=== PATIENT | male | born 1950 | race Caucasian/White ===

== ENCOUNTER 2020-09-03 09:39 | Outpatient (REF) | payer MEDICARE, SELFPAY ==
[2020-09-03 11:23] LABS: Hematocrit 44.6 % (42-52); Mean Corpuscular HGB Conc 33.6 g/dl (31.0-36.0); Mean Corpuscular Hemoglobin 30.7 pg (27.0-33.0); Mean Corpuscular Volume 91.2 fL (80-98); Mean Platelet Volume 10.9 fL (9.4-12.4); Platelet Count 304 X10*3/uL (160-400); Red Blood Count 4.89 X10*6/uL (4.60-5.80); White Blood Count 7.4 X10*3/uL (4.8-10.8)
[2020-09-03 11:41] LABS: Alanine Aminotransferase 32 U/L (0-40); Albumin Level 4.6 g/dL (3.5-5.0); Alkaline Phosphatase 80 U/L (39-117); Anion Gap 14 (12-20); Aspartate Amino Transferase 22 U/L (5-37); Bilirubin Total 0.6 mg/dL (0.0-1.0); Blood Urea Nitrogen 19 mg/dL (9-16); Calcium 9.3 mg/dL (8.4-10.2); Carbon Dioxide 26 mmol/L (22-29); Chloride 104 mmol/L (96-108); Cholesterol 179 mg/dL; Estimated Glomerular Filt Rate 56; Glucose Fasting 111 mg/dL (60-99); HDL Cholesterol 65 mg/dL; LDL Cholesterol Calculated 91 mg/dl; Potassium 4.3 mmol/L (3.3-5.1); Sodium 140 mmol/L (135-145); Total Protein 7.3 g/dL (6.5-8.0); Triglycerides 116 mg/dL
== END 2020-09-03 09:40 | disposition home or self-care (01) ==
LOC: HO.HMGCLDS 09:39
PROVIDERS: PCP Internal Medicine; Visit Provider Internal Medicine
DX: I10 Essential (primary) hypertension (principal); E78.2 Mixed hyperlipidemia; J42 Unspecified chronic bronchitis
CPT/HCPCS: 36415; 80053; 80061; 85027

== ENCOUNTER 2021-02-12 08:37 | Outpatient (REF) | payer MEDICARE, SELFPAY ==
[2021-02-12 11:25] LABS: Hematocrit 46.4 % (42-52); Hemoglobin 15.3 g/dl (14.0-18.0); Mean Platelet Volume 11.2 fL (9.4-12.4); Platelet Count 298 X10*3/uL (160-400); Red Cell Distribution Width 12.7 % (11.0-16.0)
[2021-02-12 12:14] LABS: Alanine Aminotransferase 32 U/L (0-40); Albumin Level 4.5 g/dL (3.5-5.0); Alkaline Phosphatase 77 U/L (39-117); Anion Gap 16 (12-20); Aspartate Amino Transferase 22 U/L (5-37); Bilirubin Total 0.7 mg/dL (0.0-1.0); Blood Urea Nitrogen 21 mg/dL (9-16); Calcium 9.6 mg/dL (8.4-10.2); Carbon Dioxide 22 mmol/L (22-29); Chloride 105 mmol/L (96-108); Cholesterol 179 mg/dL; Estimated Glomerular Filt Rate > 60; Glucose Fasting 105 mg/dL (60-99); HDL Cholesterol 58 mg/dL; LDL Cholesterol Calculated 102 mg/dl; Potassium 4.2 mmol/L (3.3-5.1); Sodium 139 mmol/L (135-145); Total Protein 7.2 g/dL (6.5-8.0); Triglycerides 99 mg/dL
[2021-02-12 12:22] LABS: Prostate Specific Antigen Scr 3.31 ng/mL (<0.05-4.0)
== END 2021-02-12 08:38 | disposition home or self-care (01) ==
LOC: HO.HMGCLDS 08:37
PROVIDERS: PCP Internal Medicine; Visit Provider Internal Medicine
DX: Z12.5 Encounter for screening for malignant neoplasm of prostate (principal); E78.5 Hyperlipidemia, unspecified; I10 Essential (primary) hypertension; J44.9 Chronic obstructive pulmonary disease, unspecified
CPT/HCPCS: 36415; 80053; 80061; 84153; 85027

== ENCOUNTER 2021-09-26 11:12 | Outpatient (REF) | payer MEDICARE, SELFPAY ==
[2021-09-26 13:51] LABS: Hematocrit 44.9 % (42.0-52.0); Hemoglobin 15.3 g/dl (14.0-18.0); Mean Corpuscular HGB Conc 34.1 g/dl (31.0-36.0); Mean Corpuscular Volume 90.9 fL (80.0-98.0); Platelet Count 270 X10*3/uL (160-400); Red Blood Count 4.94 X10*6/uL (4.60-5.80); Red Cell Distribution Width 13.2 % (11.0-16.0); White Blood Count 6.8 X10*3/uL (4.8-10.8)
[2021-09-26 14:00] LABS: Estimated Average Glucose 111 mg/dL; Hemoglobin A1c % 5.5 %
[2021-09-26 14:02] LABS: Alanine Aminotransferase 38 U/L (0-40); Albumin Level 4.5 g/dL (3.5-5.0); Alkaline Phosphatase 76 U/L (39-117); Anion Gap 12 (12-20); Aspartate Amino Transferase 25 U/L (5-37); Bilirubin Total 0.7 mg/dL (0.0-1.0); Blood Urea Nitrogen 22 mg/dL (9-16); Calcium 9.7 mg/dL (8.4-10.2); Carbon Dioxide 24 mmol/L (22-29); Chloride 103 mmol/L (96-108); Cholesterol 202 mg/dL; Estimated Glomerular Filt Rate 45; Glucose Fasting 120 mg/dL (60-99); HDL Cholesterol 58 mg/dL; LDL Cholesterol Calculated 107 mg/dl; Sodium 135 mmol/L (135-145); Total Protein 7.2 g/dL (6.5-8.0); Triglycerides 186 mg/dL
[2021-09-26 14:08] LABS: Creatinine Urine 153.09 mg/dL; Microalbum/Creatinine Ratio Ur 7.8 ug/mg cr
== END 2021-09-26 11:13 | disposition home or self-care (01) ==
LOC: HO.HMGCLDS 11:12
PROVIDERS: PCP Internal Medicine; Visit Provider Internal Medicine
DX: E78.5 Hyperlipidemia, unspecified (principal); I10 Essential (primary) hypertension
CPT/HCPCS: 36415; 80053; 80061; 82043; 83036; 85027

== ENCOUNTER 2021-10-09 07:54 | Outpatient (REF) | payer MEDICARE, SELFPAY ==
[2021-10-09 11:45] LABS: Anion Gap 15 (12-20); Blood Urea Nitrogen 20 mg/dL (9-16); Calcium 10.2 mg/dL (8.4-10.2); Carbon Dioxide 22 mmol/L (22-29); Chloride 104 mmol/L (96-108); Estimated Glomerular Filt Rate 50; Glucose Random 123 mg/dL (60-115); Sodium 137 mmol/L (135-145)
== END 2021-10-09 07:55 | disposition home or self-care (01) ==
LOC: HO.HMGCLDS 07:54
PROVIDERS: Visit Provider Internal Medicine
DX: I10 Essential (primary) hypertension (principal)
CPT/HCPCS: 36415; 80048

== ENCOUNTER 2022-09-07 08:30 | Outpatient (REF) | payer MEDICARE, SELFPAY ==
[2022-09-07 11:34] LABS: MANUAL DIFF FLAG NO
[2022-09-07 11:44] LABS: Basophils Percent Auto 0.4 % (0-2); Eosinophils Absolute Auto 0.2 X10*3/uL (0.0-0.4); Eosinophils Percent Auto 2.1 % (0-4); Hematocrit 46.7 % (42.0-52.0); Hemoglobin 15.1 g/dl (14.0-18.0); Imm Gran Abs Auto 0.02 X10*3/uL (0.00-0.03); Imm Gran Pct Auto 0.2 % (0.0-0.4); Lymphocytes Percent Auto 25.4 % (20-40); Mean Corpuscular HGB Conc 32.3 g/dl (31.0-36.0); Mean Corpuscular Hemoglobin 30.8 pg (27.0-33.0); Mean Corpuscular Volume 95.3 fL (80.0-98.0); Mean Platelet Volume 10.4 fL (9.4-12.4); Monocytes Absolute Auto 0.7 X10*3/uL (0.1-1.2); Monocytes Percent Auto 9.1 % (2-11); Neutrophils Percent Auto 62.8 % (45-73); Platelet Count 260 X10*3/uL (160-400); Red Cell Distribution Width 13.6 % (11.0-16.0)
[2022-09-07 12:03] LABS: Estimated Average Glucose 111 mg/dL; Hemoglobin A1c % 5.5 %
[2022-09-07 12:29] LABS: Alanine Aminotransferase 33 U/L (0-40); Alkaline Phosphatase 77 U/L (39-117); Anion Gap 14 (12-20); Aspartate Amino Transferase 25 U/L (5-37); Bilirubin Total 0.9 mg/dL (0.0-1.0); Blood Urea Nitrogen 12 mg/dL (9-16); Calcium 9.1 mg/dL (8.4-10.2); Carbon Dioxide 24 mmol/L (22-29); Chloride 105 mmol/L (96-108); Cholesterol 194 mg/dL; Estimated Glomerular Filt Rate > 60; Glucose Fasting 104 mg/dL (60-99); HDL Cholesterol 81 mg/dL; LDL Cholesterol Calculated 94 mg/dl; Potassium 3.6 mmol/L (3.3-5.1); Sodium 139 mmol/L (135-145); Total Protein 6.3 g/dL (6.5-8.0); Triglycerides 98 mg/dL
[2022-09-07 13:03] LABS: PSA,Total (Free>4and<10) 10.25 ng/mL (0.00-4.00)
== END 2022-09-07 08:31 | disposition home or self-care (01) ==
LOC: HO.HMGCLDS 08:30
PROVIDERS: PCP Internal Medicine; Visit Provider Internal Medicine
DX: Z12.5 Encounter for screening for malignant neoplasm of prostate (principal); E78.5 Hyperlipidemia, unspecified; R73.9 Hyperglycemia, unspecified; I10 Essential (primary) hypertension
CPT/HCPCS: 36415; 80053; 80061; 83036; 84153; 85025

== ENCOUNTER 2022-11-01 11:54 | Inpatient (IN) | payer MEDICARE, OTHER, SELFPAY ==
[2022-11-01] VITALS (7 sets, daily range): BP systolic 112–148; BP diastolic 70–82; PULSE 75–112; RESP 16–20; TEMP 36.4–36.7; O2SAT 96–98; BMI 26.1
--- NOTE | ~2022-11-01 | XR_ITS ---
EXAMINATION: XR CHEST CLINICAL INFORMATION: Post thoracentesis COMPARISON: Previous chest x-ray 11/01/2022 TECHNIQUE: 2 views of the chest were obtained. FINDINGS: The cardiac and mediastinal contours are stable. There is interval decrease in the left pleural effusion post thoracentesis. There is a small remaining left pleural effusion. There is no pneumothorax. There is are increased markings in the right upper lobe similar to previous exams. The right lung is otherwise clear. No right pleural effusion. XR/XR chest 2V IMPRESSION: No pneumothorax post left thoracentesis.
--- NOTE | ~2022-11-01 | US_ITS ---
EXAMINATION: Ultrasound-guided left thoracentesis. Clinical indications: Large left pleural effusion clinical indications: Large left pleural effusion. COMPARISON: CT chest 11/02/2022. TECHNIQUE: Following explaining ultrasound-guided left thoracentesis procedure, benefits and risk, a written consent was obtained. Patient was placed sitting upright with preliminary ultrasound imaging obtained through the posterior chest. An optimal site was selected along the left infrascapular line and marked. The marked site was cleaned and draped in usual sterile manner. 1% lidocaine was injected at puncture site. Through a small skin incision a 5 5 [employer] catheter was advanced into the pleural space. After observing fluid return, stylet was withdrawn and catheter connected to vacuum bottle via connecting cannula. After obtaining all fluid and observing normal fluid return, catheter was removed making sure no air leaked in. Sterile dressing applied postprocedure. Chest x-ray was obtained in expiration and expiration after procedure. Patient was monitored by IR nursing. FINDINGS: There is a large left pleural effusion on preliminary ultrasound imaging. Approximately 1.8 L of clear yellowish fluid was drained from the left pleural space. Part of this fluid was sent to lab as per referring physician's orders. US/US thoracentesis IMPRESSION: Successful ultrasound-guided therapeutic and diagnostic left thoracentesis.
--- NOTE | ~2022-11-01 | CT_ITS ---
EXAMINATION: CT CHEST WITHOUT CONTRAST CLINICAL INFORMATION: Reason for Exam quantify left pleural effusion. COMPARISON: No pertinent prior studies are available for comparison. TECHNIQUE: Multidetector volumetric imaging was performed from the thoracic inlet through the lung bases without contrast. Sagittal and coronal reformatted images were obtained on the technologist workstation. Soft tissue and lung algorithms evaluated. Thick slab MIP images were performed to increase nodule conspicuity. This CT examination was performed using dose optimization techniques as appropriate, variously including the following: *Automated exposure control *Adjustment of mA and/or kV according to patient size (this includes techniques or standardized protocols for targeted exams where dose is matched to indication/reason for exam; i.e. extremities or head) *Use of iterative reconstruction technique DLP: 299 mGy-cm. FINDINGS: LUNG: Mild dependent atelectatic change at the left base associated large left pleural effusion. There is patchy tree-in-bud opacification in the dependent aspect of the left upper lobe and lateral aspect of the aerated left lower lobe. Linear regions of scarring or atelectasis in both lung apices MEDIASTINUM: Vascular calcification in aorta. No bulky adenopathy. Small hiatal hernia suspected. CORONARY ARTERY CALCIFICATION: Absent PERICARDIUM/PLEURA: Large layering left-sided pleural effusion, extending into the left-sided fissure. No significant pericardial effusion THYROID/VISUALIZED LOWER NECK: Unremarkable. CHEST WALL/AXILLA: Unremarkable. VISUALIZED UPPER ABDOMEN: Endo Clip in the region of the pylorus BONES: Mild degenerative changes in the spine CT/CT chest wo IV con IMPRESSION: Large layering left-sided pleural effusion. There is patchy tree-in-bud opacification in the dependent aspect of the left upper lobe and lateral aspect of the aerated left lower lobe. Infectious or inflammatory causes would be favored. Linear atelectatic changes or scarring bilaterally as well.
--- NOTE | ~2022-11-01 | XR_ITS ---
EXAMINATION: XR CHEST CLINICAL INFORMATION: Shortness of breath, chest pain COMPARISON: Chest x-ray on 10/06/2018 TECHNIQUE: Frontal view of the chest was obtained. FINDINGS: Cardiomediastinal silhouette is normal. There is a small left-sided pleural effusion with adjacent atelectasis. No additional areas of consolidation. XR/XR chest 1V IMPRESSION: Small left pleural effusion with adjacent atelectasis.
--- NOTE | 2022-11-01 12:01 | ED_ITS ---
HPI - General Adult General Chief complaint: Abdominal Pain <DOLORES Chicas - Last Filed: 11/01/22 12:10> Stated complaint: dizziness/blood in stool/weakness <DOLORES Chicas - Last Filed: 11/01/22 12:10> Time Seen by Provider: 11/01/22 12:16 <DOLORES Chicas - Last Filed: 11/01/22 12:10> Source: patient, family (sister) and 911 emergency dispatcher <Samantha Thapa NP - Last Filed: 11/01/22 14:42> Mode of arrival: ambulatory <Samantha Thapa NP - Last Filed: 11/01/22 14:42> Limitations: language barrier <Samantha Thapa NP - Last Filed: 11/01/22 14:42> History of Present Illness HPI narrative: Patient is a 72-year-old male with history of PUD, H. pylori, HTN, COPD, HLD presenting to ED with several weeks of feeling weak and lightheaded, generalized abdominal and epigastric pain and dark, tarry stool since last night, had one episode this morning as well. He endorses nausea but denies any vomiting. He denies any fevers, chills, sweats. He reports an episode of near- syncope yesterday. His sister reports history of previous GI bleed requiring b lood transfusion years ago. Sister reports that the patient recently saw his PCP who notified patient that his PSA was elevated. He also reports an episode of left flank pain two days ago. <Samantha Thapa NP - Last Filed: 11/01/22 14:42> Related Data Home medications: Previous Rx's Medication Instructions Recorded pravastatin 80 mg tablet 80 mg PO DAILY #90 tabs 10/02/21 triamterene 37.5 1 tab PO DAILY #90 tabs 10/02/21 mg-hydrochlorothiazide 25 mg tablet triamcinolone acetonide 0.025 % 1 appl topical DAILY #60 mL 09/14/22 lotion olmesartan 40 mg tablet 40 mg PO DAILY #90 tabs 10/27/22 <DOLORES Chicas - Last Filed: 11/01/22 12:10> Allergies/adverse reactions: Allergies Allergy/AdvReac Type Severity Reaction Status Date / Time No Known Allergies Allergy Verified 11/01/22 12:01 <DOLORES Chicas - Last Filed: 11/01/22 12:10> Review of Systems Review of Systems: As per HPI <Samantha Thapa NP - Last Filed: 11/01/22 14:42> Yes all other systems are reviewed and are negative <Samantha Thapa NP - Last Filed: 11/01/22 14:42> [facility] Past Medical History Medical History: Medical History (Updated 11/01/22 @ 14:05 by Samantha Thapa NP) Cataract COPD (chronic obstructive pulmonary disease) H. pylori infection HTN (hypertension) Hyperlipemia Nephrolithiasis PUD (peptic ulcer disease) <DOLORES Chicas - Last Filed: 11/01/22 12:10> Surgical History: Surgical History (Updated 09/14/22 @ 10:35 by Haydee Gandhi MD) H/O colonoscopy History of esophagogastroduodenoscopy (EGD) <DOLORES Chicas - Last Filed: 11/01/22 12:10> Family History Family History: Family History Father No problems noted. Mother No problems noted. <DOLORES Chicas - Last Filed: 11/01/22 12:10> Social History Social History: Social History Housing: House Alcohol intake: current Alcohol intake frequency: a few times a week Patient Tobacco Use Status: Former Tobacco user Quit Date: over 10 years ago e-Cigarette/Vaping Use: Never Used Advance Directives: No Advance Directives Information Provided: Yes Current occupational status: employed and retired Cognitive needs: No Hearing needs: No Vision needs: No <DOLORES Chicas - Last Filed: 11/01/22 12:10> Physical Exam ED Vital Signs: Vital Signs - 24 hr 11/01/22 12:02 11/01/22 13:52 11/01/22 13:56 Temperature 98.1 F Pulse Rate 112 H 77 75 Respiratory Rate 16 16 Blood Pressure 112/75 120/79 125/75 Pulse Oximetry 98 96 Oxygen Delivery Method Room Air Room Air 11/01/22 13:53 11/01/22 13:54 Temperature Pulse Rate 92 98 Respiratory Rate Blood Pressure 116/70 125/75 Pulse Oximetry Oxygen Delivery Method BMI result Body Mass Index 26.1 <DOLORES Chicas - Last Filed: 11/01/22 12:10> Vital Signs - 24 hr 11/01/22 12:02 11/01/22 13:52 11/01/22 13:56 Temperature 98.1 F Pulse Rate 112 H 77 75 Respiratory Rate 16 16 Blood Pressure 112/75 120/79 125/75 Pulse Oximetry 98 96 Oxygen Delivery Method Room Air Room Air 11/01/22 13:53 11/01/22 13:54 Temperature Pulse Rate 92 98 Respiratory Rate Blood Pressure 116/70 125/75 Pulse Oximetry Oxygen Delivery Method BMI result Body Mass Index 26.1 Vital signs have been reviewed and appear to be correct. Blood pressure normal. Heart rate tachycardic. Respiratory rate normal. Temperature normal. Oxygen saturation normal. <Samantha Thapa NP - Last Filed: 11/01/22 14:42> Const General: cooperative, no acute distress, alert and awake <Samantha Thapa NP - Last Filed: 11/01/22 14:42> Orientation/consciousness: patient oriented x3 <Samantha Thapa NP - Last Filed: 11/01/22 14:42> HENGA Head: Yes normocephalic and Yes atraumatic <Samantha Thapa NP - Last Filed: 11/01/22 14:42> Ears: external ears normal and TM's normal bilaterally <Samantha Thapa NP - Last Filed: 11/01/22 14:42> General nose exam: Normal external nose present <Samantha Thapa NP - Last Filed: 11/01/22 14:42> Mouth: Normal oral and palatal mucosa present and moist mucous membranes <Samantha Thapa NP - Last Filed: 11/01/22 14:42> Throat: Yes uvula midline <Samantha Thapa NP - Last Filed: 11/01/22 14:42> Eyes Conjunctivae: conjunctival abnormal bilateral pallor <Samantha Thapa NP - Last Filed: 11/01/22 14:42> Sclerae: sclerae normal <Samantha Thapa NP - Last Filed: 11/01/22 14:42> Pupils: Equal, round and reactive pupils present <Samantha Thapa NP - Last Filed: 11/01/22 14:42> EOM: EOMs intact bilaterally <Samantha Thapa NP - Last Filed: 11/01/22 14:42> Neck Neck: Yes normal visual inspection, Yes full ROM, Yes no lymphadenopathy and Yes supple <Samantha Thapa NP - Last Filed: 11/01/22 14:42> Chest Chest palpation & inspection: normal inspection of the chest and normal palpation of entire chest wall <Samantha Thapa NP - Last Filed: 11/01/22 14:42> Resp Effort & Inspection: normal respiratory effort <Samantha Thapa NP - Last Filed: 11/01/22 14:42> Auscultation: clear to auscultation bilaterally <Samantha Thapa NP - Last Filed: 11/01/22 14:42> Cardio Rate: regular rate <Samantha Thapa NP - Last Filed: 11/01/22 14:42> Rhythm: regular rhythm <Samantha Thapa NP - Last Filed: 11/01/22 14:42> Heart sounds: S1 normal heart sound present and S2 normal heart sound present <Samantha rodriguez NP - Last Filed: 11/01/22 14:42> Peripheral pulses: Peripheral pulses 2+ throughout <Samantha Thapa NP - Last Filed: 0 11/01/22 14:42> GI Other: Chaperoned by OSCAR Suarez. <Samantha Thapa NP - Last Filed: 11/01/22 14:42> Inspection: Yes normal to inspection, No abdominal wall ecchymosis, No distended, No visible herniation and No visible pulsation <Samantha Thapa NP - Last Filed: 11/01/22 14:42> Palpation (GI): Soft to palpation, Tenderness to palpation present (GI) in the epigastrum; with no rebound tenderness, no hernias, no masses, no pulsatile masses and No Rebound tenderness present <ALEJANDRO Harden Last Filed: 11/01/22 14:42> Auscultation: normoactive bowel sounds <aSmantha Thapa NP - Last Filed: 11/01/22 14:42> Rectal Exam - Male: Yes visual inspection normal, Yes heme positive stool, No External hemorrhoid(s) present, No Rectal prolapse, No mass and No tenderness <Samantha Thapa NP - Last Filed: 11/01/22 14:42> General: Yes CVA tenderness on the left <Samantha Thapa NP - Last Filed: 14:42> Back/Spine/Pelvis Back: CVA tenderness <Samantha Thapa NP - Last Filed: 11/01/22 14:42> Skin General skin exam: elasticity normal, turgor normal and pallor <Samantha Thapa NP - Last Filed: 11/01/22 14:42> Neuro General: patient oriented x3, tone normal, moves all extremities, Normal light touch and pain sensation and CN's II-XI intact bilaterally <Samantha Thapa NP - Last Filed: 11/01/22 14:42> Cranial nerves: Yes Equal, round and reactive pupils present <Samantha Thapa NP - Last Filed: 11/01/22 14:42> Gait exam (Neuro): Normal gait present <Samantha Thapa NP - Last Filed: 11/01/22 14:42> Psych Appearance: well kempt <Samantha Thapa NP - Last Filed: 11/01/22 14:42> Affect: normal affect <Samantha Thapa NP - Last Filed: 11/01/22 14:42> Attitude: cooperative <Samantha Thapa NP - Last Filed: 11/01/22 14:42> Thought process: Normal thought process present <Samantha Thapa NP - Last Filed: 11/01/22 14:42> Insight: Good insight present (Psych) <Samantha Thapa NP - Last Filed: 11/01/22 14:42> Judgement: Good judgement present (Psych) <Samantha Thapa NP - Last Filed: 11/01/22 14:42> Course Course Course Narrative: RME: 72yo M w/PMHx HLD, PUD/bleeding ulcer requiring transfusion, COPD, HTN, HLD, complaining of epigastric abdominal pain, generalized fatigue/weakness , lightheadedness/dizziness, and black stool x 3 weeks. Denies taking anticoagulation. Also reports nausea, vomiting, and diarrhea Patient tachycardic to 112, abdomen soft with epigastric tenderness, no rebound or guarding. EKG, labs, UA, CXR, occult stool, type and screen, IVF ordered Full HPI, ROS and PE to be performed by primary ED provider. <DOLORES Chicas - Last Filed: 11/01/22 12:10> RME: 72yo M w/PMHx HLD, PUD/bleeding ulcer requiring transfusion, COPD, HTN, HLD, complaining of epigastric abdominal pain, generalized fatigue/weakness, lightheadedness/dizziness, and black stool x 3 weeks. Denies taking anticoagulation. Also reports nausea, vomiting, and diarrhea Patient tachycardic to 112, abdomen soft with epigastric tenderness, no rebound or guarding. EKG, labs, UA, CXR, occult stool, type and screen, IVF ordered Full HPI, ROS and PE to be performed by primary ED provider. 13:07 Significant drop in H&H from 3, ordered PPI. No indication for octreotide or abx given low likelihood of variceal bleeding from portal HTN or cirrhosis. Notified Dr. Rangel about patient via [place] text 13:[address] Nava via [place] text regarding admission who accepted 13:42 FINDINGS: Cardiomediastinal silhouette is normal. There is a small left-sided pleural effusion with adjacent atelectasis. No additional areas of consolidation. XR/XR chest 1V IMPRESSION: Small left pleural effusion with adjacent atelectasis. <Samantha Thapa NP - Last Filed: 11/01/22 14:42> Medications Administered Discontinued Medications Generic Name Dose Route Start Last Admin Trade Name Freq PRN Reason Stop Dose Admin Sodium Chloride 1,000 mls @ 999 mls/hr 11/01/22 12:15 11/01/22 13:00 Ns IV 11/01/22 13:15 999 mls/hr .Q1H1M TE[place]O Administration Pantoprazole Sodium 80 mg 11/01/22 12:57 11/01/22 13:15 Pantoprazole Sodium 40 Mg/10 Ml Vial IVPUSH 11/01/22 12:58 80 mg ONCE ONE Administration <DOLORES Chicas - Last Filed: 11/01/22 12:10> Medications Administered Discontinued Medications Generic Name Dose Route Start Last Admin Trade Name Frevane PRN Reason Stop Dose Admin Sodium Chloride 1,000 mls @ 999 mls/hr 11/01/22 12:15 11/01/22 13:00 Ns IV 11/01/22 13:15 999 mls/hr .Q1H1M [place]O Administration Pantoprazole Sodium 80 mg 11/01/22 12:57 11/01/22 13:15 Pantoprazole Sodium 40 Mg/10 Ml Vial IVPUSH 11/01/22 12:58 80 mg ONCE ONE Administration <Samantha Thapa NP - Last Filed: 11/01/22 14:42> Medical Decision Making Medical Decision Making MDM Narrative: Patient is a 72-year-old male with history of PUD, H. pylori, HTN, COPD, HLD presenting to ED with several weeks of feeling weak and lightheaded, generalized abdominal and epigastric pain and dark, tarry stool since last night, had one episode this morning as well. On exam patient is awake, alert, oriented x 3, ambulating with steady gait, pale with pale conjunctiva, mildly tachycardic at 112, BP WNL at 112/75. He is afebrile. Abdomen is soft, mildly TTP epigastric, no guarding or rebound tenderness, no distention, guaic positive at bedside. Mild L CVA tenderness. Concern for GI bleed/PUD/gastritis/[place]- [place] tear/AVM given reported history and physical exam findings. Lower concern for ACS/VT, AAA rupture, aortic dissection, PE, pneumonia, mesenteric ischemia, cholecystitis. Doubt sepsis, tachycardia likely related to blood loss, however patient does have leukocytosis at 14.6, will order blood cultures and lactic acid, do not feel abx are indicated at this time. Plan: labs, including T&S, EKG, CXR, urinalysis, monitoring Please see course for remaining clinical decision making. <Samantha Thapa NP - Last Filed: 11/01/22 14:42> Differential Diagnosis Differential Diagnoses: The differential diagnosis associated with the presentation includes <Samantha Thapa NP - Last Filed: 11/01/22 14:42> As above. <Samantha Thapa NP - Last Filed: 11/01/22 14:42> Admission/Observation Consideration of admission/observation: Escalation of care including admission/observation considered <Samantha Thapa NP - Last Filed: 11/01/22 14:42> Consult Healthcare Provider Management of the patient was discussed with: Hospitalist (Dr. Nava) and Alignment Mechanic (Dr. Rangel) <Samantha Thapa NP - Last Filed: 11/01/22 14:42> Lab Data MDM Lab Attestation statement: I reviewed the patient's lab results. <Samantha Thapa NP - Last Filed: 11/01/22 14:42> Result Diagrams: 11/01/22 12:21 11/01/22 12:21 <DOLORES Chicas - Last Filed: 11/01/22 12:10> Labs: Lab Results 11/01/22 11/01/22 11/01/22 Range/Units 12:21 12:21 12:21 WBC 14.6 H (4.8-10.8) X10*3/uL RBC 3.91 L D (4.60-5.80) X10*6/uL Hgb 12.3 L (14.0-18.0) g/dl Hct 36.5 L D (42.0-52.0) % MCV 93.4 (80.0-98.0) fL MCH 31.5 (27.0-33.0) pg MCHC 33.7 (31.0-36.0) g/dl RDW 13.3 (11.0-16.0) % Plt Count 428 H D (160-400) X10*3/uL MPV 10.1 (9.4-12.4) fL Immature Gran % (Auto) 0.4 (0.0-0.4) % Neut % (Auto) 83.8 H (45-73) % Lymph % (Auto) 9.4 L (20-40) % [place] % (Auto) 5.9 (2-11) % Eos % (Auto) 0.2 (0-4) % Baso % (Auto) 0.3 (0-2) % Lymph # (Auto) 1.4 (1.2-4.9) X10*3/uL [place] # (Auto) 0.9 (0.1-1.2) X10*3/uL Eos # (Auto) 0.0 (0.0-0.4) X10*3/uL Baso # (Auto) 0.0 (0.0-0.2) X10*3/uL Abs Immat Gran (auto) 0.06 H (0.00-0.03) X10*3/uL Absolute Neuts (auto) 12.2 H (2.0-8.3) x10*3/uL Absolute Nucleated RBC 0.000 (0.0-0.012) X10*3/uL Nucleated RBC % (auto) 0.0 (0.0-0.2) /100WBC PT 13.6 H (10.0-13.1) SEC INR 1.2 H (0.9-1.1) Sodium 139 (135-145) mmol/L Potassium 4.1 (3.3-5.1) mmol/L Chloride 109 H (96-108) mmol/L Carbon Dioxide 18 L (22-29) mmol/L Anion Gap 16 (12-20) BUN 38 H (9-16) mg/dL Creatinine 1.24 (0.5-1.4) mg/dL Estim Creat Clear Calc 50.3 Estimated GFR 57 Random Glucose 186 H (60-115) mg/dL Calcium 9.2 (8.4-10.2) mg/dL Magnesium 2.1 (1.6-2.6) mg/dL Total Bilirubin 0.5 (0.0-1.0) mg/dL Direct Bilirubin 0.2 (0.0-0.5) mg/dL AST 17 (5-37) U/L ALT 18 (0-40) U/L Alkaline Phosphatase 85 (39-117) U/L Troponin I High Sens (<3.5-35.0) ng/L B-Natriuretic Peptide (<100) pg/mL Total Protein 6.1 L (6.5-8.0) g/dL Albumin 3.6 (3.5-5.0) g/dL Lipase 17 (8-78) U/L Stool Occult Blood (NEGATIVE) Blood Type Antibody Screen 11/01/22 11/01/22 11/01/22 Range/Units 12:21 12:21 12:55 WBC (4.8-10.8) X10*3/uL RBC (4.60-5.80) X10*6/uL Hgb (14.0-18.0) g/dl Hct (42.0-52.0) % MCV (80.0-98.0) fL MCH (27.0-33.0) pg MCHC (31.0-36.0) g/dl RDW (11.0-16.0) % Plt Count (160-400) X10*3/uL MPV (9.4-12.4) fL Immature Gran % (Auto) (0.0-0.4) % Neut % (Auto) (45-73) % Lymph % (Auto) (20-40) % [place] % (Auto) (2-11) % Eos % (Auto) (0-4) % Baso % (Auto) (0-2) % Lymph # (Auto) (1.2-4.9) X10*3/uL [place] # (Auto) (0.1-1.2) X10*3/uL Eos # (Auto) (0.0-0.4) X10*3/uL Baso # (Auto) (0.0-0.2) X10*3/uL Abs Immat Gran (auto) (0.00-0.03) X10*3/uL Absolute Neuts (auto) (2.0-8.3) x10*3/uL Absolute Nucleated RBC (0.0-0.012) X10*3/uL Nucleated RBC % (auto) (0.0-0.2) /100WBC PT (10.0-13.1) SEC INR (0.9-1.1) Sodium (135-145) mmol/L Potassium (3.3-5.1) mmol/L Chloride (96-108) mmol/L Carbon Dioxide (22-29) mmol/L Anion Gap (12-20) BUN (9-16) mg/dL Creatinine (0.5-1.4) mg/dL Estim Creat Clear Calc Estimated GFR Random Glucose (60-115) mg/dL Calcium (8.4-10.2) mg/dL Magnesium (1.6-2.6) mg/dL Total Bilirubin (0.0-1.0) mg/dL Direct Bilirubin (0.0-0.5) mg/dL AST (5-37) U/L ALT (0-40) U/L Alkaline Phosphatase (39-117) U/L Troponin I High Sens 8.1 (<3.5-35.0) ng/L B-Natriuretic Peptide 443 H (<100) pg/mL Total Protein (6.5-8.0) g/dL Albumin (3.5-5.0) g/dL Lipase (8-78) U/L Stool Occult Blood POSITIVE (NEGATIVE) Blood Type Antibody Screen 11/01/22 Range/Units 12:55 WBC (4.8-10.8) X10*3/uL RBC (4.60-5.80) X10*6/uL Hgb (14.0-18.0) g/dl Hct (42.0-52.0) % MCV (80.0-98.0) fL MCH (27.0-33.0) pg MCHC (31.0-36.0) g/dl RDW (11.0-16.0) % Plt Count (160-400) X10*3/uL MPV (9.4-12.4) fL Immature Gran % (Auto) (0.0-0.4) % Neut % (Auto) (45-73) % Lymph % (Auto) (20-40) % [place] % (Auto) (2-11) % Eos % (Auto) (0-4) % Baso % (Auto) (0-2) % Lymph # (Auto) (1.2-4.9) X10*3/uL [place] # (Auto) (0.1-1.2) X10*3/uL Eos # (Auto) (0.0-0.4) X10*3/uL Baso # (Auto) (0.0-0.2) X10*3/uL Abs Immat Gran (auto) (0.00-0.03) X10*3/uL Absolute Neuts (auto) (2.0-8.3) x10*3/uL Absolute Nucleated RBC (0.0-0.012) X10*3/uL Nucleated RBC % (auto) (0.0-0.2) /100WBC PT (10.0-13.1) SEC INR (0.9-1.1) Sodium (135-145) mmol/L Potassium (3.3-5.1) mmol/L Chloride (96-108) mmol/L Carbon Dioxide (22-29) mmol/L Anion Gap (12-20) BUN (9-16) mg/dL Creatinine (0.5-1.4) mg/dL Estim Creat Clear Calc Estimated GFR Random Glucose (60-115) mg/dL Calcium (8.4-10.2) mg/dL Magnesium (1.6-2.6) mg/dL Total Bilirubin (0.0-1.0) mg/dL Direct Bilirubin (0.0-0.5) mg/dL AST (5-37) U/L ALT (0-40) U/L Alkaline Phosphatase (39-117) U/L Troponin I High Sens (<3.5-35.0) ng/L B-Natriuretic Peptide (<100) pg/mL Total Protein (6.5-8.0) g/dL Albumin (3.5-5.0) g/dL Lipase (8-78) U/L Stool Occult Blood (NEGATIVE) Blood Type O Positive Antibody Screen NEGATIVE <DOLORES Chicas - Last Filed: 11/01/22 12:10> Lab Results 11/01/22 11/01/22 11/01/22 Range/Units 12:21 12:21 12:21 WBC 14.6 H (4.8-10.8) X10*3/uL RBC 3.91 L D (4.60-5.80) X10*6/uL Hgb 12.3 L (14.0-18.0) g/dl Hct 36.5 L D (42.0-52.0) % MCV 93.4 (80.0-98.0) fL MCH 31.5 (27.0-33.0) pg MCHC 33.7 (31.0-36.0) g/dl RDW 13.3 (11.0-16.0) % Plt Count 428 H D (160-400) X10*3/uL MPV 10.1 (9.4-12.4) fL Immature Gran % (Auto) 0.4 (0.0-0.4) % Neut % (Auto) 83.8 H (45-73) % Lymph % (Auto) 9.4 L (20-40) % [place] % (Auto) 5.9 (2-11) % Eos % (Auto) 0.2 (0-4) % Baso % (Auto) 0.3 (0-2) % Lymph # (Auto) 1.4 (1.2-4.9) X10*3/uL [place] # (Auto) 0.9 (0.1-1.2) X10*3/uL Eos # (Auto) 0.0 (0.0-0.4) X10*3/uL Baso # (Auto) 0.0 (0.0-0.2) X10*3/uL Abs Immat Gran (auto) 0.06 H (0.00-0.03) X10*3/uL Absolute Neuts (auto) 12.2 H (2.0-8.3) x10*3/uL Absolute Nucleated RBC 0.000 (0.0-0.012) X10*3/uL Nucleated RBC % (auto) 0.0 (0.0-0.2) /100WBC PT 13.6 H (10.0-13.1) SEC INR 1.2 H (0.9-1.1) Sodium 139 (135-145) mmol/L Potassium 4.1 (3.3-5.1) mmol/L Chloride 109 H (96-108) mmol/L Carbon Dioxide 18 L (22-29) mmol/L Anion Gap 16 (12-20) BUN 38 H (9-16) mg/dL Creatinine 1.24 (0.5-1.4) mg/dL Estim Creat Clear Calc 50.3 Estimated GFR 57 Random Glucose 186 H (60-115) mg/dL Calcium 9.2 (8.4-10.2) mg/dL Magnesium 2.1 (1.6-2.6) mg/dL Total Bilirubin 0.5 (0.0-1.0) mg/dL Direct Bilirubin 0.2 (0.0-0.5) mg/dL AST 17 (5-37) U/L ALT 18 (0-40) U/L Alkaline Phosphatase 85 (39-117) U/L Troponin I High Sens (<3.5-35.0) ng/L B-Natriuretic Peptide (<100) pg/mL Total Protein 6.1 L (6.5-8.0) g/dL Albumin 3.6 (3.5-5.0) g/dL Lipase 17 (8-78) U/L Stool Occult Blood (NEGATIVE) Blood Type Antibody Screen 11/01/22 11/01/22 11/01/22 Range/Units 12:21 12:21 12:55 WBC (4.8-10.8) X10*3/uL RBC (4.60-5.80) X10*6/uL Hgb (14.0-18.0) g/dl Hct (42.0-52.0) % MCV (80.0-98.0) fL MCH (27.0-33.0) pg MCHC (31.0-36.0) g/dl RDW (11.0-16.0) % Plt Count (160-400) X10*3/uL MPV (9.4-12.4) fL Immature Gran % (Auto) (0.0-0.4) % Neut % (Auto) (45-73) % Lymph % (Auto) (20-40) % [place] % (Auto) (2-11) % Eos % (Auto) (0-4) % Baso % (Auto) (0-2) % Lymph # (Auto) (1.2-4.9) X10*3/uL [place] # (Auto) (0.1-1.2) X10*3/uL Eos # (Auto) (0.0-0.4) X10*3/uL Baso # (Auto) (0.0-0.2) X10*3/uL Abs Immat Gran (auto) (0.00-0.03) X10*3/uL Absolute Neuts (auto) (2.0-8.3) x10*3/uL Absolute Nucleated RBC (0.0-0.012) X10*3/uL Nucleated RBC % (auto) (0.0-0.2) /100WBC PT (10.0-13.1) SEC INR (0.9-1.1) Sodium (135-145) mmol/L Potassium (3.3-5.1) mmol/L Chloride (96-108) mmol/L Carbon Dioxide (22-29) mmol/L Anion Gap (12-20) BUN (9-16) mg/dL Creatinine (0.5-1.4) mg/dL Estim Creat Clear Calc Estimated GFR Random Glucose (60-115) mg/dL Calcium (8.4-10.2) mg/dL Magnesium (1.6-2.6) mg/dL Total Bilirubin (0.0-1.0) mg/dL Direct Bilirubin (0.0-0.5) mg/dL AST (5-37) U/L ALT (0-40) U/L Alkaline Phosphatase (39-117) U/L Troponin I High Sens 8.1 (<3.5-35.0) ng/L B-Natriuretic Peptide 443 H (<100) pg/mL Total Protein (6.5-8.0) g/dL Albumin (3.5-5.0) g/dL Lipase (8-78) U/L Stool Occult Blood POSITIVE (NEGATIVE) Blood Type Antibody Screen 11/01/22 Range/Units 12:55 WBC (4.8-10.8) X10*3/uL RBC (4.60-5.80) X10*6/uL Hgb (14.0-18.0) g/dl Hct (42.0-52.0) % MCV (80.0-98.0) fL MCH (27.0-33.0) pg MCHC (31.0-36.0) g/dl RDW (11.0-16.0) % Plt Count (160-400) X10*3/uL MPV (9.4-12.4) fL Immature Gran % (Auto) (0.0-0.4) % Neut % (Auto) (45-73) % Lymph % (Auto) (20-40) % [place] % (Auto) (2-11) % Eos % (Auto) (0-4) % Baso % (Auto) (0-2) % Lymph # (Auto) (1.2-4.9) X10*3/uL [place] # (Auto) (0.1-1.2) X10*3/uL Eos # (Auto) (0.0-0.4) X10*3/uL Baso # (Auto) (0.0-0.2) X10*3/uL Abs Immat Gran (auto) (0.00-0.03) X10*3/uL Absolute Neuts (auto) (2.0-8.3) x10*3/uL Absolute Nucleated RBC (0.0-0.012) X10*3/uL Nucleated RBC % (auto) (0.0-0.2) /100WBC PT (10.0-13.1) SEC INR (0.9-1.1) Sodium (135-145) mmol/L Potassium (3.3-5.1) mmol/L Chloride (96-108) mmol/L Carbon Dioxide (22-29) mmol/L Anion Gap (12-20) BUN (9-16) mg/dL Creatinine (0.5-1.4) mg/dL Estim Creat Clear Calc Estimated GFR Random Glucose (60-115) mg/dL Calcium (8.4-10.2) mg/dL Magnesium (1.6-2.6) mg/dL Total Bilirubin (0.0-1.0) mg/dL Direct Bilirubin (0.0-0.5) mg/dL AST (5-37) U/L ALT (0-40) U/L Alkaline Phosphatase (39-117) U/L Troponin I High Sens (<3.5-35.0) ng/L B-Natriuretic Peptide (<100) pg/mL Total Protein (6.5-8.0) g/dL Albumin (3.5-5.0) g/dL Lipase (8-78) U/L Stool Occult Blood (NEGATIVE) Blood Type O Positive Antibody Screen NEGATIVE <Samantha Thapa NP - Last Filed: 11/01/22 14:42> Independent Interpretation I performed an independent interpretation of an: EKG and Plain X-Ray <Samantha Thapa NP - Last Filed: 11/01/22 14:42> Interpretation: I independently reviewed the x-ray and agree with the radiologist's interpretation. EKG: sinus tachycardia with PVCs, rate 105 bpm, normal [place] inter tammie <Samantha Thapa NP - Last Filed: 11/01/22 14:42> Radiology Impression Discussion of test interpretation with radiology: I have reviewed the radiologist's reading. <Samantha Thapa NP - Last Filed: 11/01/22 14:42> Independent Historian Clinical information obtained from an independent historian. History obtained from or confirmed by: Other (sister) <ALEJANDRO Harden Last Filed: 11/01/22 14:42> External Record Review External record reviewed: Inpatient record, Office record and Outpatient record <ALEJANDRO Harden Last Filed: 11/01/22 14:42> Chronic Conditions Patient?s care impacted by: Hypertension and Other (PUD, H. pylori) <ALEJANDRO Harden Last Filed: 11/01/22 14:42> Critical Care Time Critical Care Time Critical Care Time: Yes <ALEJANDRO Harden Last Filed: 11/01/22 14:42> Total Critical Care Time: 30 <Samantha Thapa NP - Last Filed: 11/01/22 14:42> Attestation: I have personally provided critical care time exclusive of time spent on separately billable procedures. Time includes review of lab data, radiology results, discussion with consultants, and monitoring for potential decompensation. Intervention performed as documented. <Samantha Thapa NP - Last Filed: 11/01/22 14:42> Discharge Plan Discharge Clinical Impression: ABLA (acute blood loss anemia), Pleural effusion <DOLORES Chicas - Last Filed: 11/01/22 12:10> Patient Disposition: Admitted As Inpatient <DOLORES Chicas - Last Filed: 11/01/22 12:10>
--- NOTE | 2022-11-01 12:05 | ECG_ITS ---
Test Reason : dizzy Blood Pressure : / mmHG Vent. Rate : 105 BPM Atrial Rate : 105 BPM P-R Int : 124 ms QRS Dur : 082 ms QT Int : 344 ms P-R-T Axes : 057 021 077 degrees QTc Int : 454 ms Sinus tachycardia with Premature supraventricular complexes Nonspecific ST and T wave abnormality Abnormal ECG When compared with ECG of 24-JUN-2004 06:59, Premature supraventricular complexes are now Present Criteria for Septal infarct are no longer Present ST now depressed in Anterior leads Referred By: Yanique Salazar Electronically Signed By:JARRETT SHAFFER
[2022-11-01 12:26] LABS: MANUAL DIFF FLAG NO
[2022-11-01 12:27] LABS: Basophils Percent Auto 0.3 % (0-2); Eosinophils Percent Auto 0.2 % (0-4); Hematocrit 36.5 % (42.0-52.0); Hemoglobin 12.3 g/dl (14.0-18.0); Imm Gran Abs Auto 0.06 X10*3/uL (0.00-0.03); Imm Gran Pct Auto 0.4 % (0.0-0.4); Lymphocytes Absolute Auto 1.4 X10*3/uL (1.2-4.9); Lymphocytes Percent Auto 9.4 % (20-40); Mean Corpuscular HGB Conc 33.7 g/dl (31.0-36.0); Mean Corpuscular Hemoglobin 31.5 pg (27.0-33.0); Mean Corpuscular Volume 93.4 fL (80.0-98.0); Mean Platelet Volume 10.1 fL (9.4-12.4); Monocytes Absolute Auto 0.9 X10*3/uL (0.1-1.2); Monocytes Percent Auto 5.9 % (2-11); Neutrophils Absolute Auto 12.2 x10*3/uL (2.0-8.3); Neutrophils Percent Auto 83.8 % (45-73); Platelet Count 428 X10*3/uL (160-400); Red Blood Count 3.91 X10*6/uL (4.60-5.80); Red Cell Distribution Width 13.3 % (11.0-16.0); White Blood Count 14.6 X10*3/uL (4.8-10.8)
[2022-11-01 12:33] LABS: INTERNATIONAL NORM RATIO 1.2 (0.9-1.1); Prothrombin Time 13.6 SEC (10.0-13.1)
[2022-11-01 12:57] LABS: Alanine Aminotransferase 18 U/L (0-40); Albumin Level 3.6 g/dL (3.5-5.0); Alkaline Phosphatase 85 U/L (39-117); Anion Gap 16 (12-20); Aspartate Amino Transferase 17 U/L (5-37); Bilirubin Direct 0.2 mg/dL (0.0-0.5); Bilirubin Total 0.5 mg/dL (0.0-1.0); Blood Urea Nitrogen 38 mg/dL (9-16); Calcium 9.2 mg/dL (8.4-10.2); Carbon Dioxide 18 mmol/L (22-29); Chloride 109 mmol/L (96-108); Creatinine Clr Calc Pharmacy 50.3; Estimated Glomerular Filt Rate 57; Glucose Random 186 mg/dL (60-115); Lipase 17 U/L (8-78); Magnesium 2.1 mg/dL (1.6-2.6); Potassium 4.1 mmol/L (3.3-5.1); Sodium 139 mmol/L (135-145); Total Protein 6.1 g/dL (6.5-8.0)
[2022-11-01] MEDS: 0.9 % Sodium Chloride 1,000 ML 999 ML IV (13:00)
[2022-11-01 13:02] LABS: Troponin-I High Sensitivity 8.1 ng/L (<3.5-35.0)
[2022-11-01 13:04] LABS: OBS Int Ctl Valid YES; OBS1 POSITIVE (NEGATIVE)
[2022-11-01] MEDS: Pantoprazole Sodium 40 MG/10 ML VIAL 80 MG IVPUSH (13:15)
[2022-11-01 14:22] LABS: B Type Natriuretic Peptide 443 pg/mL (<100)
--- NOTE | 2022-11-01 14:35 | PHA.MEDREC ---
Pharmacy Consult ? Medication Reconciliation Pharmacy has completed the medication reconciliation. Spoke to patient to confirm meds. Reviewed office visit from 09/14/[address] Gandhi record as well to confirm meds.
--- NOTE | 2022-11-01 14:36 | P.HPHOSP_ITS ---
History of Present Illness Date of Service: 11/01/22 Attending physician on admission: Nate Nava Chief Complaint: melena 72-year-old male with history of hypertension, hyperlipidemia, COPD, elevated PSA, history of PUD with H pylori presents to the ED with his sister Danita who assists with [place] interpretation (Juan interpretation offered and declined) for evaluation of diffuse abd pain, nausea, and melena ongoing since last night. No associated vomiting, diarrhea, constipation, or hematochezia. Reports has had similar symptoms several times in the past, most recently was 5-6 years ago and underwent EGD required blood transfusions. He is also reporting dyspnea on exertion and intermittent episodes of chest pain that is nonradiating. Unable to describe the pain but states is not currently present. He also endorses bilateral lower extremity edema that is intermittent. There is also left sided rib pain. Denies any orthopnea or PND. He is a former smoker who quit 13 years ago. Denies any illicit drug use. Reports drinking 1-2 beers on a near daily basis. On arrival, patient initially tachycardic to 112 which resolved with IVF. Vitals otherwise normal. Leukocytosis of 14.5. H/H 12.3/36.5% (09/07: H/H 15.1/46.7%). Pt/INR 13.6/1.2. Creatinine baseline at 1.24, BUN 38. Sodium 139, potassium 4.1, chloride 109, CO2 18. Troponin 8.1. BNP 443. Procalcitonin 0.28. Stool occult positive. CXR showing small left-sided pleural effusion with adjacent atelectasis. EKG showing sibus tachycardia with premature supraventricular complexes with nonspecific ST/T-wave abnormality. In the ED, received, 1 L bolus IV NS. Review of Systems Review of Systems: General: No fevers, malaise, unintentional weight loss HEENT: No blurred vision, diplopia. No sore throat, nasal congestion, rhinorrhea, sinus pain, ear pain Cardiovascular: +chest pain, +BLE. No palpitations. Respiratory: +parry. No orthopnea, pnd, wheezing, cough GI: +diffuse abd pain, +nausea, melena. No vomiting, diarrhea, constipation, hematochezia : No dysuria, hematuria, increased urinary frequency, decreased urinary output MSK: No myalgia, back pain Neuro: No headaches, weakness, paresthesias Skin: No rashes or lesions [facility] Medical History Cataract COPD (chronic obstructive pulmonary disease) H. pylori infection HTN (hypertension) Hyperlipemia Nephrolithiasis PUD (peptic ulcer disease) Family History Father No problems noted. Mother No problems noted. Surgical History H/O colonoscopy History of esophagogastroduodenoscopy (EGD) Social History Housing: House Alcohol intake: current Alcohol intake frequency: a few times a week Patient Tobacco Use Status: Former Tobacco user Quit Date: over 10 years ago e-Cigarette/Vaping Use: Never Used Advance Directives: No Advance Directives Information Provided: Yes Current occupational status: employed and retired Cognitive needs: No Hearing needs: No Vision needs: No Meds Allergies Allergy/AdvReac Type Severity Reaction Status Date / Time No Known Allergies Allergy Verified 11/01/22 12:01 Active Medications: Current Medications Acetaminophen (Acetaminophen 325 Mg Tablet) 650 mg PO Q6H PRN PRN Reason: Pain, Mild (Pain Scale 1-3) Docusate Sodium (Docusate Sodium 100 Mg Capsule) 100 mg PO DAILY PRN PRN Reason: Constipation Furosemide (Furosemide 40 Mg/4 Ml Vial) 40 mg IVPUSH DAILY [facility]; Protocol Ondansetron HCl (Ondansetron Hcl 4 Mg/2 Ml Vial) 4 mg IVPUSH Q8H PRN PRN Reason: Nausea and Vomiting Pantoprazole Sodium (Pantoprazole Sodium 40 Mg/10 Ml Vial) 40 mg IVPUSH BID@0630,1630 [facility] Pharmacy Consult (Consult Rx Perform Med Rec) 1 each MISCELLANE ONCE PRN PRN Reason: Consult order Sodium Chloride (0.9 % Sodium Chloride Flush 3 Ml Syringe) 3 ml IVFLUSH QSHIFT [facility] Sucralfate (Sucralfate 1 Gm Tablet) 1 gm PO QIDACHS [facility] Physical Exam Vital Signs and Narrative: Vital Signs: Last Vital Signs Temp 98.1 F 11/01/22 12:02 Pulse 75 11/01/22 13:56 Resp 16 11/01/22 13:56 BP 125/75 11/01/22 13:56 Pulse Ox 96 11/01/22 13:56 O2 Del Method Room Air 11/01/22 13:56 BMI result Body Mass Index 26.1 Constitutional - Awake and Alert, No apparent distress Eyes - PERRLA, EOMI Cardiovascular - S1S2, RRR, No edema Respiratory - Normal lung expansion, Normal respiratory effort, No respiratory distress, CTA except diminished LLL Gastrointestinal - NT / ND; +BS; No rebound or guarding Extremities - no calf tenderness bilaterally, no swelling Skin - Warm/Dry Neurological - Alert & oriented x3 Psychological - Appropriate affect Results Labs 11/01/22 12:21 11/01/22 12:21 Labs: Laboratory Results - last 24 hr 11/01/22 11/01/22 11/01/22 12:21 12:21 12:21 MCV 93.4 MCH 31.5 MCHC 33.7 RDW 13.3 Plt Count 428 H D MPV 10.1 Immature Gran % (Auto) 0.4 Neut % (Auto) 83.8 H Lymph % (Auto) 9.4 L [place] % (Auto) 5.9 Eos % (Auto) 0.2 Baso % (Auto) 0.3 Lymph # (Auto) 1.4 [place] # (Auto) 0.9 Eos # (Auto) 0.0 Baso # (Auto) 0.0 Abs Immat Gran (auto) 0.06 H Absolute Neuts (auto) 12.2 H Absolute Nucleated RBC 0.000 Nucleated RBC % (auto) 0.0 PT 13.6 H INR 1.2 H Anion Gap 16 Estim Creat Clear Calc 50.3 Estimated GFR 57 Random Glucose 186 H Calcium 9.2 Magnesium 2.1 Total Bilirubin 0.5 Direct Bilirubin 0.2 AST 17 ALT 18 Alkaline Phosphatase 85 Troponin I High Sens B-Natriuretic Peptide Total Protein 6.1 L Albumin 3.6 Lipase 17 Stool Occult Blood Blood Type Antibody Screen 11/01/22 11/01/22 11/01/22 12:21 12:21 12:55 MCV MCH MCHC RDW Plt Count MPV Immature Gran % (Auto) Neut % (Auto) Lymph % (Auto) [place] % (Auto) Eos % (Auto) Baso % (Auto) Lymph # (Auto) [place] # (Auto) Eos # (Auto) Baso # (Auto) Abs Immat Gran (auto) Absolute Neuts (auto) Absolute Nucleated RBC Nucleated RBC % (auto) PT INR Anion Gap Estim Creat Clear Calc Estimated GFR Random Glucose Calcium Magnesium Total Bilirubin Direct Bilirubin AST ALT Alkaline Phosphatase Troponin I High Sens 8.1 B-Natriuretic Peptide 443 H Total Protein Albumin Lipase Stool Occult Blood POSITIVE Blood Type Antibody Screen 11/01/22 12:55 MCV MCH MCHC RDW Plt Count MPV Immature Gran % (Auto) Neut % (Auto) Lymph % (Auto) [place] % (Auto) Eos % (Auto) Baso % (Auto) Lymph # (Auto) [place] # (Auto) Eos # (Auto) Baso # (Auto) Abs Immat Gran (auto) Absolute Neuts (auto) Absolute Nucleated RBC Nucleated RBC % (auto) PT INR Anion Gap Estim Creat Clear Calc Estimated GFR Random Glucose Calcium Magnesium Total Bilirubin Direct Bilirubin AST ALT Alkaline Phosphatase Troponin I High Sens B-Natriuretic Peptide Total Protein Albumin Lipase Stool Occult Blood Blood Type O Positive Antibody Screen NEGATIVE Imaging Radiologist's Impressions: Impressions Chest X-Ray 11/01/22 13:18 IMPRESSION: Small left pleural effusion with adjacent atelectasis. Assessment and Plan (1) New onset of congestive heart failure: Status: Acute (2) ABLA (acute blood loss anemia): Status: Acute (3) Upper GI bleed: Status: Acute Plan 72-year-old male with history of hypertension, hyperlipidemia, COPD, elevated PSA, history of PUD with H pylori admitted for UGIB, new onset CHF. #Acute blood loss anemia- 2/2 upper GI bleed -H/H 12.3/36.5%? (09/07: H/H 15.1/46.7%) -Above transfusion threshold -stool occult positive with melena -40 mg IV pantoprazole b.i.d. -Carafate q.i.d. -clear liquid diet, NPO after midnight for possible EGD tomorrow per GI -appreciate GI input -follow CBC -monitor on telemetry # new onset congestive heart failure, unspecified ejection fraction -CXR with left-sided pleural effusion -BNP 443 -40 mg IV Lasix daily -strict I and O -daily weights -advance to cardiac diet -echocardiogram ordered -appreciate cardiology input #Acute leukocytosis -likely reactive in the setting of above -Follow CBC # COPD-no acute exacerbation -former smoker, albuterol p.r.n. # hypertension-reasonably controlled -hold antihypertensive agents in the setting of acute GI bleed # HLD -continue statin DVT prophylaxis- SCPs Full code Patient requires inpatient stay of at least 2 midnights for management of acute blood loss anemia secondary to upper GI bleed requiring expert consultation and close monitoring as well as new onset congestive heart failure requiring IV diuresis and expert consultation Time Spent With Patient Time: Total time managing care of this patient today ____ minutes. Quality Stroke Does the patient have a stroke diagnosis?: No VTE Prior VTE?: No VTE Risk Level:: Medical - moderate - high VTE Device Contraindication: N/A - Device Ordered VTE Drug Contraindication: Treatment Not Indicated
[2022-11-01 14:38] LABS: Procalcitonin 0.28 ng/mL
[2022-11-01] MEDS: Furosemide 40 MG/4 ML VIAL IVPUSH (14:44)
[2022-11-01 15:23] LABS: Appearance Urine Clear; Color Urine Yellow; Glucose Urine UA Negative (Negative); Leukocyte Esterase Urine Negative (Negative); Nitrite Urine Negative (Negative); PH 5.5 (5.0-9.0); Urine Blood Negative (Negative); Urine Ketones Negative (Negative); Urine Protein Negative (Neg-Trace)
[2022-11-01] MEDS: Sucralfate 1 GM TABLET PO ×2 (16:52→20:43)
[2022-11-01] MEDS: 0.9 % Sodium Chloride Flush 3 ML SYRINGE IVFLUSH ×2 (16:52→20:44)
--- NOTE | 2022-11-01 19:06 | PC.NURSE ---
Pt high fall risk per fall risk assessment. Pt refusing safety and fall precautions at this time; pt refusing bed alarm and camera. Pt feels steady on feet; red socks on feet. Call jordan within reach. Additional safety checks in place.
[2022-11-02] VITALS (10 sets, daily range): BP systolic 115–160; BP diastolic 72–93; PULSE 75–98; RESP 16–20; TEMP 36.3–37.2; O2SAT 97–100
[2022-11-02] MEDS: Pantoprazole Sodium 40 MG/10 ML VIAL IVPUSH ×2 (05:03→16:06)
[2022-11-02 05:59] LABS: MANUAL DIFF FLAG NO
[2022-11-02 06:20] LABS: Basophils Percent Auto 0.4 % (0-2); Eosinophils Absolute Auto 0.2 X10*3/uL (0.0-0.4); Eosinophils Percent Auto 2.1 % (0-4); Hematocrit 32.9 % (42.0-52.0); Hemoglobin 10.8 g/dl (14.0-18.0); Imm Gran Abs Auto 0.04 X10*3/uL (0.00-0.03); Imm Gran Pct Auto 0.4 % (0.0-0.4); Lymphocytes Absolute Auto 1.8 X10*3/uL (1.2-4.9); Mean Corpuscular HGB Conc 32.8 g/dl (31.0-36.0); Mean Corpuscular Hemoglobin 31.1 pg (27.0-33.0); Mean Corpuscular Volume 94.8 fL (80.0-98.0); Mean Platelet Volume 10.2 fL (9.4-12.4); Monocytes Absolute Auto 1.1 X10*3/uL (0.1-1.2); Monocytes Percent Auto 11.8 % (2-11); Neutrophils Absolute Auto 6.1 x10*3/uL (2.0-8.3); Neutrophils Percent Auto 66.3 % (45-73); Platelet Count 342 X10*3/uL (160-400); Red Blood Count 3.47 X10*6/uL (4.60-5.80); Red Cell Distribution Width 13.2 % (11.0-16.0); White Blood Count 9.2 X10*3/uL (4.8-10.8)
--- NOTE | 2022-11-02 06:23 | PM.GICN ---
History of Present Illness Data of Consult Service Date: 11/02/22 Requesting physician: Mckenna Treadwell Primary Care Provider: Haydee Gandhi MD HPI Reason for consult: melena 72-year-old male with history of hypertension, hyperlipidemia, COPD, elevated PSA, history of PUD with H pylori who I am seeing for asessment for melena he has 1-2d of black stools with nausea, and moderate epigastric abdominal pain, and dyspnea. He said he has been having this abdominal pain for months but got worse in the last 1 month. It can be worse with food. He denies weight loss, appetite is good. He denies taking nsaids, not on any anti coagulants. Reports drinking 1-2 beers on a near daily basis. NOt on PPI, unsure if had h pylori in past or not labs were checked and anemia noted 12.3 to 10 g/dl today with raised BUN , Pt/INR 13.6/1.2.? Creatinine baseline at 1.24, BUN 38.? Sodium 139, potassium 4.1, chloride 109, CO2 18.? Troponin 8.1.? BNP 443.? Procalcitonin 0.28 EGD on file from 2003 by Jhonatan with large gastric ulcer, needed treatment Review of Systems Review of Systems: Constitutional : No Weight loss, No Fever, No Chills ENT/Mouth : No sore throat, No Rhinorrhea Eyes: No Swelling, No Redness Cardiovascular : No Chest Pain, + SOB--resolved now, No Edema Respiratory : No Cough, No Sputum, No Wheezing Gastrointestinal : see HPI Genitourinary : NO Dysuria, No Urinary Frequency, No Hematuria, No Urgency Musculoskeletal : No joint pain, No Myalgias, No Joint Swelling Skin : No Skin Lesions, No rash Neuro : No Weakness, No Numbness, No Dizziness, No Headache Psych : No Anxiety/Panic, No Depression Heme/Lymph: No Bruising, No Lymphadenopathy Endocrine : No Polyuria, No Polydipsia All other systems reviewed and are negative. [facility] Past Medical History Medical History Cataract COPD (chronic obstructive pulmonary disease) H. pylori infection HTN (hypertension) Hyperlipemia Nephrolithiasis PUD (peptic ulcer disease) Family History Family History Father No problems noted. Mother No problems noted. Surgical History Surgical History H/O colonoscopy History of esophagogastroduodenoscopy (EGD) Social History Social History Housing: Assisted Living Facility Do you presently have visiting nurse or other home services: No Alcohol intake: current Alcohol intake frequency: a few times a week Patient Tobacco Use Status: Former Tobacco user Quit Date: over 10 years ago Tobacco use type: Cigarette Smoked in Last 30 Days: No e-Cigarette/Vaping Use: Former Use Patient Interested in Nicotine Replacement: No Patient Given Instructions on How to Stop Smoking: No Second Hand Smoke Exposure: No Use of substances other than those prescribed or required for medical reasons: No Currently Displaying Signs/Symptoms of Drug Intoxication Withdrawal: No Any prior treatment program specific to substance use: No Have you been hit, kicked, punched, or otherwise hurt by someone within the past year? If so, by whom?: No Do you feel safe in your current relationship?: No Current Relationship Is there a partner from a previous relationship who is making you feel unsafe now?: No Are you made to feel afraid or neglected: No Advance Directives: No Advance Directives Information Provided: Yes Do you have thoughts of harming others: None Do you have a plan to hurt others: No Plan Recently lost weight without trying: Yes How much weight loss: Unsure Eating poorly because of decreased appetite: No Nutrition screen score: 4 Nutrition Risks: No Nutritional Risk Poor oral hygiene: No service: No Current occupational status: employed and retired Cognitive needs: No Hearing needs: No Vision needs: No Meds Allergies Allergy/AdvReac Type Severity Reaction Status Date / Time No Known Allergies Allergy Verified 11/01/22 12:01 Active Medications: Current Medications Acetaminophen (Acetaminophen 325 Mg Tablet) 650 mg PO Q6H PRN PRN Reason: Pain, Mild (Pain Scale 1-3) Docusate Sodium (Docusate Sodium 100 Mg Capsule) 100 mg PO DAILY PRN PRN Reason: Constipation Furosemide (Furosemide 40 Mg/4 Ml Vial) 40 mg IVPUSH DAILY [facility]; Protocol Last Admin: 11/01/22 14:44 Dose: 40 mg Non-Formulary Medication (Triamcinolone Acetonide) 1 appl TOPICAL DAILY [facility] Ondansetron HCl (Ondansetron Hcl 4 Mg/2 Ml Vial) 4 mg IVPUSH Q8H PRN PRN Reason: Nausea and Vomiting Pantoprazole Sodium (Pantoprazole Sodium 40 Mg/10 Ml Vial) 40 mg IVPUSH BID@0630,1630 [facility] Last Admin: 11/02/22 05:03 Dose: 40 mg Pharmacy Consult (Consult Rx Perform Med Rec) 1 each MISCELLANE ONCE PRN PRN Reason: Consult order Pravastatin Sodium (Pravastatin Sodium 80 Mg Tablet) 80 mg PO DAILY [facility] Sodium Chloride (0.9 % Sodium Chloride Flush 3 Ml Syringe) 3 ml IVFLUSH QSHIFT [facility] Last Admin: 11/01/22 20:44 Dose: 3 ml Sucralfate (Sucralfate 1 Gm Tablet) 1 gm PO QIDACHS [facility] Last Admin: 11/01/22 20:43 Dose: 1 gm Physical Exam Vital Signs: Vital Signs: Last Vital Signs Temp 98.9 F 11/02/22 04:00 Pulse 76 11/02/22 04:00 Resp 18 11/02/22 04:00 BP 142/79 H 11/02/22 04:00 Pulse Ox 97 11/02/22 04:00 O2 Del Method Room Air 11/02/22 04:00 BMI result Body Mass Index 26.1 EXAM: GENERAL: The patient is well developed and nontoxic. VITAL SIGNS:see workflow HEENT: Nonicteric sclerae, PERRLA, EOMI. Oropharynx clear. Moist mucous membranes. Conjunctivae appear well perfused. No thyroid mass. CHEST: Chest wall is nontender. HEART: Regular rate and rhythm without murmurs. LUNGS: Clear to auscultation bilaterally. ABDOMEN: Soft, positive bowel sounds, +tender epigastrium, no organomegaly.no flank tenderness SKIN: No rash, no excessive bruising, petechiae, or purpura. NEUROLOGIC: Cranial nerves II-XII intact without motor/sensory deficit. Extrem: General: Yes normal to inspection Psych: Appearance: grossly normal Results Labs 11/02/22 05:52 11/01/22 12:21 Labs: Short CBC 11/01/22 11/02/22 Range/Units 12:21 05:52 WBC 14.6 H 9.2 (4.8-10.8) X10*3/uL Hgb 12.3 L 10.8 L (14.0-18.0) g/dl Hct 36.5 L D 32.9 L (42.0-52.0) % Plt Count 428 H D 342 (160-400) X10*3/uL BMP 11/01/22 12:21 Sodium 139 Potassium 4.1 Chloride 109 H Carbon Dioxide 18 L BUN 38 H Creatinine 1.24 Calcium 9.2 Liver Function 11/01/22 Range/Units 12:21 Total Bilirubin 0.5 (0.0-1.0) mg/dL Direct Bilirubin 0.2 (0.0-0.5) mg/dL AST 17 (5-37) U/L ALT 18 (0-40) U/L Alkaline Phosphatase 85 (39-117) U/L Albumin 3.6 (3.5-5.0) g/dL Urine 11/01/22 Range/Units 15:13 Urine Color Yellow Urine Appearance Clear Urine pH 5.5 (5.0-9.0) Ur Specific Mcguffey 1.020 (1.005-1.025) Urine Protein Negative (Neg-Trace) mg/dL Urine Glucose (UA) Negative (Negative) mg/dL ECG Attestation: I personally reviewed and interpreted this ECG as follows: (SR, mild St seg depression) Imaging Chest x-ray: My impression: small left sided pl effusion Assessment and Plan (1) Upper GI bleed: Status: Acute (2) ABLA (acute blood loss anemia): Status: Acute Plan 1/ Acute blood loss anemia, possible recurrece of PUD, had hx of gastric ulcer in past, maybe worsened due to alcohol use PLAN: 1/ PPI as doing 2/ EGD today for further assessment Time Spent With Patient Time: Total time managing care of this patient today ____ minutes. Procedures Date of Service Date of Service: 11/02/22
[2022-11-02 06:24] LABS: Anion Gap 12 (12-20); Blood Urea Nitrogen 24 mg/dL (9-16); Calcium 8.7 mg/dL (8.4-10.2); Carbon Dioxide 24 mmol/L (22-29); Chloride 109 mmol/L (96-108); Creatinine Clr Calc Pharmacy 61.2; Estimated Glomerular Filt Rate > 60; Glucose Random 120 mg/dL (60-115); Potassium 3.7 mmol/L (3.3-5.1); Sodium 141 mmol/L (135-145)
--- NOTE | 2022-11-02 07:00 | CA_ITS ---
Transthoracic Echocardiogram Patient (Last, First, Middle): Moe Sunshine, Gender: Male Date of : 1950 Age: 72 Procedure Date: 11/02/2022 Procedure Type: Transthoracic Echocardiogram [place] [facility] [place]: 170.18 cm Weight: 75.3 kg BSA: 1.87 m2 Heart Rate: 90 bpm BP: 142 / 79 mmHg Attendance Secretary: GLORIA Referring MD: Mckenna BERNAL Symptoms: chf Study Quality: Technically Difficult ECG Rhythm: Sinus Conclusions: - The visually estimated ejection fraction is between 60-65%. - No obvious valvular pathology seen on this study. - There is mild dilatation of the ascending aorta measuring 4.00 cm. - There is a large left sided pleural effusion. Findings Procedure Information Contrast agent, definity, is being given per protocol without apparent complications. The quality of the study was despite the use of contrast and endocardial definition remains poor. Left Ventricle Normal left ventricular cavity size. The visually estimated ejection fraction is between 60-65%. Diastolic function is indeterminate on the basis of available data. There is mild septal asymmetric hypertrophy. Wall motion assessment suboptimal in spite of contrast, but no overt findings. Right Ventricle Normal right ventricular cavity size and systolic function. Atria Both atria are normal in size. Aortic Valve The aortic valve was not well visualized. There is no aortic valve stenosis. There is no aortic valve regurgitation. Mitral Valve The mitral valve was not well visualized. There is no mitral valve regurgitation. There is no mitral valve stenosis. Pulmonic Valve The pulmonic valve is likely normal. Tricuspid Valve There is trace tricuspid valve regurgitation. There is no evidence of pulmonary hypertension. Great Vessels There is mild dilatation of the ascending aorta measuring 4.00 cm. Venous The inferior vena cava is normal in size and collapses greater than 50% with inspiration. Pericardium/Pleural Prominent epicardial adipose tissue noted. There is a large left sided pleural effusion. Cannot exclude a small pericardial effusion. Prior Study Comparison No prior study available for comparison. Recommendations, Care & Conclusions No obvious valvular pathology seen on this study. Measurements 2D Linear Measurements IVSd: 1.22 0.6-0.9/0.6-1.0 cm LVIDd: 4.43 3.9-5.3/4.2-5.9 cm LVIDd Index: 2.37 2.4-3.2/2.2-3.1 cm/m2 LVIDs: 3.25 2.0-3.6 cm LVPWd: 0.82 0.7-1.1 cm LA Diam: 2.90 2.7-3.8/3.0-4.0 cm LAIDs Index: 1.55 1.5-2.3 cm/m2 LV Mass: 190.61 67-162/88-224 g LV Mass Index: 101.93 43-95/49-115 g/m2 LVOT Diam: 2.10 3.0+(-)1.3 cm 2D Systolic Function EF 4C: 71.00 >55% EF 2C: 71.20 >55% Mitral Valve MV Pk E: 0.51 MV PK A: 0.75 MV Decel Time: 189.00 E/A: 0.70 E'Lateral: 6.53 E'Medial: 6.53 E/E' Med: 7.70 E/E' Lat: 7.70 PHT: 55.00 MVA PHT: 4.00 Decel [place]: 2.67 Aortic Valve AoV Pk [place]: 1.01 AoV Pk Grad: 4.00 EDNA: 2.32 LVOT LVOT Pk [place]: 0.68 LVOT Mn [place]: 0.50 LVOT VTI: 0.13 LVOT Pk Grad: 2.00 LVOT Mn Grad: 1.00 LVOT Diam: 2.10 LVOT Area: 3.46 Diastolic Function MV Pk E: 0.51 MV Pk A: 0.75 E/A: 0.70 E'Medial: 6.53 E/E' Med: 7.70 E' Laterial: 6.53 E/E' Lat: 7.70 Right Ventricle TAPSE (mm): 17.50 Tricuspid Valve TR Pk Rome: 1.76 TR Pk Grad: 12.00 RA Press: 3.00 RVSP: 15.00 Great Vessels Aorta Sinus of Valsalva: 3.90 2.0-3.5 cm Ao Asc: 4.00 2.1-3.4 cm Pulmonary Valve PV Pk Rome: 1.17 Peak PV Grad: 5.00 Updated in Other Vendor System with Status of Final Damon Farr MD electronically signed on 11/02/2022 12:02:04 PM with status of Final
[2022-11-02] MEDS: Furosemide 40 MG/4 ML VIAL IVPUSH (07:59)
[2022-11-02] MEDS: 0.9 % Sodium Chloride Flush 3 ML SYRINGE IVFLUSH ×2 (07:59→16:06)
--- NOTE | 2022-11-02 08:58 | MHC.CM.PN ---
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 LIVES ALONE IN AN APT. 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 COVID VAX X2 PCPDR. CICHON AT [facility] [place]. WILLING TO DO A HCP WHILE HERE. DP: HOME, NO SERVICES ANTICIPATED. SISTER [employer]ON[employer] WILL TRANSPORT. CM WILL CONTINUE TO FOLLOW FOR DC NEEDS.
--- NOTE | 2022-11-02 10:20 | PM.CNCAR ---
History of Present Illness History of Present Illness Date of Service: 11/02/22 Chief complaint: UGIB Narrative: This is a cardiology consultation regarding question of shortness of breath. Patient is Tongan speaking only. 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 Patient denies any history of cardiac issues the past. No known coronary disease myocardial infarction or cardiomyopathy or in fact anything cardiac related. It seems the current issues mainly abdominal pain nausea and melena. That was reason for hospitalization. However, there is also concern for possible shortness of breath and chest pain and hence we have been consulted. Discussed with patient numerous times about this and answers are very variable. In the H and P, it seems that there is a mention of reporting dyspnea on exertion and intermittent chest pains. When I questioned him however, he seems to rather down play it. He does not feel like his shortness of breath is too bothersome. Chest pains are also very random and sharp type sensations and he states sometimes he feels them when he gets up in the morning but not otherwise. Review of Systems Review of Systems: Yes all other systems are reviewed and are negative Constitutional: Constitutional: Reports as per HPI and Reports no additional constitutional complaints Eyes: Eyes: Reports as per HPI and Denies no additional eye complaints ENT: Denies system reviewed and no additional complaints, except as documented and Reports as per HPI Cardiovascular: Cardiovascular: Reports as per HPI, Reports no additional cardiovascular complaints, Denies acrocyanosis, Denies cool extremities, Reports chest pain, Denies leg edema, Denies lightheadedness, Denies palpitations and Reports dyspnea Respiratory: Respiratory: Reports as per HPI, Denies no additional respiratory complaints and Reports dyspnea Gastrointestinal: Gastrointestinal: Reports as per HPI, Denies no additional gastrointestinal complaints and Reports abdominal pain Genitourinary: Genitourinary: Reports no additional male genitourinary complaints and Reports as per HPI Musculoskeletal: Musculoskeletal: Reports no additional musculoskeletal complaints and Reports as per HPI Integumentary/Breasts: Skin/Breast: Reports system reviewed and no additional complaints, except as docu Neurologic: Reports system reviewed and no additional complaints, except as documented and Reports as per HPI Psychiatric: Psychiatric: Reports no additional psychiatric complaints and Reports as per HPI Endocrine: Endocrine: Reports no additional endocrine complaints, Reports as per HPI and Denies palpitations Hematologic/Lymphatic: Hematologic/Lymphatic: Reports no additional hematologic/lymphatic complaints and Reports as per HPI Allergic/Immunologic: Allergic/Immunologic: Reports no additional allergic/immunologic complaints and Reports as per HPI [facility] Past Medical History Medical History Cataract COPD (chronic obstructive pulmonary disease) H. pylori infection HTN (hypertension) Hyperlipemia Nephrolithiasis PUD (peptic ulcer disease) Family History Family History Father No problems noted. Mother No problems noted. Surgical History Surgical History H/O colonoscopy History of esophagogastroduodenoscopy (EGD) Social History Social History Housing: Assisted Living Facility Do you presently have visiting nurse or other home services: No Alcohol intake: current Alcohol intake frequency: a few times a week Patient Tobacco Use Status: Former Tobacco user Quit Date: over 10 years ago Tobacco use type: Cigarette Smoked in Last 30 Days: No e-Cigarette/Vaping Use: Former Use Patient Interested in Nicotine Replacement: No Patient Given Instructions on How to Stop Smoking: No Second Hand Smoke Exposure: No Use of substances other than those prescribed or required for medical reasons: No Currently Displaying Signs/Symptoms of Drug Intoxication Withdrawal: No Any prior treatment program specific to substance use: No Have you been hit, kicked, punched, or otherwise hurt by someone within the past year? If so, by whom?: No Do you feel safe in your current relationship?: No Current Relationship Is there a partner from a previous relationship who is making you feel unsafe now?: No Are you made to feel afraid or neglected: No Advance Directives: No Advance Directives Information Provided: Yes Do you have thoughts of harming others: None Do you have a plan to hurt others: No Plan Recently lost weight without trying: Yes How much weight loss: Unsure Eating poorly because of decreased appetite: No Nutrition screen score: 4 Nutrition Risks: No Nutritional Risk Poor oral hygiene: No service: No Current occupational status: employed and retired Cognitive needs: No Hearing needs: No Vision needs: No Meds Allergies Allergy/AdvReac Type Severity Reaction Status Date / Time No Known Allergies Allergy Verified 11/01/22 12:01 Active Medications: Current Medications Acetaminophen (Acetaminophen 325 Mg Tablet) 650 mg PO Q6H PRN PRN Reason: Pain, Mild (Pain Scale 1-3) Docusate Sodium (Docusate Sodium 100 Mg Capsule) 100 mg PO DAILY PRN PRN Reason: Constipation Furosemide (Furosemide 40 Mg/4 Ml Vial) 40 mg IVPUSH DAILY [facility]; Protocol Last Admin: 11/02/22 07:59 Dose: 40 mg Non-Formulary Medication (Triamcinolone Acetonide) 1 appl TOPICAL DAILY [facility] Ondansetron HCl (Ondansetron Hcl 4 Mg/2 Ml Vial) 4 mg IVPUSH Q8H PRN PRN Reason: Nausea and Vomiting Pantoprazole Sodium (Pantoprazole Sodium 40 Mg/10 Ml Vial) 40 mg IVPUSH BID@0630,1630 [facility] Last Admin: 11/02/22 05:03 Dose: 40 mg Pharmacy Consult (Consult Rx Perform Med Rec) 1 each MISCELLANE ONCE PRN PRN Reason: Consult order Pravastatin Sodium (Pravastatin Sodium 80 Mg Tablet) 80 mg PO DAILY [facility] Last Admin: 11/02/22 08:03 Dose: Not Given Sodium Chloride (0.9 % Sodium Chloride Flush 3 Ml Syringe) 3 ml IVFLUSH QSHIFT [facility] Last Admin: 11/02/22 07:59 Dose: 3 ml Sucralfate (Sucralfate 1 Gm Tablet) 1 gm PO QIDACHS [facility] Last Admin: 11/02/22 08:03 Dose: Not Given Physical Exam Vital Signs: Vital Signs: Last Vital Signs Temp 97.9 F 11/02/22 07:42 Pulse 76 11/02/22 07:42 Resp 20 11/02/22 07:42 BP 150/77 H 11/02/22 07:42 Pulse Ox 97 11/02/22 07:42 O2 Del Method Room Air 11/02/22 07:42 BMI result Body Mass Index 26.1 Const: General: comfortable and no acute distress Orientation/consciousness: patient oriented x3 HEENT: Other: Unremarkable Head: Yes normal to inspection Neck: Neck: Yes normal visual inspection Chest: Chest palpation & inspection: normal inspection of the chest Resp: Auscultation: clear to auscultation bilaterally Cardio: Palpation: normal PMI Heart sounds: S1 normal heart sound present, S2 normal heart sound present, no gallops, no murmurs and no rubs GI: Palpation (GI): Soft to palpation Back/Spine/Pelvis: Other: unremarkable Skin: General skin exam: no rashes or lesions noted Neuro: General: patient oriented x3 Extrem: General: Yes normal to inspection Psych: Mental Status: mental status grossly normal Objective Labs and Meds 11/02/22 05:52 11/02/22 05:52 Lab results: Laboratory Results - last 24 hr 11/01/22 11/01/22 11/01/22 12:21 12:21 12:21 WBC 14.6 H RBC 3.91 L D Hgb 12.3 L Hct 36.5 L D MCV 93.4 MCH 31.5 MCHC 33.7 RDW 13.3 Plt Count 428 H D MPV 10.1 Immature Gran % (Auto) 0.4 Neut % (Auto) 83.8 H Lymph % (Auto) 9.4 L Sharp % (Auto) 5.9 Eos % (Auto) 0.2 Baso % (Auto) 0.3 Lymph # (Auto) 1.4 Sharp # (Auto) 0.9 Eos # (Auto) 0.0 Baso # (Auto) 0.0 Abs Immat Gran (auto) 0.06 H Absolute Neuts (auto) 12.2 H Absolute Nucleated RBC 0.000 Nucleated RBC % (auto) 0.0 PT 13.6 H INR 1.2 H Sodium 139 Potassium 4.1 Chloride 109 H Carbon Dioxide 18 L Anion Gap 16 BUN 38 H Creatinine 1.24 Estim Creat Clear Calc 50.3 Estimated GFR 57 Random Glucose 186 H Lactic Acid Calcium 9.2 Magnesium 2.1 Total Bilirubin 0.5 Direct Bilirubin 0.2 AST 17 ALT 18 Alkaline Phosphatase 85 Troponin I High Sens B-Natriuretic Peptide Total Protein 6.1 L Albumin 3.6 Lipase 17 Procalcitonin 0.28 Urine Color Urine Appearance Urine pH Ur Specific Cecil Urine Protein Urine Glucose (UA) Urine Ketones Urine Blood Urine Nitrite Ur Leukocyte Esterase Stool Occult Blood Blood Type Antibody Screen 11/01/22 11/01/22 11/01/22 12:21 12:21 12:55 WBC RBC Hgb Hct MCV MCH MCHC RDW Plt Count MPV Immature Gran % (Auto) Neut % (Auto) Lymph % (Auto) Sharp % (Auto) Eos % (Auto) Baso % (Auto) Lymph # (Auto) Sharp # (Auto) Eos # (Auto) Baso # (Auto) Abs Immat Gran (auto) Absolute Neuts (auto) Absolute Nucleated RBC Nucleated RBC % (auto) PT INR Sodium Potassium Chloride Carbon Dioxide Anion Gap BUN Creatinine Estim Creat Clear Calc Estimated GFR Random Glucose Lactic Acid Calcium Magnesium Total Bilirubin Direct Bilirubin AST ALT Alkaline Phosphatase Troponin I High Sens 8.1 B-Natriuretic Peptide 443 H Total Protein Albumin Lipase Procalcitonin Urine Color Urine Appearance Urine pH Ur Specific Cecil Urine Protein Urine Glucose (UA) Urine Ketones Urine Blood Urine Nitrite Ur Leukocyte Esterase Stool Occult Blood POSITIVE Blood Type Antibody Screen 11/01/22 11/01/22 11/01/22 12:55 15:13 15:22 WBC RBC Hgb Hct MCV MCH MCHC RDW Plt Count MPV Immature Gran % (Auto) Neut % (Auto) Lymph % (Auto) Sharp % (Auto) Eos % (Auto) Baso % (Auto) Lymph # (Auto) Sharp # (Auto) Eos # (Auto) Baso # (Auto) Abs Immat Gran (auto) Absolute Neuts (auto) Absolute Nucleated RBC Nucleated RBC % (auto) PT INR Sodium Potassium Chloride Carbon Dioxide Anion Gap BUN Creatinine Estim Creat Clear Calc Estimated GFR Random Glucose Lactic Acid 1.0 Calcium Magnesium Total Bilirubin Direct Bilirubin AST ALT Alkaline Phosphatase Troponin I High Sens B-Natriuretic Peptide Total Protein Albumin Lipase Procalcitonin Urine Color Yellow Urine Appearance Clear Urine pH 5.5 Ur Specific Cecil 1.020 Urine Protein Negative Urine Glucose (UA) Negative Urine Ketones Negative Urine Blood Negative Urine Nitrite Negative Ur Leukocyte Esterase Negative Stool Occult Blood Blood Type O Positive Antibody Screen NEGATIVE 11/02/22 11/02/22 05:52 05:52 WBC 9.2 RBC 3.47 L Hgb 10.8 L Hct 32.9 L MCV 94.8 MCH 31.1 MCHC 32.8 RDW 13.2 Plt Count 342 MPV 10.2 Immature Gran % (Auto) 0.4 Neut % (Auto) 66.3 Lymph % (Auto) 19.0 L Sharp % (Auto) 11.8 H Eos % (Auto) 2.1 Baso % (Auto) 0.4 Lymph # (Auto) 1.8 Sharp # (Auto) 1.1 Eos # (Auto) 0.2 Baso # (Auto) 0.0 Abs Immat Gran (auto) 0.04 H Absolute Neuts (auto) 6.1 Absolute Nucleated RBC 0.000 Nucleated RBC % (auto) 0.0 PT INR Sodium 141 Potassium 3.7 Chloride 109 H Carbon Dioxide 24 Anion Gap 12 BUN 24 H Creatinine 1.02 Estim Creat Clear Calc 61.2 Estimated GFR > 60 Random Glucose 120 H Lactic Acid Calcium 8.7 Magnesium Total Bilirubin Direct Bilirubin AST ALT Alkaline Phosphatase Troponin I High Sens B-Natriuretic Peptide Total Protein Albumin Lipase Procalcitonin Urine Color Urine Appearance Urine pH Ur Specific Cecil Urine Protein Urine Glucose (UA) Urine Ketones Urine Blood Urine Nitrite Ur Leukocyte Esterase Stool Occult Blood Blood Type Antibody Screen ECG Interpretation: EKG with sinus tachycardia at 01:05/Min; nonspecific ST-T changes; normal IN and corrected QT. PACs Imaging Radiologist's impression: Impressions Chest X-Ray 11/01/22 13:18 IMPRESSION: Small left pleural effusion with adjacent atelectasis. Assessment and Plan (1) Upper GI bleed: Status: Acute (2) Pleural effusion: Status: Acute (3) SOB (shortness of breath): Status: Acute Plan Difficult to clarify information accurately in spite of baggagemaster. Overall, suspected upper GI bleed; possible shortness of breath/nonexertional chest pains; nonspecific EKG changes; unremarkable high sensitivity troponin and elevated cardiac BNP of 443. No evidence of acute coronary syndrome at this time. Will need an echocardiogram for evaluation of the question of shortness of breath as well as elevated cardiac BNP. Will follow up with you. Time Spent With Patient Time: Total time managing care of this patient today 75 minutes. This includes time spent in review of chart, laboratory data, imaging studies, review of telemetry, counseling patient, discussion with hospitalist, gastro-enterology, documentation, coordination of care. Procedures Date of Service Date of Service: 11/02/22
--- NOTE | 2022-11-02 12:35 | MHC.SHP ---
Pre-Procedural Eval Section A Date of Service: 11/02/22 The patient is an INPATIENT: Yes The History & Physical has been completed within 30 days and I have reviewed it.: Yes Section B Chief Complaint: UGIB Allergies: Allergies Allergy/AdvReac Type Severity Reaction Status Date / Time No Known Allergies Allergy Verified 11/01/22 12:01 Plan Diagnosis/Plan: Unchanged I have reviewed the history and physical and performed a pertinent physical examination on my patient. No changes have occurred unless specified. EGD Time Spent With Patient Time: Total time managing care of this patient today ____ minutes.
--- NOTE | 2022-11-02 12:35 | W.PM.OPN ---
Operative Note Operative Note Date of Service: 11/02/22 Narrative: Procedure Description: EGD Indication: anemia Anesthesia: MAC FLEXIBLE TRANSORAL UPPER GASTROINTESTINAL ENDOSCOPY UPPER ENDOSCOPY Consent: Indications for the procedure and potential complications of bleeding, perforation, reaction to medications and missed diagnosis were discussed with the patient and informed consent was obtained. Instrument: Olympus GIF H 190 J mid size upper endoscope Monitoring: Vital signs and clinical assessment, continuous EKG monitoring, Pulse oximetry, Carbon Dioxide monitoring and blood pressure monitoring were done throughout the procedure. Procedure: The patient was placed in the left lateral decubitis position and pre-procedure medications were administered and a bite block was placed. The endoscope was inserted into the mouth and advanced under direct vision to the third part of duodenum. A careful inspection was made as the upper endoscope was withdrawn including a retroflexed examination of the proximal stomach; Findings and interventions are described below. Findings: Larynx:normal Esophagus: GE junction at 38 cm, diaphragm hiatus at 42 cm, consistent with 4 cm sliding hiatal hernia, erythema and congestion noted at GEJ Stomach: Patchy gastric erythema. Biopsies were obtained. Grade 2 flap valve on retroflexed examination of the cardia. At antrum there was a 7-8 mm oozing ulcer with surrounding erythema and edema - 2 clips applied for hemostasis. small erosion also noted Duodenum: Normal bulb and descending duodenum, Intervention: Biopsies as noted above, clips applied to ulcer Impression/Findings: gastritis esophagitis hiatal hernia gastric ulcer PLAN: can advance diet PPI daily e.g pantoprazole 40 mg H pylori rx if pos GERD precautions
--- NOTE | 2022-11-02 12:47 | HO.ANESPROP2 ---
HPI - Anesthesia Eval Consult details Narrative: Upper GI Bleed PMFSH Active Problems Active Problems: All Active Problems (Updated 11/02/22 @ 10:27 by Damon Farr MD) SOB (shortness of breath) (Acute) Upper GI bleed (Acute) New onset of congestive heart failure (Acute) ABLA (acute blood loss anemia) (Acute) Pleural effusion (Acute) Elevated PSA (Acute) Hyperglycemia (Acute) Colonoscopy refused (Acute) PUD (peptic ulcer disease) (Acute) Cataract (Acute) COPD (chronic obstructive pulmonary disease) (Acute) Hyperlipemia (Acute) HTN (hypertension) (Acute) Past Medical History Medical History Cataract COPD (chronic obstructive pulmonary disease) H. pylori infection HTN (hypertension) Hyperlipemia Nephrolithiasis PUD (peptic ulcer disease) Family History Family History Father No problems noted. Mother No problems noted. Family history of problems with anesthesia: No Surgical History Surgical History H/O colonoscopy History of esophagogastroduodenoscopy (EGD) History of Problems with Anesthesia: No Social History Social History Housing: Assisted Living Facility Do you presently have visiting nurse or other home services: No Alcohol intake: current Alcohol intake frequency: does not drink Patient Tobacco Use Status: Former Tobacco user Quit Date: over 10 years ago Tobacco use type: Cigarette Smoked in Last 30 Days: No e-Cigarette/Vaping Use: Former Use Patient Interested in Nicotine Replacement: No Patient Given Instructions on How to Stop Smoking: No Second Hand Smoke Exposure: No Use of substances other than those prescribed or required for medical reasons: No Currently Displaying Signs/Symptoms of Drug Intoxication Withdrawal: No Any prior treatment program specific to substance use: No Have you been hit, kicked, punched, or otherwise hurt by someone within the past year? If so, by whom?: No Do you feel safe in your current relationship?: No Current Relationship Is there a partner from a previous relationship who is making you feel unsafe now?: No Are you made to feel afraid or neglected: No Are you DNR?: No Advance Directives: No Advance Directives Information Provided: Yes Advance Directives on File: No Do you have thoughts of harming others: None Do you have a plan to hurt others: No Plan Recently lost weight without trying: Yes How much weight loss: Unsure Eating poorly because of decreased appetite: No Nutrition screen score: 4 Nutrition Risks: No Nutritional Risk Poor oral hygiene: No service: No Current occupational status: employed and retired Cognitive needs: No Hearing needs: No Vision needs: No Meds Allergies Allergy/AdvReac Type Severity Reaction Status Date / Time No Known Allergies Allergy Verified 11/01/22 12:01 Active Medications: Current Medications Acetaminophen (Acetaminophen 325 Mg Tablet) 650 mg PO Q6H PRN PRN Reason: Pain, Mild (Pain Scale 1-3) Docusate Sodium (Docusate Sodium 100 Mg Capsule) 100 mg PO DAILY PRN PRN Reason: Constipation Furosemide (Furosemide 40 Mg/4 Ml Vial) 40 mg IVPUSH DAILY [facility]; Protocol Last Admin: 11/02/22 07:59 Dose: 40 mg Non-Formulary Medication (Triamcinolone Acetonide) 1 appl TOPICAL DAILY [facility] Ondansetron HCl (Ondansetron Hcl 4 Mg/2 Ml Vial) 4 mg IVPUSH Q8H PRN PRN Reason: Nausea and Vomiting Pantoprazole Sodium (Pantoprazole Sodium 40 Mg/10 Ml Vial) 40 mg IVPUSH BID@0630,1630 [facility] Last Admin: 11/02/22 05:03 Dose: 40 mg Pharmacy Consult (Consult Rx Perform Med Rec) 1 each MISCELLANE ONCE PRN PRN Reason: Consult order Pravastatin Sodium (Pravastatin Sodium 80 Mg Tablet) 80 mg PO DAILY [facility] Last Admin: 11/02/22 08:03 Dose: Not Given Sodium Chloride (0.9 % Sodium Chloride Flush 3 Ml Syringe) 3 ml IVFLUSH QSHIFT [facility] Last Admin: 11/02/22 07:59 Dose: 3 ml Sucralfate (Sucralfate 1 Gm Tablet) 1 gm PO QIDACHS [facility] Last Admin: 11/02/22 12:12 Dose: Not Given Exam Exam Date and Time: November 02, 2022 1247 Height,Weight and Vital Signs: Height 5 ft 7 in Weight 75.5 kg Last Vital Signs Temp 98.0 F 11/02/22 12:18 Pulse 86 11/02/22 12:18 Resp 16 11/02/22 12:18 BP 160/93 H 11/02/22 12:18 Pulse Ox 99 11/02/22 12:18 O2 Del Method Room Air 11/02/22 12:18 Pertinent Lab Results Pertinent Lab Results: Laboratory Tests 11/01/22 11/01/22 11/01/22 12:21 12:21 12:21 WBC 14.6 H RBC 3.91 L D Hgb 12.3 L Hct 36.5 L D MCV 93.4 MCH 31.5 MCHC 33.7 RDW 13.3 Plt Count 428 H D MPV 10.1 Immature Gran % (Auto) 0.4 Neut % (Auto) 83.8 H Lymph % (Auto) 9.4 L [place] % (Auto) 5.9 Eos % (Auto) 0.2 Baso % (Auto) 0.3 Lymph # (Auto) 1.4 [place] # (Auto) 0.9 Eos # (Auto) 0.0 Baso # (Auto) 0.0 Abs Immat Gran (auto) 0.06 H Absolute Neuts (auto) 12.2 H Absolute Nucleated RBC 0.000 Nucleated RBC % (auto) 0.0 PT 13.6 H INR 1.2 H Sodium 139 Potassium 4.1 Chloride 109 H Carbon Dioxide 18 L Anion Gap 16 BUN 38 H Creatinine 1.24 Estim Creat Clear Calc 50.3 Estimated GFR 57 Random Glucose 186 H Lactic Acid Calcium 9.2 Magnesium 2.1 Total Bilirubin 0.5 Direct Bilirubin 0.2 AST 17 ALT 18 Alkaline Phosphatase 85 Troponin I High Sens B-Natriuretic Peptide Total Protein 6.1 L Albumin 3.6 Lipase 17 Procalcitonin 0.28 Urine Color Urine Appearance Urine pH Ur Specific [place] Urine Protein Urine Glucose (UA) Urine Ketones Urine Blood Urine Nitrite Ur Leukocyte Esterase Stool Occult Blood Blood Type Antibody Screen 11/01/22 11/01/22 11/01/22 12:21 12:21 12:55 WBC RBC Hgb Hct MCV MCH MCHC RDW Plt Count MPV Immature Gran % (Auto) Neut % (Auto) Lymph % (Auto) [place] % (Auto) Eos % (Auto) Baso % (Auto) Lymph # (Auto) [place] # (Auto) Eos # (Auto) Baso # (Auto) Abs Immat Gran (auto) Absolute Neuts (auto) Absolute Nucleated RBC Nucleated RBC % (auto) PT INR Sodium Potassium Chloride Carbon Dioxide Anion Gap BUN Creatinine Estim Creat Clear Calc Estimated GFR Random Glucose Lactic Acid Calcium Magnesium Total Bilirubin Direct Bilirubin AST ALT Alkaline Phosphatase Troponin I High Sens 8.1 B-Natriuretic Peptide 443 H Total Protein Albumin Lipase Procalcitonin Urine Color Urine Appearance Urine pH Ur Specific [place] Urine Protein Urine Glucose (UA) Urine Ketones Urine Blood Urine Nitrite Ur Leukocyte Esterase Stool Occult Blood POSITIVE Blood Type Antibody Screen 11/01/22 11/01/22 11/01/22 12:55 15:13 15:22 WBC RBC Hgb Hct MCV MCH MCHC RDW Plt Count MPV Immature Gran % (Auto) Neut % (Auto) Lymph % (Auto) [place] % (Auto) Eos % (Auto) Baso % (Auto) Lymph # (Auto) [place] # (Auto) Eos # (Auto) Baso # (Auto) Abs Immat Gran (auto) Absolute Neuts (auto) Absolute Nucleated RBC Nucleated RBC % (auto) PT INR Sodium Potassium Chloride Carbon Dioxide Anion Gap BUN Creatinine Estim Creat Clear Calc Estimated GFR Random Glucose Lactic Acid 1.0 Calcium Magnesium Total Bilirubin Direct Bilirubin AST ALT Alkaline Phosphatase Troponin I High Sens B-Natriuretic Peptide Total Protein Albumin Lipase Procalcitonin Urine Color Yellow Urine Appearance Clear Urine pH 5.5 Ur Specific [place] 1.020 Urine Protein Negative Urine Glucose (UA) Negative Urine Ketones Negative Urine Blood Negative Urine Nitrite Negative Ur Leukocyte Esterase Negative Stool Occult Blood Blood Type O Positive Antibody Screen NEGATIVE 11/02/22 11/02/22 05:52 05:52 WBC 9.2 RBC 3.47 L Hgb 10.8 L Hct 32.9 L MCV 94.8 MCH 31.1 MCHC 32.8 RDW 13.2 Plt Count 342 MPV 10.2 Immature Gran % (Auto) 0.4 Neut % (Auto) 66.3 Lymph % (Auto) 19.0 L [place] % (Auto) 11.8 H Eos % (Auto) 2.1 Baso % (Auto) 0.4 Lymph # (Auto) 1.8 [place] # (Auto) 1.1 Eos # (Auto) 0.2 Baso # (Auto) 0.0 Abs Immat Gran (auto) 0.04 H Absolute Neuts (auto) 6.1 Absolute Nucleated RBC 0.000 Nucleated RBC % (auto) 0.0 PT INR Sodium 141 Potassium 3.7 Chloride 109 H Carbon Dioxide 24 Anion Gap 12 BUN 24 H Creatinine 1.02 Estim Creat Clear Calc 61.2 Estimated GFR > 60 Random Glucose 120 H Lactic Acid Calcium 8.7 Magnesium Total Bilirubin Direct Bilirubin AST ALT Alkaline Phosphatase Troponin I High Sens B-Natriuretic Peptide Total Protein Albumin Lipase Procalcitonin Urine Color Urine Appearance Urine pH Ur Specific [place] Urine Protein Urine Glucose (UA) Urine Ketones Urine Blood Urine Nitrite Ur Leukocyte Esterase Stool Occult Blood Blood Type Antibody Screen Airway Mallampati Class: II TM Dist: >3cm Neck ROM: Full Denture: Upper and Lower Loose/Missing/Broken Teeth: Yes Heart: [id number] Lungs: cta b/l Assessment and Plan Assessment Anesthesia Assessment: Anesthesia Plan Discussed and Chart Reviewed Final Anesthetic Review Family History of Problems with Anesthesia: No History of Problems with Anesthesia: No NPO: Yes ASA Class: III and Emergency Final Preanesthetic Review: No Changes in Pt Med Stat, Meds/Allgs Chart Reviewed, Consent Obtained/Reviewed and Anes Risks/Benef Reviewed Patient Risk: Intermediate Procedure Risk: Intermediate Assessment/Block/Sedation in SS: Assess/Block/Sedation-SS Anesthetic Plan Anesthetic Plan: MAC: and Agree w/ Assess. and Plan Disposition: Standard PACU
--- NOTE | 2022-11-02 14:45 | P.PNIM_ITS ---
Subjective Subjective Date of Service: 11/02/22 Interval History: No active bleeding overnight. Completed EGD today with results noted Review of Systems (Family interpreting) Denies chest pain Denies shortness of breath Denies nausea vomiting diarrhea Denies fever chills Physical Exam Vital Signs: Vital Signs: Last Vital Signs Temp 97.9 F 11/02/22 13:48 Pulse 75 11/02/22 13:48 Resp 20 11/02/22 13:48 BP 143/74 H 11/02/22 13:48 Pulse Ox 98 11/02/22 13:48 O2 Del Method Room Air 11/02/22 13:48 BMI result Body Mass Index 26.1 Const: Other: No acute distress Resp: Other: Clear to auscultation bilaterally no rales rhonchi or wheezes Cardio: Other: No S4; positive S1-S2; no S3 murmurs rubs or gallops GI: Other: Soft nontender nondistended normoactive bowel sounds Neuro: Other: Cranial nerves 2-12 grossly intact as tested; sensation is intact. Motor is 5/5 all extremities. Gait stable cognition appropriate Extrem: Other: No edema bilaterally Objective Data Active Medications Acetaminophen (Acetaminophen 325 Mg Tablet) 650 mg PO Q6H PRN PRN Reason: Pain, Mild (Pain Scale 1-3) Acetaminophen (Acetaminophen 325 Mg Tablet) 650 mg PO ONCE PRN PRN Reason: Pain, Mild (Pain Scale 1-3) Docusate Sodium (Docusate Sodium 100 Mg Capsule) 100 mg PO DAILY PRN PRN Reason: Constipation Furosemide (Furosemide 40 Mg/4 Ml Vial) 40 mg IVPUSH DAILY [facility]; Protocol Last Admin: 11/02/22 07:59 Dose: 40 mg Documented By: BERNA Non-Formulary Medication (Triamcinolone Acetonide) 1 appl TOPICAL DAILY [facility] Ondansetron HCl (Ondansetron Hcl 4 Mg/2 Ml Vial) 4 mg IVPUSH Q8H PRN PRN Reason: Nausea and Vomiting Pantoprazole Sodium (Pantoprazole Sodium 40 Mg/10 Ml Vial) 40 mg IVPUSH BID@0630,1630 [facility] Last Admin: 11/02/22 05:03 Dose: 40 mg Documented By: MARY Pharmacy Consult (Consult Rx Perform Med Rec) 1 each MISCELLANE ONCE PRN PRN Reason: Consult order Pravastatin Sodium (Pravastatin Sodium 80 Mg Tablet) 80 mg PO DAILY [facility] Last Admin: 11/02/22 08:03 Dose: Not Given Documented By: BERNA Non-Admin Reason: NPO Sodium Chloride (0.9 % Sodium Chloride Flush 3 Ml Syringe) 3 ml IVFLUSH QSHIFT [facility] Last Admin: 11/02/22 07:59 Dose: 3 ml Documented By: BERNA Sucralfate (Sucralfate 1 Gm Tablet) 1 gm PO QIDACHS [facility] Last Admin: 11/02/22 12:12 Dose: Not Given Documented By: BERNA Non-Admin Reason: NPO Labs 11/02/22 05:52 11/02/22 05:52 Labs: Laboratory Results - last 24 hr 11/01/22 11/01/22 11/02/22 15:13 15:22 05:52 MCV 94.8 MCH 31.1 MCHC 32.8 RDW 13.2 Plt Count 342 MPV 10.2 Immature Gran % (Auto) 0.4 Neut % (Auto) 66.3 Lymph % (Auto) 19.0 L [place] % (Auto) 11.8 H Eos % (Auto) 2.1 Baso % (Auto) 0.4 Lymph # (Auto) 1.8 [place] # (Auto) 1.1 Eos # (Auto) 0.2 Baso # (Auto) 0.0 Abs Immat Gran (auto) 0.04 H Absolute Neuts (auto) 6.1 Absolute Nucleated RBC 0.000 Nucleated RBC % (auto) 0.0 Anion Gap Estim Creat Clear Calc Estimated GFR Random Glucose Lactic Acid 1.0 Calcium Urine Color Yellow Urine Appearance Clear Urine pH 5.5 Ur Specific [place] 1.020 Urine Protein Negative Urine Glucose (UA) Negative Urine Ketones Negative Urine Blood Negative Urine Nitrite Negative Ur Leukocyte Esterase Negative 11/02/22 05:52 MCV MCH MCHC RDW Plt Count MPV Immature Gran % (Auto) Neut % (Auto) Lymph % (Auto) [place] % (Auto) Eos % (Auto) Baso % (Auto) Lymph # (Auto) [place] # (Auto) Eos # (Auto) Baso # (Auto) Abs Immat Gran (auto) Absolute Neuts (auto) Absolute Nucleated RBC Nucleated RBC % (auto) Anion Gap 12 Estim Creat Clear Calc 61.2 Estimated GFR > 60 Random Glucose 120 H Lactic Acid Calcium 8.7 Urine Color Urine Appearance Urine pH Ur Specific [place] Urine Protein Urine Glucose (UA) Urine Ketones Urine Blood Urine Nitrite Ur Leukocyte Esterase Assessment and Plan (1) Upper GI bleed: Status: Acute (2) Pleural effusion: Status: Acute (3) HTN (hypertension): Status: Acute Plan 72-year-old male with history of hypertension, hyperlipidemia, COPD, elevated PSA, history of PUD with H pylori admitted for UGIB, new onset CHF. 1.Acute blood loss anemia/UGI bleed -results of EGD noted. Gastric ulcer clipped -40 mg IV pantoprazole b.i.d. -Carafate q.i.d. -diet advance by GI 2. Elevated BNP -2D echo with normal LVEF -seen by Cardiology... Unclear reason for elevated BNP 3. Left pleural effusion -chest CT to better assess pleural effusion -history of tobacco abuse. . . Question thoracentesis if appropriate 4.COPD -well controlled -p.r.n. albuterol 4.Hypertension -acceptable control off therapies -restart when clinically indicated Full code Pneumatic boots Patient requires ongoing hospitalization for IV PPI and light of gastric ulcer all along with documentation of stabilized hemoglobin Time Spent With Patient Time: Total time managing care of this patient today ____ minutes. Quality Stroke Does the patient have a stroke diagnosis?: No VTE Prior VTE?: No VTE Risk Level:: Medical - moderate - high VTE Device Contraindication: N/A - Device Ordered VTE Drug Contraindication: Treatment Not Indicated
[2022-11-02] MEDS: Sucralfate 1 GM TABLET PO ×2 (16:06→21:32)
[2022-11-02 18:48] LABS: B Type Natriuretic Peptide 55 pg/mL (<100)
[2022-11-02] MEDS: Acetaminophen 325 MG TABLET 650 MG PO (21:32)
[2022-11-03] VITALS (7 sets, daily range): BP systolic 110–170; BP diastolic 60–80; PULSE 66–82; RESP 18–20; TEMP 36.2–37.7; O2SAT 95–99
[2022-11-03] MEDS: 0.9 % Sodium Chloride Flush 3 ML SYRINGE IVFLUSH ×4 (00:04→20:05)
[2022-11-03 05:04] LABS: Hematocrit 30.5 % (42.0-52.0); Hemoglobin 10.2 g/dl (14.0-18.0); Mean Corpuscular HGB Conc 33.4 g/dl (31.0-36.0); Mean Corpuscular Hemoglobin 31.4 pg (27.0-33.0); Mean Corpuscular Volume 93.8 fL (80.0-98.0); Platelet Count 284 X10*3/uL (160-400); Red Blood Count 3.25 X10*6/uL (4.60-5.80); Red Cell Distribution Width 12.9 % (11.0-16.0); White Blood Count 8.4 X10*3/uL (4.8-10.8)
[2022-11-03 05:27] LABS: Alanine Aminotransferase 14 U/L (0-40); Albumin Level 3.2 g/dL (3.5-5.0); Alkaline Phosphatase 72 U/L (39-117); Anion Gap 10 (12-20); Aspartate Amino Transferase 13 U/L (5-37); Bilirubin Total 0.6 mg/dL (0.0-1.0); Blood Urea Nitrogen 19 mg/dL (9-16); Calcium 8.5 mg/dL (8.4-10.2); Carbon Dioxide 27 mmol/L (22-29); Chloride 106 mmol/L (96-108); Creatinine Clr Calc Pharmacy 65.7; Estimated Glomerular Filt Rate > 60; Glucose Fasting 114 mg/dL (60-99); Potassium 3.5 mmol/L (3.3-5.1); Sodium 139 mmol/L (135-145); Total Protein 5.2 g/dL (6.5-8.0)
[2022-11-03] MEDS: Pantoprazole Sodium 40 MG/10 ML VIAL IVPUSH ×2 (06:18→15:59)
[2022-11-03] MEDS: Sucralfate 1 GM TABLET PO ×4 (08:25→20:05)
[2022-11-03] MEDS: Furosemide 40 MG/4 ML VIAL IVPUSH (08:25)
[2022-11-03] MEDS: Docusate Sodium 100 MG CAPSULE PO (08:25)
[2022-11-03] MEDS: Acetaminophen 325 MG TABLET 650 MG PO ×2 (08:25→15:58)
[2022-11-03] MEDS: Pravastatin Sodium 80 MG TABLET PO (08:25)
--- NOTE | 2022-11-03 10:14 | P.PNCA_ITS ---
Subjective Subjective Date of Service: 11/03/22 Interval history: He states that he feels okay. No specific complaints. Review of Systems Review of Systems Yes all other systems are reviewed and are negative Constitutional: Reports as per HPI and Reports no additional constitutional complaints Eyes: Reports as per HPI and Denies no additional eye complaints Denies system reviewed and no additional complaints, except as documented and Reports as per HPI Cardiovascular: Reports as per HPI, Reports no additional cardiovascular complaints, Denies acrocyanosis, Denies cool extremities, Denies chest pain, Denies leg edema, Denies lightheadedness, Denies palpitations and Denies dyspnea Respiratory: Reports as per HPI, Denies no additional respiratory complaints and Denies dyspnea Gastrointestinal: Reports as per HPI and Denies no additional gastrointestinal complaints Genitourinary: Reports no additional male genitourinary complaints and Reports as per HPI Musculoskeletal: Reports no additional musculoskeletal complaints and Reports as per HPI Skin/Breast: Reports system reviewed and no additional complaints, except as doc u Reports system reviewed and no additional complaints, except as documented and Reports as per HPI Psychiatric: Reports no additional psychiatric complaints and Reports as per HPI Endocrine: Reports no additional endocrine complaints, Reports as per HPI and Denies palpitations Hematologic/Lymphatic: Reports no additional hematologic/lymphatic complaints and Reports as per HPI Allergic/Immunologic: Reports no additional allergic/immunologic complaints and Reports as per HPI Physical Exam Vital Signs: Last Vital Signs Temp 98.4 F 11/03/22 07:42 Pulse 66 11/03/22 07:42 Resp 20 11/03/22 07:42 BP 153/79 H 11/03/22 07:42 Pulse Ox 96 11/03/22 07:42 O2 Del Method Room Air 11/03/22 07:42 BMI result Body Mass Index 26.1 Const General: comfortable and no acute distress Orientation/consciousness: patient oriented x3 HEENT Other: Unremarkable Head: Yes normal to inspection Neck Neck: Yes normal visual inspection Chest Chest palpation & inspection: normal inspection of the chest Resp Auscultation: clear to auscultation bilaterally Cardio Palpation: normal PMI Heart sounds: S1 normal heart sound present, S2 normal heart sound present, no gallops, no murmurs and no rubs GI Palpation (GI): Soft to palpation Back/Spine/Pelvis Other: unremarkable Skin General skin exam: no rashes or lesions noted Neuro General: patient oriented x3 Extrem General: Yes normal to inspection Psych Mental Status: mental status grossly normal Objective Labs and Meds 11/03/22 04:49 11/03/22 04:49 Lab results: Laboratory Results - last 24 hr 11/02/22 11/03/22 11/03/22 18:17 04:49 04:49 WBC 8.4 RBC 3.25 L Hgb 10.2 L Hct 30.5 L MCV 93.8 MCH 31.4 MCHC 33.4 RDW 12.9 Plt Count 284 MPV 10.0 Absolute Nucleated RBC 0.000 Nucleated RBC % (auto) 0.0 Sodium 139 Potassium 3.5 Chloride 106 Carbon Dioxide 27 Anion Gap 10 L BUN 19 H Creatinine 0.95 Estim Creat Clear Calc 65.7 Estimated GFR > 60 Fasting Glucose 114 H Calcium 8.5 Total Bilirubin 0.6 AST 13 ALT 14 Alkaline Phosphatase 72 B-Natriuretic Peptide 55 Total Protein 5.2 L Albumin 3.2 L Imaging Radiologist's impression: Impressions Chest CT 11/02/22 17:59 IMPRESSION: Large layering left-sided pleural effusion. There is patchy tree-in-bud opacification in the dependent aspect of the left upper lobe and lateral aspect of the aerated left lower lobe. Infectious or inflammatory causes would be favored. Linear atelectatic changes or scarring bilaterally as well. Progress Note: A&P Assessment and plan (1) Upper GI bleed: Status: Acute (2) Pleural effusion: Status: Acute (3) SOB (shortness of breath): Status: Acute Plan Cardiac BNP is 443 yesterday. Today it is 55. High sensitivity troponin within normal limits. Chest CT reported to have large layering left side pleural effusion. Echocardiogram with LVEF of 60-65%. No significant valvular issues. Mild ascending aortic dilatation at 4 cm. Per GI note, underwent endoscopy and found to have gastritis, esophagitis, hiatal hernia, gastric ulcer. At the current time, no clear-cut acute cardiac issues. With regard to chest pain he had described, could be just from the esophageal findings as there was nothing exertion. Can consider outpatient stress testing or coronary CTA after he recovers completely. Follow-up will be arranged. Discussed with hospitalist. [place] consumer services advisor was used. Time Spent With Patient Time: Total time managing care of this patient today ____ minutes. Progress Note: Quality Stroke Does the patient have a stroke diagnosis?: No Procedures Date of Service Date of Service: 11/03/22
--- NOTE | 2022-11-03 14:06 | HO.POSTANES ---
Post Anesthesia Evaluation Post Anesthesia Evaluation Vital Signs: Vital Signs Temp Pulse Resp BP Pulse Ox O2 Del Method 11/03/22 11:37 98.5 F 80 18 144/78 H 97 Room Air 11/03/22 12:48 99 Room Air 11/03/22 07:42 98.4 F 66 20 153/79 H 96 Room Air 11/03/22 03:36 99.1 F 72 18 110/61 97 Room Air Anesthesia: Monitored Mental Status: Awake Pain Control: Satisfactory Nausea/Vomiting: None Hydration: Adequate Anesthesia-Related Issues: No Anes. Related Issues
[2022-11-03] MEDS: Lidocaine HCl 1 % MPF 5 ML VIAL SUBCUT (15:10)
[2022-11-03 15:50] LABS: MN% 73.8 %; PMN% 26.2 %; WBC Pleural Fluid 1.591 X10*3/uL
--- NOTE | 2022-11-03 15:50 | PC.NURSE ---
pt back on unit around 15:33, vitals within normal limits however BP a little elevated - 170/80. A&O x 3. reports 6/10 pain at drain site. dressing CDI.
[2022-11-03 15:51] LABS: RBC Pleural Fluid < 0.002 X10*3/uL
[2022-11-03 16:26] LABS: BF Shift QC OK YES; Basophils Pleural Fluid 1 %; Eosinophils Pleural Fluid 17 %; Lymphocytes Pleural Fluid 34 %; Man Diluent Bkgrd OK YES; Monocytes Pleural Fluid 41 %; Neutrophils Pleural Fluid 7 %
--- NOTE | 2022-11-03 16:30 | P.PNIM_ITS ---
Subjective Subjective Date of Service: 11/03/22 Interval History: sitting comfortably denies abdominal pain, no headache no lightheadedness or dizziness, denies shortness of breath, no orthopnea, no PND complaining of mild discomfort left chest wall that is gradually improving after trauma several days ago, tolerating diet, no nausea,no vomiting, no abdominal pain, no fevers, no cough. Review of Systems Review of Systems: Yes all other systems are reviewed and are negative Physical Exam Vital Signs: Vital Signs: Last Vital Signs Temp 97.1 F 11/03/22 15:42 Pulse 82 11/03/22 15:42 Resp 20 11/03/22 15:42 BP 170/80 H 11/03/22 15:42 Pulse Ox 98 11/03/22 15:42 O2 Del Method Room Air 11/03/22 15:42 BMI result Body Mass Index 26.1 Const: Other: General resting comfortably in no acute distress. Neck supple no JVD. CVS regular rate rhythm, Respiratory lungs diminished left base,no respiratory distress, no wheeze, no rhonchi. Gastrointestinal abdomen soft, nontender, bowel sounds audible, no guarding , no rigidity. Extremities no edema. Neuro nonfocal Skin no rash psych appropriate affect Objective Data Active Medications Acetaminophen (Acetaminophen 325 Mg Tablet) 650 mg PO Q6H PRN PRN Reason: Pain, Mild (Pain Scale 1-3) Last Admin: 11/03/22 15:58 Dose: 650 mg Documented By: KINZA Acetaminophen (Acetaminophen 325 Mg Tablet) 650 mg PO ONCE PRN PRN Reason: Pain, Mild (Pain Scale 1-3) Docusate Sodium (Docusate Sodium 100 Mg Capsule) 100 mg PO DAILY PRN PRN Reason: Constipation Last Admin: 11/03/22 08:25 Dose: 100 mg Documented By: KINZA Furosemide (Furosemide 40 Mg/4 Ml Vial) 40 mg IVPUSH DAILY [facility]; Protocol Last Admin: 11/03/22 08:25 Dose: 40 mg Documented By: KINZA Ondansetron HCl (Ondansetron Hcl 4 Mg/2 Ml Vial) 4 mg IVPUSH Q8H PRN PRN Reason: Nausea and Vomiting Pantoprazole Sodium (Pantoprazole Sodium 40 Mg/10 Ml Vial) 40 mg IVPUSH BID@0630,1630 [facility] Last Admin: 11/03/22 15:59 Dose: 40 mg Documented By: KINZA Pharmacy Consult (Consult Rx Perform Med Rec) 1 each MISCELLANE ONCE PRN PRN Reason: Consult order Pravastatin Sodium (Pravastatin Sodium 80 Mg Tablet) 80 mg PO DAILY [facility] Last Admin: 11/03/22 08:25 Dose: 80 mg Documented By: KINZA Sodium Chloride (0.9 % Sodium Chloride Flush 3 Ml Syringe) 3 ml IVFLUSH QSHIFT [facility] Last Admin: 11/03/22 15:59 Dose: 3 ml Documented By: KINZA Sucralfate (Sucralfate 1 Gm Tablet) 1 gm PO QIDACHS [facility] Last Admin: 11/03/22 15:58 Dose: 1 gm Documented By: KINZA Triamcinolone Acetonide (Triamcinolone Acet 0.025 % Cream 15 Gm Tube) 1 appl TOPICAL DAILY [facility] Last Admin: 11/03/22 10:20 Dose: Not Given Documented By: KINZA Non-Admin Reason: pt states not at this time Labs 11/03/22 04:49 11/03/22 04:49 Labs: Laboratory Results - last 24 hr 11/02/22 11/03/22 11/03/22 18:17 04:49 04:49 MCV 93.8 MCH 31.4 MCHC 33.4 RDW 12.9 Plt Count 284 MPV 10.0 Absolute Nucleated RBC 0.000 Nucleated RBC % (auto) 0.0 Anion Gap 10 L Estim Creat Clear Calc 65.7 Estimated GFR > 60 Fasting Glucose 114 H Calcium 8.5 Total Bilirubin 0.6 AST 13 ALT 14 Alkaline Phosphatase 72 B-Natriuretic Peptide 55 Total Protein 5.2 L Albumin 3.2 L Pleural WBC Pleural RBC Pleural Neutrophils Pleural Lymphocytes Pleural Monocytes Pleural Eosinophils Pleural Basophils 11/03/22 14:15 MCV MCH MCHC RDW Plt Count MPV Absolute Nucleated RBC Nucleated RBC % (auto) Anion Gap Estim Creat Clear Calc Estimated GFR Fasting Glucose Calcium Total Bilirubin AST ALT Alkaline Phosphatase B-Natriuretic Peptide Total Protein Albumin Pleural WBC 1.591 Pleural RBC < 0.002 Pleural Neutrophils 7 Pleural Lymphocytes 34 Pleural Monocytes 41 Pleural Eosinophils 17 Pleural Basophils 1 Microbiology Microbiology Results: Microbiology 11/01/22 15:22 Blood Culture - Preliminary Blood - Venous No growth after 24 hours. 11/01/22 15:22 Blood Culture - Preliminary Blood - Venous No growth after 24 hours. Assessment and Plan (1) Upper GI bleed: Status: Acute (2) Pleural effusion: Status: Acute (3) HTN (hypertension): Status: Acute Plan 72-year-old male with history of hypertension, hyperlipidemia, COPD, elevated PSA, history of PUD with H pylori admitted for UGIB, new onset CHF. 1.Acute blood loss anemia/UGI bleed - underwent EGD, under it showed gastritis, esophagitis, gastric ulcer and hiatal hernia,Gastric ulcer clipped, slight drop in hematocrit. - will DC 40 mg IV pantoprazole b.i.d., transition to by mouth Prilosec 20 b.i.d., continue, continue Carafate q.i.d. - tolerating regular diet 2. Elevated BNP -2D echo with normal LVEF, DC IV Lasix, patient denies shortness of breath no orthopnea, no PND -seen by Cardiology... Unclear reason for elevated BNP 3. large Left pleural effusion -chest CT showed large effusion as per patient he had a traumatic injury to left chest wall and had significant pain for few days, denies cough no fevers, history of tobacco abuse quit 13 years ago will arrange for IR guided thoracocentesis for diagnostic and therapeutic purpose 4.COPD -well controlled,p.r.n. albuterol 4.Hypertension - noted to have elevated blood pressures home medications are on hold, will DC IV Lasix and placed back on home medications Full code Pneumatic boots Patient requires ongoing hospitalization for thoracocentesis and monitoring of hematocrit since underwent clipping of gastric ulcer with down trending hemoglobin and hematocrit. Time Spent With Patient Time: Total time managing care of this patient today ____ minutes. Quality Stroke Does the patient have a stroke diagnosis?: No VTE Prior VTE?: No VTE Risk Level:: Medical - moderate - high VTE Device Contraindication: N/A - Device Ordered VTE Drug Contraindication: Treatment Not Indicated
[2022-11-03] MEDS: oxyCODONE HCl Immed Release 5 MG TABLET PO (20:10)
[2022-11-03 21:06] LABS: LDH Pleural Fluid 174 U/L
[2022-11-04 03:17] VITALS: BP 122/58; PULSE 84; RESP 18; TEMP 37.2; O2SAT 95
[2022-11-04] MEDS: Omeprazole 20 MG CAPSULE.DR PO (05:17)
[2022-11-04] MEDS: oxyCODONE HCl Immed Release 5 MG TABLET PO ×2 (05:21→13:08)
[2022-11-04 06:22] LABS: Hematocrit 30.2 % (42.0-52.0); Hemoglobin 10.2 g/dl (14.0-18.0); Mean Corpuscular HGB Conc 33.8 g/dl (31.0-36.0); Mean Corpuscular Hemoglobin 31.2 pg (27.0-33.0); Mean Corpuscular Volume 92.4 fL (80.0-98.0); Mean Platelet Volume 9.7 fL (9.4-12.4); Platelet Count 301 X10*3/uL (160-400); Red Blood Count 3.27 X10*6/uL (4.60-5.80); Red Cell Distribution Width 12.7 % (11.0-16.0); White Blood Count 9.7 X10*3/uL (4.8-10.8)
[2022-11-04 07:00] VITALS: BP 115/77; PULSE 82; RESP 17; TEMP 37.1; O2SAT 97
[2022-11-04] MEDS: Acetaminophen 325 MG TABLET 650 MG PO (08:50)
[2022-11-04] MEDS: Triamterene/HCTZ 37.5/25 TABLET 1 TAB PO (08:50)
[2022-11-04] MEDS: Valsartan 160 MG TABLET PO (08:50)
[2022-11-04] MEDS: Sucralfate 1 GM TABLET PO ×2 (08:50→13:08)
[2022-11-04] MEDS: Pravastatin Sodium 80 MG TABLET PO (08:50)
[2022-11-04] MEDS: 0.9 % Sodium Chloride Flush 3 ML SYRINGE IVFLUSH (08:51)
[2022-11-04 11:29] VITALS: O2SAT 97
--- NOTE | 2022-11-04 13:11 | P.DS_ITS ---
DS: Providers Provider Date of Service: 11/04/22 Date of admission: 11/01/22 14:21 Primary care physician: Haydee Gandhi MD Consults: 11/01/22 14:26 Consult to Cardiology Routine Consulting Provider: [facility] Reason for consultation: new onset chf Consult to Gastroenterology Routine Consulting Provider: Ofelia Rangel Reason for consultation: UGIB DS: Diagnosis Discharge Diagnosis (1) Upper GI bleed: Status: Acute (2) Pleural effusion: Status: Acute (3) HTN (hypertension): Status: Acute DS: Summary Hospital Course Hospital Course: history of presenting illness: Date of Service: 11/01/22 Attending physician on admission: Nate Nava Chief Complaint: melena 72-year-old male with history of hypertension, hyperlipidemia, COPD, elevated PSA, history of PUD with H pylori presents to the ED with his sister Danita who assists with Surinamese interpretation (Juan interpretation offered and declined) for evaluation of diffuse abd pain, nausea, and melena ongoing since last night. No associated vomiting, diarrhea, constipation, or hematochezia.? Reports has had similar symptoms several times in the past, most recently was 5-6 years ago and underwent EGD required blood transfusions.? He is also reporting dyspnea on exertion and intermittent episodes of chest pain that is nonradiating.? Unable to describe the pain but states is not currently present.? He also endorses bilateral lower extremity edema that is intermittent. There is also left sided rib pain. Denies any orthopnea or PND.? He is a former smoker who quit 13 years ago.? Denies any illicit drug use.? Reports drinking 1-2 beers on a near daily basis.? On arrival, patient initially tachycardic to 112 which resolved with IVF.? Vitals otherwise normal.? Leukocytosis of 14.5.? H/H 12.3/36.5%? (09/07: H/H 15.1/46.7%). Pt/INR 13.6/1.2.? Creatinine baseline at 1.24, BUN 38.? Sodium 139, potassium 4.1, chloride 109, CO2 18.? Troponin 8.1.? BNP 443.? Procalcitonin 0.28.? Stool occult positive.? CXR showing small left-sided pleural effusion with adjacent atelectasis. EKG showing sibus tachycardia with premature supraventricular complexes with nonspecific ST/T-wave abnormality.? In the ED, received, 1 L bolus IV NS. hospital course: 72-year-old male with history of hypertension, hyperlipidemia, COPD, elevated PSA, history of PUD with H pylori admitted for UGIB, new onset CHF. 1.Acute blood loss anemia/UGI bleed, underwent EGD, it showed gastritis, esophagitis, gastric ulcer and hiatal hernia,Gastric ulcer clipped, postprocedure hemo Procrit stable continue Prilosec 40 mg daily, H pylori not detected,strongly recommend to abstain from NSAIDs smoking and alcohol. 2. Elevated BNP, treated with IV Lasix,2D echo with normal LVEF, denies shortness of breath no orthopnea, no PND, seen by Cardiology unclear reason for elevated BNP recommend outpatient follow-up with Cardiology. 3. large Left pleural effusion -chest CT? showed large effusion as per patient he had a traumatic injury to left chest wall and had significant pain for few days, denies cough no fevers, history of tobacco abuse quit 13 years ago ? Underwent IR guided thoracocentesis , fluid gm stain showed no organism or polys, no significant RBC , not consistent with trauma, also not consistent with infection recommend to follow pleural fluid cytology as outpatient. 4.COPD -well controlled,p.r.n. albuterol 4.Hypertension continue all home medications. Time Spent with Patient Time attestation: Total time managing care of this patient today ____ minutes. Discharge coordination time: Greater than 30 minutes Quality: Safe Use of Opioids Does Pt have an Active Cancer Diagnosis on the Problem List?: No Quality: Stroke Does the patient have a stroke diagnosis?: No Physical Exam Vital Signs: Vital Signs: Last Vital Signs Temp 98.7 F 11/04/22 07:00 Pulse 82 11/04/22 07:00 Resp 17 11/04/22 07:00 BP 115/77 11/04/22 07:00 Pulse Ox 97 11/04/22 11:29 O2 Del Method Room Air 11/04/22 11:29 BMI result Body Mass Index 26.1 Const: Other: General resting comfortably in no acute distress.? Neck supple no JVD. CVS? regular rate rhythm, Respiratory lungs? clear ,no respiratory distress, no wheeze, no rhonchi. Gastrointestinal abdomen soft, non tender, bowel sounds audible, no guarding , no rigidity. Extremities no? edema. Neuro nonfocal Skin no rash psych appropriate affect DS: Data Data Completed and Pending Completed studies during hospitalization [Text1]: Pending at discharge 11/02/22 13:17 Surgical [PTH] Routine Pending studies at discharge: Pending at discharge 11/03/22 11:20 Cytology [PTH] Routine Labs on day of discharge: Laboratory Results - last 24 hr 11/03/22 11/03/22 11/04/22 14:15 14:15 06:06 WBC 9.7 RBC 3.27 L Hgb 10.2 L Hct 30.2 L MCV 92.4 MCH 31.2 MCHC 33.8 RDW 12.7 Plt Count 301 MPV 9.7 Absolute Nucleated RBC 0.000 Nucleated RBC % (auto) 0.0 Pleural WBC 1.591 Pleural RBC < 0.002 Pleural Neutrophils 7 Pleural Lymphocytes 34 Pleural Monocytes 41 Pleural Eosinophils 17 Pleural Basophils 1 Pleural Total Protein 4.0 Pleural LDH 174 Preliminary micro results at discharge 11/01/22 15:22 Blood Culture - Preliminary Blood - Venous No growth after 48 hours. 11/01/22 15:22 Blood Culture - Preliminary Blood - Venous No growth after 48 hours. Discharge Plan Discharge Anticipated Discharge Date/Time: 11/04/22 13:01 Patient Disposition: Home, Self-Care Discharge Diagnosis: acute blood loss anemia upper GI bleed left pleural effusion elevated BNP Referrals: Haydee Gandhi MD [Primary Care Provider] - 1 Week Discharge Medications: New omeprazole 40 mg capsule,delayed release(DR/EC) 40 mg PO DAILY Qty: 30 0RF Continued triamterene-hydrochlorothiazid 37.5-25 mg tablet 1 tab PO DAILY Qty: 90 3RF pravastatin 80 mg tablet 80 mg PO DAILY Qty: 90 3RF olmesartan 40 mg tablet 40 mg PO DAILY Qty: 90 3RF triamcinolone acetonide 0.025 % lotion 1 appl topical DAILY Qty: 60 2RF Discharge Orders: Discharge Order (Routine); Ordered 11/04/22 Ordered By: Iliana Cunningham Diet: Low fat, low cholesterol Activity on Discharge: As tolerated Stand Alone Forms: Patient Portal Discharge page Care Plan Goals: take Prilosec 40 mg by mouth daily, avoid NSAIDs, no alcohol, Sit up 30 minutes after each meal pleural fluid not consistent with infection or trauma follow pleural fluid cytology report with primary care physician. Health Concerns: hypertension/ gastritis/ gastric ulcer Plan of Treatment: outpatient follow-up with primary care outpatient follow-up with Cardiology Dr. Farr for outpatient stress testing or coronary CTA Assessment: as above
--- NOTE | 2022-11-04 13:19 | MHC.CM.PN ---
Patient has been medically cleared for dc to home today, self care. Last IMM was addressed on 11/02/2022.
--- NOTE | 2022-11-04 13:40 | PC.NURSE ---
pt A&O x 3, vitals within normal limits. sister Danita at bedside for discharge instructions - both verbalize understanding. IV out, monitor off.
--- NOTE | 2022-11-05 11:35 | P.CDIM_ITS ---
PROVIDER RESPONSE TEXT: To clarify, the appropriate diagnosis supported by the clinical indicators: Acute QUERY TEXT: >>> Provider Instructions - Do not remove this line >>> PHYSICIAN'S DOCUMENTATION REQUEST Date of Query: 11/04/2022 07:17 AM EDT Patient Name: Moe Sunshine Admit Date: 11/01/2022 Dear Iliana Cunningham, A review of the medical record indicates additional documentation may be needed. Please review below and update the documentation accordingly. Clinical Indicators: Per Hospitalist Progress Note 11/03/22: UGI bleed - underwent EGD, under it showed gastritis Clarify which of the following accurately represents the acuity of the Gastritis. Possible options might include: <<< Provider Instructions - Do not remove this line <<< Acute Acute on chronic Compensated Chronic stable condition Remission Other (explain) Clinically unable to determine (explain) >>> Contact Info Do not remove this line>>> Thank you, Cynthia Delgado RN Use of terms such as suspected, likely, concern for, or probable (associated with a specific diagnosi s that is being evaluated, monitored, or treated as if it exists) are acceptable and can be coded in the inpatient se tting, when documented at the time of discharge. Please use your independent medical judgment in providing your response. THIS QUERY IS PART OF THE PERMANENT MEDICAL RECORD <<< Contact Info Do not remove this line <<< >>> Disclaimer - Do no remove this line>>> Extension: [phone] <<< Disclaimer - Do not remove this line<<<
--- NOTE | 2022-11-05 11:35 | P.CDIM_ITS ---
PROVIDER RESPONSE TEXT: To clarify, the appropriate diagnosis supported by the clinical indicators: Acute QUERY TEXT: >>> Provider Instructions - Do not remove this line >>> PHYSICIAN'S DOCUMENTATION REQUEST Date of Query: 11/04/2022 07:20 AM EDT Patient Name: Moe Sunshine Admit Date: 11/01/2022 Dear Iliana Cunningham, A review of the medical record indicates additional documentation may be needed. Please review below and update the documentation accordingly. Clinical Indicators: Per Hospitalist Progress Note 11/03/22: underwent EGD, under it showed gastric ulcer and Gastric ulcer clipped - will DC 40 mg IV pantoprazole b.i.d., transition to by mouth Prilosec 20 b.i.d., continue, continue Carafate q.i.d. - tolerating regular diet Clarify which of the following accurately represents the acuity of the Gastric Ulcer. Possible options might include: <<< Provider Instructions - Do not remove this line <<< Acute Acute on chronic Compensated Chronic stable condition Remission Other (explain) Clinically unable to determine (explain) >>> Contact Info Do not remove this line>>> Thank you, Cynthia Delgado RN Use of terms such as suspected, likely, concern for, or probable (associated with a specific diagnosi s that is being evaluated, monitored, or treated as if it exists) are acceptable and can be coded in the inpatient se tting, when documented at the time of discharge. Please use your independent medical judgment in providing your response. THIS QUERY IS PART OF THE PERMANENT MEDICAL RECORD <<< Contact Info Do not remove this line <<< >>> Disclaimer - Do no remove this line>>> Extension: [phone] <<< Disclaimer - Do not remove this line<<<
== END 2022-11-04 13:44 | disposition home or self-care (01) | DRG 377 ==
LOC: HO.ED 14:05 → HO.EDOVER 14:32 → HO.IMC 16:22
PROVIDERS: Hospitalist; Internal Medicine Gastroenterology; Physician Assistant; Radiology Diagnostic Radiology; Registered Nurse Emergency; Admitting Provider Physician Assistant; Emergency Provider Emergency Medicine; PCP Internal Medicine; Visit Provider Hospitalist
PROC: 0DJ08ZZ Inspection of Upper Intestinal Tract, Via Natural or Artificial Opening Endoscopic (ICD-10-PCS; CPT 43235; principal; 2022-11-02 12:00)
PROC: 0W9B3ZZ Drainage of Left Pleural Cavity, Percutaneous Approach (ICD-10-PCS; principal; 2022-11-03 14:00)
DX: K25.0 Acute gastric ulcer with hemorrhage (principal); K20.91 Esophagitis, unspecified with bleeding; D62 Acute posthemorrhagic anemia; J90 Pleural effusion, not elsewhere classified; J44.9 Chronic obstructive pulmonary disease, unspecified; K44.9 Diaphragmatic hernia without obstruction or gangrene; E78.5 Hyperlipidemia, unspecified; Z87.891 Personal history of nicotine dependence; Z79.899 Other long term (current) drug therapy
CPT/HCPCS: 32555; 36415; 71045; 71046; 71250; 80048; 80053; 80076; 81003; 82272; 83605; 83615; 83690; 83735; 83880; 84145; 84157; 84484; 85025; 85027; 85610; 86850; 86900; 86901; 87040; 87070; 87073; 87205; 88112; 88305; 88342; 89051; 93005; 93306; 99285; J1940; J3010; Q9957

== ENCOUNTER 2022-11-11 08:19 | Outpatient (REF) | payer MEDICARE, SELFPAY ==
--- NOTE | ~2022-11-11 | XR_ITS ---
EXAMINATION: XR CHEST CLINICAL INFORMATION: Pleural effusion. COMPARISON: 11/03/[address] scan of 11/02/2022. TECHNIQUE: PA view of the chest was obtained. FINDINGS: There is a partially loculated left pleural effusion with component seen about the lateral chest wall. This has developed since the previous study of 11/03/2022. Heart normal size. No pneumothorax. There is some right apical scarring present. No evidence of pulmonary edema. XR/XR chest 1V IMPRESSION: Development of partially loculated left pleural effusion more prominent than the study of 11/03/2022.
[2022-11-11 13:51] LABS: MANUAL DIFF FLAG NO
[2022-11-11 14:14] LABS: Basophils Percent Auto 0.4 % (0-2); Eosinophils Absolute Auto 0.1 X10*3/uL (0.0-0.4); Hematocrit 31.4 % (42.0-52.0); Hemoglobin 10.2 g/dl (14.0-18.0); Imm Gran Abs Auto 0.03 X10*3/uL (0.00-0.03); Imm Gran Pct Auto 0.3 % (0.0-0.4); Lymphocytes Absolute Auto 1.3 X10*3/uL (1.2-4.9); Lymphocytes Percent Auto 12.1 % (20-40); Mean Corpuscular HGB Conc 32.5 g/dl (31.0-36.0); Mean Corpuscular Hemoglobin 30.6 pg (27.0-33.0); Mean Corpuscular Volume 94.3 fL (80.0-98.0); Mean Platelet Volume 9.6 fL (9.4-12.4); Monocytes Absolute Auto 0.8 X10*3/uL (0.1-1.2); Monocytes Percent Auto 7.2 % (2-11); Neutrophils Absolute Auto 8.2 x10*3/uL (2.0-8.3); Platelet Count 551 X10*3/uL (160-400); Red Blood Count 3.33 X10*6/uL (4.60-5.80); Red Cell Distribution Width 12.9 % (11.0-16.0); White Blood Count 10.4 X10*3/uL (4.8-10.8)
[2022-11-11 14:39] LABS: Alanine Aminotransferase 23 U/L (0-40); Albumin Level 3.4 g/dL (3.5-5.0); Alkaline Phosphatase 86 U/L (39-117); Anion Gap 12 (12-20); Aspartate Amino Transferase 13 U/L (5-37); Bilirubin Total 0.3 mg/dL (0.0-1.0); Blood Urea Nitrogen 15 mg/dL (9-16); Calcium 8.7 mg/dL (8.4-10.2); Carbon Dioxide 24 mmol/L (22-29); Chloride 107 mmol/L (96-108); Estimated Glomerular Filt Rate > 60; Glucose Random 126 mg/dL (60-115); Iron 25 mcg/dL (45-160); Percent Iron Saturation 11 % (15-50); Potassium 4.1 mmol/L (3.3-5.1); Sodium 139 mmol/L (135-145); Total Iron Binding Capacity 218 mcg/dL (228-428); Total Protein 5.8 g/dL (6.5-8.0); Unsaturated Iron Binding 193 ug/dL
[2022-11-11 15:15] LABS: PSA,Total (Free>4and<10) 3.76 ng/mL (0.00-4.00)
[2022-11-11 15:24] LABS: B Type Natriuretic Peptide 144 pg/mL (<100)
== END 2022-11-11 08:20 | disposition home or self-care (01) ==
LOC: HO.HMGCX 08:19
PROVIDERS: PCP Internal Medicine; Visit Provider Internal Medicine
DX: Z12.5 Encounter for screening for malignant neoplasm of prostate (principal); J90 Pleural effusion, not elsewhere classified; K92.2 Gastrointestinal hemorrhage, unspecified; R97.20 Elevated prostate specific antigen [PSA]; R06.02 Shortness of breath
CPT/HCPCS: 36415; 71045; 80053; 83540; 83880; 84153; 85025

== ENCOUNTER → 2022-11-18 11:01 | Outpatient (BNVA) | payer MEDICARE, SELFPAY | PROVIDERS: PCP Internal Medicine; Visit Provider Internal Medicine | DX: J90 Pleural effusion, not elsewhere classified (principal); J44.9 Chronic obstructive pulmonary disease, unspecified | CPT/HCPCS: 99212 ==

== ENCOUNTER 2022-12-01 10:09 | Outpatient (REF) | payer MEDICARE, OTHER, SELFPAY ==
--- NOTE | ~2022-12-01 | XR_ITS ---
EXAMINATION: XR CHEST CLINICAL INFORMATION: Pleural effusion COMPARISON: Previous chest x-ray most recent October 2022 TECHNIQUE: 2 views of the chest were obtained. FINDINGS: The cardiac and mediastinal contours are stable. There is a loculated left posterior lateral pleural effusion. This does not appear appreciably changed from most recent exam 11/11/2022. There is no right pleural effusion. There is no pneumothorax. There is mild biapical pleural thickening. There are increased markings at the right lung apex that are stable. There may be compressive atelectasis at the left lung base adjacent to the effusion.. Lungs are otherwise clear. Bony structures are unremarkable. XR/XR chest 2V IMPRESSION: Loculated posterior lateral left pleural effusion similar to 11/11/2022 chest x-ray.
== END 2022-12-01 10:10 | disposition home or self-care (01) ==
LOC: HO.XRAY 10:09
PROVIDERS: PCP Internal Medicine; Visit Provider Internal Medicine
DX: J90 Pleural effusion, not elsewhere classified (principal)
CPT/HCPCS: 71046

== ENCOUNTER → 2022-12-04 14:23 | Outpatient (BNVA) | payer MEDICARE, SELFPAY | PROVIDERS: PCP Internal Medicine; Visit Provider Surgery | DX: J90 Pleural effusion, not elsewhere classified (principal) | CPT/HCPCS: 99202 ==

== ENCOUNTER 2022-12-14 09:48 | Day surgery (SDC) | payer MEDICARE, OTHER, SELFPAY ==
--- NOTE | ~2022-12-14 | XR_ITS ---
EXAMINATION: XR CHEST CLINICAL INFORMATION: Post left thoracentesis COMPARISON: Previous chest x-ray most recent November 2022 TECHNIQUE: Frontal view of the chest was obtained. FINDINGS: The cardiac silhouette is slightly enlarged but stable. There is volume loss to the left hemithorax with shift the central mediastinal structures to the left. There is interval decrease in the loculated left pleural effusion post thoracentesis. No pneumothorax. Coarse lung markings on the left. The right lung is clear. No right pleural effusion or pneumothorax. Old right lateral fifth rib fracture. Degenerative changes of the spine. XR/XR chest 1V IMPRESSION: No pneumothorax post left thoracentesis.
--- NOTE | ~2022-12-14 | US_ITS ---
EXAMINATION: Ultrasound thoracentesis CLINICAL INFORMATION: Loculated left pleural effusion COMPARISON: Previous chest x-ray 12/01/2022 TECHNIQUE: Procedure and risks and benefits including bleeding, infection and pneumothorax were discussed with the patient and informed consent was obtained. Patient was positioned in the right decubitus position. The left lateral chest was prepped and draped in the usual sterile fashion. Using ultrasound guidance and a 4 Lao one-step system, access to the loculated left pleural effusion was obtained. 30 to 40 mL of clear yellow fluid was removed. Diagnostic specimen was sent. FINDINGS: There is a small loculated left pleural effusion in the lateral left chest. US/US thoracentesis IMPRESSION: Ultrasound-guided left thoracentesis.
[2022-12-14 10:29] LABS: MANUAL DIFF FLAG NO
[2022-12-14 10:32] LABS: Basophils Percent Auto 0.1 % (0-2); Eosinophils Absolute Auto 0.1 X10*3/uL (0.0-0.4); Eosinophils Percent Auto 0.3 % (0-4); Hematocrit 28.7 % (42.0-52.0); Hemoglobin 9.1 g/dl (14.0-18.0); Imm Gran Pct Auto 0.6 % (0.0-0.4); Lymphocytes Absolute Auto 1.1 X10*3/uL (1.2-4.9); Lymphocytes Percent Auto 6.5 % (20-40); Mean Corpuscular HGB Conc 31.7 g/dl (31.0-36.0); Mean Corpuscular Hemoglobin 27.4 pg (27.0-33.0); Mean Corpuscular Volume 86.4 fL (80.0-98.0); Mean Platelet Volume 9.1 fL (9.4-12.4); Monocytes Absolute Auto 1.3 X10*3/uL (0.1-1.2); Neutrophils Absolute Auto 13.8 x10*3/uL (2.0-8.3); Neutrophils Percent Auto 84.5 % (45-73); Platelet Count 568 X10*3/uL (160-400); Red Blood Count 3.32 X10*6/uL (4.60-5.80); Red Cell Distribution Width 15.3 % (11.0-16.0); White Blood Count 16.3 X10*3/uL (4.8-10.8)
[2022-12-14 10:40] LABS: INTERNATIONAL NORM RATIO 1.2 (0.9-1.1); Prothrombin Time 14.1 SEC (10.0-13.1)
[2022-12-14 10:43] LABS: Partial Thromboplastin Time 27.9 SEC (26.0-36.4)
[2022-12-14 12:40] VITALS: BP 153/86; PULSE 75; RESP 16; TEMP 36.3; O2SAT 97
[2022-12-14] MEDS: Lidocaine HCl 1 % MPF 5 ML VIAL SUBCUT (12:42)
[2022-12-14 12:55] VITALS: BP 147/84; PULSE 82; RESP 17; O2SAT 97
[2022-12-14 13:05] LABS: MN% 96.1 %; PMN% 3.9 %; RBC Pleural Fluid 0.013 X10*6/uL; WBC Pleural Fluid 0.682 X10*3/uL
[2022-12-14 13:10] VITALS: BP 148/81; PULSE 76; RESP 17; O2SAT 97
[2022-12-14 13:25] VITALS: BP 145/83; PULSE 75; RESP 16; O2SAT 97
[2022-12-14 13:40] VITALS: BP 156/94; PULSE 83; RESP 16; O2SAT 97
[2022-12-14 13:51] LABS: Lymphocytes Pleural Fluid 92 %; Neutrophils Pleural Fluid 8 %
[2022-12-14 13:52] LABS: BF Shift QC OK YES
[2022-12-14 13:55] VITALS: BP 171/90; PULSE 96; RESP 16; O2SAT 97
[2022-12-14 20:01] LABS: Glucose Pleural Fluid 67 MG/DL
[2022-12-14 20:03] LABS: LDH Pleural Fluid 111 U/L
== END 2022-12-14 14:09 | disposition home or self-care (01) ==
PROVIDERS: PCP Internal Medicine; Visit Provider Radiology Diagnostic Radiology
DX: J90 Pleural effusion, not elsewhere classified (principal); J44.9 Chronic obstructive pulmonary disease, unspecified; I10 Essential (primary) hypertension; E78.5 Hyperlipidemia, unspecified; K27.9 Peptic ulcer, site unspecified, unspecified as acute or chronic, without hemorrhage or perforation; M77.8 Other enthesopathies, not elsewhere classified; Z79.899 Other long term (current) drug therapy; Z87.891 Personal history of nicotine dependence
CPT/HCPCS: 32555; 32557; 36415; 71045; 82945; 83615; 84157; 85025; 85610; 85730; 87070; 87073; 87102; 87116; 87205; 87206; 88112; 88305; 89051

== ENCOUNTER → 2022-12-22 14:24 | Outpatient (BNVA) | payer MEDICARE, SELFPAY | PROVIDERS: PCP Internal Medicine; Referring Provider Internal Medicine; Visit Provider Nurse Practitioner Family ==

== ENCOUNTER 2022-12-22 15:12 | Inpatient (IN) | payer MEDICARE, OTHER, SELFPAY ==
[2022-12-22] VITALS (12 sets, daily range): BP systolic 96–158; BP diastolic 61–93; PULSE 75–178; RESP 17–28; TEMP 36.2–37.3; O2SAT 5–100; BMI 26.7; BMI 27.0
--- NOTE | 2022-12-22 | ECG_ITS ---
Test Reason : TACHYCARDIA Blood Pressure : / mmHG Vent. Rate : 182 BPM Atrial Rate : 000 BPM P-R Int : 000 ms QRS Dur : 076 ms QT Int : 270 ms P-R-T Axes : 000 057 029 degrees QTc Int : 469 ms Atrial fibrillation with rapid ventricular response ST depression, consider subendocardial injury Abnormal ECG When compared with ECG of 01-NOV-2022 12:09, Atrial fibrillation has replaced Sinus rhythm Vent. rate has increased BY [address] now depressed in Inferior leads ST now depressed in Lateral leads Referred By: Generic ED Physician Electronically Signed By:Roberto Hong
--- NOTE | 2022-12-22 | ECG_ITS ---
Test Reason : Change of Rythm Blood Pressure : / mmHG Vent. Rate : 075 BPM Atrial Rate : 075 BPM P-R Int : 132 ms QRS Dur : 082 ms QT Int : 370 ms P-R-T Axes : 065 030 036 degrees QTc Int : 413 ms Normal sinus rhythm Nonspecific ST abnormality Abnormal ECG When compared with ECG of 22-DEC-2022 15:16, Sinus rhythm has replaced Atrial fibrillation Vent. rate has decreased BY [address] no longer depressed in Inferior leads ST no longer depressed in Lateral leads Referred By: Toña Keene Electronically Signed By:Roberto Hong
--- NOTE | ~2022-12-22 | CT_ITS ---
EXAMINATION: CT ABDOMEN AND PELVIS WITH CONTRAST CLINICAL INFORMATION: Abdominal pain COMPARISON: None available. TECHNIQUE: Multidetector volumetric images were obtained from the superior aspect of the liver through the pubic symphysis following administration 85 mL of Omnipaque 350 intravenous contrast. Sagittal and coronal reformatted images were obtained on the technologist's workstation. Oral contrast: Yes This CT examination was performed using dose optimization techniques as appropriate, variously including the following: *Automated exposure control *Adjustment of mA and/or kV according to patient size (this includes techniques or standardized protocols for targeted exams where dose is matched to indication/reason for exam; i.e. extremities or head) *Use of iterative reconstruction technique DLP: 332 mGy-cm FINDINGS: Exam is limited due to motion artifact. LUNG BASES: See chest CT report from the same day LIVER, GALLBLADDER, AND BILIARY TREE: There are several small low-attenuation liver lesions, largest measuring 1 cm high in the dome of the right lobe axial image 12 series 3 and near the hepatic venous confluence axial image 13 series 3. The gallbladder is slightly enlarged measuring 5 x 10 cm. Evaluation of the wall of the gallbladder. Polycystic fat is somewhat limited due to artifact from respiratory motion. There is no biliary duct dilatation. PANCREAS: Unremarkable. SPLEEN: Unremarkable. ADRENAL GLANDS: Unremarkable. KIDNEYS AND URETERS: The kidneys are normal in size, shape, and attenuation. No hydronephrosis, hydroureter, or calculi seen. No perinephric stranding. 1 cm cyst in the upper pole of the right kidney. Small 1 cm peripelvic cyst in the lower pole of the left kidney. No imaging follow-up recommended. BLADDER: Unremarkable. GASTROINTESTINAL TRACT: Stool throughout the colon questionable for constipation. Mild diverticulosis. No evidence of diverticulitis. Small large bowel is otherwise unremarkable. The appendix is seen. The stomach is normal. ABDOMINAL WALL: No significant hernia is appreciated. LYMPH NODES: There are small upper abdominal retroperitoneal lymph nodes. No enlarged lymph nodes. There is stranding of the fat in the left upper quadrant under the left hemidiaphragm and adjacent to the spleen. There is mild fat stranding in the small bowel mesentery. No discrete mass is seen. There is no ascites. VASCULAR: Unremarkable. PELVIC VISCERA: Unremarkable. OSSEOUS STRUCTURES: There are multiple lytic lesions in the bones. bodies. Some are associated with soft tissue masses. Largest lytic lesion involves the left iliac crest measuring 1.5 and right sacrum measuring 3 x 3.4 cm and left T12 vertebral body measuring 1 x 3 cm. There is a soft tissue mass in the left iliac is muscle measuring [address]/CT abdomen pelvis w IV con IMPRESSION: Multiple low-attenuation liver lesions. Multiple lytic lesions in bones. Fat stranding under the left hemidiaphragm adjacent to the spleen and stranding in the small bowel mesentery. 1 x 1.3 cm mass adjacent to the left iliac is muscle. Appearance is concerning for metastatic disease. Slightly dilated gallbladder. Gallbladder not well evaluated due to motion artifact. If there is concern for cholecystitis, additional imaging recommended. Probable constipation. Fleischner guidelines were followed.
--- NOTE | ~2022-12-22 | MR_ITS ---
MR CERVICAL SPINE WITHOUT AND WITH CONTRAST CLINICAL INFORMATION: Right arm numbness. Rule out cord compression. COMPARISON: None available. TECHNIQUE: MRI of the cervical spine was obtained using routine sequences with and without contrast. Intravenous contrast: Gadavist 7.5 mL. FINDINGS: There is a large expansile enhancing lesion involving the right C6 and C7 vertebral bodies, the right C7 greater than C6 posterior elements, and the right C7 paravertebral soft tissues that is most concerning for a metastatic lesion given the recent chest CT findings. This lesion results in effacement of the right C6-C7 and right C7-T1 neural foramen with compression of the exiting right nerve roots at these levels. There is a small enhancing epidural component of the lesion on the right side that mildly indents the right lateral thecal sac and partially effaces the right axillary recess without compressing the cervical cord. There is a partially imaged enhancing metastatic lesion involving the left T3 posterior elements and left third rib that partially effaces the left T2-T3 neural foramen and there are smaller metastatic lesions involving the C4, C5,, T2, and T3 vertebral bodies as well as base of the T2 spinous process. Cervical vertebral body heights are maintained. There is moderate to severe disc volume loss at C3-C4 and moderate disc volume loss at C5-C6 and C6-C7. The craniocervical junction is unremarkable. Cervical arterial flow voids are preserved. There are no significant extraspinal soft tissue findings. Partially imaged posterior fossa is unremarkable. There is a yudith-cisterna magna. Lung findings are better demonstrated on the recent chest CT. C2-C3: Slight annular disc bulge. Bilateral facet arthropathy. No central canal stenosis and no foraminal stenosis. C3-C4: Disc osteophyte and ligamentum flavum thickening result in moderate central canal stenosis and flattening of the cord. Advanced uncovertebral joint hypertrophy and hypertrophic facet arthropathy result in severe right and mild left foraminal stenosis. C4-C5: Disc osteophyte and ligamentum flavum thickening result in moderate central canal stenosis and flattening of the cord. Advanced uncovertebral joint hypertrophy and hypertrophic facet arthropathy result in severe left and moderate right foraminal stenosis. C5-C6: Disc osteophyte and ligamentum flavum thickening result in moderate central canal stenosis and flattening of the cord. C6-C7: Enhancing metastatic lesion as discussed above. Partial effacement of the right C6-C7 neural foramen by enhancing tumor resulting in mass effect on the exiting right nerve root. Small volume enhancing epidural tumor on the right side that mildly indents the right ventral thecal sac and partially effaces the right axillary recess without compressing the cervical cord. Uncovertebral joint spurring and facet arthropathy result in mild to moderate left-sided foraminal stenosis. C7-T1: Enhancing tumor and spondylitic changes result in severe right-sided foraminal stenosis with compression of the exiting right nerve root. Enhancing epidural tumor mildly indents the right lateral thecal sac without resulting in mass effect on the cervical cord. No left foraminal stenosis. MR/MR cervical spine wo/w con IMPRESSION: - There is a large expansile enhancing lesion involving the right C6 and C7 vertebral bodies, the right C7 greater than C6 posterior elements, and the right C7 paravertebral soft tissues that is most concerning for a metastatic lesion given the recent chest CT findings. This lesion results in effacement of the right C6-C7 and right C7-T1 neural foramen with compression of the exiting right nerve roots at these levels. There is a small enhancing epidural component of the lesion on the right side that mildly indents the right lateral thecal sac and partially effaces the right axillary recess without compressing the cervical cord. - There is a partially imaged enhancing metastatic lesion involving the left T3 posterior elements and left third rib that partially effaces the left T2-T3 neural foramen and there are smaller metastatic lesions involving the C4, C5,, T2, and T3 vertebral bodies as well as base of the T2 spinous process. - Multilevel cervical spondylosis with spondylitic changes resulting in moderate central canal stenosis and flattening of the cervical spinal cord at the C3-C4, C4-C5, and C5-C6 levels. Spondylitic changes result in varying degrees of moderate to severe foraminal stenosis throughout the cervical spine as described.
--- NOTE | ~2022-12-22 | XR_ITS ---
EXAMINATION: XR CHEST CLINICAL INFORMATION: Rapid heartbeat. COMPARISON: Chest x-ray 12/14/2022 12:22 PM TECHNIQUE: Frontal portable view of the chest was obtained. 1614 hours FINDINGS: Persistent patchy airspace opacity left lung base with partial silhouetting left diaphragm. There is persistent diminished volume of left hemithorax compared to right. Blunting of left costophrenic angle is similar prior study. Right lung normally aerated. No pulmonary vascular congestion. No pneumothorax. XR/XR chest 1V IMPRESSION: Persistent patchy airspace opacity at left lung base. Persistent diminished volume of left hemithorax compared to right.
--- NOTE | ~2022-12-22 | CT_ITS ---
EXAMINATION: Chest CT high-resolution CLINICAL INFORMATION: Left pleural effusion previous chest x-rays most recent from yesterday and chest CT October 2022 COMPARISON: Previous chest CT October 2022 and chest x-ray most recent from yesterday TECHNIQUE: Axial images through the chest without IV contrast. Sagittal and coronal reconstructions on the technologist workstation were performed. Patient dose 1 4 4 mg/cm. This CT examination was performed using dose optimization techniques as appropriate, variously including the following: *Automated exposure control *Adjustment of mA and/or kV according to patient size (this includes techniques or standardized protocols for targeted exams where dose is matched to indication/reason for exam; i.e. extremities or head) *Use of iterative reconstruction technique FINDINGS: There is evidence of emphysema. There is biapical pleural and parenchymal scarring. There is abnormal parenchymal density versus a spiculated mass the right lung apex with areas of focal bronchiectasis and calcification axial image 14 series 7. There are similar subtler changes in the left upper lobe for example axial image 15 series 7. There are small calcifications/calcified nodules in the left upper lobe. There is question of a central 1 cm left upper lobe nodule axial image 25 series 7. There is question of a central left lung mass. There are areas of scarring or atelectasis in the left lower lobe. There are coarse lung markings throughout the left lower lobe questionable for lymphangitic tumor spread. There is consolidation/airspace disease with air bronchograms at the left lung base. There is a small loculated left pleural effusion. Pleural fluid appears loculated in the left pleural fissure. There is a small amount of fluid in the left lung base. This appears to represent a complex effusion with visceral and parietal pleural thickening and split pleural sign. There is question of a nodular appearance of the pleura adjacent to the left upper lobe for example axial image 26 series 7 versus mediastinal lymphadenopathy. There is no right pleural effusion. There is a small pericardial effusion. There is infiltration of the pericardial fat. The heart does not appear enlarged. Upper normal-size thoracic aorta. There is diffuse mediastinal lymphadenopathy. Lymph nodes are upper normal in size. There is question of left hilar adenopathy versus central lung mass. This is difficult to evaluate without contrast. There is left internal mammary lymphadenopathy. There is a destructive lytic lesion in the right C7 vertebral body and transverse process and associated soft tissue mass. There may be abnormal soft tissue in the spinal canal. Follow-up MRI to exclude cord compression recommended. There is a lytic lesion with associated soft tissue mass adjacent to the left T2 vertebral body and left T3 vertebral body, pedicle, transverse left transverse process and left third rib. There is an associated soft tissue mass that measures 2.4 x 4 cm axial image 11 series 7. There is a destructive lytic lesion in the sternum with associated soft tissue mass. Soft tissue mass measures 2.6 x 3.2 x 3.5 cm. There are multiple lytic lesions in the thoracic spine largest in the T12 and L1 vertebral bodies. There are smaller lesions in the T9, T6 and T3 vertebral bodies Images through the upper abdomen are unremarkable. There are small upper retroperitoneal lymph nodes. CT/CT chest wo con - High Res IMPRESSION: Small loculated left pleural effusion. Areas of nodular pleural thickening. Question central left lung mass and lymphangitic tumor spread in the left lower lobe. Consolidation/airspace disease at the left lung base with air bronchograms. Small pericardial effusion. Infiltration of the pericardial fat. Diffuse mediastinal adenopathy. Emphysema. Biapical abnormal parenchymal densities, right greater than left. Likely lytic metastatic disease to the bone. Soft tissue mass associated with destructive lytic lesion in the sternum may be a site for tissue diagnosis/biopsy. Findings significantly increased from previous chest CT October 2022. Follow-up cervical and thoracic spine MRI to exclude potential cord compression at C7 should be considered if clinically indicated. Findings will be communicated by the [facility] work flow shaper operator.
--- NOTE | ~2022-12-22 | CT_ITS ---
EXAMINATION: CT CHEST WITH CONTRAST CLINICAL INFORMATION: Lung mass and mediastinal lymphadenopathy COMPARISON: Previous chest CT most recent 12/23/2022 TECHNIQUE: Multidetector volumetric CT imaging of the chest was obtained after the administration of 85 mL of Omnipaque 350 intravenous contrast without immediate adverse reactions. Axial MIP volume rendering provided. Sagittal and coronal reformatted images were obtained. This CT examination was performed using dose optimization techniques as appropriate, variously including the following: *Automated exposure control *Adjustment of mA and/or kV according to patient size (this includes techniques or standardized protocols for targeted exams where dose is matched to indication/reason for exam; i.e. extremities or head) *Use of iterative reconstruction technique DLP: 157 mGy-cm FINDINGS: LUNGS: There is volume loss to the left hemithorax with shift of the central mediastinal structures to the left. Low-attenuation central left hilar lesion. This measures approximately 3 x 3 x 6 cm in AP, transverse, and longitudinal dimension. Left upper and left lower lobe bronchi are patent. There is partial atelectasis of the left upper and left lower lobes. There are coarse lung markings in the left lower lobe again questionable lymphangitic tumor spread There is emphysema. There are abnormal parenchymal densities in both upper lobes at the apices, right greater than left. This is unchanged from recent exam. MEDIASTINUM: Enlarged mediastinal lymph nodes similar to previous exam. Largest lymph node is a left precarinal lymph node measuring 1.7 cm in short axis, axial image 23 series 3. There are enlarged right mediastinal lymph nodes, largest a subcarinal lymph node to the right of midline measuring 1.6 cm and right paratracheal lymph node measuring 1.7 cm in short axis. There are small left internal mammary lymph nodes. Heart size is normal. There is a trace pericardial effusion. There is infiltration of the pericardial fat. There is a small subcentimeter right thyroid nodule. No imaging follow-up recommended. PLEURA: Loculated left pleural effusion. There is pleural nodularity adjacent to the mediastinum/medial left upper lobe. Has a split pleural sign at the lung base with visceral and parietal pleural thickening. This is partially loculated in the left pleural fissure. There is some infiltration of the extrapleural fat.. AXILLA: No enlarged axillary lymph nodes. Small amount of fluid in subcutaneous fat of the left posterolateral chest wall. UPPER ABDOMEN: See abdominal and pelvic CT report from the same day. OSSEOUS STRUCTURES: Extensive diffuse lytic bony metastatic disease similar to exam from yesterday CT/CT chest w IV con IMPRESSION: Volume loss to the left hemithorax. 3 x 3 x 6 cm low-attenuation cystic or necrotic left hilar mass. Partial atelectasis of the left upper and left lower lobes. Coarse lung markings in the left lower lobe questionable for lymphangitic tumor spread Partially loculated small left pleural effusion. There is infiltration of the extrapleural fat and pleural nodularity. Enlarged mediastinal lymph nodes. Small pericardial effusion and infiltration of the pericardial fat. Emphysema. Stable biapical parenchymal densities. Diffuse lytic bony metastatic disease similar to yesterday's exam. Fleischner guidelines were followed.
--- NOTE | ~2022-12-22 | US_ITS ---
EXAMINATION: Ultrasound guided biopsy soft tissue CLINICAL INFORMATION: Sternal mass COMPARISON: Previous chest CT 12/24/2022 TECHNIQUE: Procedure and risks and benefits including bleeding, infection and pneumothorax were discussed with the patient through an installation manager and informed consent obtained. The upper midline chest was prepped and draped in the usual sterile fashion. The skin and soft tissues were anesthetized with 1% lidocaine plain. Using ultrasound guidance and a coaxial system, access to the renal mass was obtained. A 18-gauge core biopsies were obtained. Specimen was placed in formalin and flow cytometry solution. Conscious sedation was provided by registered nurse under my permission with continuous hemodynamic monitoring. Patient received Versed 1 mg and fentanyl 75 mcg IV during the procedure. Total [id number] contact time was 13 minutes. FINDINGS: There is a heterogeneous 4.2 x 2 x 2.6 cm solid soft tissue mass arising from the right side of the sternum. US/US guided fine needle asp IMPRESSION: Ultrasound-guided sternal soft tissue mass biopsy.
[2022-12-22] MEDS: Digoxin 0.5 MG/2 ML AMPUL 0.25 MG IVPUSH (15:28)
[2022-12-22 15:29] LABS: MANUAL DIFF FLAG NO
[2022-12-22 15:37] LABS: Basophils Percent Auto 0.2 % (0-2); Eosinophils Absolute Auto 0.1 X10*3/uL (0.0-0.4); Eosinophils Percent Auto 0.6 % (0-4); Hemoglobin 9.8 g/dl (14.0-18.0); Imm Gran Abs Auto 0.09 X10*3/uL (0.00-0.03); Imm Gran Pct Auto 0.5 % (0.0-0.4); Lymphocytes Absolute Auto 1.6 X10*3/uL (1.2-4.9); Lymphocytes Percent Auto 8.4 % (20-40); Mean Corpuscular HGB Conc 30.6 g/dl (31.0-36.0); Mean Corpuscular Hemoglobin 26.3 pg (27.0-33.0); Mean Platelet Volume 8.9 fL (9.4-12.4); Monocytes Absolute Auto 1.2 X10*3/uL (0.1-1.2); Monocytes Percent Auto 6.6 % (2-11); Neutrophils Absolute Auto 15.9 x10*3/uL (2.0-8.3); Neutrophils Percent Auto 83.7 % (45-73); Platelet Count 530 X10*3/uL (160-400); Red Blood Count 3.72 X10*6/uL (4.60-5.80); Red Cell Distribution Width 15.3 % (11.0-16.0); White Blood Count 18.9 X10*3/uL (4.8-10.8)
[2022-12-22] MEDS: Calcium Gluconate/NaCl,Iso-Osm 2 GM/100 ML PLAST..BAG IV (15:38)
[2022-12-22] MEDS: Digoxin 0.5 MG/2 ML AMPUL 0.125 MG IVPUSH (15:50)
[2022-12-22 15:51] LABS: Alanine Aminotransferase 26 U/L (0-40); Albumin Level 3.3 g/dL (3.5-5.0); Alkaline Phosphatase 146 U/L (39-117); Anion Gap 18 (12-20); Aspartate Amino Transferase 26 U/L (5-37); Bilirubin Total 0.5 mg/dL (0.0-1.0); Blood Urea Nitrogen 23 mg/dL (9-16); Calcium 11.1 mg/dL (8.4-10.2); Carbon Dioxide 20 mmol/L (22-29); Chloride 106 mmol/L (96-108); Creatinine Clr Calc Pharmacy 59.6; Estimated Glomerular Filt Rate > 60; Glucose Random 127 mg/dL (60-115); Potassium 4.6 mmol/L (3.3-5.1); Sodium 139 mmol/L (135-145); Total Protein 7.2 g/dL (6.5-8.0)
[2022-12-22 15:52] LABS: B Type Natriuretic Peptide 228 pg/mL (<100)
--- NOTE | 2022-12-22 15:54 | ED_ITS ---
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 Patient had a scheduled appointment today for follow-up. Approximately a month ago, patient was discharged on November 04 from the hospital. Patient was admitted for a GI bleed, new onset atrial fibrillation and a right pleural effusion secondary to trauma. Patient states that when he was discharged home, 2-3 days later, he started having chest pain. Patient states that since then, it has been over a month that he has constant chest pain. Today, he went to his appointment, his heart rate was found to be in the 180s. Patient seemed diaphoretic uncomfortable, rapid response was called and brought to the emergency room. Related Data Home Medications Medication Instructions Recorded Confirmed multivitamin 1 tab PO DAILY 12/22/22 12/22/22 pravastatin 80 mg tablet 80 mg PO BEDTIME 12/22/22 12/22/22 Previous Rx's Medication Instructions Recorded olmesartan 20 mg tablet 20 mg PO DAILY #90 tabs 12/07/22 omeprazole 40 mg capsule,delayed 40 mg PO DAILY #30 caps 12/07/22 release Allergies Allergy/AdvReac Type Severity Reaction Status Date / Time No Known Allergies Allergy Verified 12/22/22 15:20 Review of Systems Review of Systems: Constitutional : No Weight loss, No Fever, No Chills, No Night Sweats, No Fatigue, No Malaise ENT/Mouth : No Hearing loss, No Ear Pain, No Nasal Congestion, No Sinus Pain, No Hoarseness, No sore throat, No Rhinorrhea, No Swallowing Difficulty Eyes: No Eye Pain, No Swelling, No Redness, No Foreign Body, No Discharge, No Vision Changes Cardiovascular : Signing of chest pain/discomfort for over a month, mild shortness of breath, no palpitations Respiratory : No Cough, No Sputum, No Wheezing, No Smoke Exposure, No Dyspnea Gastrointestinal : No Nausea, No Vomiting, No Diarrhea, No Constipation, No abdominal Pain, No Hematochezia, No Melena Genitourinary : no irregular bleeding, No Dysuria, No Urinary Frequency, No Hematuria, No Urinary Incontinence, No Urgency, No Flank Pain, No Urinary Flow Changes, No Hesitancy Musculoskeletal : No joint pain, No Myalgias, No Joint Swelling Skin : No Skin Lesions, No rash Neuro : No Weakness, No Numbness, No Paresthesias, No Loss of Consciousness, No Dizziness, No Headache Psych : No Anxiety/Panic, No Depression, No SI/HI/AH/VH, No Social Issues, Heme/Lymph: No Bruising, No Bleeding,No Lymphadenopathy Endocrine : No Polyuria, No Polydipsia, No Temperature Intolerance REPLACED BY [facility] Past Medical History Medical History Cataract CHF (congestive heart failure) COPD (chronic obstructive pulmonary disease) H. pylori infection HTN (hypertension) Hyperlipemia Loculated pleural effusion Nephrolithiasis Personal history of nicotine dependence PUD (peptic ulcer disease) Tubular adenoma of colon Surgical History History of colonoscopy History of esophagogastroduodenoscopy (EGD) History of thoracentesis Family History Family History Father No problems noted. Mother No problems noted. Social History Social History Housing: Assisted Living Facility Do you presently have visiting nurse or other home services: No Alcohol intake: current Alcohol intake frequency: does not drink Patient Tobacco Use Status: Former Tobacco user Quit Date: over 10 years ago Tobacco use type: Cigarette e-Cigarette/Vaping Use: Former Use Second Hand Smoke Exposure: No Advance Directives: Yes Advance Directives on File: Yes Advance Directives Date on File: 11/05/22 service: No Current occupational status: employed and retired Cognitive needs: No Hearing needs: No Vision needs: No Physical Exam Vital Signs: Vital Signs: Last Vital Signs Pulse 150 H 12/22/22 17:00 Resp 18 12/22/22 16:06 BP 143/88 H 12/22/22 17:00 Pulse Ox 5 L 12/22/22 16:06 O2 Del Method Oxymask 12/22/22 16:06 BMI result Body Mass Index 26.7 Const: Other: Appearance: Alert. Oriented X3. No acute distress. Eyes: Pupils equal, round and reactive to light. ENT: Pharynx normal. Neck: Normal inspection. Neck supple. No lymph nodes noted. No crepitus CVS: Irregular heart rate, tachycardic in the 160s to 180s. Pulses normal. Normal S1 and S2 Respiratory: No respiratory distress. Breath sounds normal. No Wheezing. No rales Abdomen: Soft and nontender. No rigidity. No distention. Skin: Skin warm , diaphoretic. Normal skin color. Normal skin turgor. Extremities: No lower extremity edema. No Lacerations. No Rash Neuro: Oriented X 3. No motor deficit. No sensory deficit. Moving all extremities. No slurred speech. CN 2 through 12 grossly intact Psych: calm, cooperative, normal affect Course Course Course Narrative: -rapid response called from the cardiology suite -on arrival, heart rate between 170 and 180, blood pressure between 88 systolic to 96 systolic. -patient was given 1 dose of digoxin 0.25 mg IV push, no FX. Patient was given an additional dose of 0.125 mg IV push. No affect on heart rate -patient was started on calcium gluconate as we may have to start Cardizem. -patient's blood pressure improved to 133/61, calcium gluconate running. Heart rate in the 170s. 10 mg of Cardizem running. At this time, a portion of 20 mg of Cardizem would likely drop the blood pressure significantly. If the Cardizem push does not work, we will start the patient on a drip -is maxed out on a Cardizem drip, blood pressure 140/88, heart rate 150, patient given 1 dose of IV metoprolol 5 mg. -overall, patient states that he feels much better, no chest pain, no shortness of breath -patient being admitted -chest x-ray shows a patchy opacity in the left lower base, patient had a thor acentesis done approximately a month ago. Patient's white blood cell count is elevated, sepsis not suspected, patient given antibiotics IV, ceftriaxone and azithromycin Medications Administered Generic Name Dose Route Start Last Admin Trade Name Freq PRN Reason Stop Dose Admin Diltiazem HCl 125 mg/ Sodium 125 mls @ 0 mls/hr 12/22/22 16:45 12/22/22 17:02 Chloride IVCONT 15 mg/hr .Q0M TEODORO 15 mls/hr Titration Protocol Per Protocol Discontinued Medications Generic Name Dose Route Start Last Admin Trade Name Cassandra PRN Reason Stop Dose Admin Aspirin 325 mg 12/22/22 16:01 12/22/22 16:26 Aspirin Enteric Coated 325 Mg Tablet.Dr DOUGHERTY 12/22/22 16:02 325 mg ONCE ONE Administration Digoxin 0.25 mg 12/22/22 15:24 12/22/22 15:28 Digoxin 0.5 Mg/2 Ml Ampul IVPUSH 12/22/22 15:25 0.25 mg ONCE ONE Administration Digoxin 0.125 mg 12/22/22 15:38 12/22/22 15:50 Digoxin 0.5 Mg/2 Ml Ampul IVPUSH 12/22/22 15:39 0.125 mg ONCE ONE Administration Diltiazem HCl 10 mg 12/22/22 15:59 12/22/22 16:03 Diltiazem Hcl 50 Mg/10 Ml Vial IVPUSH 12/22/22 16:00 10 mg STAT STA Administration Calcium Gluconate 2 gm in 100 mls @ 50 mls/hr 12/22/22 15:32 12/22/22 15:38 Calcium Gluconate IV 12/22/22 17:31 50 mls/hr ONCE ONE Administration Medical Decision Making Medical Decision Making [facility] Narrative: -patient's CHADS2 Vasc 2 score is 2, points given for hypertension and age -patient was given full-dose aspirin on arrival secondary to chest pain. At this time, patient feeling better Admission/Observation Consideration of admission/observation: Escalation of care including admission/observation considered Consult Healthcare Provider Management of the patient was discussed with: Hospitalist Lab Data MDM Lab Attestation statement: I reviewed the patient's lab results. 12/22/22 15:23 12/22/22 15:23 Labs: Lab Results 12/22/22 12/22/22 12/22/22 Range/Units 15:23 15:23 15:23 WBC 18.9 H (4.8-10.8) X10*3/uL RBC 3.72 L (4.60-5.80) X10*6/uL Hgb 9.8 L (14.0-18.0) g/dl Hct 32.0 L (42.0-52.0) % MCV 86.0 (80.0-98.0) fL MCH 26.3 L (27.0-33.0) pg MCHC 30.6 L (31.0-36.0) g/dl RDW 15.3 (11.0-16.0) % Plt Count 530 H (160-400) X10*3/uL MPV 8.9 L (9.4-12.4) fL Immature Gran % (Auto) 0.5 H (0.0-0.4) % Neut % (Auto) 83.7 H (45-73) % Lymph % (Auto) 8.4 L (20-40) % [place] % (Auto) 6.6 (2-11) % Eos % (Auto) 0.6 (0-4) % Baso % (Auto) 0.2 (0-2) % Lymph # (Auto) 1.6 (1.2-4.9) X10*3/uL [place] # (Auto) 1.2 (0.1-1.2) X10*3/uL Eos # (Auto) 0.1 (0.0-0.4) X10*3/uL Baso # (Auto) 0.0 (0.0-0.2) X10*3/uL Abs Immat Gran (auto) 0.09 H (0.00-0.03) X10*3/uL Absolute Neuts (auto) 15.9 H (2.0-8.3) x10*3/uL Absolute Nucleated RBC 0.000 (0.0-0.012) X10*3/uL Nucleated RBC % (auto) 0.0 (0.0-0.2) /100WBC Sodium 139 (135-145) mmol/L Potassium 4.6 (3.3-5.1) mmol/L Chloride 106 (96-108) mmol/L Carbon Dioxide 20 L (22-29) mmol/L Anion Gap 18 (12-20) BUN 23 H (9-16) mg/dL Creatinine 1.01 (0.5-1.4) mg/dL Estim Creat Clear Calc 59.6 Estimated GFR > 60 Random Glucose 127 H (60-115) mg/dL Calcium 11.1 H D (8.4-10.2) mg/dL Total Bilirubin 0.5 (0.0-1.0) mg/dL AST 26 (5-37) U/L ALT 26 (0-40) U/L Alkaline Phosphatase 146 H (39-117) U/L Troponin I High Sens (<3.5-35.0) ng/L B-Natriuretic Peptide 228 H (<100) pg/mL Total Protein 7.2 (6.5-8.0) g/dL Albumin 3.3 L (3.5-5.0) g/dL Ethyl Alcohol mg/dL 12/22/22 12/22/22 Range/Units 15:34 15:34 WBC (4.8-10.8) X10*3/uL RBC (4.60-5.80) X10*6/uL Hgb (14.0-18.0) g/dl Hct (42.0-52.0) % MCV (80.0-98.0) fL MCH (27.0-33.0) pg MCHC (31.0-36.0) g/dl RDW (11.0-16.0) % Plt Count (160-400) X10*3/uL MPV (9.4-12.4) fL Immature Gran % (Auto) (0.0-0.4) % Neut % (Auto) (45-73) % Lymph % (Auto) (20-40) % [place] % (Auto) (2-11) % Eos % (Auto) (0-4) % Baso % (Auto) (0-2) % Lymph # (Auto) (1.2-4.9) X10*3/uL Clayton # (Auto) (0.1-1.2) X10*3/uL Eos # (Auto) (0.0-0.4) X10*3/uL Baso # (Auto) (0.0-0.2) X10*3/uL Abs Immat Gran (auto) (0.00-0.03) X10*3/uL Absolute Neuts (auto) (2.0-8.3) x10*3/uL Absolute Nucleated RBC (0.0-0.012) X10*3/uL Nucleated RBC % (auto) (0.0-0.2) /100WBC Sodium (135-145) mmol/L Potassium (3.3-5.1) mmol/L Chloride (96-108) mmol/L Carbon Dioxide (22-29) mmol/L Anion Gap (12-20) BUN (9-16) mg/dL Creatinine (0.5-1.4) mg/dL Estim Creat Clear Calc Estimated GFR Random Glucose (60-115) mg/dL Calcium (8.4-10.2) mg/dL Total Bilirubin (0.0-1.0) mg/dL AST (5-37) U/L ALT (0-40) U/L Alkaline Phosphatase (39-117) U/L Troponin I High Sens < 2.7 D (<3.5-35.0) ng/L B-Natriuretic Peptide (<100) pg/mL Total Protein (6.5-8.0) g/dL Albumin (3.5-5.0) g/dL Ethyl Alcohol < 10 mg/dL Radiology Impression Discussion of test interpretation with radiology: I have reviewed the radiologist's reading. Radiologist Impression: FINDINGS: Persistent patchy airspace opacity left lung base with partial silhouetting left diaphragm. There is persistent diminished volume of left hemithorax compared to right. Blunting of left costophrenic angle is similar prior study. Right lung normally aerated. No pulmonary vascular congestion. No pneumothorax. XR/XR chest 1V IMPRESSION: Persistent patchy airspace opacity at left lung base. Persistent diminished volume of left hemithorax compared to right. Critical Care Time Critical Care Time Critical Care Time: Yes Total Critical Care Time: 60 Attestation: I have personally provided critical care time. Time includes review of lab data, radiology results, discussion with consultants, and monitoring for potential decompensation. Intervention performed as documented. Discharge Plan Discharge Clinical Impression: Atrial fibrillation with RVR, Pneumonia Patient Disposition: Admitted As Inpatient
[2022-12-22] MEDS: dilTIAZem HCL 50 MG/10 ML VIAL 10 MG IVPUSH (16:03)
[2022-12-22 16:16] LABS: Ethanol < 10 mg/dL
[2022-12-22] MEDS: Aspirin Enteric Coated 325 MG TABLET.DR PO (16:26)
[2022-12-22 16:31] LABS: Troponin-I High Sensitivity < 2.7 ng/L (<3.5-35.0)
[2022-12-22] MEDS: dilTIAZem HCL 125 MG in 0.9 % Sodium Chloride 100 ML 10 MG IVCONT (16:46)
--- NOTE | 2022-12-22 16:49 | PC.NURSE ---
dil drip started per order, HR 150-170's, Bp stable, set to recycle q5 minutes
--- NOTE | 2022-12-22 16:57 | PHA.MEDREC ---
Pharmacy Consult ? Medication Reconciliation Pharmacy has completed the medication reconciliation.
[2022-12-22] MEDS: Metoprolol Tartrate 5 MG/5 ML VIAL IVPUSH (17:39)
[2022-12-22] MEDS: cefTRIAXone sodium 1 GM in 0.9 % Sodium Chloride 50 ML IV (17:39)
--- NOTE | 2022-12-22 17:39 | PC.NURSE ---
Pt maxed out on Cardizem drip, HR continues in 150-170 provider made aware, Metoprolol ordered and given HR 130-140. IV antx ordered, BC obtained, Lactic acid also obtained at this time prior to IV antx being hung
--- NOTE | 2022-12-22 17:42 | MHC.EDTECH ---
Labs and cultures collected and sent to lab
[2022-12-22 18:12] LABS: Lactic Acid 0.9 mmol/L (0.5-2.0)
[2022-12-22] MEDS: Azithromycin 500 MG in 0.9 % Sodium Chloride 250 ML 125 MG IV (18:27)
--- NOTE | 2022-12-22 19:03 | PM.IMHP ---
History of Present Illness Date of Service: 12/22/22 Chief Complaint: chest pain 72-year-old gentleman with past medical history of hypertension, hyperlipidemia, COPD, history of peptic ulcer disease, elevated PSA, recently discharged from [facility] on after being treated for acute blood loss anemia due to upper GI bleed underwent EGD that showed esophagitis, gastritis and gastric ulcer, patient also underwent left thoracocentesis for large pleural effusion food fluid was not consistent with trauma or infection, patient also noted to have an elevated BNP treated with IV Lasix ,echo showed normal EF seen by Cardiology had unclear reason for elevated BNP therefore patient was referred for outpatient cardiology follow-up, he went for routine follow-up with Cardiology today where he was noted to be in AFib RVR therefore transferred to [facility], history obtained via [place] senior design engineer that happens to be patient's family friend according to her since discharge on 11/05 patient has been having persistent anterior chest pain worse with activity but persistent mild at rest, associated with shortness of breath, patient has been followed by his primary care physician and Dr. Jones and underwent repeat thoracocentesis on 12/14, in the emergency room patient noted to be in AFib RVR, labs showed wbc 18.9, normal creatinine 1.01 with a BUN of 23, patient treated in the emergency room with IV diltiazem, IV metoprolol, IV digoxin, since continue to be in rapid ventricular rate patient placed on IV Cardizem drip, patient also received IV ceftriaxone and azithromycin since chest x-ray showed patchy airspace opacity at the left lung base and persistent diminished volume of left hemithorax compared to right, patient now being admitted to [facility] due to AFib with RVR and treatment for pneumonia. Review of Systems Review of Systems: General no headache, no dizziness no fever chills. CVS chest pain, no palpitation. Respiratory shortness of breath Gastrointestinal no nausea no vomiting, no hematemesis no melena. Skin no rash PMFSH Medical History Cataract CHF (congestive heart failure) COPD (chronic obstructive pulmonary disease) H. pylori infection HTN (hypertension) Hyperlipemia Loculated pleural effusion Nephrolithiasis Personal history of nicotine dependence PUD (peptic ulcer disease) Tubular adenoma of colon Family History Father No problems noted. Mother No problems noted. Surgical History History of colonoscopy History of esophagogastroduodenoscopy (EGD) History of thoracentesis Social History Household Members: None Housing: Apartment Do you presently have visiting nurse or other home services: No Alcohol intake: current Alcohol intake frequency: does not drink Patient Tobacco Use Status: Former Tobacco user Quit Date: over 10 years ago Tobacco use type: Cigarette e-Cigarette/Vaping Use: Former Use Second Hand Smoke Exposure: No Advance Directives Date on File: 11/05/22 service: No Current occupational status: employed and retired Cognitive needs: No Hearing needs: No Vision needs: No Meds Allergies Allergy/AdvReac Type Severity Reaction Status Date / Time No Known Allergies Allergy Verified 12/22/22 15:20 Active Medications: Current Medications Acetaminophen (Acetaminophen 325 Mg Tablet) 650 mg PO Q6H PRN PRN Reason: Pain, Mild (Pain Scale 1-3) Diltiazem HCl 125 mg/ Sodium (Chloride) 125 mls @ 0 mls/hr IVCONT .Q0M TEODORO; Protocol Last Titration: 12/22/22 17:02 Dose: 15 mg/hr, 15 mls/hr Azithromycin 500 mg/ Sodium (Chloride) 250 mls @ 125 mls/hr IV ONCE ONE Stop: 12/22/22 19:22 Last Admin: 12/22/22 18:27 Dose: 125 mls/hr Melatonin (Melatonin 3 Mg Tablet) 6 mg PO BEDTIME PRN PRN Reason: Insomnia Morphine Sulfate (Morphine Sulfate 4 Mg/Ml Cartridge) 2 mg IVPUSH Q4H PRN; Protocol PRN Reason: Pain, Severe (Pain Scale 7-10) Multivitamins/Vitamin C (Multivitamin Tablet) 1 tab PO DAILY [facility] Omeprazole (Omeprazole 40 Mg Capsule.Dr) 40 mg PO DAILY [facility] Ondansetron HCl (Ondansetron Hcl 4 Mg/2 Ml Vial) 4 mg IVPUSH Q8H PRN PRN Reason: Nausea and Vomiting Oxycodone HCl (Oxycodone Hcl Immed Release 5 Mg Tablet) 5 mg PO Q6H PRN PRN Reason: Pain, Severe (Pain Scale 7-10) Pharmacy Consult (Consult Rx Perform Med Rec) 1 each MISCELLANE ONCE PRN PRN Reason: Consult order Pravastatin Sodium (Pravastatin Sodium 80 Mg Tablet) 80 mg PO BEDTIME [facility] Sodium Chloride (0.9 % Sodium Chloride Flush 3 Ml Syringe) 3 ml IVFLUSH QSHIFT [facility] Home Medications Medication Instructions Recorded Confirmed Last Taken Type multivitamin 1 tab PO DAILY 12/22/22 12/22/22 12/22/22 History pravastatin 80 mg tablet 80 mg PO BEDTIME 12/22/22 12/22/22 12/21/22 History Physical Exam Vital Signs and Narrative: Vital Signs: Last Vital Signs Pulse 150 H 12/22/22 17:00 Resp 18 12/22/22 16:06 BP 143/88 H 12/22/22 17:00 Pulse Ox 5 L 12/22/22 16:06 O2 Del Method Oxymask 12/22/22 16:06 BMI result Body Mass Index 26.7 Const: Other: General awake alert x3, in acute distress due to pain.? Neck supple no JVD. CVS? regular rate rhythm, Anterior chest wall tenderness with palpation Respiratory lungs? coarse breath sound, diminished left base,no respiratory distress, no wheeze, no rhonchi. Gastrointestinal abdomen soft, tenderness mid abdomen, bowel sounds audible, no guarding , no rigidity. Extremities no? edema. Neuro nonfocal Skin no rash psych appropriate affect Results Labs 12/22/22 15:23 12/22/22 15:23 Labs: Laboratory Results - last 24 hr 12/22/22 12/22/22 12/22/22 15:23 15:23 15:23 MCV 86.0 MCH 26.3 L MCHC 30.6 L RDW 15.3 Plt Count 530 H MPV 8.9 L Immature Gran % (Auto) 0.5 H Neut % (Auto) 83.7 H Lymph % (Auto) 8.[address] [place] % (Auto) 6.6 Eos % (Auto) 0.6 Baso % (Auto) 0.2 Lymph # (Auto) 1.6 [place] # (Auto) 1.2 Eos # (Auto) 0.1 Baso # (Auto) 0.0 Abs Immat Gran (auto) 0.09 H Absolute Neuts (auto) 15.9 H Absolute Nucleated RBC 0.000 Nucleated RBC % (auto) 0.0 Anion Gap 18 Estim Creat Clear Calc 59.6 Estimated GFR > 60 Random Glucose 127 H Lactic Acid Calcium 11.1 H D Total Bilirubin 0.5 AST 26 ALT 26 Alkaline Phosphatase 146 H Troponin I High Sens B-Natriuretic Peptide 228 H Total Protein 7.2 Albumin 3.3 L Ethyl Alcohol 12/22/22 12/22/22 12/22/22 15:34 15:34 17:40 MCV MCH MCHC RDW Plt Count MPV Immature Gran % (Auto) Neut % (Auto) Lymph % (Auto) [place] % (Auto) Eos % (Auto) Baso % (Auto) Lymph # (Auto) [place] # (Auto) Eos # (Auto) Baso # (Auto) Abs Immat Gran (auto) Absolute Neuts (auto) Absolute Nucleated RBC Nucleated RBC % (auto) Anion Gap Estim Creat Clear Calc Estimated GFR Random Glucose Lactic Acid 0.9 Calcium Total Bilirubin AST ALT Alkaline Phosphatase Troponin I High Sens < 2.7 D B-Natriuretic Peptide Total Protein Albumin Ethyl Alcohol < 10 Imaging Radiologist's Impressions: Impressions Chest X-Ray 12/22/22 16:15 IMPRESSION: Persistent patchy airspace opacity at left lung base. Persistent diminished volume of left hemithorax compared to right. Assessment and Plan (1) Atrial fibrillation with RVR: Status: Acute (2) Pneumonia: Status: Acute (3) Chest discomfort: Status: Acute Plan 72-year-old gentleman with past medical history of hypertension, hyperlipidemia, recently discharged from [facility] after being treated for acute blood loss anemia due to GI bleed diagnosed to have gastric ulcer, gastritis esophagitis, left pleural effusion status post thoracocentesis an elevated BNP patient presented today due to persistent chest pain and diagnosed to have new onset atrial fibrillation with RVR. new onset atrial fibrillation with RVR admit to telemetry, continue IV Cardizem drip, normal troponin check TSH recent echo showed EF 60-65% no obvious valvular pathology, indeterminate diastolic dysfunction chest pain localized to anterior chest reproducible, normal troponin no acute EKG changes will discuss with Cardiology regarding repeat echo , Cardiology consult musculoskeletal anterior chest wall pain question pleuritic will hold off on NSAIDs due to recent upper GI bleed with gastric ulcer treat with oxycodone/ morphine Pneumonia elevated WBC no fever will place on IV ceftriaxone and IV azithromycin started on 12/22, supportive care with cough medication, oxygen as needed. left pleural effusion status post thoracocentesis x2, to being followed by Dr. Robert Rawls , question need left VATS with possible decortication, chest x-ray not showing any effusion but question has some solid component question need CT chest. COPD well controlled,p.r.n. albuterol Hypertension hold olmesartan, patient placed on Cardizem drip recent history of upper GI bleed due to esophagitis / gastritis and gastric ulcer requiring gastric ulcer clipping, hematocrit stable today continue Prilosec DVT prophylaxis full code in my clinical judgment patient need two night inpatient stay for further evaluation and treatment of new onset atrial fibrillation with RVR and pneumonia requiring IV antibiotics. Time Spent With Patient Time: Total time managing care of this patient today ____ minutes. Quality Stroke Does the patient have a stroke diagnosis?: No VTE Prior VTE?: No VTE Risk Level:: Medical - moderate - high VTE Device Contraindication: Treatment Not Indicated VTE Drug Contraindication: N/A - Med Ordered
[2022-12-22] MEDS: oxyCODONE HCl Immed Release 5 MG TABLET PO (21:22)
[2022-12-22] MEDS: Morphine Sulfate 4 MG/ML CARTRIDGE 2 MG IVPUSH (22:22)
[2022-12-22] MEDS: Pravastatin Sodium 80 MG TABLET PO (22:22)
[2022-12-22] MEDS: 0.9 % Sodium Chloride Flush 3 ML SYRINGE IVFLUSH (22:24)
[2022-12-23] VITALS (7 sets, daily range): BP systolic 134–180; BP diastolic 72–83; PULSE 78–92; RESP 18–22; TEMP 36.5–36.8; O2SAT 92–96
[2022-12-23] MEDS: oxyCODONE HCl Immed Release 5 MG TABLET PO ×2 (04:51→21:46)
--- NOTE | 2022-12-23 05:00 | PC.NURSE ---
2100 pt came to the tele unit, afib RVR with HR of 130-140s. ON Diltiazem drip at 15mg/hr. C/o pain from left chest radiating to the right chest, left lateral side to mid abdomen,bilateral shoulder and back pain. The pain became worst with movement. Pt moans with movement. Given Oxycodone and Morphine PRN for pain management. Pt converted to NSR at 2236. Diltiazem drip placed on hold. Provider notified. 12 leads EKG taken confirming NSR.
[2022-12-23] MEDS: Omeprazole 40 MG CAPSULE.DR PO (05:27)
[2022-12-23 08:03] LABS: Hematocrit 28.8 % (42.0-52.0); Hemoglobin 8.9 g/dl (14.0-18.0); Mean Corpuscular HGB Conc 30.9 g/dl (31.0-36.0); Mean Corpuscular Hemoglobin 26.6 pg (27.0-33.0); Platelet Count 509 X10*3/uL (160-400); Red Blood Count 3.35 X10*6/uL (4.60-5.80); Red Cell Distribution Width 15.5 % (11.0-16.0); White Blood Count 17.3 X10*3/uL (4.8-10.8)
--- NOTE | 2022-12-23 09:20 | MHC.CM.PN ---
IMM 12/23/22 DELIVERED TO BEDSIDE AND PLACED IN CHART, PT IS [facility], PT'S SISTER AT BEDSIDE AND TRANSLATED WHAT PT DID NOT UNDERSTAND, PT LIVES ALONE IN [place], IS INDEP W/ALL CARE AND NO SERVICES. PER SISTER PT WOULD LIKE SERVICES FROM [facility] FOR COOKING/CHORES IF PT NOT FEELING WELL ENOUGH ON D/C, PT ALSO OPEN TO [facility] SERVICES. PT VERIFIES COVID VACC X2, HCP IS [facility] [phone] AND PCP IS MUNIRA PEÑA. ANTIC D/C HOME W/?NEW [facility] AND/OR [facility], FAMILY FOR TRANSPORT
[2022-12-23] MEDS: Ketorolac Tromethamine 30 MG/ML VIAL IVPUSH (09:49)
[2022-12-23] MEDS: 0.9 % Sodium Chloride Flush 3 ML SYRINGE IVFLUSH ×3 (09:50→20:21)
[2022-12-23] MEDS: Multivitamin TABLET 1 TAB PO (09:50)
--- NOTE | 2022-12-23 11:28 | P.CONCA_ITS ---
History of Present Illness History of Present Illness Date of Service: 12/23/22 Requesting physician: Iliana Cunningham Chief complaint: atrial fibrillation with RVR Narrative: [age] year gentleman presenting to the clinic yesterday and was from noticed to be in AFib with RVR. He was transferred to the emergency department where he was started on Cardizem drip and reverted to sinus rhythm. He was complaining of chest pain at that time which a sharp sensation on the left side which has been present for approximately 1 month. He also had thoracentesis performed for left pleural effusion recently. He still having some left-sided sharp chest discomfort. He is short of breath on examination and appears to be volume overloaded and in congestive heart felicia lure. Blood pressure is elevated. [facility] Past Medical History Medical History Cataract CHF (congestive heart failure) COPD (chronic obstructive pulmonary disease) H. pylori infection HTN (hypertension) Hyperlipemia Loculated pleural effusion Nephrolithiasis Personal history of nicotine dependence PUD (peptic ulcer disease) Tubular adenoma of colon Family History Family History Father No problems noted. Mother No problems noted. Surgical History Surgical History History of colonoscopy History of esophagogastroduodenoscopy (EGD) History of thoracentesis Social History Social History Household Members: None Housing: Apartment Do you presently have visiting nurse or other home services: No Alcohol intake: current Alcohol intake frequency: does not drink Patient Tobacco Use Status: Former Tobacco user Quit Date: over 10 years ago Tobacco use type: Cigarette e-Cigarette/Vaping Use: Former Use Second Hand Smoke Exposure: No Advance Directives Date on File: 11/05/22 service: No Current occupational status: employed and retired Cognitive needs: No Hearing needs: No Vision needs: No Meds Allergies Allergy/AdvReac Type Severity Reaction Status Date / Time No Known Allergies Allergy Verified 12/22/22 15:20 Active Medications: Current Medications Acetaminophen (Acetaminophen 325 Mg Tablet) 650 mg PO Q6H PRN PRN Reason: Pain, Mild (Pain Scale 1-3) Furosemide (Furosemide 20 Mg/2 Ml Vial) 20 mg IVPUSH ONCE ONE; Protocol Stop: 12/23/22 11:28 Diltiazem HCl 125 mg/ Sodium (Chloride) 125 mls @ 0 mls/hr IVCONT .Q0M [facility]; Protocol Last Titration: 12/22/22 22:30 Dose: 0 mg/hr, 0 mls/hr Ceftriaxone Sodium 1 gm/ (Sodium Chloride) 50 mls @ 100 mls/hr IV Q24H [facility] Azithromycin 500 mg/ Sodium (Chloride) 250 mls @ 125 mls/hr IV Q24H [facility] Melatonin (Melatonin 3 Mg Tablet) 6 mg PO BEDTIME PRN PRN Reason: Insomnia Morphine Sulfate (Morphine Sulfate 4 Mg/Ml Cartridge) 2 mg IVPUSH Q4H PRN; Protocol PRN Reason: Pain, Severe (Pain Scale 7-10) Last Admin: 12/22/22 22:22 Dose: 2 mg Multivitamins/Vitamin C (Multivitamin Tablet) 1 tab PO DAILY [facility] Last Admin: 12/23/22 09:50 Dose: 1 tab Omeprazole (Omeprazole 40 Mg Capsule.Dr) 40 mg PO DAILY@0630 [facility] Last Admin: 12/23/22 05:27 Dose: 40 mg Ondansetron HCl (Ondansetron Hcl 4 Mg/2 Ml Vial) 4 mg IVPUSH Q8H PRN PRN Reason: Nausea and Vomiting Oxycodone HCl (Oxycodone Hcl Immed Release 5 Mg Tablet) 5 mg PO Q6H PRN PRN Reason: Pain, Severe (Pain Scale 7-10) Last Admin: 12/23/22 04:51 Dose: 5 mg Pharmacy Consult (Consult Rx Perform Med Rec) 1 each MISCELLANE ONCE PRN PRN Reason: Consult order Pravastatin Sodium (Pravastatin Sodium 80 Mg Tablet) 80 mg PO BEDTIME [facility] Last Admin: 12/22/22 22:22 Dose: 80 mg Sodium Chloride (0.9 % Sodium Chloride Flush 3 Ml Syringe) 3 ml IVFLUSH QSHIFT [facility] Last Admin: 12/23/22 09:50 Dose: 3 ml Sucralfate (Sucralfate 1 Gm Tablet) 1 gm PO QIDACHS [facility] Home Medications Medication Instructions Recorded Confirmed Last Taken Type multivitamin 1 tab PO DAILY 12/22/22 12/22/2212/22/23 History pravastatin 80 mg tablet 80 mg PO BEDTIME 12/22/22 12/22/22 12/21/22 History Physical Exam Vital Signs: Vital Signs: Last Vital Signs Temp 98.2 F 12/23/22 11:19 Pulse 88 12/23/22 11:19 Resp 20 12/23/22 11:19 BP 166/79 H 12/23/22 11:19 Pulse Ox 95 12/23/22 11:19 O2 Del Method Room Air 12/23/22 11:19 O2 Flow Rate 5 12/22/22 19:44 BMI result Body Mass Index 27.0 GENERAL APPEARANCE: Tachypneic. NECK: no carotid bruit, + jugular venous distention. SKIN: no suspicious lesions, warm and dry. HEART: no murmurs, regular rate and rhythm. LUNGS: clear to auscultation bilaterally. ABDOMEN: soft, tenderness in the epigastrium. EXTREMITIES: no edema. PERIPHERAL PULSES: equal. NEUROLOGIC: No gross deficits, AAO X 3 Objective Labs and Meds 12/23/22 07:46 12/22/22 15:23 Lab results: Laboratory Results - last 24 hr 12/22/22 12/22/22 12/22/22 15:23 15:23 15:23 WBC 18.9 H RBC 3.72 L Hgb 9.8 L Hct 32.0 L MCV 86.0 MCH 26.3 L MCHC 30.6 L RDW 15.3 Plt Count 530 H MPV 8.9 L Immature Gran % (Auto) 0.5 H Neut % (Auto) 83.7 H Lymph % (Auto) 8.4 L [place] % (Auto) 6.6 Eos % (Auto) 0.6 Baso % (Auto) 0.2 Lymph # (Auto) 1.6 [place] # (Auto) 1.2 Eos # (Auto) 0.1 Baso # (Auto) 0.0 Abs Immat Gran (auto) 0.09 H Absolute Neuts (auto) 15.9 H Absolute Nucleated RBC 0.000 Nucleated RBC % (auto) 0.0 Sodium 139 Potassium 4.6 Chloride 106 Carbon Dioxide 20 L Anion Gap 18 BUN 23 H Creatinine 1.01 Estim Creat Clear Calc 59.6 Estimated GFR > 60 Random Glucose 127 H Lactic Acid Calcium 11.1 H D Total Bilirubin 0.5 AST 26 ALT 26 Alkaline Phosphatase 146 H Troponin I High Sens B-Natriuretic Peptide 228 H Total Protein 7.2 Albumin 3.3 L Ethyl Alcohol 12/22/22 12/22/22 12/22/22 15:34 15:34 17:40 WBC RBC Hgb Hct MCV MCH MCHC RDW Plt Count MPV Immature Gran % (Auto) Neut % (Auto) Lymph % (Auto) [place] % (Auto) Eos % (Auto) Baso % (Auto) Lymph # (Auto) [place] # (Auto) Eos # (Auto) Baso # (Auto) Abs Immat Gran (auto) Absolute Neuts (auto) Absolute Nucleated RBC Nucleated RBC % (auto) Sodium Potassium Chloride Carbon Dioxide Anion Gap BUN Creatinine Estim Creat Clear Calc Estimated GFR Random Glucose Lactic Acid 0.9 Calcium Total Bilirubin AST ALT Alkaline Phosphatase Troponin I High Sens < 2.7 D B-Natriuretic Peptide Total Protein Albumin Ethyl Alcohol < 10 12/23/22 07:46 WBC 17.3 H RBC 3.35 L Hgb 8.9 L Hct 28.8 L MCV 86.0 MCH 26.6 L MCHC 30.9 L RDW 15.5 Plt Count 509 H MPV 9.0 L Immature Gran % (Auto) Neut % (Auto) Lymph % (Auto) [place] % (Auto) Eos % (Auto) Baso % (Auto) Lymph # (Auto) [place] # (Auto) Eos # (Auto) Baso # (Auto) Abs Immat Gran (auto) Absolute Neuts (auto) Absolute Nucleated RBC 0.000 Nucleated RBC % (auto) 0.0 Sodium Potassium Chloride Carbon Dioxide Anion Gap BUN Creatinine Estim Creat Clear Calc Estimated GFR Random Glucose Lactic Acid Calcium Total Bilirubin AST ALT Alkaline Phosphatase Troponin I High Sens B-Natriuretic Peptide Total Protein Albumin Ethyl Alcohol Imaging Radiologist's impression: Impressions Chest X-Ray 12/22/22 16:15 IMPRESSION: Persistent patchy airspace opacity at left lung base. Persistent diminished volume of left hemithorax compared to right. Assessment and Plan (1) Atrial fibrillation with RVR: Status: Acute Plan Pleasant 72 year gentleman who presented to the clinic for follow-up and was noticed to be in AFib with RVR and was complaining of chest pain. He was quite diaphoretic and was transferred to the emergency department where he received Cardizem drip and reverted to sinus rhythm. Continue oral metoprolol. He still has epigastric pain and recently had GI bleed. I would hold off on an ticoagulation currently. He had left-sided thoracentesis performed. He has a poor appetite and has not been eating. I think there is concern that there is infection in the left lung and maybe has empyema. Blood pressure is elevated currently. Adding amlodipine. Continue the metoprolol as before. Thank you for allowing me to participate in the care of your patient. Please feel free to contact me if you have any questions. Time Spent With Patient Time: Total time managing care of this patient today ____ minutes. Procedures Date of Service Date of Service: 12/23/22
[2022-12-23] MEDS: Furosemide 20 MG/2 ML VIAL IVPUSH (12:20)
[2022-12-23] MEDS: Sucralfate 1 GM TABLET PO ×3 (12:20→20:20)
--- NOTE | 2022-12-23 14:36 | HO.PM.IMPN ---
Subjective Subjective Date of Service: 12/23/22 Interval History: complaining of persistent anterior chest pain starting from lower abdomen and radiating to chest, no palpitations, no diaphoresis, no fevers no chills, no hemoptysis, no shortness of breath, no nausea, no vomiting tolerating diet, no diarrhea, no lightheadedness, no dizziness. Review of Systems all other system reviewed and negative. Physical Exam Vital Signs: Vital Signs: Last Vital Signs Temp 98.2 F 12/23/22 11:19 Pulse 88 12/23/22 11:19 Resp 20 12/23/22 11:19 BP 166/79 H 12/23/22 11:19 Pulse Ox 95 12/23/22 11:19 O2 Del Method Room Air 12/23/22 11:19 O2 Flow Rate 5 12/22/22 19:44 BMI result Body Mass Index 27.0 Const: Other: General? awake alert x3, in acute distress due to pain.? Neck supple no JVD. CVS? regular rate rhythm, Anterior chest wall tenderness with palpation Respiratory lungs? coarse breath sound, diminished left base,no respiratory distress, no wheeze, no rhonchi. Gastrointestinal abdomen soft,? tenderness mid abdomen, bowel sounds audible, no guarding , no rigidity. Extremities no? edema. Neuro nonfocal Skin no rash psych appropriate affect Objective Data Active Medications Acetaminophen (Acetaminophen 325 Mg Tablet) 650 mg PO Q6H PRN PRN Reason: Pain, Mild (Pain Scale 1-3) Diltiazem HCl 125 mg/ Sodium (Chloride) 125 mls @ 0 mls/hr IVCONT .Q0M [facility]; Protocol Last Titration: 12/22/22 22:30 Dose: 0 mg/hr, 0 mls/hr Documented By: RONDA Ceftriaxone Sodium 1 gm/ (Sodium Chloride) 50 mls @ 100 mls/hr IV Q24H [facility] Azithromycin 500 mg/ Sodium (Chloride) 250 mls @ 125 mls/hr IV Q24H [facility] Melatonin (Melatonin 3 Mg Tablet) 6 mg PO BEDTIME PRN PRN Reason: Insomnia Morphine Sulfate (Morphine Sulfate 4 Mg/Ml Cartridge) 2 mg IVPUSH Q4H PRN; Protocol PRN Reason: Pain, Severe (Pain Scale 7-10) Last Admin: 12/22/22 22:22 Dose: 2 mg Documented By: RONDA Multivitamins/Vitamin C (Multivitamin Tablet) 1 tab PO DAILY [facility] Last Admin: 12/23/22 09:50 Dose: 1 tab Documented By: AKIKO Omeprazole (Omeprazole 40 Mg Capsule.Dr) 40 mg PO DAILY@0630 [facility] Last Admin: 12/23/22 05:27 Dose: 40 mg Documented By: RONDA Ondansetron HCl (Ondansetron Hcl 4 Mg/2 Ml Vial) 4 mg IVPUSH Q8H PRN PRN Reason: Nausea and Vomiting Oxycodone HCl (Oxycodone Hcl Immed Release 5 Mg Tablet) 5 mg PO Q6H PRN PRN Reason: Pain, Severe (Pain Scale 7-10) Last Admin: 12/23/22 04:51 Dose: 5 mg Documented By: RONDA Pharmacy Consult (Consult Rx Perform Med Rec) 1 each MISCELLANE ONCE PRN PRN Reason: Consult order Pravastatin Sodium (Pravastatin Sodium 80 Mg Tablet) 80 mg PO BEDTIME [facility] Last Admin: 12/22/22 22:22 Dose: 80 mg Documented By: RONDA Sodium Chloride (0.9 % Sodium Chloride Flush 3 Ml Syringe) 3 ml IVFLUSH QSHIFT [facility] Last Admin: 12/23/22 09:50 Dose: 3 ml Documented By: AKIKO Sucralfate (Sucralfate 1 Gm Tablet) 1 gm PO QIDACHS [facility] Last Admin: 12/23/22 12:20 Dose: 1 gm Documented By: AKIKO Labs 12/23/22 07:46 12/22/22 15:23 Labs: Laboratory Results - last 24 hr 12/22/22 12/22/22 12/22/22 15:23 15:23 15:23 MCV 86.0 MCH 26.3 L MCHC 30.6 L RDW 15.3 Plt Count 530 H MPV 8.9 L Immature Gran % (Auto) 0.5 H Neut % (Auto) 83.7 H Lymph % (Auto) 8.4 L [place] % (Auto) 6.6 Eos % (Auto) 0.6 Baso % (Auto) 0.2 Lymph # (Auto) 1.6 [place] # (Auto) 1.2 Eos # (Auto) 0.1 Baso # (Auto) 0.0 Abs Immat Gran (auto) 0.09 H Absolute Neuts (auto) 15.9 H Absolute Nucleated RBC 0.000 Nucleated RBC % (auto) 0.0 Anion Gap 18 Estim Creat Clear Calc 59.6 Estimated GFR > 60 Random Glucose 127 H Lactic Acid Calcium 11.1 H D Total Bilirubin 0.5 AST 26 ALT 26 Alkaline Phosphatase 146 H Troponin I High Sens B-Natriuretic Peptide 228 H Total Protein 7.2 Albumin 3.3 L Ethyl Alcohol 12/22/22 12/22/22 12/22/22 15:34 15:34 17:40 MCV MCH MCHC RDW Plt Count MPV Immature Gran % (Auto) Neut % (Auto) Lymph % (Auto) [place] % (Auto) Eos % (Auto) Baso % (Auto) Lymph # (Auto) [place] # (Auto) Eos # (Auto) Baso # (Auto) Abs Immat Gran (auto) Absolute Neuts (auto) Absolute Nucleated RBC Nucleated RBC % (auto) Anion Gap Estim Creat Clear Calc Estimated GFR Random Glucose Lactic Acid 0.9 Calcium Total Bilirubin AST ALT Alkaline Phosphatase Troponin I High Sens < 2.7 D B-Natriuretic Peptide Total Protein Albumin Ethyl Alcohol < 10 12/23/22 07:46 MCV 86.0 MCH 26.6 L MCHC 30.9 L RDW 15.5 Plt Count 509 H MPV 9.0 L Immature Gran % (Auto) Neut % (Auto) Lymph % (Auto) [place] % (Auto) Eos % (Auto) Baso % (Auto) Lymph # (Auto) [place] # (Auto) Eos # (Auto) Baso # (Auto) Abs Immat Gran (auto) Absolute Neuts (auto) Absolute Nucleated RBC 0.000 Nucleated RBC % (auto) 0.0 Anion Gap Estim Creat Clear Calc Estimated GFR Random Glucose Lactic Acid Calcium Total Bilirubin AST ALT Alkaline Phosphatase Troponin I High Sens B-Natriuretic Peptide Total Protein Albumin Ethyl Alcohol Assessment and Plan (1) Atrial fibrillation with RVR: Status: Acute (2) Pneumonia: Status: Acute (3) Chest discomfort: Status: Acute Plan 72-year-old gentleman with past medical history of hypertension, hyperlipidemia, recently discharged from [facility] after being treated for acute blood loss anemia due to GI bleed diagnosed to have gastric ulcer, gastritis esophagitis, left pleural effusion status post thoracocentesis an elevated BNP patient presented today due to persistent chest pain and diagnosed to have? new onset atrial fibrillation with RVR. ?new onset atrial fibrillation with RVR ? converted to normal sinus rhythm last night IV Cardizem discontinued, ? recent echo showed EF 60-65% no obvious valvular pathology, indeterminate diastolic dysfunction ? chest pain localized to anterior chest reproducible, normal troponin, no acute EKG changes ? case discussed with Cardiology will place on metoprolol 25 mg b.i.d. hold anticoagulation due to recent GI bleed. ?musculoskeletal anterior chest wall pain question pleuritic will hold off on NSAIDs due to recent upper GI bleed with gastric ulcer treat with oxycodone/ morphine/ gave 1 dose of IV Toradol follow clinical course ?Pneumonia elevated WBC no fever will place on IV ceftriaxone and IV azithromycin started on 12/22, supportive care with cough medication, oxygen as needed. ?left pleural effusion status post thoracocentesis x2, fluid cytology negative being followed by Dr. Robert Rawls , question need left VATS with possible decortication, chest x-ray not showing any effusion but question has some solid component,? await thoracic surgery input COPD well controlled,p.r.n. albuterol Hypertension? hold olmesartan, patient placed on Cardizem drip recent history of upper GI bleed due to esophagitis / gastritis and gastric ulcer requiring gastric ulcer clipping, hematocrit dropped from 32-28 today continue Prilosec, added Carafate check stool guaiac, recent iron studies showed mixed picture anemia of chronic disease with component of iron deficiency. DVT prophylaxis compression boots ?full code in my clinical judgment patient need continued inpatient stay for further evaluation and treatment of new onset atrial fibrillation with RVR and? pneumonia requiring IV antibiotics and further workup for chest pain Time Spent With Patient Time: Total time managing care of this patient today ____ minutes. Quality Stroke Does the patient have a stroke diagnosis?: No VTE Prior VTE?: No VTE Risk Level:: Medical - moderate - high VTE Device Contraindication: Treatment Not Indicated VTE Drug Contraindication: N/A - Med Ordered
[2022-12-23] MEDS: Morphine Sulfate 4 MG/ML CARTRIDGE 2 MG IVPUSH (17:49)
[2022-12-23] MEDS: amLODIPine Besylate 5 MG TABLET PO (17:50)
[2022-12-23] MEDS: cefTRIAXone sodium 1 GM in 0.9 % Sodium Chloride 50 ML IV (17:51)
[2022-12-23] MEDS: Azithromycin 500 MG in 0.9 % Sodium Chloride 250 ML 125 MG IV (18:22)
[2022-12-23] MEDS: Pravastatin Sodium 80 MG TABLET PO (20:20)
[2022-12-23] MEDS: Metoprolol Tartrate 25 MG TABLET PO (20:20)
[2022-12-23] MEDS: Melatonin 3 MG TABLET 6 MG PO (20:20)
[2022-12-24] VITALS (7 sets, daily range): BP systolic 110–157; BP diastolic 62–79; PULSE 66–77; RESP 18–20; TEMP 35.8–38.2; O2SAT 90–94
--- NOTE | 2022-12-24 | ECG_ITS ---
Test Reason : tachy Blood Pressure : / mmHG Vent. Rate : 157 BPM Atrial Rate : 000 BPM P-R Int : 000 ms QRS Dur : 086 ms QT Int : 286 ms P-R-T Axes : 000 029 223 degrees QTc Int : 462 ms Atrial fibrillation with rapid ventricular response Marked ST abnormality, possible inferior subendocardial injury Abnormal ECG When compared with ECG of 22-DEC-2022 22:35, Atrial fibrillation has replaced Sinus rhythm Vent. rate has increased BY [address] now depressed in Inferior leads ST now depressed in Lateral leads Nonspecific T wave abnormality, worse in Inferior leads Referred By: Bety Goodman Electronically Signed By:Roberto Hong
--- NOTE | 2022-12-24 | ECG_ITS ---
Test Reason : CP Blood Pressure : / mmHG Vent. Rate : 082 BPM Atrial Rate : 082 BPM P-R Int : 126 ms QRS Dur : 090 ms QT Int : 330 ms P-R-T Axes : 056 027 049 degrees QTc Int : 385 ms Sinus rhythm with occasional Premature ventricular complexes Nonspecific ST abnormality Abnormal ECG When compared with ECG of 24-DEC-2022 21:58, Sinus rhythm has replaced Atrial fibrillation Vent. rate has decreased BY 63 BPM Referred By: Bety Goodman Electronically Signed By:Roberto Hong
--- NOTE | 2022-12-24 | ECG_ITS ---
Test Reason : AFIB Blood Pressure : / mmHG Vent. Rate : 157 BPM Atrial Rate : 000 BPM P-R Int : 000 ms QRS Dur : 084 ms QT Int : 298 ms P-R-T Axes : 000 034 -68 degrees QTc Int : 481 ms Atrial fibrillation with rapid ventricular response ST depression, consider subendocardial injury Nonspecific T wave abnormality Abnormal ECG When compared with ECG of 24-DEC-2022 22:00, Atrial fibrillation has replaced Sinus rhythm Vent. rate has increased BY 75 BPM Nonspecific T wave abnormality now evident in Inferior leads Referred By: Bety Goodman Electronically Signed By:Roberto Hong
[2022-12-24] MEDS: Omeprazole 40 MG CAPSULE.DR PO (05:53)
[2022-12-24] MEDS: Morphine Sulfate 4 MG/ML CARTRIDGE 2 MG IVPUSH ×4 (05:59→21:30)
[2022-12-24 06:58] LABS: Hematocrit 27.5 % (42.0-52.0); Hemoglobin 8.6 g/dl (14.0-18.0); Mean Corpuscular HGB Conc 31.3 g/dl (31.0-36.0); Mean Corpuscular Volume 83.1 fL (80.0-98.0); Mean Platelet Volume 9.2 fL (9.4-12.4); Platelet Count 495 X10*3/uL (160-400); Red Blood Count 3.31 X10*6/uL (4.60-5.80); Red Cell Distribution Width 15.4 % (11.0-16.0); White Blood Count 18.2 X10*3/uL (4.8-10.8)
[2022-12-24 07:31] LABS: Lipase 39 U/L (8-78); Magnesium 1.8 mg/dL (1.6-2.6)
[2022-12-24 07:47] LABS: Thyroid Stimulating Hormone 0.38 uIU/mL (0.32-4.0)
[2022-12-24] MEDS: Multivitamin TABLET 1 TAB PO (08:12)
[2022-12-24] MEDS: Metoprolol Tartrate 25 MG TABLET PO ×2 (08:12→21:20)
[2022-12-24] MEDS: amLODIPine Besylate 5 MG TABLET PO (08:12)
[2022-12-24] MEDS: 0.9 % Sodium Chloride Flush 3 ML SYRINGE IVFLUSH ×3 (08:12→21:21)
[2022-12-24] MEDS: Metoprolol Tartrate 5 MG/5 ML VIAL IVPUSH (08:12)
[2022-12-24] MEDS: Sucralfate 1 GM TABLET PO ×4 (08:12→21:21)
[2022-12-24] MEDS: oxyCODONE HCl Immed Release 5 MG TABLET PO ×2 (08:19→15:25)
--- NOTE | 2022-12-24 08:45 | PM.PNCARD ---
Subjective Subjective Date of Service: 12/24/22 Interval history: Seen examined bedside. He went into AFib with RVR this morning. He was given metoprolol IV and then amiodarone bolus and converted to sinus rhythm. He had chest CT performed yesterday which is raising concern for lung malignancy with Mets. Physical Exam Vital Signs: Last Vital Signs Temp 97.1 F 12/24/22 07:51 Pulse 76 12/24/22 07:51 Resp 20 12/24/22 07:51 BP 157/79 H 12/24/22 07:51 Pulse Ox 93 12/24/22 07:51 O2 Del Method Room Air 12/24/22 07:51 O2 Flow Rate 5 12/22/22 19:44 BMI result Body Mass Index 27.0 GENERAL APPEARANCE: Tachypneic. NECK: no carotid bruit, + jugular venous distention. SKIN: no suspicious lesions, warm and dry. HEART: no murmurs, irregular rate and rhythm. Tachycardic. LUNGS: clear to auscultation bilaterally. ABDOMEN: soft, tenderness in the epigastrium. EXTREMITIES: no edema. PERIPHERAL PULSES: equal. NEUROLOGIC: No gross deficits, AAO X 3 Objective Labs and Meds 12/24/22 06:19 12/22/22 15:23 Lab results: Laboratory Results - last 24 hr 12/24/22 12/24/22 06:19 06:19 WBC 18.2 H RBC 3.31 L Hgb 8.6 L Hct 27.5 L MCV 83.1 MCH 26.0 L MCHC 31.3 RDW 15.4 Plt Count 495 H MPV 9.2 L Absolute Nucleated RBC 0.000 Nucleated RBC % (auto) 0.0 Magnesium 1.8 Lipase 39 TSH 0.38 Imaging Radiologist's impression: Impressions Chest CT 12/23/22 13:32 IMPRESSION: Small loculated left pleural effusion. Areas of nodular pleural thickening. Question central left lung mass and lymphangitic tumor spread in the left lower lobe. Consolidation/airspace disease at the left lung base with air bronchograms. Small pericardial effusion. Infiltration of the pericardial fat. Diffuse mediastinal adenopathy. Emphysema. Biapical abnormal parenchymal densities, right greater than left. Likely lytic metastatic disease to the bone. Soft tissue mass associated with destructive lytic lesion in the sternum may be a site for tissue diagnosis/biopsy. Findings significantly increased from previous chest CT October 2022. Follow-up cervical and thoracic spine MRI to exclude potential cord compression at C7 should be considered if clinically indicated. Findings will be communicated by the Bhargav work flow career development coordinator. Progress Note: A&P Assessment and plan (1) Atrial fibrillation with RVR: Status: Acute Plan [age] gentleman with AFib with RVR and left-sided sharp chest pains. His CTs raising concern for lung mass with metastatic disease unfortunately. In terms of atrial fibrillation, he went into AFib with RVR this morning and received amiodarone bolus. This converted him to sinus rhythm. I think he should be started on p.o. amiodarone 400 mg b.i.d. because he gets rapid AFib and gets symptomatic from it. He also is complaining of epigastric pain and recently also had some GI bleed. I think anticoagulation will be a challenge. He also has attention metastatic lung disease and this may need biopsies and some testing. We will follow along with you. Thank you for allowing me to participate in the care of your patient. Please feel free to contact me if you have any questions. Time Spent With Patient Time: Total time managing care of this patient today ____ minutes. Progress Note: Quality Stroke Does the patient have a stroke diagnosis?: No Procedures Date of Service Date of Service: 12/24/22
[2022-12-24] MEDS: Amiodarone/Dextrose 150 MG/100 ML PLAST..BAG 600 MG IV (08:55)
[2022-12-24] MEDS: Doxycycline Hyclate 100 MG in 0.9 % Sodium Chloride 250 ML 166.67 MG IV ×2 (09:28→21:34)
--- NOTE | 2022-12-24 09:41 | P.CONGS_ITS ---
History of Present Illness Consult details Consult date: 12/24/22 Narrative: Patient is a 72-year-old male with a past medical history of hypertension, hyperlipidemia, COPD, peptic ulcer disease who recently was discharged from [facility] on November 04 after being treated for 4 acute blood loss anemia due to upper GI bleed underwent EGD that showed esophagitis, gastritis and gastric u lcer. Patient is known to the thoracic surgical department as he has been being followed for a left-sided pleural effusion for which thoracic surgery was consulted for on this admission. He has underwent 2 thoracentesis's thus far, the first yielding 1.9 L of fluid back on November 03 and more recently on December 14 which yielded only 40 cc of fluid due to remaining air of effusion appearing loculated. Is pleural fluid analysis appears to be exudative and lymphocytic rich, cytology negative for malignancy however does remain concerning. Patient represented to [facility] on 12/22 for anterior chest pain and increased shortness of breath. On arrival to emergency room he was found to be in A-fib with RVR, with a chest x-ray showing airspace opacity at the left lung base and leukocytosis WBC 18.9. He was admitted to hospitalist services for treatment of A-fib and pneumonia. A chest CT scan was performed on 12/23 which showed a parenchymal density versus spiculated mass in right lung apex, a 1 cm left upper lobe nodule and the likely central left lung mass. He does have a small loculated left pleural effusion and has been scheduled prior to arriving on this admission for a left VATS mechanical decortication which is scheduled on January [address]Laki Vinson. Also noted on chest CT scan was left hilar and mediastinal lymphadenopathy. There is also to be obstructive lytic lesion in the right C7 vertebral body and transverse process associated with a soft tissue mass there is also a destructive lytic lesion in the sternum associated with soft tissue mass. 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 He denies any current shortness of breath however does admit to some heaviness during inspiration, a dry nonproductive cough and continues to have diffuse abdominal pain which worsens with palpation. He denies any fevers or chills and states that overall he just feels very weak. I did discuss with him that his chest CT findings were quite concerning for carcinoma and that we would be ordering a repeat chest CT scan with IV contrast to gain better site into his mediastinal adenopathy per Dr. Vinson. Remaining 10 point review of systems negative at this time: [facility] Past Medical History Medical History Cataract CHF (congestive heart failure) COPD (chronic obstructive pulmonary disease) H. pylori infection HTN (hypertension) Hyperlipemia Loculated pleural effusion Nephrolithiasis Personal history of nicotine dependence PUD (peptic ulcer disease) Tubular adenoma of colon Family History Family History Father No problems noted. Mother No problems noted. Surgical History Surgical History History of colonoscopy History of esophagogastroduodenoscopy (EGD) History of thoracentesis Social History Social History Household Members: None Housing: Apartment Do you presently have visiting nurse or other home services: No Alcohol intake: current Alcohol intake frequency: does not drink Patient Tobacco Use Status: Former Tobacco user Quit Date: over 10 years ago Tobacco use type: Cigarette e-Cigarette/Vaping Use: Former Use Second Hand Smoke Exposure: No Advance Directives Date on File: 11/05/22 service: No Current occupational status: employed and retired Cognitive needs: No Hearing needs: No Vision needs: No Meds Allergies Allergy/AdvReac Type Severity Reaction Status Date / Time No Known Allergies Allergy Verified 12/22/22 15:20 Active Medications: Current Medications Acetaminophen (Acetaminophen 325 Mg Tablet) 650 mg PO Q6H PRN PRN Reason: Pain, Mild (Pain Scale 1-3) Amlodipine Besylate (Amlodipine Besylate 5 Mg Tablet) 5 mg PO DAILY [facility]; Protocol Last Admin: 12/24/22 08:12 Dose: 5 mg Diltiazem HCl 125 mg/ Sodium (Chloride) 125 mls @ 0 mls/hr IVCONT .Q0M [facility]; Protocol Last Titration: 12/22/22 22:30 Dose: 0 mg/hr, 0 mls/hr Ceftriaxone Sodium 1 gm/ (Sodium Chloride) 50 mls @ 100 mls/hr IV Q24H [facility] Last Infusion: 12/23/22 18:27 Dose: Infused Doxycycline Hyclate 100 mg/ (Sodium Chloride) 250 mls @ 166.67 mls/hr IV Q12H [facility] Last Admin: 12/24/22 09:28 Dose: 166.67 mls/hr Melatonin (Melatonin 3 Mg Tablet) 6 mg PO BEDTIME PRN PRN Reason: Insomnia Last Admin: 12/23/22 20:20 Dose: 6 mg Metoprolol Tartrate (Metoprolol Tartrate 25 Mg Tablet) 25 mg PO BID [facility]; Protocol Last Admin: 12/24/22 08:12 Dose: 25 mg Morphine Sulfate (Morphine Sulfate 4 Mg/Ml Cartridge) 2 mg IVPUSH Q4H PRN; Prot ocol PRN Reason: Pain, Severe (Pain Scale 7-10) Last Admin: 12/24/22 05:59 Dose: 2 mg Multivitamins/Vitamin C (Multivitamin Tablet) 1 tab PO DAILY [facility] Last Admin: 12/24/22 08:12 Dose: 1 tab Omeprazole (Omeprazole 40 Mg Capsule.Dr) 40 mg PO DAILY@0630 [facility] Last Admin: 12/24/22 05:53 Dose: 40 mg Ondansetron HCl (Ondansetron Hcl 4 Mg/2 Ml Vial) 4 mg IVPUSH Q8H PRN PRN Reason: Nausea and Vomiting Oxycodone HCl (Oxycodone Hcl Immed Release 5 Mg Tablet) 5 mg PO Q6H PRN PRN Reason: Pain, Severe (Pain Scale 7-10) Last Admin: 12/24/22 08:19 Dose: 5 mg Pharmacy Consult (Consult Rx Perform Med Rec) 1 each MISCELLANE ONCE PRN PRN Reason: Consult order Pravastatin Sodium (Pravastatin Sodium 80 Mg Tablet) 80 mg PO BEDTIME [facility] Last Admin: 12/23/22 20:20 Dose: 80 mg Sodium Chloride (0.9 % Sodium Chloride Flush 3 Ml Syringe) 3 ml IVFLUSH QSHIFT [facility] Last Admin: 12/24/22 08:12 Dose: 3 ml Sucralfate (Sucralfate 1 Gm Tablet) 1 gm PO QIDACHS [facility] Last Admin: 12/24/22 08:12 Dose: 1 gm Home Medications Medication Instructions Recorded Confirmed Last Taken Type multivitamin 1 tab PO DAILY 12/22/22 12/22/2212/22/23 History pravastatin 80 mg tablet 80 mg PO BEDTIME 12/22/22 12/22/22 12/21/22 History Physical Exam Vital Signs: Vital Signs: Last Vital Signs Temp 97.1 F 12/24/22 07:51 Pulse 76 12/24/22 07:51 Resp 20 12/24/22 07:51 BP 157/79 H 12/24/22 07:51 Pulse Ox 93 12/24/22 07:51 O2 Del Method Room Air 12/24/22 07:51 O2 Flow Rate 5 12/22/22 19:44 BMI result Body Mass Index 27.0 Results Labs 12/24/22 06:19 12/22/22 15:23 Labs: Abnormal lab results 12/24/22 Range/Units 06:19 WBC 18.2 H (4.8-10.8) X10*3/uL RBC 3.31 L (4.60-5.80) X10*6/uL Hgb 8.6 L (14.0-18.0) g/dl Hct 27.5 L (42.0-52.0) % MCH 26.0 L (27.0-33.0) pg Plt Count 495 H (160-400) X10*3/uL MPV 9.2 L (9.4-12.4) fL Short CBC 12/24/22 Range/Units 06:19 WBC 18.2 H (4.8-10.8) X10*3/uL Hgb 8.6 L (14.0-18.0) g/dl Hct 27.5 L (42.0-52.0) % Plt Count 495 H (160-400) X10*3/uL All other labs normal. Assessment and Plan (1) Mass of left lung: Status: Acute (2) Mediastinal lymphadenopathy: Status: Acute (3) Loculated pleural effusion: Status: Acute Plan Patient is a 72-year-old male admitted to hospitalist services for A-fib with RVR and treatment of left-sided pneumonia. Subsequently seen on chest CT scan for which images I personally viewed showed a small left pleural effusion ,bilateral spiculated pulmonary nodules, left hilar mass with hilar and medias tinal lymphadenopathy as well as likely lytic metastatic disease to the spine, soft tissue mass associated with destructive lytic lesion in the sternum. We will be obtaining a chest CT with IV contrast to gain better site of mediastinal and hilar adenopathy for potential biopsy purposes. In regards to his small left pleural effusion no indication for intervention at this time. He is currently being followed by cardiology remains metoprolol for his A-fib with RVR. We will hold off on anticoagulation at this time as patient will likely need tissue sampling in the near future. Currently on ceftriaxone for presumed left-sided pneumonia WBC 18.2. Thoracic surgery will continue to follow if you have any further questions or concerns please do not hesitate to contact the thoracic surgical department. Time Spent With Patient Time: Total time managing care of this patient today ____ minutes. Procedures Date of Service Date of Service: 12/24/22
--- NOTE | 2022-12-24 10:16 | MHC.CM.PN ---
EMR REVIEWED, PER MULTIDISCIPLINARY ROUNDS PT REMAINS IN RAPID AFIB, NO PLAN FOR D/C AT THIS TIME, CM WILL CONT TO MONITOR D/C NEEDS.
--- NOTE | 2022-12-24 11:32 | P.PNIM_ITS ---
Subjective Subjective Date of Service: 12/24/22 Interval History: seen and examined at the bedside this morning history obtained with assistance of tuvaluan speaking nurse patient reporting chest discomfort with movement and sob he does mention right arm numbness/tingling that has been present for the past month or so Review of Systems Review of Systems: Yes all other systems are reviewed and are negative Constitutional Constitutional: Denies chills and Denies fever(s) ENT Ears, Nose, Mouth, and Throat: Denies dizziness Cardiovascular Cardiovascular: Denies chest pain, Denies palpitations and Reports dyspnea Respiratory Respiratory: Denies cough and Reports dyspnea Gastrointestinal Gastrointestinal: Reports abdominal pain and Denies diarrhea Neurologic Neurologic: Denies dizziness Endocrine Endocrine: Denies palpitations Physical Exam Vital Signs: Vital Signs: Last Vital Signs Temp 98.5 F 12/24/22 11:18 Pulse 70 12/24/22 11:18 Resp 20 12/24/22 11:18 BP 110/62 12/24/22 11:18 Pulse Ox 93 12/24/22 11:18 O2 Del Method Room Air 12/24/22 11:18 O2 Flow Rate 5 12/22/22 19:44 BMI result Body Mass Index 27.0 Const: General: no acute distress, alert, awake and Physically active Nutritional Appearance: average body habitus Orientation/consciousness: patient oriented x3 Resp: Effort & Inspection: normal respiratory effort, able to speak in complete sentences, no respiratory distress and no use of accessory muscles Cardio: Rate: regular rate Heart sounds: S1 normal heart sound present and S2 normal heart sound present GI: Other: +BS Inspection: No distended Palpation (GI): Soft to palpation Neuro: Other: b/l upper extremities strength equal bilaterally General: patient oriented x3, moves all extremities and CN's II-XI intact bilaterally Extrem: General: Yes no pedal edema Objective Data Active Medications Acetaminophen (Acetaminophen 325 Mg Tablet) 650 mg PO Q6H PRN PRN Reason: Pain, Mild (Pain Scale 1-3) Amiodarone HCl (Amiodarone Hcl 200 Mg Tablet) 400 mg PO BID [facility] Amlodipine Besylate (Amlodipine Besylate 5 Mg Tablet) 5 mg PO DAILY [facility]; Protocol Last Admin: 12/24/22 08:12 Dose: 5 mg Documented By: BROSanjana Ceftriaxone Sodium 1 gm/ (Sodium Chloride) 50 mls @ 100 mls/hr IV Q24H [facility] Last Infusion: 12/23/22 18:27 Dose: 0 mls/hr Documented By: AKIKO Doxycycline Hyclate 100 mg/ (Sodium Chloride) 250 mls @ 166.67 mls/hr IV Q12H [facility] Last Admin: 12/24/22 09:28 Dose: 166.67 mls/hr Documented By: AKIKO Melatonin (Melatonin 3 Mg Tablet) 6 mg PO BEDTIME PRN PRN Reason: Insomnia Last Admin: 12/23/22 20:20 Dose: 6 mg Documented By: RONDA Metoprolol Tartrate (Metoprolol Tartrate 25 Mg Tablet) 25 mg PO BID [facility]; Protocol Last Admin: 12/24/22 08:12 Dose: 25 mg Documented By: AKIKO Morphine Sulfate (Morphine Sulfate 4 Mg/Ml Cartridge) 2 mg IVPUSH Q4H PRN; Protocol PRN Reason: Pain, Severe (Pain Scale 7-10) Last Admin: 12/24/22 05:59 Dose: 2 mg Documented By: TYRON Multivitamins/Vitamin C (Multivitamin Tablet) 1 tab PO DAILY [facility] Last Admin: 12/24/22 08:12 Dose: 1 tab Documented By: AKIKO Omeprazole (Omeprazole 40 Mg Capsule.Dr) 40 mg PO DAILY@0630 [facility] Last Admin: 12/24/22 05:53 Dose: 40 mg Documented By: TYRON Ondansetron HCl (Ondansetron Hcl 4 Mg/2 Ml Vial) 4 mg IVPUSH Q8H PRN PRN Reason: Nausea and Vomiting Oxycodone HCl (Oxycodone Hcl Immed Release 5 Mg Tablet) 5 mg PO Q6H PRN PRN Reason: Pain, Severe (Pain Scale 7-10) Last Admin: 12/24/22 08:19 Dose: 5 mg Documented By: AKIKO Pharmacy Consult (Consult Rx Perform Med Rec) 1 each MISCELLANE ONCE PRN PRN Reason: Consult order Pravastatin Sodium (Pravastatin Sodium 80 Mg Tablet) 80 mg PO BEDTIME [facility] Last Admin: 12/23/22 20:20 Dose: 80 mg Documented By: RONDA Sodium Chloride (0.9 % Sodium Chloride Flush 3 Ml Syringe) 3 ml IVFLUSH QSHIFT [facility] Last Admin: 12/24/22 08:12 Dose: 3 ml Documented By: DOBROB Sucralfate (Sucralfate 1 Gm Tablet) 1 gm PO QIDACHS [facility] Last Admin: 12/24/22 08:12 Dose: 1 gm Documented By: DOBROB Labs 12/24/22 06:19 12/22/22 15:23 Labs: Laboratory Results - last 24 hr 12/24/22 12/24/22 06:19 06:19 MCV 83.1 MCH 26.0 L MCHC 31.3 RDW 15.4 Plt Count 495 H MPV 9.2 L Absolute Nucleated RBC 0.000 Nucleated RBC % (auto) 0.0 Magnesium 1.8 Lipase 39 TSH 0.38 Microbiology Microbiology Results: Microbiology 12/22/22 17:40 Blood Culture - Preliminary Blood - Venous No growth after 24 hours. 12/22/22 17:40 Blood Culture - Preliminary Blood - Venous No growth after 24 hours. Assessment and Plan (1) Mediastinal lymphadenopathy: Status: Acute (2) Mass of left lung: Status: Acute (3) Atrial fibrillation with RVR: Status: Acute (4) Pneumonia: Status: Acute Plan 72-year-old primarily Telugu speaking gentleman with past medical history of hypertension, hyperlipidemia, recently discharged from [facility] after being treated for acute blood loss anemia due to GI bleed diagnosed to have gastric ulcer, gastritis esophagitis, left pleural effusion status post thoracocentesis an elevated BNP patient presented today due to persistent chest pain and diagnosed to have?new onset atrial fibrillation with RVR. new onset atrial fibrillation with RVR Initially treated with IV Cardizem drip and then converted to NSR. 12/24 am HR back into 150s afib RVR. received 1 dose IV lopressor and then IV amio and converted back to NSR recent echo showed EF 60-65% no obvious valvular pathology, indeterminate diastolic dysfunction continue metoprolol, start po amio hold anticoagulation due to recent GI bleed Cardiology following lung mass chest CT with ?central left lung mass and lymphangitic tumor spread in LLL; likely metastatic dz to bone; soft tissue destructive lytic lesion in sternum, multiple lesions thoracic spine and c7 lesion - rec MRI cervical and thoracic spine to exclude potential cord compression. previously followed with thoracic surgery for left pleural effusion status post thoracocentesis x2, fluid cytology negative being followed by Dr. Robert Rawls Likely cause of anterior chest pain -MR cervical/thoracic spine ordered -CT chest with contrast pending -oncology eval pending -Thoracic surgery following -pain control Pneumonia WBC remains elevated continue IV ceftriaxone 12/22, azithromycin changed to doxy due to concern of QT prolongation with amiodarone blood cultures negative hypercalcemia will repeat ? r/t bony lytic lesions repeat today pending COPD well controlled,p.r.n. albuterol Hypertension? BP stable hold olmesartan started on norvasc, metoprolol PUD recent history of upper GI bleed due to esophagitis / gastritis and gastric ulcer requiring gastric ulcer clipping hematocrit trending down continue Prilosec, added Carafate stool guaiac pending recent iron studies showed mixed picture anemia of chronic disease with component of iron deficiency DVT prophylaxis compression boots full code in my clinical judgment patient need continued inpatient stay for further evaluation and treatment of new onset atrial fibrillation with RVR, new lung mass, lytic lesions Time Spent With Patient Time: Total time managing care of this patient today ____ minutes. Quality Stroke Does the patient have a stroke diagnosis?: No VTE Prior VTE?: No VTE Risk Level:: Medical - moderate - high VTE Device Contraindication: Treatment Not Indicated VTE Drug Contraindication: N/A - Med Ordered
[2022-12-24 12:43] LABS: Calcium 11.1 mg/dL (8.4-10.2)
[2022-12-24] MEDS: iohexoL 350 MG/ML 100 ML INFUS..BTL IV (16:35)
[2022-12-24] MEDS: cefTRIAXone sodium 1 GM in 0.9 % Sodium Chloride 50 ML IV (17:21)
[2022-12-24] MEDS: Sennosides 8.6 MG TABLET PO (21:20)
[2022-12-24] MEDS: Pravastatin Sodium 80 MG TABLET PO (21:20)
[2022-12-24] MEDS: Amiodarone HCL 200 MG TABLET 400 MG PO (21:21)
[2022-12-24] MEDS: Acetaminophen 325 MG TABLET 650 MG PO (22:31)
[2022-12-24 23:41] LABS: Lactic Acid 0.8 mmol/L (0.5-2.0)
[2022-12-25] VITALS (7 sets, daily range): BP systolic 107–158; BP diastolic 64–82; PULSE 63–78; RESP 17–20; TEMP 36.4–37.5; O2SAT 91–95
--- NOTE | 2022-12-25 03:25 | PC.NURSE ---
Approximately around 21:30 the [facility] notified me that the pt's HR went up to the 150s reaching max at 182. Few minutes later the pt's HR rate was sustaining in the 150s-160s. Prior to this situation pt was sinus rhythm HR 70s on radiographer cardiac catheterization at 20:00. This RN administrated pt's [facility] meds at 21:21 including Amiodarone & Metoprolol. After being notified of the new changes, this RN reached out to the hospitalist MD Keene about the situation. EKG and rectal temp were ordered per . Vitals were taken as well with BP 143/74, O2 90% RA. Rectal temp was 100.8 and EKG showed that the pt converted to Afib HR 150s. PRN Tylenol was given to pt for the rectal temp of 100.8. MD Keene ordered one time dose of 5mg IV Metoprolol and lactic acid. Around 22:24 the pt converted back to sinus rhythm HR 70s on his own without giving the ordered dose of IV Metoprolol. MD Keene was notified of the conversion and told this RN to hold off the IV Metoprolol unless the pts goes back into Afib for 10 mins. So far the pt has been in sinus rhythm HR sustaining in the 60s-70s. Will continue to monitor.
[2022-12-25] MEDS: Morphine Sulfate 4 MG/ML CARTRIDGE 2 MG IVPUSH ×3 (06:39→11:49)
[2022-12-25] MEDS: Omeprazole 40 MG CAPSULE.DR PO (06:42)
[2022-12-25 06:57] LABS: Basophils Absolute Auto 0.1 X10*3/uL (0.0-0.2); Basophils Percent Auto 0.2 % (0-2); Eosinophils Absolute Auto 0.1 X10*3/uL (0.0-0.4); Eosinophils Percent Auto 0.5 % (0-4); Hematocrit 29.5 % (42.0-52.0); Hemoglobin 9.3 g/dl (14.0-18.0); Imm Gran Abs Auto 0.14 X10*3/uL (0.00-0.03); Imm Gran Pct Auto 0.7 % (0.0-0.4); Lymphocytes Absolute Auto 1.5 X10*3/uL (1.2-4.9); Lymphocytes Percent Auto 7.4 % (20-40); MANUAL DIFF FLAG SCAN; Mean Corpuscular HGB Conc 31.5 g/dl (31.0-36.0); Mean Corpuscular Hemoglobin 26.6 pg (27.0-33.0); Mean Corpuscular Volume 84.3 fL (80.0-98.0); Mean Platelet Volume 9.2 fL (9.4-12.4); Monocytes Absolute Auto 1.5 X10*3/uL (0.1-1.2); Monocytes Percent Auto 7.7 % (2-11); Neutrophils Absolute Auto 16.8 x10*3/uL (2.0-8.3); Neutrophils Percent Auto 83.5 % (45-73); Platelet Count 518 X10*3/uL (160-400); Red Cell Distribution Width 15.4 % (11.0-16.0); SCAN SMEAR FLAG 1; White Blood Count 20.1 X10*3/uL (4.8-10.8)
[2022-12-25 07:11] LABS: Anion Gap 14 (12-20); Blood Urea Nitrogen 18 mg/dL (9-16); Calcium 11.3 mg/dL (8.4-10.2); Carbon Dioxide 25 mmol/L (22-29); Chloride 101 mmol/L (96-108); Creatinine Clr Calc Pharmacy 69.2; Estimated Glomerular Filt Rate > 60; Glucose Random 117 mg/dL (60-115); Potassium 3.9 mmol/L (3.3-5.1); Sodium 136 mmol/L (135-145)
[2022-12-25 07:26] LABS: SLIDE REVIEW VERIFIED
--- NOTE | 2022-12-25 08:08 | PM.PNCARD ---
Subjective Subjective Date of Service: 12/25/22 Interval history: Seen and examined at bedside. In sinus rhythm. Overnight he had episode of AFib with RVR. He is on amiodarone currently. Continues to get epigastric pain and recently had peptic ulcer. Physical Exam Vital Signs: Last Vital Signs Temp 97.5 F 12/25/22 03:09 Pulse 66 12/25/22 03:09 Resp 20 12/25/22 03:09 BP 140/73 H 12/25/22 03:09 Pulse Ox 95 12/25/22 03:09 O2 Del Method Room Air 12/25/22 03:09 O2 Flow Rate 5 12/22/22 19:44 BMI result Body Mass Index 27.0 GENERAL APPEARANCE: In no distress. NECK: no carotid bruit, no jugular venous distention. SKIN: no suspicious lesions, warm and dry. HEART: no murmurs, regular rate and rhythm. LUNGS: clear to auscultation bilaterally. ABDOMEN: soft, tenderness in the epigastrium. EXTREMITIES: no edema. PERIPHERAL PULSES: equal. NEUROLOGIC: No gross deficits, AAO X 3 Objective Labs and Meds 12/25/22 06:21 12/25/22 06:21 Lab results: Laboratory Results - last 24 hr 12/24/22 12/24/22 12/25/22 06:19 23:13 06:21 WBC 20.1 H RBC 3.50 L Hgb 9.3 L Hct 29.5 L MCV 84.3 MCH 26.6 L MCHC 31.5 RDW 15.4 Plt Count 518 H MPV 9.2 L Immature Gran % (Auto) 0.7 H Neut % (Auto) 83.5 H Lymph % (Auto) 7.4 L [place] % (Auto) 7.7 Eos % (Auto) 0.5 Baso % (Auto) 0.2 Lymph # (Auto) 1.5 [place] # (Auto) 1.5 H Eos # (Auto) 0.1 Baso # (Auto) 0.1 Abs Immat Gran (auto) 0.14 H Absolute Neuts (auto) 16.8 H Absolute Nucleated RBC 0.000 Nucleated RBC % (auto) 0.0 Smear Tech's Comments VERIFIED Sodium Potassium Chloride Carbon Dioxide Anion Gap BUN Creatinine Estim Creat Clear Calc Estimated GFR Random Glucose Lactic Acid 0.8 Calcium 11.1 H 12/25/22 06:21 WBC RBC Hgb Hct MCV MCH MCHC RDW Plt Count MPV Immature Gran % (Auto) Neut % (Auto) Lymph % (Auto) [place] % (Auto) Eos % (Auto) Baso % (Auto) Lymph # (Auto) [place] # (Auto) Eos # (Auto) Baso # (Auto) Abs Immat Gran (auto) Absolute Neuts (auto) Absolute Nucleated RBC Nucleated RBC % (auto) Smear Tech's Comments Sodium 136 Potassium 3.9 Chloride 101 Carbon Dioxide 25 Anion Gap 14 BUN 18 H Creatinine 0.87 Estim Creat Clear Calc 69.2 Estimated GFR > 60 Random Glucose 117 H Lactic Acid Calcium 11.3 H Imaging Radiologist's impression: Impressions Cervical Spine MRI 12/24/22 19:10 IMPRESSION: - There is a large expansile enhancing lesion involving the right C6 and C7 vertebral bodies, the right C7 greater than C6 posterior elements, and the right C7 paravertebral soft tissues that is most concerning for a metastatic lesion given the recent chest CT findings. This lesion results in effacement of the right C6-C7 and right C7-T1 neural foramen with compression of the exiting right nerve roots at these levels. There is a small enhancing epidural component of the lesion on the right side that mildly indents the right lateral thecal sac and partially effaces the right axillary recess without compressing the cervical cord. - There is a partially imaged enhancing metastatic lesion involving the left T3 posterior elements and left third rib that partially effaces the left T2-T3 neural foramen and there are smaller metastatic lesions involving the C4, C5,, T2, and T3 vertebral bodies as well as base of the T2 spinous process. - Multilevel cervical spondylosis with spondylitic changes resulting in moderate central canal stenosis and flattening of the cervical spinal cord at the C3-C4, C4-C5, and C5-C6 levels. Spondylitic changes result in varying degrees of moderate to severe foraminal stenosis throughout the cervical spine as described. Progress Note: A&P Assessment and plan (1) Atrial fibrillation with RVR: Status: Acute Plan [age] year gentleman presenting with AFib with RVR. He has been reverted to sinus rhythm at this point. He was given amiodarone in his own amiodarone load since December 24 2022. He is on 400 mg twice a day amiodarone. Continue metoprolol 25 mg twice a day. Can titrate amlodipine to 10 mg if blood pressure continues to be high. His imaging is consistent with metastatic malignancy at this point. He has ongoing epigastric pain and tenderness with known peptic ulcer disease. I think starting anticoagulation is challenging in him right now. He should be on PPI. He will follow along. Thank you for allowing me to participate in the care of your patient. Please feel free to contact me if you have any questions. Time Spent With Patient Time: Total time managing care of this patient today ____ minutes. Progress Note: Quality Stroke Does the patient have a stroke diagnosis?: No Procedures Date of Service Date of Service: 12/25/22
[2022-12-25] MEDS: Doxycycline Hyclate 100 MG in 0.9 % Sodium Chloride 250 ML 166.67 MG IV ×2 (09:07→20:44)
[2022-12-25] MEDS: amLODIPine Besylate 5 MG TABLET PO (09:07)
[2022-12-25] MEDS: Amiodarone HCL 200 MG TABLET 400 MG PO ×2 (09:07→20:44)
[2022-12-25] MEDS: 0.9 % Sodium Chloride Flush 3 ML SYRINGE IVFLUSH ×3 (09:07→20:45)
[2022-12-25] MEDS: Metoprolol Tartrate 25 MG TABLET PO ×2 (09:08→20:44)
[2022-12-25] MEDS: Docusate Sodium 100 MG CAPSULE PO (09:08)
[2022-12-25] MEDS: Multivitamin TABLET 1 TAB PO (09:08)
[2022-12-25] MEDS: Sucralfate 1 GM TABLET PO ×4 (09:08→20:44)
[2022-12-25] MEDS: Amiodarone/Dextrose 150 MG/100 ML PLAST..BAG 600 MG IV (09:44)
[2022-12-25] MEDS: Magnesium Sulfate/H2O 2 GM/50 ML PIGGYBACK IV (09:47)
--- NOTE | 2022-12-25 09:53 | P.PNIM_ITS ---
Subjective Subjective Date of Service: 12/25/22 Interval History: seen and examined this morning follow up for rapid afib, lung mass, multiple lytic lesions history obtained with sister at the bedside went into rapid afib overnight but converted back to NSR before any meds were given reporting abdominal pain and reproducible chest pain Review of Systems Review of Systems: Yes all other systems are reviewed and are negative Constitutional Constitutional: Denies chills and Denies fever(s) ENT Ears, Nose, Mouth, and Throat: Denies dizziness Cardiovascular Cardiovascular: Denies chest pain, Denies palpitations and Reports dyspnea Respiratory Respiratory: Denies cough and Reports dyspnea Gastrointestinal Gastrointestinal: Reports abdominal pain, Denies nausea and Denies vomiting Neurologic Neurologic: Denies dizziness Endocrine Endocrine: Denies palpitations Physical Exam Vital Signs: Vital Signs: Last Vital Signs Temp 98.4 F 12/25/22 08:00 Pulse 69 12/25/22 08:00 Resp 20 12/25/22 08:00 BP 158/82 H 12/25/22 08:00 Pulse Ox 94 12/25/22 08:00 O2 Del Method Room Air 12/25/22 08:00 O2 Flow Rate 5 12/22/22 19:44 BMI result Body Mass Index 27.0 Const: Other: uncomfortable when repositioning General: alert, awake and Physically active Nutritional Appearance: average body habitus Orientation/consciousness: patient oriented x3 Resp: Effort & Inspection: normal respiratory effort, able to speak in complete sentences, no respiratory distress and no use of accessory muscles Cardio: Rate: regular rate Heart sounds: S1 normal heart sound present and S2 normal heart sound present GI: Other: soft +BS; tenderness mid abdomen; non-distended Neuro: Other: b/l upper extremities strength equal bilaterally General: patient oriented x3, moves all extremities and CN's II-XI intact bilaterally Extrem: General: Yes no pedal edema Objective Data Active Medications Acetaminophen (Acetaminophen 325 Mg Tablet) 650 mg PO Q6H PRN PRN Reason: Pain, Mild (Pain Scale 1-3) Last Admin: 12/24/22 22:31 Dose: 650 mg Documented By: BRENT Amiodarone HCl (Amiodarone Hcl 200 Mg Tablet) 400 mg PO BID [facility] Last Admin: 12/25/22 09:07 Dose: 400 mg Documented By: LUCRECIA Amlodipine Besylate (Amlodipine Besylate 5 Mg Tablet) 5 mg PO DAILY [facility]; Protocol Last Admin: 12/25/22 09:07 Dose: 5 mg Documented By: LUCRECIA Docusate Sodium (Docusate Sodium 100 Mg Capsule) 100 mg PO DAILY [facility] Last Admin: 12/25/22 09:08 Dose: 100 mg Documented By: LUCRECIA Ceftriaxone Sodium 1 gm/ (Sodium Chloride) 50 mls @ 100 mls/hr IV Q24H [facility] Last Infusion: 12/24/22 19:20 Dose: 0 mls/hr Documented By: AKIKO Doxycycline Hyclate 100 mg/ (Sodium Chloride) 250 mls @ 166.67 mls/hr IV Q12H [facility] Last Admin: 12/25/22 09:07 Dose: 166.67 mls/hr Documented By: LUCRECIA Magnesium Sulfate (Magnesium Sulfate/H2o) 2 gm in 50 mls @ 25 mls/hr IV ONCE ONE Stop: 12/25/22 11:14 Last Admin: 12/25/22 09:47 Dose: 25 mls/hr Documented By: LUCRECIA Melatonin (Melatonin 3 Mg Tablet) 6 mg PO BEDTIME PRN PRN Reason: Insomnia Last Admin: 12/23/22 20:20 Dose: 6 mg Documented By: RONDA Metoprolol Tartrate (Metoprolol Tartrate 25 Mg Tablet) 25 mg PO BID [facility]; Pro tocol Last Admin: 12/25/22 09:08 Dose: 25 mg Documented By: LUCRECIA Morphine Sulfate (Morphine Sulfate 4 Mg/Ml Cartridge) 2 mg IVPUSH Q3H PRN; Protocol PRN Reason: Pain, Severe (Pain Scale 7-10) Last Admin: 12/25/22 09:07 Dose: 2 mg Documented By: LUCRECIA Multivitamins/Vitamin C (Multivitamin Tablet) 1 tab PO DAILY [facility] Last Admin: 12/25/22 09:08 Dose: 1 tab Documented By: LUCRECIA Omeprazole (Omeprazole 40 Mg Capsule.) 40 mg PO DAILY@30 [facility] Last Admin: 12/25/22 06:42 Dose: 40 mg Documented By: BRENT Ondansetron HCl (Ondansetron Hcl 4 Mg/2 Ml Vial) 4 mg IVPUSH Q8H PRN PRN Reason: Nausea and Vomiting Oxycodone HCl (Oxycodone Hcl Immed Release 5 Mg Tablet) 5 mg PO Q6H PRN PRN Reason: Pain, Severe (Pain Scale 7-10) Last Admin: 12/24/22 15:25 Dose: 5 mg Documented By: AKIKO Pharmacy Consult (Consult Rx Perform Med Rec) 1 each MISCELLANE ONCE PRN PRN Reason: Consult order Polyethylene Glycol (Polyethylene Glycol 3350 17 Gm Powd.Pack) 17 gm PO DAILY PRN PRN Reason: Constipation Pravastatin Sodium (Pravastatin Sodium 80 Mg Tablet) 80 mg PO BEDTIME [facility] Last Admin: 12/24/22 21:20 Dose: 80 mg Documented By: BRENT Senna (Sennosides 8.6 Mg Tablet) 8.6 mg PO BEDTIME [facility] Last Admin: 12/24/22 21:20 Dose: 8.6 mg Documented By: BRENT Sodium Chloride (0.9 % Sodium Chloride Flush 3 Ml Syringe) 3 ml IVFLUSH QSHIFT [facility] Last Admin: 12/25/22 09:07 Dose: 3 ml Documented By: LUCRECIA Sucralfate (Sucralfate 1 Gm Tablet) 1 gm PO QIDACHS [facility] Last Admin: 12/25/22 09:08 Dose: 1 gm Documented By: LUCRECIA Labs 12/25/22 06:21 12/25/22 06:21 Labs: Laboratory Results - last 24 hr 12/24/22 12/24/22 12/25/22 06:19 23:13 06:21 MCV 84.3 MCH 26.6 L MCHC 31.5 RDW 15.4 Plt Count 518 H MPV 9.2 L Immature Gran % (Auto) 0.7 H Neut % (Auto) 83.5 H Lymph % (Auto) 7.4 L Franklin % (Auto) 7.7 Eos % (Auto) 0.5 Baso % (Auto) 0.2 Lymph # (Auto) 1.5 Franklin # (Auto) 1.5 H Eos # (Auto) 0.1 Baso # (Auto) 0.1 Abs Immat Gran (auto) 0.14 H Absolute Neuts (auto) 16.8 H Absolute Nucleated RBC 0.000 Nucleated RBC % (auto) 0.0 Smear Tech's Comments VERIFIED Anion Gap Estim Creat Clear Calc Estimated GFR Random Glucose Lactic Acid 0.8 Calcium 11.1 H 12/25/22 06:21 MCV MCH MCHC RDW Plt Count MPV Immature Gran % (Auto) Neut % (Auto) Lymph % (Auto) Franklin % (Auto) Eos % (Auto) Baso % (Auto) Lymph # (Auto) Franklin # (Auto) Eos # (Auto) Baso # (Auto) Abs Immat Gran (auto) Absolute Neuts (auto) Absolute Nucleated RBC Nucleated RBC % (auto) Smear Tech's Comments Anion Gap 14 Estim Creat Clear Calc 69.2 Estimated GFR > 60 Random Glucose 117 H Lactic Acid Calcium 11.3 H Microbiology Microbiology Results: Microbiology 12/22/22 17:40 Blood Culture - Preliminary Blood - Venous No growth after 48 hours. 12/22/22 17:40 Blood Culture - Preliminary Blood - Venous No growth after 48 hours. Assessment and Plan (1) Mediastinal lymphadenopathy: Status: Acute (2) Mass of left lung: Status: Acute (3) Atrial fibrillation with RVR: Status: Acute Plan 72-year-old primarily Yakut speaking gentleman with past medical history of hypertension, hyperlipidemia, recently discharged from [facility] after being treated for acute blood loss anemia due to GI bleed diagnosed to have gastric ulcer, gastritis esophagitis, left pleural effusion status post thoracocentesis an elevated BNP patient presented today due to persistent chest pain and diagnosed to have?new onset atrial fibrillation with RVR. new onset atrial fibrillation with RVR Initially treated with IV Cardizem drip and then converted to NSR. continues to go into and out of rapid afib. HR in the 160s when in afib recent echo showed EF 60-65% no obvious valvular pathology, indeterminate diastolic dysfunction continue metoprolol, start po amio hold anticoagulation due to recent GI bleed Cardiology following will give additional IV bolus of amiodorone per cardiology rec follow HR closely lung mass with lytic bone lesions chest CT with ?central left lung mass and lymphangitic tumor spread in LLL; likely metastatic dz to bone; soft tissue destructive lytic lesion in sternum, multiple lesions thoracic spine and c7 lesion - MRI of cervical spine showing enhancing lesion in right C6-C7 without compressing the cervical cord previously followed with thoracic surgery for left pleural effusion status post thoracocentesis x2, fluid cytology negative being followed by Dr. Vinson Likely cause of anterior chest pain CT chest with contrast 12/24 cystic or necrotic left hilar mass and similar findings to previous chest CT -oncology eval pending -Thoracic surgery following -pain control Pneumonia WBC remains elevated continue IV ceftriaxone 12/22, azithromycin changed to doxy due to concern of QT prolongation with amiodarone blood cultures negative abdominal pain CT abdomen - report pending GI consult pending continue PPI, carafate NPO for now hypercalcemia ? r/t bony lytic lesions calcium 11.3 - will give pamidronate follow calcium COPD well controlled,p.r.n. albuterol Hypertension? BP stable hold olmesartan started on norvasc, metoprolol PUD recent history of upper GI bleed due to esophagitis / gastritis and gastric ulcer requiring gastric ulcer clipping hematocrit trending down continue Prilosec, added Carafate stool guaiac pending recent iron studies showed mixed picture anemia of chronic disease with component of iron deficiency DVT prophylaxis compression boots full code attending - dr. higgins in my clinical judgment patient need continued inpatient stay for further evaluation and treatment of new onset atrial fibrillation with RVR, new lung mass, lytic lesions Time Spent With Patient Time: Total time managing care of this patient today ____ minutes. Quality Stroke Does the patient have a stroke diagnosis?: No VTE Prior VTE?: No VTE Risk Level:: Medical - moderate - high VTE Device Contraindication: Treatment Not Indicated VTE Drug Contraindication: N/A - Med Ordered
--- NOTE | 2022-12-25 11:09 | PM.GICN ---
History of Present Illness Data of Consult Service Date: 12/25/22 Primary Care Provider: Haydee Gandhi MD HPI Reason for consult: using anticoagulation 72-year-old male with past medical history of hypertension, hyperlipidemia, COPD, history of peptic ulcer disease, elevated PSA, being seen for assessment He was admitted from cardiology clinic with AFib and RVR, as well as anterior chest pain worse with activity but persistently mild at rest, associated with shortness of breath but no cough or sputum. He is also being investigated for lung mass with metastatic spread and pleural effusion. He was admitted 10/2022 with upper GI bleed underwent EGD that showed esophagitis, gastritis and gastric ulcer. Currently he is complaining of 4-5 d of kiah umbilical pain 4-5/10 not worse with food but worse with sneezing and coughing. Also he noted 4 d of constipation and passing gas does help the pain as well. He denies nausea or vomiting. appetite is poor. No melena or rectal bleeding Review of Systems Review of Systems: Constitutional : No Fever, No Chills ENT/Mouth : No sore throat, No Rhinorrhea Eyes: No Swelling, No Redness Cardiovascular : No Edema Respiratory : No Cough, No Sputum, No Wheezing Gastrointestinal : see HPI Genitourinary : NO Dysuria, No Urinary Frequency, No Hematuria, No Urgency Musculoskeletal : No joint pain, No Myalgias, No Joint Swelling Skin : No Skin Lesions, No rash Neuro : No Weakness, No Numbness, No Dizziness, No Headache Psych : No Anxiety/Panic, No Depression Heme/Lymph: No Bruising, No Lymphadenopathy Endocrine : No Polyuria, No Polydipsia All other systems reviewed and are negative. [facility] Past Medical History Medical History Cataract CHF (congestive heart failure) COPD (chronic obstructive pulmonary disease) H. pylori infection HTN (hypertension) Hyperlipemia Loculated pleural effusion Nephrolithiasis Personal history of nicotine dependence PUD (peptic ulcer disease) Tubular adenoma of colon Family History Family History Father No problems noted. Mother No problems noted. Surgical History Surgical History History of colonoscopy History of esophagogastroduodenoscopy (EGD) History of thoracentesis Social History Social History Household Members: None Housing: Apartment Do you presently have visiting nurse or other home services: No Alcohol intake: current Alcohol intake frequency: does not drink Patient Tobacco Use Status: Former Tobacco user Quit Date: over 10 years ago Tobacco use type: Cigarette e-Cigarette/Vaping Use: Former Use Second Hand Smoke Exposure: No Advance Directives Date on File: 11/05/22 service: No Current occupational status: employed and retired Cognitive needs: No Hearing needs: No Vision needs: No Meds Allergies Allergy/AdvReac Type Severity Reaction Status Date / Time No Known Allergies Allergy Verified 12/22/22 15:20 Active Medications: Current Medications Acetaminophen (Acetaminophen 325 Mg Tablet) 650 mg PO Q6H PRN PRN Reason: Pain, Mild (Pain Scale 1-3) Last Admin: 12/24/22 22:31 Dose: 650 mg Amiodarone HCl (Amiodarone Hcl 200 Mg Tablet) 400 mg PO BID [facility] Last Admin: 12/25/22 09:07 Dose: 400 mg Amlodipine Besylate (Amlodipine Besylate 5 Mg Tablet) 5 mg PO DAILY [facility]; Protocol Last Admin: 12/25/22 09:07 Dose: 5 mg Docusate Sodium (Docusate Sodium 100 Mg Capsule) 100 mg PO DAILY [facility] Last Admin: 12/25/22 09:08 Dose: 100 mg Ceftriaxone Sodium 1 gm/ (Sodium Chloride) 50 mls @ 100 mls/hr IV Q24H [facility] Last Infusion: 12/24/22 19:20 Dose: Infused Doxycycline Hyclate 100 mg/ (Sodium Chloride) 250 mls @ 166.67 mls/hr IV Q12H [facility] Last Admin: 12/25/22 09:07 Dose: 166.67 mls/hr Magnesium Sulfate (Magnesium Sulfate/H2o) 2 gm in 50 mls @ 25 mls/hr IV ONCE ONE Stop: 12/25/22 11:14 Last Admin: 12/25/22 09:47 Dose: 25 mls/hr Melatonin (Melatonin 3 Mg Tablet) 6 mg PO BEDTIME PRN PRN Reason: Insomnia Last Admin: 12/23/22 20:20 Dose: 6 mg Metoprolol Tartrate (Metoprolol Tartrate 25 Mg Tablet) 25 mg PO BID [facility]; Protocol Last Admin: 12/25/22 09:08 Dose: 25 mg Morphine Sulfate (Morphine Sulfate 4 Mg/Ml Cartridge) 2 mg IVPUSH Q3H PRN; Protocol PRN Reason: Pain, Severe (Pain Scale 7-10) Last Admin: 12/25/22 09:07 Dose: 2 mg Multivitamins/Vitamin C (Multivitamin Tablet) 1 tab PO DAILY [facility] Last Admin: 12/25/22 09:08 Dose: 1 tab Omeprazole (Omeprazole 40 Mg Capsule.Dr) 40 mg PO DAILY@629 [facility] Last Admin: 12/25/22 06:42 Dose: 40 mg Ondansetron HCl (Ondansetron Hcl 4 Mg/2 Ml Vial) 4 mg IVPUSH Q8H PRN PRN Reason: Nausea and Vomiting Oxycodone HCl (Oxycodone Hcl Immed Release 5 Mg Tablet) 5 mg PO Q6H PRN PRN Reason: Pain, Severe (Pain Scale 7-10) Last Admin: 12/24/22 15:25 Dose: 5 mg Pharmacy Consult (Consult Rx Perform Med Rec) 1 each MISCELLANE ONCE PRN PRN Reason: Consult order Polyethylene Glycol (Polyethylene Glycol 3350 17 Gm Powd.Pack) 17 gm PO DAILY PRN PRN Reason: Constipation Pravastatin Sodium (Pravastatin Sodium 80 Mg Tablet) 80 mg PO BEDTIME [facility] Last Admin: 12/24/22 21:20 Dose: 80 mg Senna (Sennosides 8.6 Mg Tablet) 8.6 mg PO BEDTIME [facility] Last Admin: 12/24/22 21:20 Dose: 8.6 mg Sodium Chloride (0.9 % Sodium Chloride Flush 3 Ml Syringe) 3 ml IVFLUSH QSHIFT [facility] Last Admin: 12/25/22 09:07 Dose: 3 ml Sucralfate (Sucralfate 1 Gm Tablet) 1 gm PO QIDACHS [facility] Last Admin: 12/25/22 09:08 Dose: 1 gm Home Medications Medication Instructions Recorded Confirmed Last Taken Type multivitamin 1 tab PO DAILY 12/22/22 12/22/22 12/22/22 History pravastatin 80 mg tablet 80 mg PO BEDTIME 12/22/22 12/22/22 12/21/22 History Physical Exam Vital Signs: Vital Signs: Last Vital Signs Temp 98.4 F 12/25/22 08:00 Pulse 69 12/25/22 08:00 Resp 20 12/25/22 08:00 BP 158/82 H 12/25/22 08:00 Pulse Ox 94 12/25/22 08:00 O2 Del Method Room Air 12/25/22 08:00 O2 Flow Rate 5 12/22/22 19:44 BMI result Body Mass Index 27.0 EXAM: GENERAL: The patient is well developed and nontoxic. VITAL SIGNS:see workflow HEENT: Nonicteric sclerae, PERRLA, EOMI. Oropharynx clear. Moist mucous membranes. Conjunctivae appear well perfused. No thyroid mass. CHEST: Chest wall is nontender. HEART: Regular rate and rhythm without murmurs. LUNGS: mild b/l wheeze noted ABDOMEN: Soft, positive bowel sounds, tender mid abdomen with distention, no organomegaly.no flank tenderness SKIN: No rash, no excessive bruising, petechiae, or purpura. NEUROLOGIC: Cranial nerves II-XII intact without motor/sensory deficit. Psych: nml affect Results Labs 12/25/22 06:21 12/25/22 06:21 Labs: Short CBC 12/25/22 Range/Units 06:21 WBC 20.1 H (4.8-10.8) X10*3/uL Hgb 9.3 L (14.0-18.0) g/dl Hct 29.5 L (42.0-52.0) % Plt Count 518 H (160-400) X10*3/uL BMP 12/24/22 12/25/22 06:19 06:21 Sodium 136 Potassium 3.9 Chloride 101 Carbon Dioxide 25 BUN 18 H Creatinine 0.87 Calcium 11.1 H 11.3 H Microbiology Microbiology Results: Microbiology 12/22/22 17:40 Blood - Venous Blood Culture - Preliminary No growth after 48 hours. 12/22/22 17:40 Blood - Venous Blood Culture - Preliminary No growth after [address] scan - abdomen: My impression: bony mets noted, fecal loading right colon, loculated fluid left lung Assessment and Plan (1) History of upper gastrointestinal bleeding: Status: Acute (2) Constipation: Status: Acute Plan 1/ Abdominal pain, with description and clinical features most consistent with constipation, no evidence of acute abdomen, or peptic ulcer disease, HGB stable at 9 g/dl. Constipation may be due to his intercurrent sickness or cardiovascular disease, no coonic mass seen on imaging. 2/ Anemia may be ACD from neoplasia PLAN: 1/ Can use anti coagulation with low dose PPI 2/ good bowel regimen, scheduled miralax BID with colace, enema if needed --if ongoing pain then doppler to check mesenteric flow 3/ if any overt GIB with melena or rectal bleeding then endoscopic evaluation 4/ check iron, ferritin, b12 and folate and replenish if needed Time Spent With Patient Time: Total time managing care of this patient today ____ minutes. Procedures Date of Service Date of Service: 12/25/22
[2022-12-25 11:28] LABS: Lactate Dehydrogenase 176 U/L (118-273); Magnesium 1.9 mg/dL (1.6-2.6)
--- NOTE | 2022-12-25 11:40 | ECG_ITS ---
Test Reason : chest pain Blood Pressure : / mmHG Vent. Rate : 061 BPM Atrial Rate : 061 BPM P-R Int : 124 ms QRS Dur : 096 ms QT Int : 398 ms P-R-T Axes : 051 026 036 degrees QTc Int : 400 ms Normal sinus rhythm Normal ECG When compared with ECG of 24-DEC-2022 22:01, Sinus rhythm has replaced Atrial fibrillation Vent. rate has decreased BY [address] no longer depressed in Anterolateral leads Nonspecific T wave abnormality no longer evident in Inferior leads Referred By: Bety Goodman Electronically Signed By:Roberto Hong
--- NOTE | 2022-12-25 11:42 | PM.HEMONCCN ---
Subjective - Subjective Chief complaint: Weakness and pain Patient: new to practice Consult date: 12/25/22 Requesting Physician: Bety BERNAL Primary Care Provider: Haydee Gandhi MD HPI - Consult Narrative Reason for consult: Probable metastatic lung cancer Narrative: Moe Sunshine is a 72 year old male admitted on 12/22/2022 for rapid atrial fibrillation. He was was at outpatient cardiology office and found to be in a rapid AFib with complaints of shortness of breath. He was referred to emergency department where he was given IV Cardizem, chest x-ray showed airspace opacity and diminished lung volume at left hemithorax. History significant for recent diagnosis of upper GI bleed secondary to peptic ulcer disease as well as left pleural effusion. He underwent left thoracentesis in October and November, fluid cytology was negative for malignancy. CT chest performed on 12/23/2022 showed small loculated left pleural effusion with areas of nodular pleural thickening and central left lung mass with lymphangitic tumor spread in the left lower lobe. Diffuse mediastinal adenopathy and emphysema. Lytic metastatic disease to bones and destructive lytic lesion in sternum. CT abdomen/pelvis showed several small low-attenuation liver lesions, multiple lytic lesion in bones and a 1.3 cm mass adjacent to left iliac muscle, concerning for metastatic disease. Patient unable to provide much history but his sister says that he has been progressively declining in the last few months. He lives alone, his partner of many years of cancer recently. Review of Systems - Constitutional Reports fatigue, Reports lack of energy, Reports malaise, Reports poor appetite, Reports weight loss - Cardiovascular Reports chest pain, Reports fast heart rate - Respiratory Reports cough, Reports dyspnea - Neurologic Denies dizziness Oncology Screenings - ECOG Performance Status ECOG Performance Status: [facility] Medical History: Medical History (Last Reviewed 12/23/22 @ 11:28 by Roberto Hong MD) Cataract CHF (congestive heart failure) COPD (chronic obstructive pulmonary disease) H. pylori infection HTN (hypertension) Hyperlipemia Loculated pleural effusion Nephrolithiasis Personal history of nicotine dependence PUD (peptic ulcer disease) Tubular adenoma of colon Family History: Family History (Last Reviewed 12/23/22 @ 11:28 by Roberto Hong MD) Father No problems noted. Mother No problems noted. Surgical History: Surgical History (Last Reviewed 12/23/22 @ 11:28 by Roberto Hong MD) History of colonoscopy History of esophagogastroduodenoscopy (EGD) History of thoracentesis Social History: Social History (Last Reviewed 12/23/22 @ 11:28 by Roberto Hong MD) Living Situation History: Household Members: None Housing: Apartment Do you presently have visiting nurse or other home services: No Tobacco History: Patient Tobacco Use Status: Former Tobacco user Tobacco use type: Cigarette Smoke Quit Date: over 10 years ago e-Cigarette/Vaping Use: Former Use Second Hand Smoke Exposure: No Advance Directives: Advance Directives Date on File: 11/05/22 Occupation Assessmet: service: No Current occupational status: employed Current occupational status: retired Home Medications and Allergies Current Medications: Current Medications Acetaminophen (Acetaminophen 325 Mg Tablet) 650 mg PO Q6H PRN PRN Reason: Pain, Mild (Pain Scale 1-3) Last Admin: 12/24/22 22:31 Dose: 650 mg Amiodarone HCl (Amiodarone Hcl 200 Mg Tablet) 400 mg PO BID [facility] Last Admin: 12/25/22 09:07 Dose: 400 mg Amlodipine Besylate (Amlodipine Besylate 5 Mg Tablet) 5 mg PO DAILY [facility]; Protocol Last Admin: 12/25/22 09:07 Dose: 5 mg Docusate Sodium (Docusate Sodium 100 Mg Capsule) 100 mg PO DAILY [facility] Last Admin: 12/25/22 09:08 Dose: 100 mg Ceftriaxone Sodium 1 gm/ (Sodium Chloride) 50 mls @ 100 mls/hr IV Q24H [facility] Last Infusion: 12/24/22 19:20 Dose: Infused Doxycycline Hyclate 100 mg/ (Sodium Chloride) 250 mls @ 166.67 mls/hr IV Q12H [facility] Last Infusion: 12/25/22 11:36 Dose: Infused Pamidronate Disodium 60 mg/ (Sodium Chloride) 260 mls @ 130 mls/hr IV ONCE ONE Stop: 12/25/22 13:08 Melatonin (Melatonin 3 Mg Tablet) 6 mg PO BEDTIME PRN PRN Reason: Insomnia Last Admin: 12/23/22 20:20 Dose: 6 mg Metoprolol Tartrate (Metoprolol Tartrate 25 Mg Tablet) 25 mg PO BID [facility]; Protocol Last Admin: 12/25/22 09:08 Dose: 25 mg Morphine Sulfate (Morphine Sulfate 4 Mg/Ml Cartridge) 2 mg IVPUSH Q3H PRN; Protocol PRN Reason: Pain, Severe (Pain Scale 7-10) Last Admin: 12/25/22 09:07 Dose: 2 mg Multivitamins/Vitamin C (Multivitamin Tablet) 1 tab PO DAILY [facility] Last Admin: 12/25/22 09:08 Dose: 1 tab Omeprazole (Omeprazole 40 Mg Capsule.Dr) 40 mg PO DAILY@0630 [facility] Last Admin: 12/25/22 06:42 Dose: 40 mg Ondansetron HCl (Ondansetron Hcl 4 Mg/2 Ml Vial) 4 mg IVPUSH Q8H PRN PRN Reason: Nausea and Vomiting Oxycodone HCl (Oxycodone Hcl Immed Release 5 Mg Tablet) 5 mg PO Q6H PRN PRN Reason: Pain, Severe (Pain Scale 7-10) Last Admin: 12/24/22 15:25 Dose: 5 mg Pharmacy Consult (Consult Rx Perform Med Rec) 1 each MISCELLANE ONCE PRN PRN Reason: Consult order Polyethylene Glycol (Polyethylene Glycol 3350 17 Gm Powd.Pack) 17 gm PO DAILY PRN PRN Reason: Constipation Pravastatin Sodium (Pravastatin Sodium 80 Mg Tablet) 80 mg PO BEDTIME [facility] Last Admin: 12/24/22 21:20 Dose: 80 mg Senna (Sennosides 8.6 Mg Tablet) 8.6 mg PO BEDTIME [facility] Last Admin: 12/24/22 21:20 Dose: 8.6 mg Sodium Chloride (0.9 % Sodium Chloride Flush 3 Ml Syringe) 3 ml IVFLUSH QSHIFT [facility] Last Admin: 12/25/22 09:07 Dose: 3 ml Sucralfate (Sucralfate 1 Gm Tablet) 1 gm PO QIDACHS [facility] Last Admin: 12/25/22 09:08 Dose: 1 gm Home Medications Medication Instructions Recorded Confirmed Type multivitamin 1 tab PO DAILY 12/22/22 12/22/22 History pravastatin 80 mg tablet 80 mg PO BEDTIME 12/22/22 12/22/22 History Allergies Allergy/AdvReac Type Severity Reaction Status Date / Time No Known Allergies Allergy Verified 12/22/22 15:20 Physical Exam Vital signs: Vital Signs Temp 99.2 F 12/25/22 11:34 Pulse 63 12/25/22 11:34 Resp 20 12/25/22 11:34 BP 107/64 12/25/22 11:34 Pulse Ox 93 12/25/22 11:34 O2 Del Method Room Air 12/25/22 11:34 O2 Flow Rate 5 12/22/22 19:44 Intake & Output 12/24/22 12/25/22 12/25/22 18:59 06:59 18:59 Intake Total 870.333 / 1170.333 300 / 1170.333 350 / 350 Output Total 250 / 1050 800 / 1050 Balance 620.333 / 120.333 -500 / 120.333 350 / 350 Urine Output (Average ml/kg/hr) 0.27 0.88 0.88 Intake: Intake, Oral Amount 480 / 480 Intake, IV Amount 390.333 / 690.333 300 / 690.333 350 / 350 Amiodarone/Dextrose 150 mg In 100 / 100 100 / 100 100 ml @ 600 mls/hr IV ONCE ONE Rx#:[id number] Doxycycline Hyclate 100 mg In 0 250 / 500 250 / 500 250 / 250 .9 % Sodium Chloride 250 ml @ 166.67 mls/hr IV Q12H [facility] Rx#: [id number] cefTRIAXone sodium 1 gm In 0.9 50 / 50 % Sodium Chloride 50 ml @ 100 mls/hr IV Q24H [facility] Rx#: [id number] dilTIAZem HCL 125 mg In 0.9 % 40.333 / 40.333 Sodium Chloride 100 ml @ Per Protocol IVCONT .Q0M [facility] Rx#: [id number] Output: Output, Urine Amount 250 / 1050 800 / 1050 Other: Breakfast % Eaten 100% Lunch % Eaten 100% Number of Unmeasured Voids 2 Number of Bowel Movements 0 Urine Urinal Urinal Urine Color Yellow Yellow Last Bowel Movement 12/21/22 Weight 75.9 kg - Constitutional Present: mild distress, cachectic, chronically ill appearing - Routine HEENT Exam Head: Present: normal inspection Eye: Present: PERRL - Routine Neck Exam Present: supple. Absent: lymphadenopathy - Routine Respiratory Exam Present: decreased breath sounds - Routine Cardiovascular Exam Cardiovascular: Present: S1, S2, tachycardia Hem/Onc Consult Result - Labs CBC & Chem 7: 12/26/22 07:25 12/26/22 07:25 Labs: Short CBC 06/30/23 Range/Units 06:21 WBC 20.1 H (4.8-10.8) X10*3/uL Hgb 9.3 L (14.0-18.0) g/dl Hct 29.5 L (42.0-52.0) % Plt Count 518 H (160-400) X10*3/uL BMP 12/24/22 12/25/22 06:19 06:21 Sodium 136 Potassium 3.9 Chloride 101 Carbon Dioxide 25 BUN 18 H Creatinine 0.87 Calcium 11.1 H 11.3 H Assessment and Plan Patient Active problem list reviewed?: Yes (1) Mass of left lung Status: Acute Assessment and plan: 1. This is a 72-year-old male with left lung mass, mediastinal adenopathy, left pleural effusion and multiple lytic bony lesion suspicious for metastatic lung cancer. CEA level is elevated over 140. Pleural fluid cytology was negative. I discussed performing biopsy of sternal soft tissue mass for confirming diagnosis. They are willing to proceed with this. Depending on pathology results, recommendations about treatment will be made. I explained to patient and family that any treatment is palliative, there is no role of surgery. 2. 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 Administer pamidronate. Bone strengthening therapy with Zometa or denosumab will be scheduled as outpatient. Thank you for the consultation. - Time Spent With Patient Time Spent with Patient (in minutes): 25
[2022-12-25] MEDS: Pamidronate Disodium 60 MG in 0.9 % Sodium Chloride 250 ML 130 MG IV (12:38)
[2022-12-25] MEDS: polyethylene glycoL 3350 17 GM POWD.PACK PO ×2 (12:45→20:45)
[2022-12-25] MEDS: cefTRIAXone sodium 1 GM in 0.9 % Sodium Chloride 50 ML IV (18:12)
[2022-12-25] MEDS: HYDROmorphone HCl 0.5 MG/0.5 ML SYRINGE IVPUSH ×2 (18:12→22:39)
[2022-12-25] MEDS: Heparin Sodium,Porcine 5,000 UNIT/ML VIAL 5000 UNIT SUBCUT (18:12)
[2022-12-25] MEDS: Pravastatin Sodium 80 MG TABLET PO (20:44)
[2022-12-25] MEDS: Sennosides 8.6 MG TABLET PO (20:44)
[2022-12-26] MEDS: oxyCODONE HCl Immed Release 5 MG TABLET PO ×4 (03:17→22:39)
[2022-12-26 03:53] VITALS: BP 157/78; PULSE 66; RESP 18; TEMP 37.2; O2SAT 94
[2022-12-26] MEDS: Omeprazole 40 MG CAPSULE.DR PO (05:40)
[2022-12-26] MEDS: Heparin Sodium,Porcine 5,000 UNIT/ML VIAL 5000 UNIT SUBCUT ×2 (05:40→16:28)
[2022-12-26 07:22] VITALS: BP 153/75; PULSE 66; RESP 20; TEMP 36.9; O2SAT 94
[2022-12-26 07:58] LABS: MANUAL DIFF FLAG NO
[2022-12-26 08:01] LABS: Basophils Percent Auto 0.2 % (0-2); Eosinophils Percent Auto 0.1 % (0-4); Hematocrit 28.4 % (42.0-52.0); Imm Gran Abs Auto 0.09 X10*3/uL (0.00-0.03); Imm Gran Pct Auto 0.5 % (0.0-0.4); Lymphocytes Absolute Auto 1.1 X10*3/uL (1.2-4.9); Lymphocytes Percent Auto 6.4 % (20-40); Mean Corpuscular HGB Conc 31.7 g/dl (31.0-36.0); Mean Corpuscular Hemoglobin 26.3 pg (27.0-33.0); Mean Platelet Volume 9.2 fL (9.4-12.4); Monocytes Absolute Auto 1.2 X10*3/uL (0.1-1.2); Monocytes Percent Auto 7.1 % (2-11); Neutrophils Absolute Auto 14.3 x10*3/uL (2.0-8.3); Neutrophils Percent Auto 85.7 % (45-73); Platelet Count 463 X10*3/uL (160-400); Red Blood Count 3.42 X10*6/uL (4.60-5.80); Red Cell Distribution Width 15.3 % (11.0-16.0); White Blood Count 16.7 X10*3/uL (4.8-10.8)
[2022-12-26 08:22] LABS: Anion Gap 15 (12-20); Blood Urea Nitrogen 22 mg/dL (9-16); Calcium 10.7 mg/dL (8.4-10.2); Carbon Dioxide 25 mmol/L (22-29); Chloride 101 mmol/L (96-108); Creatinine Clr Calc Pharmacy 65.4; Estimated Glomerular Filt Rate > 60; Glucose Random 126 mg/dL (60-115); Potassium 3.6 mmol/L (3.3-5.1); Sodium 137 mmol/L (135-145)
[2022-12-26] MEDS: Amiodarone HCL 200 MG TABLET 400 MG PO ×2 (08:32→20:38)
[2022-12-26] MEDS: polyethylene glycoL 3350 17 GM POWD.PACK PO ×2 (08:32→20:38)
[2022-12-26] MEDS: Multivitamin TABLET 1 TAB PO (08:32)
[2022-12-26] MEDS: 0.9 % Sodium Chloride Flush 3 ML SYRINGE IVFLUSH ×2 (08:32→11:32)
[2022-12-26] MEDS: Sucralfate 1 GM TABLET PO ×4 (08:32→20:38)
[2022-12-26] MEDS: Docusate Sodium 100 MG CAPSULE PO (08:32)
[2022-12-26] MEDS: amLODIPine Besylate 5 MG TABLET PO (08:33)
[2022-12-26] MEDS: Doxycycline Hyclate 100 MG in 0.9 % Sodium Chloride 250 ML 166.67 MG IV ×2 (08:33→20:32)
[2022-12-26] MEDS: HYDROmorphone HCl 0.5 MG/0.5 ML SYRINGE IVPUSH ×3 (08:33→20:26)
[2022-12-26] MEDS: Metoprolol Tartrate 25 MG TABLET PO ×2 (08:33→20:38)
[2022-12-26] MEDS: Acetaminophen 325 MG TABLET 650 MG PO (08:33)
[2022-12-26] MEDS: bisacodyL 10 MG SUPP.RECT PR (11:30)
[2022-12-26 11:31] VITALS: BP 159/82; PULSE 68; RESP 20; TEMP 36.7; O2SAT 95
--- NOTE | 2022-12-26 11:54 | HO.PM.IMPN ---
Subjective Subjective Date of Service: 12/26/22 Interval History: seen and examined this morning follow up for new lung mass, multiple lytic lesions, rapid afib HR controlled overnight reporting ongoing pain chest pain/abdominal pain, constipation no palpitations, no fever Review of Systems Review of Systems: Yes all other systems are reviewed and are negative Constitutional Constitutional: Denies chills and Denies fever(s) Cardiovascular Cardiovascular: Denies palpitations and Denies dyspnea Respiratory Respiratory: Denies cough and Denies dyspnea Gastrointestinal Gastrointestinal: Reports abdominal pain, Reports constipation, Denies diarrhea, Denies nausea and Denies vomiting Endocrine Endocrine: Denies palpitations Physical Exam Vital Signs: Vital Signs: Last Vital Signs Temp 98.0 F 12/26/22 11:31 Pulse 68 12/26/22 11:31 Resp 20 12/26/22 11:31 BP 159/82 H 12/26/22 11:31 Pulse Ox 95 12/26/22 11:31 O2 Del Method Room Air 12/26/22 11:31 O2 Flow Rate 98 12/26/22 03:53 BMI result Body Mass Index 27.0 Const: Other: appears uncomfortable with repositioning General: alert, awake and Physically active Nutritional Appearance: average body habitus Orientation/consciousness: patient oriented x3 Resp: Effort & Inspection: normal respiratory effort, able to speak in complete sentences, no respiratory distress and no use of accessory muscles Cardio: Rate: regular rate Heart sounds: S1 normal heart sound present and S2 normal heart sound present GI: Other: lower abdominal tenderness; no rebound; +BS Inspection: No distended Palpation (GI): Soft to palpation Neuro: Other: strength equal bilaterally General: patient oriented x3, moves all extremities and CN's II-XI intact bilaterally Extrem: General: Yes no pedal edema Objective Data Active Medications Acetaminophen (Acetaminophen 325 Mg Tablet) 650 mg PO Q6H PRN PRN Reason: Pain, Mild (Pain Scale 1-3) Last Admin: 12/26/22 08:33 Dose: 650 mg Documented By: ARNIE Amiodarone HCl (Amiodarone Hcl 200 Mg Tablet) 400 mg PO BID [facility] Last Admin: 12/26/22 08:32 Dose: 400 mg Documented By: ARNIE Amlodipine Besylate (Amlodipine Besylate 10 Mg Tablet) 10 mg PO DAILY [facility]; Protocol Last Admin: 12/26/22 11:10 Dose: Not Given Documented By: ARNIE Non-Admin Reason: med already given Bisacodyl (Bisacodyl 10 Mg Supp.Rect) 10 mg VT DAILY PRN PRN Reason: Constipation Last Admin: 12/26/22 11:30 Dose: 10 mg Documented By: ARNIE Docusate Sodium (Docusate Sodium 100 Mg Capsule) 100 mg PO DAILY [facility] Last Admin: 12/26/22 08:32 Dose: 100 mg Documented By: ARNIE Heparin Sodium (Porcine) (Heparin Sodium,Porcine 5,000 Unit/Ml Vial) 5,000 unit SUBCUT Q12H [facility] Stop: 12/27/22 16:59 Last Admin: 12/26/22 05:40 Dose: 5,000 unit Documented By: MARTÍNEZ Hydromorphone HCl (Hydromorphone Hcl 0.5 Mg/0.5 Ml Syringe) 0.5 mg IVPUSH Q4H PRN; Protocol PRN Reason: Pain, Severe (Pain Scale 7-10) Last Admin: 12/26/22 08:33 Dose: 0.5 mg Documented By: ARNIE Ceftriaxone Sodium 1 gm/ (Sodium Chloride) 50 mls @ 100 mls/hr IV Q24H [facility] Last Infusion: 12/25/22 18:43 Dose: 0 mls/hr Documented By: LUCRECIA Doxycycline Hyclate 100 mg/ (Sodium Chloride) 250 mls @ 166.67 mls/hr IV Q12H [facility] Last Infusion: 12/26/22 11:34 Dose: 0 mls/hr Documented By: ARNIE Melatonin (Melatonin 3 Mg Tablet) 6 mg PO BEDTIME PRN PRN Reason: Insomnia Last Admin: 12/23/22 20:20 Dose: 6 mg Documented By: RONDA Metoprolol Tartrate (Metoprolol Tartrate 25 Mg Tablet) 25 mg PO BID [facility]; Protocol Last Admin: 12/26/22 08:33 Dose: 25 mg Documented By: ARNIE Multivitamins/Vitamin C (Multivitamin Tablet) 1 tab PO DAILY [facility] Last Admin: 12/26/22 08:32 Dose: 1 tab Documented By: ARNIE Omeprazole (Omeprazole 40 Mg Capsule.Dr) 40 mg PO DAILY@0630 [facility] Last Admin: 12/26/22 05:40 Dose: 40 mg Documented By: MARTÍNEZ Ondansetron HCl (Ondansetron Hcl 4 Mg/2 Ml Vial) 4 mg IVPUSH Q8H PRN PRN Reason: Nausea and Vomiting Oxycodone HCl (Oxycodone Hcl Immed Release 5 Mg Tablet) 5 mg PO Q6H PRN PRN Reason: Pain, Severe (Pain Scale 7-10) Last Admin: 12/26/22 08:33 Dose: 5 mg Documented By: ARNIE Pharmacy Consult (Consult Rx Perform Med Rec) 1 each MISCELLANE ONCE PRN PRN Reason: Consult order Polyethylene Glycol (Polyethylene Glycol 3350 17 Gm Powd.Pack) 17 gm PO BID [facility] Last Admin: 12/26/22 08:32 Dose: 17 gm Documented By: ARNIE Pravastatin Sodium (Pravastatin Sodium 80 Mg Tablet) 80 mg PO BEDTIME [facility] Last Admin: 12/25/22 20:44 Dose: 80 mg Documented By: MARTÍNEZ Senna (Sennosides 8.6 Mg Tablet) 8.6 mg PO BEDTIME [facility] Last Admin: 12/25/22 20:44 Dose: 8.6 mg Documented By: MARTÍNEZ Sodium Chloride (0.9 % Sodium Chloride Flush 3 Ml Syringe) 3 ml IVFLUSH QSHIFT [facility] Last Admin: 12/26/22 11:32 Dose: 3 ml Documented By: ARNIE Sucralfate (Sucralfate 1 Gm Tablet) 1 gm PO QIDACHS [facility] Last Admin: 12/26/22 11:30 Dose: 1 gm Documented By: ARNIE Labs 12/26/22 07:25 12/26/22 07:25 Labs: Laboratory Results - last 24 hr 12/26/22 12/26/22 07:25 07:25 MCV 83.0 MCH 26.3 L MCHC 31.7 RDW 15.3 Plt Count 463 H MPV 9.2 L Immature Gran % (Auto) 0.5 H Neut % (Auto) 85.7 H Lymph % (Auto) 6.4 L [place] % (Auto) 7.1 Eos % (Auto) 0.1 Baso % (Auto) 0.2 Lymph # (Auto) 1.1 L [place] # (Auto) 1.2 Eos # (Auto) 0.0 Baso # (Auto) 0.0 Abs Immat Gran (auto) 0.09 H Absolute Neuts (auto) 14.3 H Absolute Nucleated RBC 0.000 Nucleated RBC % (auto) 0.0 Anion Gap 15 Estim Creat Clear Calc 65.4 Estimated GFR > 60 Random Glucose 126 H Calcium 10.7 H Magnesium 2.0 Microbiology Microbiology Results: Microbiology 12/24/22 23:18 Blood Culture - Preliminary Blood - Venous No growth after 24 hours. 12/24/22 23:18 Blood Culture - Preliminary Blood - Venous No growth after 24 hours. Assessment and Plan (1) Constipation: Status: Acute (2) Mass of left lung: Status: Acute (3) Atrial fibrillation with RVR: Status: Acute (4) Pneumonia: Status: Acute Plan 72-year-old primarily Samoan speaking gentleman with past medical history of hypertension, hyperlipidemia, recently discharged from [facility] after being treated for acute blood loss anemia due to GI bleed diagnosed to have gastric ulcer, gastritis esophagitis, left pleural effusion status post thoracocentesis an elevated BNP patient presented today due to persistent chest pain and diagnosed to have?new onset atrial fibrillation with RVR. New lung mass with diffuse lytic bone lesions chest CT with central left lung mass and lymphangitic tumor spread in LLL; likely metastatic dz to bone; soft tissue destructive lytic lesion in sternum, multiple lesions thoracic spine and c7 lesion - MRI of cervical spine showing enhancing lesion in right C6-C7 without compressing the cervical cord previously followed with thoracic surgery for left pleural effusion status post thoracocentesis x2, fluid cytology negative Likely cause of anterior chest pain CT chest with contrast 12/24 cystic or necrotic left hilar mass and similar findings to previous chest CT seen by oncology recs appreciated, plan for biopsy of sternal mass on Wednesday. NPO midnight 12/25 seen by Thoracic surgery, agree with plan for biopsy pain control new onset atrial fibrillation with RVR Initially treated with IV Cardizem drip and then converted to NSR. continues to go into and out of rapid afib. HR in the 160s when in afib. HR controlled overnight recent echo showed EF 60-65% no obvious valvular pathology, indeterminate diastolic dysfunction continue metoprolol, continue po amio started on this admission seen by GI - ok with starting full AC, will hold off until after biopsy on Wednesday Cardiology following follow HR closely Pneumonia WBC beginning to trend down continue IV ceftriaxone 12/22, azithromycin changed to doxy 12/24 due to concern of QT prolongation with amiodarone blood cultures negative to date abdominal pain CT abdomen - showing multiple lytic lesions in the bones including iliac crest, sacrum and T12 as well as soft tissue seen by GI, likely pain related to constipation continue bowel regimen continue PPI, carafate NPO for now hypercalcemia ? r/t bony lytic lesions s/p pamidronate 12/25 calcium 10.7 today follow calcium COPD well controlled,p.r.n. albuterol Hypertension? BP stable hold olmesartan started on norvasc, metoprolol PUD recent history of upper GI bleed due to esophagitis / gastritis and gastric ulcer requiring gastric ulcer clipping hematocrit trending down continue Prilosec, added Carafate stool guaiac pending recent iron studies showed mixed picture anemia of chronic disease with component of iron deficiency DVT prophylaxis compression boots, SQ heparin (hold on Wednesday night for planned bx Wednesday) consider AC for afib after biopsy full code attending - dr. thomas in my clinical judgment patient need continued inpatient stay for further evaluation and treatment of new onset atrial fibrillation with RVR, new lung mass, lytic lesions, biopsy on Wednesday Time Spent With Patient Time: Total time managing care of this patient today ____ minutes. Quality Stroke Does the patient have a stroke diagnosis?: No VTE Prior VTE?: No VTE Risk Level:: Medical - moderate - high VTE Device Contraindication: Treatment Not Indicated VTE Drug Contraindication: N/A - Med Ordered
[2022-12-26 15:21] VITALS: BP 124/65; PULSE 65; RESP 18; TEMP 37.7; O2SAT 94
[2022-12-26] MEDS: cefTRIAXone sodium 1 GM in 0.9 % Sodium Chloride 50 ML IV (18:10)
[2022-12-26 19:07] VITALS: BP 160/74; PULSE 71; RESP 20; TEMP 37.2; O2SAT 96
[2022-12-26] MEDS: Sennosides 8.6 MG TABLET PO (20:38)
[2022-12-26] MEDS: Pravastatin Sodium 80 MG TABLET PO (20:38)
[2022-12-27] VITALS (7 sets, daily range): BP systolic 121–151; BP diastolic 67–80; PULSE 65–81; RESP 18–20; TEMP 36.7–39.3; O2SAT 91–97
[2022-12-27] MEDS: HYDROmorphone HCl 0.5 MG/0.5 ML SYRINGE IVPUSH (03:05)
[2022-12-27] MEDS: 0.9 % Sodium Chloride Flush 3 ML SYRINGE IVFLUSH ×4 (03:13→21:26)
[2022-12-27] MEDS: Heparin Sodium,Porcine 5,000 UNIT/ML VIAL 5000 UNIT SUBCUT (05:46)
[2022-12-27] MEDS: Omeprazole 40 MG CAPSULE.DR PO (05:46)
[2022-12-27] MEDS: Multivitamin TABLET 1 TAB PO (08:34)
[2022-12-27] MEDS: amLODIPine Besylate 10 MG TABLET PO (08:34)
[2022-12-27] MEDS: Sucralfate 1 GM TABLET PO ×4 (08:34→21:24)
[2022-12-27] MEDS: Docusate Sodium 100 MG CAPSULE PO (08:34)
[2022-12-27] MEDS: Doxycycline Hyclate 100 MG in 0.9 % Sodium Chloride 250 ML 166.67 MG IV ×2 (08:35→21:25)
[2022-12-27] MEDS: Amiodarone HCL 200 MG TABLET 400 MG PO ×2 (08:35→21:24)
[2022-12-27] MEDS: Metoprolol Tartrate 25 MG TABLET PO ×2 (08:35→21:24)
[2022-12-27] MEDS: polyethylene glycoL 3350 17 GM POWD.PACK PO ×2 (08:35→21:25)
--- NOTE | 2022-12-27 10:52 | HO.PM.IMPN ---
Subjective Subjective Date of Service: 12/27/22 Interval History: seen and examined this morning follow up for metastatic cancer, rapid afib HR has been under control still with pain worse with movement. had BM yesterday Review of Systems Review of Systems: Yes all other systems are reviewed and are negative Constitutional Constitutional: Denies chills and Denies fever(s) Cardiovascular Cardiovascular: Denies chest pain, Denies palpitations and Denies dyspnea Respiratory Respiratory: Denies cough and Denies dyspnea Gastrointestinal Gastrointestinal: Reports abdominal pain, Denies constipation, Denies nausea and Denies vomiting Endocrine Endocrine: Denies palpitations Physical Exam Vital Signs: Vital Signs: Last Vital Signs Temp 98.4 F 12/27/22 07:26 Pulse 67 12/27/22 07:26 Resp 20 12/27/22 07:26 BP 144/73 H 12/27/22 07:26 Pulse Ox 94 12/27/22 07:26 O2 Del Method Room Air 12/27/22 07:26 O2 Flow Rate 2 12/27/22 00:00 BMI result Body Mass Index 27.0 Const: Other: appears comfortable at rest General: no acute distress, alert, awake and Physically active Nutritional Appearance: average body habitus Orientation/consciousness: patient oriented x3 Resp: Effort & Inspection: normal respiratory effort, able to speak in complete sentences, no respiratory distress and no use of accessory muscles Cardio: Rate: regular rate Heart sounds: S1 normal heart sound present and S2 normal heart sound present GI: Other: lower abdominal tenderness; no rebound; +BS Inspection: No distended Palpation (GI): Soft to palpation Neuro: Other: upper extremity strength equal bilaterally General: patient oriented x3, moves all extremities and CN's II-XI intact bilaterally Extrem: General: Yes no pedal edema Objective Data Active Medications Acetaminophen (Acetaminophen 325 Mg Tablet) 650 mg PO Q6H PRN PRN Reason: Pain, Mild (Pain Scale 1-3) Last Admin: 12/26/22 08:33 Dose: 650 mg Documented By: ARNIE Amiodarone HCl (Amiodarone Hcl 200 Mg Tablet) 400 mg PO BID [facility] Last Admin: 12/27/22 08:35 Dose: 400 mg Documented By: ZENY Amlodipine Besylate (Amlodipine Besylate 10 Mg Tablet) 10 mg PO DAILY [facility]; Protocol Last Admin: 12/27/22 08:34 Dose: 10 mg Documented By: ZENY Bisacodyl (Bisacodyl 10 Mg Supp.Rect) 10 mg DE DAILY PRN PRN Reason: Constipation Last Admin: 12/26/22 11:30 Dose: 10 mg Documented By: CRAIG-HEATHER Docusate Sodium (Docusate Sodium 100 Mg Capsule) 100 mg PO DAILY [facility] Last Admin: 12/27/22 08:34 Dose: 100 mg Documented By: ZENY Heparin Sodium (Porcine) (Heparin Sodium,Porcine 5,000 Unit/Ml Vial) 5,000 unit SUBCUT Q12H [facility] Stop: 12/27/22 16:59 Last Admin: 12/27/22 05:46 Dose: 5,000 unit Documented By: JOSH Hydromorphone HCl (Hydromorphone Hcl 0.5 Mg/0.5 Ml Syringe) 0.5 mg IVPUSH Q4H PRN; Protocol PRN Reason: Pain, Severe (Pain Scale 7-10) Last Admin: 12/27/22 03:05 Dose: 0.5 mg Documented By: JOSH Ceftriaxone Sodium 1 gm/ (Sodium Chloride) 50 mls @ 100 mls/hr IV Q24H [facility] Last Infusion: 12/26/22 19:06 Dose: 0 mls/hr Documented By: ANGELITO Doxycycline Hyclate 100 mg/ (Sodium Chloride) 250 mls @ 166.67 mls/hr IV Q12H [facility] Last Infusion: 12/27/22 10:45 Dose: 0 mls/hr Documented By: ZENY Melatonin (Melatonin 3 Mg Tablet) 6 mg PO BEDTIME PRN PRN Reason: Insomnia Last Admin: 12/23/22 20:20 Dose: 6 mg Documented By: RONDA Metoprolol Tartrate (Metoprolol Tartrate 25 Mg Tablet) 25 mg PO BID [facility]; Protocol Last Admin: 12/27/22 08:35 Dose: 25 mg Documented By: ZENY Multivitamins/Vitamin C (Multivitamin Tablet) 1 tab PO DAILY [facility] Last Admin: 12/27/22 08:34 Dose: 1 tab Documented By: ZENY Omeprazole (Omeprazole 40 Mg Capsule.) 40 mg PO DAILY@0630 [facility] Last Admin: 12/27/22 05:46 Dose: 40 mg Documented By: JOSH Ondansetron HCl (Ondansetron Hcl 4 Mg/2 Ml Vial) 4 mg IVPUSH Q8H PRN PRN Reason: Nausea and Vomiting Oxycodone HCl (Oxycodone Hcl Immed Release 5 Mg Tablet) 10 mg PO Q4H PRN PRN Reason: Pain, Severe (Pain Scale 7-10) Last Admin: 12/27/22 08:34 Dose: 10 mg Documented By: ZENY Pharmacy Consult (Consult Rx Perform Med Rec) 1 each MISCELLANE ONCE PRN PRN Reason: Consult order Polyethylene Glycol (Polyethylene Glycol 3350 17 Gm Powd.Pack) 17 gm PO BID [facility] Last Admin: 12/27/22 08:35 Dose: 17 gm Documented By: ZENY Pravastatin Sodium (Pravastatin Sodium 80 Mg Tablet) 80 mg PO BEDTIME [facility] Last Admin: 12/26/22 20:38 Dose: 80 mg Documented By: ANGELITO Senna (Sennosides 8.6 Mg Tablet) 8.6 mg PO BEDTIME [facility] Last Admin: 12/26/22 20:38 Dose: 8.6 mg Documented By: ANGELITO Sodium Chloride (0.9 % Sodium Chloride Flush 3 Ml Syringe) 3 ml IVFLUSH QSHIFT [facility] Last Admin: 12/27/22 08:36 Dose: 3 ml Documented By: ZENY Sucralfate (Sucralfate 1 Gm Tablet) 1 gm PO QIDACHS [facility] Last Admin: 12/27/22 08:34 Dose: 1 gm Documented By: ZENY Labs 12/26/22 07:25 12/26/22 07:25 Labs: Laboratory Results - last 24 hr 12/26/22 12/27/22 13:48 05:56 Calcium 10.0 D Stool Occult Blood NEGATIVE Microbiology Microbiology Results: Microbiology 12/24/22 23:18 Blood Culture - Preliminary Blood - Venous No growth after 48 hours. 12/24/22 23:18 Blood Culture - Preliminary Blood - Venous No growth after 48 hours. Assessment and Plan (1) Mass of left lung: Status: Acute (2) Mediastinal lymphadenopathy: Status: Acute (3) Atrial fibrillation with RVR: Status: Acute (4) Pneumonia: Status: Acute Plan 72-year-old primarily [place]ian speaking gentleman with past medical history of hypertension, hyperlipidemia, recently discharged from [facility] after being treated for acute blood loss anemia due to GI bleed diagnosed to have gastric ulcer, gastritis esophagitis, left pleural effusion status post thoracocentesis an elevated BNP patient presented today due to persistent chest pain and diagnosed to have?new onset atrial fibrillation with RVR. New lung mass with diffuse lytic bone lesions chest CT with central left lung mass and lymphangitic tumor spread in LLL; likely metastatic dz to bone; soft tissue destructive lytic lesion in sternum, multiple lesions thoracic spine and c7 lesion - MRI of cervical spine showing enhancing lesion in right C6-C7 without compressing the cervical cord previously followed with thoracic surgery for left pleural effusion status post thoracocentesis x2, fluid cytology negative Likely cause of anterior chest pain CT chest with contrast 12/24 cystic or necrotic left hilar mass and similar findings to previous chest CT seen by oncology recs appreciated, plan for biopsy of sternal mass on Wednesday. NPO midnight 12/27 seen by Thoracic surgery, agree with plan for biopsy pain control - will increase pain medication new onset atrial fibrillation with RVR Initially treated with IV Cardizem drip and then converted to NSR. continues to go into and out of rapid afib. HR in the 160s when in afib. HR controlled overnight recent echo showed EF 60-65% no obvious valvular pathology, indeterminate diastolic dysfunction continue metoprolol, continue po amio started on this admission seen by GI - ok with starting full AC, will hold off until after biopsy on Wednesday Cardiology following follow HR closely Pneumonia WBC beginning to trend down continue IV ceftriaxone 12/22, azithromycin changed to doxy 12/24 due to concern of QT prolongation with amiodarone, day 12/05 blood cultures negative to date abdominal pain CT abdomen - showing multiple lytic lesions in the bones including iliac crest, sacrum and T12 as well as soft tissue seen by GI, likely pain related to constipation continue bowel regimen continue PPI, carafate US without evidence of portal vein thromobosis hypercalcemia ? r/t bony lytic lesions s/p pamidronate 12/25 calcium improved to 10.0 follow calcium COPD well controlled,p.r.n. albuterol Hypertension? BP stable hold olmesartan started on norvasc, metoprolol PUD recent history of upper GI bleed due to esophagitis / gastritis and gastric ulcer requiring gastric ulcer clipping hematocrit trending down continue Prilosec, added Carafate stool guaiac pending recent iron studies showed mixed picture anemia of chronic disease with component of iron deficiency DVT prophylaxis compression boots, SQ heparin (hold on Wednesday night for planned bx Wednesday) consider AC for afib after biopsy full code attending - dr. knight in my clinical judgment patient need continued inpatient stay for pain control related to new metastatic cancer and plan for biopsy on Wednesday Time Spent With Patient Time: Total time managing care of this patient today ____ minutes. Quality Stroke Does the patient have a stroke diagnosis?: No VTE Prior VTE?: No VTE Risk Level:: Medical - moderate - high VTE Device Contraindication: Treatment Not Indicated VTE Drug Contraindication: N/A - Med Ordered
--- NOTE | 2022-12-27 12:07 | PM.PNCARD ---
Subjective Subjective Date of Service: 12/27/22 Interval history: Seen ECHO at bedside. Waiting for lung biopsy tomorrow. In sinus rhythm. Physical Exam Vital Signs: Last Vital Signs Temp 98.0 F 12/27/22 11:28 Pulse 65 12/27/22 11:28 Resp 20 12/27/22 11:28 BP 121/68 12/27/22 11:28 Pulse Ox 93 12/27/22 11:28 O2 Del Method Room Air 12/27/22 11:28 O2 Flow Rate 2 12/27/22 00:00 BMI result Body Mass Index 27.0 GENERAL APPEARANCE: In no distress. NECK: no carotid bruit, no jugular venous distention. SKIN: no suspicious lesions, warm and dry. HEART: no murmurs, regular rate and rhythm. LUNGS: clear to auscultation bilaterally. ABDOMEN: soft, nontender. EXTREMITIES: no edema. PERIPHERAL PULSES: equal. NEUROLOGIC: No gross deficits, AAO X 3 Objective Labs and Meds 12/26/22 07:25 12/26/22 07:25 Lab results: Laboratory Results - last 24 hr 12/26/22 12/27/22 13:48 05:56 Calcium 10.0 D Stool Occult Blood NEGATIVE Imaging Radiologist's impression: Impressions Abdomen Ultrasound 12/26/22 14:11 IMPRESSION: 1. No evidence of portal vein thrombosis. 2. Trace pericholecystic fluid and mild gallbladder wall thickening. Progress Note: A&P Assessment and plan (1) Mass of left lung: Status: Acute (2) PAF (paroxysmal atrial fibrillation): Status: Acute Plan 72 year gentleman presenting with AFib with RVR and sharp chest pains. He has been diagnosed with lung mass with lytic bone lesions. He is due to get biopsy tomorrow. Hold Lovenox. Does not appear to be in heart failure. On amiodarone for paroxysmal atrial fibrillation. The should be continued at the current dose at least for 10 days and then can be decreased to 200 mg daily. As he gets the biopsy anticoagulation should be started for atrial fibrillation. Thank you for allowing me to participate in the care of your patient. Please feel free to contact me if you have any questions. Time Spent With Patient Time: Total time managing care of this patient today ____ minutes. Progress Note: Quality Stroke Does the patient have a stroke diagnosis?: No Procedures Date of Service Date of Service: 12/27/22
[2022-12-27] MEDS: cefTRIAXone sodium 1 GM in 0.9 % Sodium Chloride 50 ML IV (17:29)
--- NOTE | 2022-12-27 18:22 | PC.NURSE ---
supervised med pass Med pass by graduate nurse 12/27/2022 was supervised by this RN
[2022-12-27] MEDS: Sennosides 8.6 MG TABLET PO (21:24)
[2022-12-27] MEDS: Acetaminophen 325 MG TABLET 650 MG PO (21:24)
[2022-12-27] MEDS: Pravastatin Sodium 80 MG TABLET PO (21:24)
[2022-12-28] VITALS (7 sets, daily range): BP systolic 100–125; BP diastolic 58–69; PULSE 59–80; RESP 18–20; TEMP 36.2–37.3; O2SAT 92–95
[2022-12-28] MEDS: Omeprazole 40 MG CAPSULE.DR PO (06:01)
[2022-12-28] MEDS: Multivitamin TABLET 1 TAB PO (08:29)
[2022-12-28] MEDS: HYDROmorphone HCl 0.5 MG/0.5 ML SYRINGE IVPUSH ×3 (08:29→22:17)
[2022-12-28] MEDS: Amiodarone HCL 200 MG TABLET 400 MG PO ×2 (08:30→22:06)
[2022-12-28] MEDS: Sucralfate 1 GM TABLET PO ×4 (08:30→22:06)
[2022-12-28] MEDS: amLODIPine Besylate 10 MG TABLET PO (08:30)
[2022-12-28] MEDS: Doxycycline Hyclate 100 MG in 0.9 % Sodium Chloride 250 ML 166.67 MG IV (08:30)
--- NOTE | 2022-12-28 09:40 | HO.PM.IMPN ---
Subjective Subjective Date of Service: 12/28/22 Interval History: seen and examined this morning follow up for metastatic cancer, rapid afib HR has been under control still with pain worse with movement. had BM yesterday Review of Systems Review of Systems: Yes all other systems are reviewed and are negative Constitutional Constitutional: Denies chills and Denies fever(s) Cardiovascular Cardiovascular: Denies chest pain, Denies palpitations and Denies dyspnea Respiratory Respiratory: Denies cough and Denies dyspnea Gastrointestinal Gastrointestinal: Reports abdominal pain, Denies constipation, Denies nausea and Denies vomiting Endocrine Endocrine: Denies palpitations Physical Exam Vital Signs: Vital Signs: Last Vital Signs Temp 98.3 F 12/28/22 07:48 Pulse 60 12/28/22 07:48 Resp 20 12/28/22 07:48 BP 119/68 12/28/22 07:48 Pulse Ox 93 12/28/22 07:48 O2 Del Method Room Air 12/28/22 07:48 O2 Flow Rate 2 12/27/22 00:00 BMI result Body Mass Index 27.0 Appearing in no acute distress lung sounds are clear to auscultation heart regular rate rhythm, clear S1, S2 positive bowel sounds, abdomen is soft, nontender neuro patient is alert x3, no focal deficits Objective Data Active Medications Acetaminophen (Acetaminophen 325 Mg Tablet) 650 mg PO Q6H PRN PRN Reason: Pain, Mild (Pain Scale 1-3) Last Admin: 12/27/22 21:24 Dose: 650 mg Documented By: JOSH Amiodarone HCl (Amiodarone Hcl 200 Mg Tablet) 400 mg PO BID [facility] Last Admin: 12/28/22 08:30 Dose: 400 mg Documented By: MARITZA Amlodipine Besylate (Amlodipine Besylate 10 Mg Tablet) 10 mg PO DAILY [facility]; Protocol Last Admin: 12/28/22 08:30 Dose: 10 mg Documented By: MARITZA Bisacodyl (Bisacodyl 10 Mg Supp.Rect) 10 mg GA DAILY PRN PRN Reason: Constipation Last Admin: 12/26/22 11:30 Dose: 10 mg Documented By: CRAIG-HEATHER Docusate Sodium (Docusate Sodium 100 Mg Capsule) 100 mg PO DAILY [facility] Last Admin: 12/28/22 08:28 Dose: Not Given Documented By: MARITZA Non-Admin Reason: Patient Refused Guaifenesin (Guaifenesin 100 Mg/5 Ml Liquid) 5 ml PO Q6H PRN PRN Reason: Cough Last Admin: 12/28/22 08:36 Dose: 5 ml Documented By: MARITZA Hydromorphone HCl (Hydromorphone Hcl 0.5 Mg/0.5 Ml Syringe) 0.5 mg IVPUSH Q4H PRN; Protocol PRN Reason: Pain, Severe (Pain Scale 7-10) Last Admin: 12/28/22 08:29 Dose: 0.5 mg Documented By: MARITZA Ceftriaxone Sodium 1 gm/ (Sodium Chloride) 50 mls @ 100 mls/hr IV Q24H [facility] Last Infusion: 12/27/22 18:08 Dose: 0 mls/hr Documented By: ZENY Doxycycline Hyclate 100 mg/ (Sodium Chloride) 250 mls @ 166.67 mls/hr IV Q12H [facility] Last Admin: 12/28/22 08:30 Dose: 166.67 mls/hr Documented By: MARITZA Melatonin (Melatonin 3 Mg Tablet) 6 mg PO BEDTIME PRN PRN Reason: Insomnia Last Admin: 12/23/22 20:20 Dose: 6 mg Documented By: RONDA Metoprolol Tartrate (Metoprolol Tartrate 25 Mg Tablet) 25 mg PO BID [facility]; Protocol Last Admin: 12/28/22 08:08 Dose: Not Given Documented By: MARITZA Non-Admin Reason: low hr Multivitamins/Vitamin C (Multivitamin Tablet) 1 tab PO DAILY [facility] Last Admin: 12/28/22 08:29 Dose: 1 tab Documented By: MARITZA Omeprazole (Omeprazole 40 Mg Capsule.Dr) 40 mg PO DAILY@0630 [facility] Last Admin: 12/28/22 06:01 Dose: 40 mg Documented By: JOSH Ondansetron HCl (Ondansetron Hcl 4 Mg/2 Ml Vial) 4 mg IVPUSH Q8H PRN PRN Reason: Nausea and Vomiting Oxycodone HCl (Oxycodone Hcl Immed Release 5 Mg Tablet) 10 mg PO Q4H PRN PRN Reason: Pain, Severe (Pain Scale 7-10) Last Admin: 12/28/22 05:56 Dose: 10 mg Documented By: JOSH Pharmacy Consult (Consult Rx Perform Med Rec) 1 each MISCELLANE ONCE PRN PRN Reason: Consult order Polyethylene Glycol (Polyethylene Glycol 3350 17 Gm Powd.Pack) 17 gm PO BID [facility] Last Admin: 12/28/22 08:28 Dose: Not Given Documented By: MARITZA Non-Admin Reason: Patient Refused Pravastatin Sodium (Pravastatin Sodium 80 Mg Tablet) 80 mg PO BEDTIME [facility] Last Admin: 12/27/22 21:24 Dose: 80 mg Documented By: JOSH Senna (Sennosides 8.6 Mg Tablet) 8.6 mg PO BEDTIME [facility] Last Admin: 12/27/22 21:24 Dose: 8.6 mg Documented By: JOSH Sodium Chloride (0.9 % Sodium Chloride Flush 3 Ml Syringe) 3 ml IVFLUSH QSHIFT [facility] Last Admin: 12/28/22 08:04 Dose: Not Given Documented By: MARITZA Non-Admin Reason: See Note Sucralfate (Sucralfate 1 Gm Tablet) 1 gm PO QIDACHS [facility] Last Admin: 12/28/22 08:30 Dose: 1 gm Documented By: MARITZA Labs 12/26/22 07:25 12/26/22 07:25 Labs: Laboratory Results - last 24 hr 12/27/22 12/28/22 20:52 09:19 PT 19.6 H INR 1.7 H Lactic Acid 1.4 Microbiology Microbiology Results: Microbiology 12/22/22 17:40 Blood Culture - Final Blood - Venous No growth after 5 days. 12/22/22 17:40 Blood Culture - Final Blood - Venous No growth after 5 days. Assessment and Plan (1) PAF (paroxysmal atrial fibrillation): Status: Acute Plan 72-year-old primarily [place]ian speaking gentleman with past medical history of hypertension, hyperlipidemia, recently discharged from [facility] after being treated for acute blood loss anemia due to GI bleed diagnosed to have gastric ulcer, gastritis esophagitis, left pleural effusion status post thoracocentesis an elevated BNP patient presented today due to persistent chest pain and diagnosed to have?new onset atrial fibrillation with RVR. New lung mass with diffuse lytic bone lesions chest CT with central left lung mass and lymphangitic tumor spread in LLL; likely metastatic dz to bone; soft tissue destructive lytic lesion in sternum, multiple lesions thoracic spine and c7 lesion - MRI of cervical spine showing enhancing lesion in right C6-C7 without compressing the cervical cord previously followed with thoracic surgery for left pleural effusion status post thoracocentesis x2, fluid cytology negative CT chest with contrast 12/24 cystic or necrotic left hilar mass and similar findings to previous chest CT seen by oncology recs appreciated, plan for biopsy of sternal mass today seen by Thoracic surgery, agree with plan for biopsy pain control - will increase pain medication new onset atrial fibrillation with RVR Initially treated with IV Cardizem drip and then converted to NSR. recent echo showed EF 60-65% no obvious valvular pathology, indeterminate diastolic dysfunction continue metoprolol, continue po amio started on this admission seen by GI - ok with starting full AC after biopsy Cardiology following CAP continue IV ceftriaxone 12/22, azithromycin changed to doxy 12/24 due to concern of QT prolongation with amiodarone, day 12/05 blood cultures negative to date abdominal pain CT abdomen - showing multiple lytic lesions in the bones including iliac crest, sacrum and T12 as well as soft tissue seen by GI, likely pain related to constipation continue bowel regimen continue PPI, carafate US without evidence of portal vein thromobosis hypercalcemia ? r/t bony lytic lesions s/p pamidronate 12/25 calcium improved to 10.0 follow calcium COPD well controlled,p.r.n. albuterol Hypertension? BP stable hold olmesartan started on norvasc, metoprolol PUD recent history of upper GI bleed due to esophagitis / gastritis and gastric ulcer requiring gastric ulcer clipping hematocrit trending down continue Prilosec, added Carafate stool guaiac pending recent iron studies showed mixed picture anemia of chronic disease with component of iron deficiency DVT prophylaxis compression boots, SQ heparin (hold on Wednesday night for planned bx Wednesday) consider AC for afib after biopsy full code attending - dr. Kuhn DISPO plan for home after biopsy if pain controlled in my clinical judgment patient need continued inpatient stay for pain control related to new metastatic cancer and plan for biopsy on Wednesday Time Spent With Patient Time: Total time managing care of this patient today ____ minutes. Quality Stroke Does the patient have a stroke diagnosis?: No VTE Prior VTE?: No VTE Risk Level:: Medical - moderate - high VTE Device Contraindication: Treatment Not Indicated VTE Drug Contraindication: N/A - Med Ordered
--- NOTE | 2022-12-28 13:38 | MHC.CM.PN ---
EMR REVIEWED AND PER MD ROUNDS, PT NOT MEDICALLY CLEARED FOR DC (BIOPSY SCHEDULED FOR LATE DAY TODAY) POSSIBLY HOME TOMORROW, CM WILL CONTINUE TO FOLLOW FOR DC NEEDS/PLAN
--- NOTE | 2022-12-28 15:46 | PC.NURSE ---
Addendum entered by Carlo Sousa RN 12/28/22 18:53: this evening pt returned to afib RVR and c/o chest pain. md informed. ECG obtained and IVP med administered as ordered. Original Note: Pt went into afib RVR 150s while on transport to biopsy. MD and biopsy staff informed. Pt did have portable monitor in place during transport, was taken off at procedure site then placed back on and found to be in SR 70s. informed.
--- NOTE | 2022-12-28 16:53 | HO.RADPN ---
RADIOLOGY Narrative Narrative: Sternal mass biopsy using US guidance. 8 18g core biopsies obtained
[2022-12-28] MEDS: cefTRIAXone sodium 1 GM in 0.9 % Sodium Chloride 50 ML IV (17:42)
[2022-12-28] MEDS: Doxycycline Hyclate 100 MG in 0.9 % Sodium Chloride 250 ML 166.6 MG IV (22:05)
[2022-12-28] MEDS: polyethylene glycoL 3350 17 GM POWD.PACK PO (22:06)
[2022-12-28] MEDS: Pravastatin Sodium 80 MG TABLET PO (22:06)
[2022-12-28] MEDS: Metoprolol Tartrate 25 MG TABLET PO (22:06)
[2022-12-28] MEDS: Sennosides 8.6 MG TABLET PO (22:06)
[2022-12-28] MEDS: 0.9 % Sodium Chloride Flush 3 ML SYRINGE IVFLUSH (22:09)
[2022-12-29 00:02] VITALS: BP 121/64; PULSE 72; RESP 18; TEMP 37.3; O2SAT 95
--- NOTE | 2022-12-29 01:39 | PC.NURSE ---
Care assumed @ 1900 on 12/28. Pt c/o pain related to recent biopsy site. Medicated with prn dilaudid. Bedrest maintained s/p Bx as ordered. NSR 80's on tele. Continues on 2L nc with spo2 maintained. Handoff report given to oncoming RN at [id number].
[2022-12-29 04:07] VITALS: BP 102/60; PULSE 68; RESP 18; TEMP 36.2; O2SAT 96
[2022-12-29] MEDS: HYDROmorphone HCl 0.5 MG/0.5 ML SYRINGE IVPUSH (04:46)
[2022-12-29] MEDS: Omeprazole 40 MG CAPSULE.DR PO (04:47)
[2022-12-29 07:39] VITALS: BP 130/64; PULSE 61; RESP 20; TEMP 36.5; O2SAT 97
[2022-12-29] MEDS: Multivitamin TABLET 1 TAB PO (08:37)
[2022-12-29] MEDS: Amiodarone HCL 200 MG TABLET 400 MG PO ×2 (08:37→20:45)
[2022-12-29] MEDS: Doxycycline Hyclate 100 MG in 0.9 % Sodium Chloride 250 ML 166.67 MG IV (08:37)
[2022-12-29] MEDS: Sucralfate 1 GM TABLET PO ×4 (08:37→20:45)
[2022-12-29] MEDS: amLODIPine Besylate 10 MG TABLET PO (08:37)
[2022-12-29] MEDS: Docusate Sodium 100 MG CAPSULE PO (08:37)
[2022-12-29 11:40] VITALS: BP 122/61; PULSE 70; RESP 20; TEMP 37; O2SAT 92
--- NOTE | 2022-12-29 11:44 | HO.PM.IMPN ---
Subjective Subjective Date of Service: 12/29/22 Interval History: seen and examined this morning follow up for metastatic cancer, rapid afib HR has been under control still with pain worse with movement. had BM yesterday Review of Systems Review of Systems: Yes all other systems are reviewed and are negative Constitutional Constitutional: Denies chills and Denies fever(s) Cardiovascular Cardiovascular: Denies chest pain, Denies palpitations and Denies dyspnea Respiratory Respiratory: Denies cough and Denies dyspnea Gastrointestinal Gastrointestinal: Reports abdominal pain, Denies constipation, Denies nausea and Denies vomiting Endocrine Endocrine: Denies palpitations Physical Exam Vital Signs: Vital Signs: Last Vital Signs Temp 98.6 F 12/29/22 11:40 Pulse 70 12/29/22 11:40 Resp 20 12/29/22 11:40 BP 122/61 12/29/22 11:40 Pulse Ox 92 12/29/22 11:40 O2 Del Method Room Air 12/29/22 11:40 O2 Flow Rate 2 12/29/22 07:39 BMI result Body Mass Index 27.0 Appearing in no acute distress lung sounds are clear to auscultation heart regular rate rhythm, clear S1, S2 positive bowel sounds, abdomen is soft, nontender neuro patient is alert x3, no focal deficits Objective Data Active Medications Acetaminophen (Acetaminophen 325 Mg Tablet) 650 mg PO Q6H PRN PRN Reason: Pain, Mild (Pain Scale 1-3) Last Admin: 12/27/22 21:24 Dose: 650 mg Documented By: JOSH Amiodarone HCl (Amiodarone Hcl 200 Mg Tablet) 400 mg PO BID [facility] Last Admin: 12/29/22 08:37 Dose: 400 mg Documented By: MARITZA Amlodipine Besylate (Amlodipine Besylate 10 Mg Tablet) 10 mg PO DAILY [facility]; Protocol Last Admin: 12/29/22 08:37 Dose: 10 mg Documented By: MARITZA Bisacodyl (Bisacodyl 10 Mg Supp.Rect) 10 mg [place] DAILY PRN PRN Reason: Constipation Last Admin: 12/26/22 11:30 Dose: 10 mg Documented By: CRAIG-DENISSELA Docusate Sodium (Docusate Sodium 100 Mg Capsule) 100 mg PO DAILY [facility] Last Admin: 12/29/22 08:37 Dose: 100 mg Documented By: MARITZA Guaifenesin (Guaifenesin 100 Mg/5 Ml Liquid) 5 ml PO Q6H PRN PRN Reason: Cough Last Admin: 12/28/22 22:17 Dose: 5 ml Documented By: MEGAN Hydromorphone HCl (Hydromorphone Hcl 0.5 Mg/0.5 Ml Syringe) 0.5 mg IVPUSH Q4H PRN; Protocol PRN Reason: Pain, Severe (Pain Scale 7-10) Last Admin: 12/29/22 04:46 Dose: 0.5 mg Documented By: SUNNY Ceftriaxone Sodium 1 gm/ (Sodium Chloride) 50 mls @ 100 mls/hr IV Q24H [facility] Last Infusion: 12/28/22 18:21 Dose: 0 mls/hr Documented By: MARITZA Doxycycline Hyclate 100 mg/ (Sodium Chloride) 250 mls @ 166.67 mls/hr IV Q12H [facility] Last Infusion: 12/29/22 10:23 Dose: 0 mls/hr Documented By: MARITZA Melatonin (Melatonin 3 Mg Tablet) 6 mg PO BEDTIME PRN PRN Reason: Insomnia Last Admin: 12/23/22 20:20 Dose: 6 mg Documented By: RONDA Metoprolol Tartrate (Metoprolol Tartrate 25 Mg Tablet) 25 mg PO BID [facility]; Protocol Last Admin: 12/29/22 08:37 Dose: Not Given Documented By: MARITZA Non-Admin Reason: low hr Multivitamins/Vitamin C (Multivitamin Tablet) 1 tab PO DAILY [facility] Last Admin: 12/29/22 08:37 Dose: 1 tab Documented By: MARITZA Omeprazole (Omeprazole 40 Mg Capsule.Dr) 40 mg PO DAILY@0630 [facility] Last Admin: 12/29/22 04:47 Dose: 40 mg Documented By: SUNNY Ondansetron HCl (Ondansetron Hcl 4 Mg/2 Ml Vial) 4 mg IVPUSH Q8H PRN PRN Reason: Nausea and Vomiting Oxycodone HCl (Oxycodone Hcl Immed Release 5 Mg Tablet) 10 mg PO Q4H PRN PRN Reason: Pain, Severe (Pain Scale 7-10) Last Admin: 12/29/22 08:37 Dose: 10 mg Documented By: MARITZA Pharmacy Consult (Consult Rx Perform Med Rec) 1 each MISCELLANE ONCE PRN PRN Reason: Consult order Polyethylene Glycol (Polyethylene Glycol 3350 17 Gm Powd.Pack) 17 gm PO BID [facility] Last Admin: 12/29/22 08:38 Dose: Not Given Documented By: MARITZA Non-Admin Reason: Patient Refused Pravastatin Sodium (Pravastatin Sodium 80 Mg Tablet) 80 mg PO BEDTIME [facility] Last Admin: 12/28/22 22:06 Dose: 80 mg Documented By: MEGAN Senna (Sennosides 8.6 Mg Tablet) 8.6 mg PO BEDTIME [facility] Last Admin: 12/28/22 22:06 Dose: 8.6 mg Documented By: MEGAN Sodium Chloride (0.9 % Sodium Chloride Flush 3 Ml Syringe) 3 ml IVFLUSH QSHIFT [facility] Last Admin: 12/29/22 11:40 Dose: Not Given Documented By: MARITZA Non-Admin Reason: See Note Sucralfate (Sucralfate 1 Gm Tablet) 1 gm PO QIDACHS [facility] Last Admin: 12/29/22 08:37 Dose: 1 gm Documented By: MARITZA Labs 12/26/22 07:25 12/26/22 07:25 Microbiology Microbiology Results: Microbiology 12/27/22 20:55 Blood Culture - Preliminary Blood - Venous No growth after 24 hours. 12/27/22 20:52 Blood Culture - Preliminary Blood - Venous No growth after 24 hours. Assessment and Plan (1) PAF (paroxysmal atrial fibrillation): Status: Acute Plan 72-year-old primarily Greek speaking gentleman with past medical history of hypertension, hyperlipidemia, recently discharged from [facility] after being treated for acute blood loss anemia due to GI bleed diagnosed to have gastric ulcer, gastritis esophagitis, left pleural effusion status post thoracocentesis an elevated BNP patient presented today due to persistent chest pain and diagnosed to have?new onset atrial fibrillation with RVR. New lung mass with diffuse lytic bone lesions chest CT with central left lung mass and lymphangitic tumor spread in LLL; likely metastatic dz to bone; soft tissue destructive lytic lesion in sternum, multiple lesions thoracic spine and c7 lesion - MRI of cervical spine showing enhancing lesion in right C6-C7 without compressing the cervical cord previously followed with thoracic surgery for left pleural effusion status post thoracocentesis x2, fluid cytology negative seen by oncology>s/p biopsy 12/28/22 pain control New onset atrial fibrillation with RVR Initially treated with IV Cardizem drip and then converted to NSR. recent echo showed EF 60-65% no obvious valvular pathology, indeterminate diastolic dysfunction continue metoprolol, continue po amio started on this admission seen by GI - ok with starting full AC after biopsy, started Eliquis 12/29/22 Cardiology following CAP. Resolved s/p IV ceftriaxone and doxy blood cultures negative to date abdominal pain CT abdomen - showing multiple lytic lesions in the bones including iliac crest, sacrum and T12 as well as soft tissue seen by GI, likely pain related to constipation continue bowel regimen continue PPI, carafate US without evidence of portal vein thromobosis hypercalcemia. Resolved ? r/t bony lytic lesions s/p pamidronate 12/25 calcium improved to 10.0 COPD well controlled,p.r.n. albuterol Hypertension? BP stable hold olmesartan, can stop on dc started on norvasc, metoprolol PUD recent history of upper GI bleed due to esophagitis / gastritis and gastric ulcer requiring gastric ulcer clipping hematocrit trending down but stable continue Prilosec, added Carafate stool occult negative recent iron studies showed mixed picture anemia of chronic disease with component of iron deficiency DVT prophylaxis with eliqis full code attending - dr. Leon DISPO plan for home after biopsy if pain controlled, patient requested to stay one more say and be discharged on 12/30/22 for better pain control in my clinical judgment patient need continued inpatient stay for pain control related to new metastatic cancer Time Spent With Patient Time: Total time managing care of this patient today ____ minutes. Quality Stroke Does the patient have a stroke diagnosis?: No VTE Prior VTE?: No VTE Risk Level:: Medical - moderate - high VTE Device Contraindication: Treatment Not Indicated VTE Drug Contraindication: N/A - Med Ordered
[2022-12-29 16:09] VITALS: BP 122/78; PULSE 84; RESP 14; TEMP 36; O2SAT 92
[2022-12-29 20:16] VITALS: BP 150/72; PULSE 91; RESP 15; TEMP 37.3; O2SAT 92
[2022-12-29] MEDS: Pravastatin Sodium 80 MG TABLET PO (20:45)
[2022-12-29] MEDS: Metoprolol Tartrate 25 MG TABLET PO (20:45)
[2022-12-29] MEDS: Sennosides 8.6 MG TABLET PO (20:45)
[2022-12-29] MEDS: polyethylene glycoL 3350 17 GM POWD.PACK PO (20:48)
[2022-12-30] VITALS (7 sets, daily range): BP systolic 107–156; BP diastolic 65–72; PULSE 61–82; RESP 18–21; TEMP 36.6–37.6; O2SAT 91–97
[2022-12-30] MEDS: Omeprazole 40 MG CAPSULE.DR PO (05:42)
[2022-12-30] MEDS: Amiodarone HCL 200 MG TABLET 400 MG PO ×2 (07:54→20:11)
[2022-12-30] MEDS: Sucralfate 1 GM TABLET PO ×4 (07:54→20:05)
[2022-12-30] MEDS: amLODIPine Besylate 10 MG TABLET PO (07:54)
[2022-12-30] MEDS: Docusate Sodium 100 MG CAPSULE PO (07:54)
[2022-12-30] MEDS: polyethylene glycoL 3350 17 GM POWD.PACK PO ×2 (07:54→20:06)
[2022-12-30] MEDS: Multivitamin TABLET 1 TAB PO (07:59)
--- NOTE | 2022-12-30 12:57 | MHC.CM.PN ---
EMR REVIEWED, PER HOSPITALIST PAIN MEDS TO BE CHANGED, NO PLAN FOR D/C TODAY, [facility] UPDATED AND CM WILL CONT TO FOLLOW D/C NEEDS. CM MET W/PT'S SISTER AT BEDSIDE IN LENGTH ON 12/30, SISTER WAS PROVIDED W/LIST OF MEDICAL SUPPLY STORES WHERE SHE COULD RENT/PURCHASE A HOSPITAL BED FOR PT, SISTER IS ALSO INTERESTED IN [facility] FOR PERSONAL CARE FOR PT ONCE HOME, TASK [facility] LIAISON HERE AT [facility].
--- NOTE | 2022-12-30 15:19 | HO.PM.IMPN ---
Subjective Subjective Date of Service: 12/30/22 Interval History: Addendum: Case management spoke with patient and family, who now which patient be placed in hospice care. Patient and family was originally under the assumption that patient would have to remain in hospital if he was on hospice. Patient seen and examined this morning with family at bedside Follow-up for metastatic cancer and AFib with RVR Patient still complaining of intractable pain States his ?whole body? hurts, rates that as a 10/ Says current analgesics helped only ?a very little? Patient has not been eating much Complains of mostly nonproductive cough HR has been under control, patient now in normal sinus rhythm Review of Systems Whole body pain Anorexia Nonproductive cough Review of Systems: Yes all other systems are reviewed and are negative Physical Exam Vital Signs: Vital Signs: Last Vital Signs Temp 99.7 F 12/30/22 11:20 Pulse 71 12/30/22 11:20 Resp 20 12/30/22 11:20 BP 133/66 12/30/22 11:20 Pulse Ox 92 12/30/22 11:20 O2 Del Method Room Air 12/30/22 11:20 O2 Flow Rate 2 12/29/22 07:39 BMI result Body Mass Index 27.0 General: AOx3, no acute distress Resp: CTA bilaterally CVS: S1, S2, RRR GI: +BS, diffusely tender, no distention Skin: No rash Neuro: Cranial nerves II-XII grossly intact bilaterally. Motor grossly intact bilaterally Extremities: No edema Psych: Appropriate affect Objective Data Active Medications Acetaminophen (Acetaminophen 325 Mg Tablet) 650 mg PO Q6H PRN PRN Reason: Pain, Mild (Pain Scale 1-3) Last Admin: 12/27/22 21:24 Dose: 650 mg Documented By: JOSH Amiodarone HCl (Amiodarone Hcl 200 Mg Tablet) 400 mg PO BID [facility] Last Admin: 12/30/22 07:54 Dose: 400 mg Documented By: ZENY Amlodipine Besylate (Amlodipine Besylate 10 Mg Tablet) 10 mg PO DAILY [facility]; Protocol Last Admin: 12/30/22 07:54 Dose: 10 mg Documented By: ZENY Apixaban (Apixaban 5 Mg Tablet) 5 mg PO BID [facility] Last Admin: 12/30/22 07:54 Dose: 5 mg Documented By: ZENY Bisacodyl (Bisacodyl 10 Mg Supp.Rect) 10 mg [place] DAILY PRN PRN Reason: Constipation Last Admin: 12/26/22 11:30 Dose: 10 mg Documented By: CRAIG-RIVAKI Docusate Sodium (Docusate Sodium 100 Mg Capsule) 100 mg PO DAILY [facility] Last Admin: 12/30/22 07:54 Dose: 100 mg Documented By: ZENY Guaifenesin (Guaifenesin 100 Mg/5 Ml Liquid) 5 ml PO Q6H PRN PRN Reason: Cough Last Admin: 12/30/22 15:01 Dose: 5 ml Documented By: ZENY Hydromorphone HCl (Hydromorphone Hcl 0.5 Mg/0.5 Ml Syringe) 0.5 mg IVPUSH Q4H PRN; Protocol PRN Reason: Pain, Severe (Pain Scale 7-10) Last Admin: 12/29/22 04:46 Dose: 0.5 mg Documented By: SUNNY Melatonin (Melatonin 3 Mg Tablet) 6 mg PO BEDTIME PRN PRN Reason: Insomnia Last Admin: 12/23/22 20:20 Dose: 6 mg Documented By: RONDA Metoprolol Tartrate (Metoprolol Tartrate 25 Mg Tablet) 25 mg PO BID [facility]; Protocol Last Admin: 12/30/22 07:58 Dose: Not Given Documented By: ZENY Non-Admin Reason: Decreased Heart Rate Multivitamins/Vitamin C (Multivitamin Tablet) 1 tab PO DAILY [facility] Last Admin: 12/30/22 07:59 Dose: 1 tab Documented By: ZENY Omeprazole (Omeprazole 40 Mg Capsule.Dr) 40 mg PO DAILY@0630 [facility] Last Admin: 12/30/22 05:42 Dose: 40 mg Documented By: DEVANRISSincere Ondansetron HCl (Ondansetron Hcl 4 Mg/2 Ml Vial) 4 mg IVPUSH Q8H PRN PRN Reason: Nausea and Vomiting Oxycodone HCl (Oxycodone Hcl Immed Release 15 Mg Tablet) 15 mg PO Q4H PRN PRN Reason: Pain, Severe (Pain Scale 7-10) Pharmacy Consult (Consult Rx Perform Med Rec) 1 each MISCELLANE ONCE PRN PRN Reason: Consult order Polyethylene Glycol (Polyethylene Glycol 3350 17 Gm Powd.Pack) 17 gm PO BID [facility] Last Admin: 12/30/22 07:54 Dose: 17 gm Documented By: ZENY Pravastatin Sodium (Pravastatin Sodium 80 Mg Tablet) 80 mg PO BEDTIME [facility] Last Admin: 12/29/22 20:45 Dose: 80 mg Documented By: JACKIE Senna (Sennosides 8.6 Mg Tablet) 8.6 mg PO BEDTIME [facility] Last Admin: 12/29/22 20:45 Dose: 8.6 mg Documented By: JACKIE Sodium Chloride (0.9 % Sodium Chloride Flush 3 Ml Syringe) 3 ml IVFLUSH QSHIFT [facility] Last Admin: 12/30/22 15:08 Dose: Not Given Documented By: ZENY Non-Admin Reason: No Access Sucralfate (Sucralfate 1 Gm Tablet) 1 gm PO QIDACHS [facility] Last Admin: 12/30/22 15:02 Dose: 1 gm Documented By: ZENY Labs 12/26/22 07:25 12/26/22 07:25 Microbiology Microbiology Results: Microbiology 12/24/22 23:18 Blood Culture - Final Blood - Venous No growth after 5 days. 12/24/22 23:18 Blood Culture - Final Blood - Venous No growth after 5 days. 12/27/22 20:52 Blood Culture - Preliminary Blood - Venous No growth after 48 hours. 12/27/22 20:55 Blood Culture - Preliminary Blood - Venous No growth after 48 hours. Assessment and Plan (1) Mass of left lung: Status: Acute (2) Atrial fibrillation with rapid ventricular response: Status: Acute (3) Intractable pain: Status: Acute Plan 72-year-old primarily Ghanaian-speaking gentleman with past medical history of hypertension, hyperlipidemia, recently discharged from [facility] after being treated for acute blood loss anemia due to GI bleed diagnosed to have gastric ulcer, gastritis esophagitis, left pleural effusion status post thoracocentesis and elevated BNP who presented today due to persistent chest pain and diagnosed to have?new onset atrial fibrillation with RVR. New lung mass with diffuse lytic bone lesions chest CT with central left lung mass and lymphangitic tumor spread in LLL; likely metastatic dz to bone; soft tissue destructive lytic lesion in sternum, multiple lesions thoracic spine and c7 lesion - MRI of cervical spine showing enhancing lesion in right C6-C7 without compressing the cervical cord previously followed with thoracic surgery for left pleural effusion status post thoracocentesis x2, fluid cytology negative seen by oncology>s/p biopsy 12/28/22 pain control New onset atrial fibrillation with RVR Initially treated with IV Cardizem drip and then converted to NSR. recent echo showed EF 60-65% no obvious valvular pathology, indeterminate diastolic dysfunction continue metoprolol, continue po amio started on this admission seen by GI - ok with starting full AC after biopsy, started Eliquis 12/29/22 Cardiology following CAP. Resolved s/p IV ceftriaxone and doxy blood cultures negative to date abdominal pain CT abdomen - showing multiple lytic lesions in the bones including iliac crest, sacrum and T12 as well as soft tissue seen by GI, likely pain related to constipation continue bowel regimen continue PPI, carafate US without evidence of portal vein thromobosis Intractable pain Patient continues to complain of 10/10 pain on current analgesic regimen Will increase OxyContin to 15 mg p.o. q.4 Consider switching to Dilaudid p.o. if pain continues to be ill managed hypercalcemia. Resolved ? r/t bony lytic lesions s/p pamidronate 12/25 calcium improved to 10.0 COPD well controlled, continue p.r.n. albuterol Hypertension? BP stable hold olmesartan, can stop on dc started on norvasc, metoprolol PUD recent history of upper GI bleed due to esophagitis / gastritis and gastric ulcer requiring gastric ulcer clipping hematocrit trending down but stable continue Prilosec, added Carafate stool occult negative recent iron studies showed mixed picture anemia of chronic disease with component of iron deficiency DVT prophylaxis with Eliquis Full code Attending - Dr. Gentile DISPO plan for home when pain better controlled, have increased OxyContin 15 mg q.4, hopefully be able to discharge home tomorrow. If pain still not well controlled tomorrow, consider switching to dilaudid p.o. and/or discharging to short-term rehab in my clinical judgment patient need continued inpatient stay for pain control related to new metastatic cancer Time Spent With Patient Time: Total time managing care of this patient today ____ minutes. Quality Stroke Does the patient have a stroke diagnosis?: No VTE Prior VTE?: No VTE Risk Level:: Medical - moderate - high VTE Device Contraindication: Treatment Not Indicated VTE Drug Contraindication: N/A - Med Ordered
--- NOTE | 2022-12-30 15:32 | PC.NURSE ---
report received from overnight RN, pediatrician/medical doctor per AUG. Pt c/o pain and cough - pediatrician/medical doctor per AUG. Family at bedside. Safety precautions in place, call jordan within reach. This RN reviewed all documentation / med administration of ERIC Barrera and approved before submission.
--- NOTE | 2022-12-30 16:13 | MHC.CM.PN ---
CM MET W/PT AND SISTER MERCEDES AT BEDSIDE, REFERRAL HAD BEEN PLACED TO [facility] FOR MH PT HAD APPLIED MONTHS AGO, CM SPOKE TO FS REP AND PT HAS SIGNED CONSENTS GIVING FS CONSENT TO REVIEW AND FOLLOW UP W/MH, FS PROVIDED W/DAYDAY CELL NUMBER [phone] AND WILL FOLLOW UP W/THEM TOMORROW ONCE FS'S ACCESS IS ACTIVE. CM DISCUSSING PLAN WITH FAMILY AND THEY DID REPORT ONCOLOGIST DID RECOMMEND HOSPICE OR PALLIATIVE CARE HOWEVER THEY WERE UNDER THE IMPRESSION PT WOULD HAVE TO REMAIN IN THE HOSPITAL AND PT WANTS TO BE HOME, FAMILY AGREEABLE TO [facility] AND [facility] REF UPDATED. CM WILL CONT TO FOLLOW.
[2022-12-30] MEDS: Melatonin 3 MG TABLET 6 MG PO (20:00)
[2022-12-30] MEDS: Sennosides 8.6 MG TABLET PO (20:04)
[2022-12-30] MEDS: Pravastatin Sodium 80 MG TABLET PO (20:04)
[2022-12-30] MEDS: Metoprolol Tartrate 25 MG TABLET PO (20:05)
[2022-12-31 03:37] VITALS: BP 121/66; PULSE 61; RESP 18; TEMP 36.6; O2SAT 92
[2022-12-31] MEDS: Omeprazole 40 MG CAPSULE.DR PO (04:50)
[2022-12-31 07:23] VITALS: BP 107/63; PULSE 67; RESP 20; TEMP 36.4; O2SAT 93
[2022-12-31] MEDS: Metoprolol Tartrate 25 MG TABLET PO ×2 (08:50→21:54)
[2022-12-31] MEDS: Amiodarone HCL 200 MG TABLET 400 MG PO ×2 (08:50→21:54)
[2022-12-31] MEDS: Multivitamin TABLET 1 TAB PO (08:50)
[2022-12-31] MEDS: Docusate Sodium 100 MG CAPSULE PO (08:50)
[2022-12-31] MEDS: polyethylene glycoL 3350 17 GM POWD.PACK PO (08:51)
--- NOTE | 2022-12-31 10:00 | PM.HEMONCPN ---
Medical Summary - Medical Summary Date of Service: 12/31/22 Chief complaint: Weakness, back pain Primary Care Provider: Haydee Gandhi MD Medical Summary: Diagnosis: Metastatic lung cancer admitted on 12/22/2022 for rapid atrial fibrillation. He was was at outpatient cardiology office and found to be in a rapid AFib with complaints of shortness of breath. He was referred to emergency department where he was given IV Cardizem, chest x-ray showed airspace opacity and diminished lung volume at left hemithorax. History significant for recent diagnosis of upper GI bleed secondary to peptic ulcer disease as well as left pleural effusion. He underwent left thoracentesis in October and November, fluid cytology was negative for malignancy. CT chest performed on 12/23/2022 showed small loculated left pleural effusion with areas of nodular pleural thickening and central left lung mass with lymphangitic tumor spread in the left lower lobe. Diffuse mediastinal adenopathy and emphysema. Lytic metastatic disease to bones and destructive lytic lesion in sternum. CT abdomen/pelvis showed several small low-attenuation liver lesions, multiple lytic lesion in bones and a 1.3 cm mass adjacent to left iliac muscle, concerning for metastatic disease. Interval History Interval history: Patient resting in bed. Several family members including sister and [id number] at the bedside. Patient says that he feels rather weak and his back and neck hurt when he moves. He wants to know further management of his cancer. Review of Systems - Neurologic Denies dizziness PMFSH Medical History: Medical History (Last Reviewed 12/23/22 @ 11:28 by Roberto Hong MD) Cataract CHF (congestive heart failure) COPD (chronic obstructive pulmonary disease) H. pylori infection HTN (hypertension) Hyperlipemia Loculated pleural effusion Nephrolithiasis Personal history of nicotine dependence PUD (peptic ulcer disease) Tubular adenoma of colon Family History: Family History (Last Reviewed 12/23/22 @ 11:28 by Roberto Hong MD) Father No problems noted. Mother No problems noted. Surgical History: Surgical History (Last Reviewed 12/23/22 @ 11:28 by Roberto Hong MD) History of colonoscopy History of esophagogastroduodenoscopy (EGD) History of thoracentesis Social History: Social History (Last Reviewed 12/23/22 @ 11:28 by Roberto Hong MD) Living Situation History: Household Members: None Housing: Apartment Do you presently have visiting nurse or other home services: No Tobacco History: Patient Tobacco Use Status: Former Tobacco user Tobacco use type: Cigarette Smoke Quit Date: over 10 years ago e-Cigarette/Vaping Use: Former Use Second Hand Smoke Exposure: No Advance Directives: Advance Directives Date on File: 11/05/22 Occupation Assessmet: service: No Current occupational status: employed Current occupational status: retired Home Medications and Allergies Current Medications: Current Medications Acetaminophen (Acetaminophen 325 Mg Tablet) 650 mg PO Q6H PRN PRN Reason: Pain, Mild (Pain Scale 1-3) Last Admin: 12/27/22 21:24 Dose: 650 mg Amiodarone HCl (Amiodarone Hcl 200 Mg Tablet) 400 mg PO BID [facility] Last Admin: 12/31/22 08:50 Dose: 400 mg Amlodipine Besylate (Amlodipine Besylate 10 Mg Tablet) 10 mg PO DAILY [facility]; Protocol Last Admin: 12/31/22 09:00 Dose: Not Given Apixaban (Apixaban 5 Mg Tablet) 5 mg PO BID [facility] Last Admin: 12/31/22 08:50 Dose: 5 mg Bisacodyl (Bisacodyl 10 Mg Supp.Rect) 10 mg ME DAILY PRN PRN Reason: Constipation Last Admin: 12/26/22 11:30 Dose: 10 mg Docusate Sodium (Docusate Sodium 100 Mg Capsule) 100 mg PO DAILY [facility] Last Admin: 12/31/22 08:50 Dose: 100 mg Guaifenesin (Guaifenesin 100 Mg/5 Ml Liquid) 5 ml PO Q6H PRN PRN Reason: Cough Last Admin: 12/31/22 09:12 Dose: 5 ml Guaifenesin/Codeine Phosphate (Guaifen/Codeine Sf 200/20/10ml 10 Ml Liquid) 5 ml PO Q6H PRN PRN Reason: Cough Hydromorphone HCl (Hydromorphone Hcl 0.5 Mg/0.5 Ml Syringe) 0.5 mg IVPUSH Q4H PRN; Protocol PRN Reason: Pain, Severe (Pain Scale 7-10) Last Admin: 12/29/22 04:46 Dose: 0.5 mg Melatonin (Melatonin 3 Mg Tablet) 6 mg PO BEDTIME PRN PRN Reason: Insomnia Last Admin: 12/30/22 20:00 Dose: 6 mg Metoprolol Tartrate (Metoprolol Tartrate 25 Mg Tablet) 25 mg PO BID [facility]; Protocol Last Admin: 12/31/22 08:50 Dose: 25 mg Multivitamins/Vitamin C (Multivitamin Tablet) 1 tab PO DAILY [facility] Last Admin: 12/31/22 08:50 Dose: 1 tab Omeprazole (Omeprazole 40 Mg Capsule.Dr) 40 mg PO DAILY@0630 [facility] Last Admin: 12/31/22 04:50 Dose: 40 mg Ondansetron HCl (Ondansetron Hcl 4 Mg/2 Ml Vial) 4 mg IVPUSH Q8H PRN PRN Reason: Nausea and Vomiting Oxycodone HCl (Oxycodone Hcl Immed Release 15 Mg Tablet) 15 mg PO Q4H PRN PRN Reason: Pain, Severe (Pain Scale 7-10) Last Admin: 12/31/22 08:50 Dose: 15 mg Pharmacy Consult (Consult Rx Perform Med Rec) 1 each MISCELLANE ONCE PRN PRN Reason: Consult order Polyethylene Glycol (Polyethylene Glycol 3350 17 Gm Powd.Pack) 17 gm PO BID [facility] Last Admin: 12/31/22 08:51 Dose: 17 gm Pravastatin Sodium (Pravastatin Sodium 80 Mg Tablet) 80 mg PO BEDTIME [facility] Last Admin: 12/30/22 20:04 Dose: 80 mg Senna (Sennosides 8.6 Mg Tablet) 8.6 mg PO BEDTIME [facility] Last Admin: 12/30/22 20:04 Dose: 8.6 mg Sodium Chloride (0.9 % Sodium Chloride Flush 3 Ml Syringe) [facility] Last Admin: 12/31/22 08:51 Dose: Not Given Sucralfate (Sucralfate Oral Suspension 1 Gm/10 Ml Oral.Susp) 1 gm PO QIDACHS [facility] Home Medications Medication Instructions Recorded Confirmed Type multivitamin 1 tab PO DAILY 12/22/22 12/22/22 History pravastatin 80 mg tablet 80 mg PO BEDTIME 12/22/22 12/22/22 History Allergies Allergy/AdvReac Type Severity Reaction Status Date / Time No Known Allergies Allergy Verified 12/22/22 15:20 Exam Vital signs: Vital Signs Temp 97.6 F 12/31/22 07:23 Pulse 67 12/31/22 07:23 Resp 20 12/31/22 07:23 BP 107/63 12/31/22 07:23 Pulse Ox 93 12/31/22 07:23 O2 Del Method Room Air 12/31/22 07:23 O2 Flow Rate 2 12/29/22 07:39 Intake & Output 12/30/22 12/31/22 12/31/22 18:59 06:59 18:59 Intake Total 360 / 600 240 / 600 Output Total 200 / 500 300 / 500 Balance 160 / 100 -60 / 100 Urine Output (Average ml/kg/hr) 0.22 0.33 Intake: Intake, Oral Amount 360 / 600 240 / 600 Output: Output, Urine Amount 200 / 500 300 / 500 Other: Breakfast % Eaten 50% Lunch % Eaten 25% Dinner % Eaten 50% Number of Unmeasured Voids 2 Number of Bowel Movements 1 Urine Urinal Urine Color Yellow Stool Bathroom Stool Amount Moderate Stool Color Brown Stool Consistency Formed Weight 75.9 kg BMI result Body Mass Index 27.0 - Constitutional Present: mild distress, cachectic, chronically ill appearing - Routine HEENT Exam Head: Present: normal inspection - Routine Respiratory Exam Present: decreased breath sounds - Routine Cardiovascular Exam Cardiovascular: Present: S1, S2, tachycardia Data - Labs CBC & Chem 7: 12/26/22 07:25 12/26/22 07:25 Labs: 12/22/22 ECG 12 lead EKG Stat ECG 12 lead EKG Stat XR chest 1V Stat 12/22/22 15:14 EKG Documentation DIRECTED 12/22/22 15:23 BNP [B Type Natriuretic Peptide] Stat CBC W/AUTO DIFF [Complete Blood Count Auto Diff] Stat CMP [Comprehensive Met. Panel] Stat 12/22/22 15:24 Digoxin [Lanoxin] 0.25 mg IVPUSH ONCE ONE 12/22/22 15:32 Calcium Gluconate/NaCl,Iso-Osm [Calcium Gluconate] 2 gm in 100 ml IV ONCE 12/22/22 15:34 Ethanol Stat Troponin-I High Sensitivity Stat 12/22/22 15:38 Digoxin [Lanoxin] 0.125 mg IVPUSH ONCE ONE 12/22/22 15:59 dilTIAZem HCL [Cardizem] 10 mg IVPUSH STAT STA 12/22/22 16:01 Aspirin Enteric Coated [Ecotrin] 325 mg PO ONCE ONE 12/22/22 16:40 dilTIAZem HCL [Cardizem] 125 mg IVCONT .STK-MED ONE 12/22/22 16:45 0.9 % Sodium Chloride [Ns] 100 ml dilTIAZem HCL [Cardizem] 125 mg IVCONT Per Protocol mg/hr 12/22/22 17:20 Metoprolol Tartrate [Lopressor] 5 mg IVPUSH ONCE ONE 12/22/22 17:23 Azithromycin [Zithromax] 500 mg 0.9 % Sodium Chloride [Ns] 250 ml IV ONCE cefTRIAXone sodium [Rocephin] 1 gm 0.9 % Sodium Chloride [Ns] 50 ml IV ONCE 12/22/22 17:30 cefTRIAXone sodium [Rocephin] 1 gm .ROUTE .[facility]-MED ONE 12/22/22 17:40 Lactic Acid Stat Blood Culture X2 [BC] Stat 12/22/22 18:22 Azithromycin [Zithromax] 500 mg IV .[facility]-MED ONE 12/22/22 18:57 IV insert/maintain DAILY@1000,2200 Morphine Sulfate 2 mg IVPUSH Q4H PRN oxyCODONE HCl Immed Release [Roxicodone] 5 mg PO Q6H PRN 12/22/22 18:58 Cardiac Diet 12/22/22 19:20 oxyCODONE HCl Immed Release [Roxicodone] 5 mg PO ONCE ONE 12/22/22 22:36 EKG Documentation DIRECTED 12/23/22 CT chest wo con - High Res Urgent 12/23/22 07:45 Azithromycin [Zithromax] 500 mg 0.9 % Sodium Chloride [Ns] 250 ml IV Q24H 12/23/22 07:46 CBC NO DIFF [Complete Blood Count no Diff] Routine 12/23/22 09:16 Ketorolac Tromethamine [Toradol] 30 mg IVPUSH ONCE ONE 12/23/22 11:27 Furosemide [Lasix] 20 mg IVPUSH ONCE ONE 12/23/22 11:30 Sucralfate [Carafate] 1 gm PO QIDACHS 12/23/22 17:15 amLODIPine Besylate [Norvasc] 5 mg PO DAILY 12/23/22 17:47 cefTRIAXone sodium [Rocephin] 1 gm .ROUTE .[facility]-MED ONE 12/23/22 18:00 Azithromycin [Zithromax] 500 mg 0.9 % Sodium Chloride [Ns] 250 ml IV Q24H cefTRIAXone sodium [Rocephin] 1 gm 0.9 % Sodium Chloride [Ns] 50 ml IV Q24H 12/23/22 18:10 Azithromycin [Zithromax] 500 mg IV .STK-MED ONE 12/24/22 ECG 12 lead EKG Routine ECG 12 lead EKG Routine ECG [address] abdomen pelvis w IV con Urgent CT chest w IV con Urgent MR cervical spine wo/w con Stat 12/24/22 06:19 Calcium Routine Complete Blood Count no Diff AM Lipase Routine Magnesium Routine Thyroid Stimulating Hormone Routine 12/24/22 08:05 Metoprolol Tartrate [Lopressor] 5 mg IVPUSH ONCE ONE 12/24/22 09:00 Amiodarone/Dextrose [Nexterone] 150 mg in 100 ml IV ONCE Doxycycline Hyclate [Vibramycin] 100 mg 0.9 % Sodium Chloride [Ns] 250 ml IV Q12H 12/24/22 09:19 Doxycycline Hyclate [Vibramycin] 100 mg .ROUTE .STK-MED ONE 12/24/22 11:46 polyethylene glycoL 3350 [Miralax] 17 gm PO DAILY PRN 12/24/22 12:14 Add Laboratory Test Urgent 12/24/22 16:34 iohexoL 350 MG/ML [Omnipaque 350 MG/ML] 100 ml IV ONCE ONE 12/24/22 17:18 cefTRIAXone sodium [Rocephin] 1 gm .ROUTE .STK-MED ONE 12/24/22 19:28 GadobutroL [Gadavist] 10 ml IVPUSH ONCE ONE 12/24/22 21:11 Doxycycline Hyclate [Vibramycin] 100 mg .ROUTE .STK-MED ONE 12/24/22 21:36 Doxycycline Hyclate [Vibramycin] 100 mg .ROUTE .STK-MED ONE 12/24/22 21:53 EKG Documentation DIRECTED 12/24/22 22:16 Metoprolol Tartrate [Lopressor] 5 mg IVPUSH ONCE ONE 12/24/22 23:13 Lactic Acid Stat 12/24/22 23:18 Blood Culture X2 [BC] Stat 12/25/22 06:21 Basic Metabolic Panel DAILY@0600 Carcinoembryonic Antigen Routine Complete Blood Count Auto Diff DAILY@0600 Lactate Dehydrogenase Routine Magnesium Routine SLIDE REVIEW Routine 12/25/22 08:43 Clear Liquid Diet 12/25/22 08:49 Doxycycline Hyclate [Vibramycin] 100 mg .ROUTE .STK-MED ONE 12/25/22 08:52 NPO Diet Morphine Sulfate 2 mg IVPUSH Q3H PRN 12/25/22 09:15 Magnesium Sulfate/H2O 2 gm in 50 ml IV ONCE 12/25/22 09:16 Amiodarone/Dextrose [Nexterone] 150 mg in 100 ml IV ONCE 12/25/22 11:01 Add Laboratory Test Stat 12/25/22 11:09 Pamidronate Disodium [Aredia] 60 mg 0.9 % Sodium Chloride [Ns] 250 ml IV ONCE 12/25/22 11:11 Add Laboratory Test Routine 12/25/22 11:40 ECG 12 lead EKG Stat EKG Documentation DIRECTED 12/25/22 14:33 Clear Liquid Diet 12/25/22 17:00 Heparin Sodium,Porcine 5,000 unit SUBCUT Q12H 12/25/22 18:07 cefTRIAXone sodium [Rocephin] 1 gm .ROUTE .STK-MED ONE 12/25/22 20:37 Doxycycline Hyclate [Vibramycin] 100 mg .ROUTE .STK-MED ONE 12/26/22 US abdomen limited Routine 12/26/22 07:25 Basic Metabolic Panel DAILY@0600 Complete Blood Count Auto Diff DAILY@0600 Magnesium DAILY@0600 12/26/22 08:30 Doxycycline Hyclate [Vibramycin] 100 mg .ROUTE .STK-MED ONE 12/26/22 11:56 Regular Diet 12/26/22 12:13 oxyCODONE HCl Immed Release [Roxicodone] 5 mg PO Q4H PRN 12/26/22 13:48 Occult Blood, Stool x1 [OBSX1] Routine 12/26/22 17:53 cefTRIAXone sodium [Rocephin] 1 gm .ROUTE .STK-MED ONE 12/26/22 20:21 Doxycycline Hyclate [Vibramycin] 100 mg .ROUTE .STK-MED ONE 12/27/22 00:01 NPO Diet 12/27/22 05:56 Calcium DAILY@0600 12/27/22 07:46 oxyCODONE HCl Immed Release [Roxicodone] 10 mg PO Q4H PRN 12/27/22 07:51 Regular Diet 12/27/22 08:24 Doxycycline Hyclate [Vibramycin] 100 mg .ROUTE .STK-MED ONE 12/27/22 17:26 cefTRIAXone sodium [Rocephin] 1 gm .ROUTE .STK-MED ONE 12/27/22 20:52 Lactic Acid Stat 12/27/22 21:13 Doxycycline Hyclate [Vibramycin] 100 mg .ROUTE .STK-MED ONE 12/28/22 US guided fine needle asp Routine 12/28/22 00:01 NPO Diet 12/28/22 08:18 Doxycycline Hyclate [Vibramycin] 100 mg .ROUTE .STK-MED ONE 12/28/22 09:19 Prothrombin Time INR Stat 12/28/22 15:02 dilTIAZem HCL [Cardizem] 10 mg IVPUSH STAT STA 12/28/22 16:50 Lidocaine HCl 1 % MPF [Xylocaine 1 % MPF] 5 ml .ROUTE .STK-MED ONE 12/28/22 17:03 Lidocaine HCl 1 % MPF [Xylocaine 1 % MPF] 5 ml SUBCUT ONCE ONE 12/28/22 17:27 Midazolam HCl/PF [Versed] 2 mg .ROUTE .STK-MED ONE Naloxone HCl [Narcan] 0.4 mg .ROUTE .STK-MED ONE fentaNYL citrate/PF [Sublimaze] 100 mcg .ROUTE .STK-MED ONE flumazeniL [Romazicon] 0.5 mg .ROUTE .STK-MED ONE 12/28/22 17:31 cefTRIAXone sodium [Rocephin] 1 gm .ROUTE .STK-MED ONE 12/28/22 17:59 ECG 12 lead EKG Stat EKG Documentation DIRECTED 12/28/22 21:17 Doxycycline Hyclate [Vibramycin] 100 mg .ROUTE .STK-MED ONE 12/29/22 08:32 Doxycycline Hyclate [Vibramycin] 100 mg .ROUTE .STK-MED ONE 12/30/22 11:19 oxyCODONE HCl Immed Release [Roxicodone] 5 mg PO ONCE ONE Laboratory Last Values WBC 16.7 X10*3/uL (4.8-10.8) H 12/26/22 07:25 RBC 3.42 X10*6/uL (4.60-5.80) L 12/26/22 07:25 Hgb 9.0 g/dl (14.0-18.0) L 12/26/22 07:25 Hct 28.4 % (42.0-52.0) L 12/26/22 07:25 MCV 83.0 fL (80.0-98.0) 12/26/22 07:25 MCH 26.3 pg (27.0-33.0) L 12/26/22 07:25 MCHC 31.7 g/dl (31.0-36.0) 12/26/22 07:25 RDW 15.3 % (11.0-16.0) 12/26/22 07:25 Plt Count 463 X10*3/uL (160-400) H 12/26/22 07:25 MPV 9.2 fL (9.4-12.4) L 12/26/22 07:25 Immature Gran % (Auto) 0.5 % (0.0-0.4) H 12/26/22 07:25 Neut % (Auto) 85.7 % (45-73) H 12/26/22 07:25 Lymph % (Auto) 6.4 % (20-40) L 12/26/22 07:25 [place] % (Auto) 7.1 % (2-11) 12/26/22 07:25 Eos % (Auto) 0.1 % (0-4) 12/26/22 07:25 Baso % (Auto) 0.2 % (0-2) 12/26/22 07:25 Lymph # (Auto) 1.1 X10*3/uL (1.2-4.9) L 12/26/22 07:25 [place] # (Auto) 1.2 X10*3/uL (0.1-1.2) 12/26/22 07:25 Eos # (Auto) 0.0 X10*3/uL (0.0-0.4) 12/26/22 07:25 Baso # (Auto) 0.0 X10*3/uL (0.0-0.2) 12/26/22 07:25 Abs Immat Gran (auto) 0.09 X10*3/uL (0.00-0.03) H 12/26/22 07:25 Absolute Neuts (auto) 14.3 x10*3/uL (2.0-8.3) H 12/26/22 07:25 Absolute Nucleated RBC 0.000 X10*3/uL (0.0-0.012) 12/26/22 07:25 Nucleated RBC % (auto) 0.0 /100WBC (0.0-0.2) 12/26/22 07:25 Smear Tech's Comments VERIFIED 12/25/22 06:21 PT 19.6 SEC (10.0-13.1) H 12/28/22 09:19 INR 1.7 (0.9-1.1) H 12/28/22 09:19 Sodium 137 mmol/L (135-145) 12/26/22 07:25 Potassium 3.6 mmol/L (3.3-5.1) 12/26/22 07:25 Chloride 101 mmol/L (96-108) 12/26/22 07:25 Carbon Dioxide 25 mmol/L (22-29) 12/26/22 07:25 Anion Gap 15 (12-20) 12/26/22 07:25 BUN 22 mg/dL (9-16) H 12/26/22 07:25 Creatinine 0.92 mg/dL (0.5-1.4) 12/26/22 07:25 Estim Creat Clear Calc 65.4 12/26/22 07:25 Estimated GFR > 60 12/26/22 07:25 Random Glucose 126 mg/dL (60-115) H 12/26/22 07:25 Lactic Acid 1.4 mmol/L (0.5-2.0) 12/27/22 20:52 Calcium 10.0 mg/dL (8.4-10.2) D 12/27/22 05:56 Magnesium 2.0 mg/dL (1.6-2.6) 12/26/22 07:25 Total Bilirubin 0.5 mg/dL (0.0-1.0) 12/22/22 15:23 AST 26 U/L (5-37) 12/22/22 15:23 ALT 26 U/L (0-40) 12/22/22 15:23 Alkaline Phosphatase 146 U/L (39-117) H 12/22/22 15:23 Lactate Dehydrogenase 176 U/L (118-273) 12/25/22 06:21 Troponin I High Sens < 2.7 ng/L (<3.5-35.0) D 12/22/22 15:34 B-Natriuretic Peptide 228 pg/mL (<100) H 12/22/22 15:23 Total Protein 7.2 g/dL (6.5-8.0) 12/22/22 15:23 Albumin 3.3 g/dL (3.5-5.0) L 12/22/22 15:23 Lipase 39 U/L (8-78) 12/24/22 06:19 Carcinoembryonic Ag 144.90 ng/mL 12/25/22 06:21 TSH 0.38 uIU/mL (0.32-4.0) 12/24/22 06:19 Stool Occult Blood NEGATIVE (NEGATIVE) 12/26/22 13:48 Ethyl Alcohol < 10 mg/dL 12/22/22 15:34 - Imaging Radiologist's impression: ITS Impressions Chest X-Ray 12/22/22 16:15 IMPRESSION: Persistent patchy airspace opacity at left lung base. Persistent diminished volume of left hemithorax compared to right. Chest CT 12/23/22 13:32 IMPRESSION: Small loculated left pleural effusion. Areas of nodular pleural thickening. Question central left lung mass and lymphangitic tumor spread in the left lower lobe. Consolidation/airspace disease at the left lung base with air bronchograms. Small pericardial effusion. Infiltration of the pericardial fat. Diffuse mediastinal adenopathy. Emphysema. Biapical abnormal parenchymal densities, right greater than left. Likely lytic metastatic disease to the bone. Soft tissue mass associated with destructive lytic lesion in the sternum may be a site for tissue diagnosis/biopsy. Findings significantly increased from previous chest CT October 2022. Follow-up cervical and thoracic spine MRI to exclude potential cord compression at C7 should be considered if clinically indicated. Findings will be communicated by the [place] work flow policy officer. Abdomen/Pelvis CT 12/24/22 16:33 IMPRESSION: Multiple low-attenuation liver lesions. Multiple lytic lesions in bones. Fat stranding under the left hemidiaphragm adjacent to the spleen and stranding in the small bowel mesentery. 1 x 1.3 cm mass adjacent to the left iliac is muscle. Appearance is concerning for metastatic disease. Slightly dilated gallbladder. Gallbladder not well evaluated due to motion artifact. If there is concern for cholecystitis, additional imaging recommended. Probable constipation. Fleischner guidelines were followed. Chest CT 12/24/22 16:33 IMPRESSION: Volume loss to the left hemithorax. 3 x 3 x 6 cm low-attenuation cystic or necrotic left hilar mass. Partial atelectasis of the left upper and left lower lobes. Coarse lung markings in the left lower lobe questionable for lymphangitic tumor spread Partially loculated small left pleural effusion. There is infiltration of the extrapleural fat and pleural nodularity. Enlarged mediastinal lymph nodes. Small pericardial effusion and infiltration of the pericardial fat. Emphysema. Stable biapical parenchymal densities. Diffuse lytic bony metastatic disease similar to yesterday's exam. Fleischner guidelines were followed. Cervical Spine MRI 12/24/22 19:10 IMPRESSION: - There is a large expansile enhancing lesion involving the right C6 and C7 vertebral bodies, the right C7 greater than C6 posterior elements, and the right C7 paravertebral soft tissues that is most concerning for a metastatic lesion given the recent chest CT findings. This lesion results in effacement of the right C6-C7 and right C7-T1 neural foramen with compression of the exiting right nerve roots at these levels. There is a small enhancing epidural component of the lesion on the right side that mildly indents the right lateral thecal sac and partially effaces the right axillary recess without compressing the cervical cord. - There is a partially imaged enhancing metastatic lesion involving the left T3 posterior elements and left third rib that partially effaces the left T2-T3 neural foramen and there are smaller metastatic lesions involving the C4, C5,, T2, and T3 vertebral bodies as well as base of the T2 spinous process. - Multilevel cervical spondylosis with spondylitic changes resulting in moderate central canal stenosis and flattening of the cervical spinal cord at the C3-C4, C4-C5, and C5-C6 levels. Spondylitic changes result in varying degrees of moderate to severe foraminal stenosis throughout the cervical spine as described. Abdomen Ultrasound 12/26/22 14:11 IMPRESSION: 1. No evidence of portal vein thrombosis. 2. Trace pericholecystic fluid and mild gallbladder wall thickening. Needle Aspiration US 12/28/22 17:05 IMPRESSION: Ultrasound-guided sternal soft tissue mass biopsy. Assessment and Plan Patient Active problem list reviewed?: Yes (1) Mass of left lung Status: Acute Assessment and plan: 1. This is a 72-year-old male with left lung mass, mediastinal adenopathy, left pleural effusion and multiple lytic bony lesion suspicious for metastatic lung cancer. CEA level is elevated over 140. Pleural fluid cytology was negative. Sternal biopsy was performed on 12/30/2022, pathology is carcinoma. Further assessment, molecular testing/PDL1 is pending. I discussed with patient and his family that he has stage IV or metastatic cancer. Treatment is palliative but not curative. They are interested in pursuing further treatment. They would like palliative hospice and elder care services for the patient at home. 2. 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 S/p pamidronate. Bone strengthening therapy with Zometa or denosumab will be scheduled as outpatient. I discussed role of palliative radiation therapy to spine. He will need outpatient referral upon discharge. In the meantime I recommend starting him on dexamethasone 4 mg p.o. daily which will help control pain related to his bone Mets/lytic lesions. Thank you. Follow-up in the clinic next week. - Time Spent With Patient Time Spent with Patient (in minutes): 20
[2022-12-31 11:01] VITALS: BP 127/65; PULSE 67; RESP 20; TEMP 37.1; O2SAT 92
--- NOTE | 2022-12-31 13:01 | HO.PM.IMPN ---
Subjective Subjective Date of Service: 12/31/22 Interval History: seen and examined this morning follow up for metastatic CA, afib HR has remained controlled continues to complain of generalized pain with movement Review of Systems Review of Systems: Yes all other systems are reviewed and are negative Constitutional Constitutional: Denies chills and Denies fever(s) ENT Ears, Nose, Mouth, and Throat: Denies dizziness Cardiovascular Cardiovascular: Denies dyspnea Respiratory Respiratory: Reports cough and Denies dyspnea Gastrointestinal Gastrointestinal: Reports abdominal pain, Denies constipation, Denies diarrhea, Denies nausea and Denies vomiting Neurologic Neurologic: Denies dizziness Physical Exam Vital Signs: Vital Signs: Last Vital Signs Temp 98.7 F 12/31/22 11:01 Pulse 67 12/31/22 11:01 Resp 20 12/31/22 11:01 BP 127/65 12/31/22 11:01 Pulse Ox 92 12/31/22 11:01 O2 Del Method Room Air 12/31/22 11:01 O2 Flow Rate 2 12/29/22 07:39 BMI result Body Mass Index 27.0 Const: General: alert and awake Nutritional Appearance: average body habitus Orientation/consciousness: patient oriented x3 Resp: Effort & Inspection: no respiratory distress and no use of accessory muscles Auscultation: clear to auscultation bilaterally Cardio: Rate: regular rate Heart sounds: S1 normal heart sound present and S2 normal heart sound present GI: Other: soft, mid abdominal/lower abdominal tenderness Inspection: No distended Neuro: General: patient oriented x3, moves all extremities and CN's II-XI intact bilaterally Extrem: General: Yes no pedal edema Objective Data Active Medications Acetaminophen (Acetaminophen 325 Mg Tablet) 650 mg PO Q6H PRN PRN Reason: Pain, Mild (Pain Scale 1-3) Last Admin: 12/27/22 21:24 Dose: 650 mg Documented By: JOSH Amiodarone HCl (Amiodarone Hcl 200 Mg Tablet) 400 mg PO BID [facility] Last Admin: 12/31/22 08:50 Dose: 400 mg Documented By: AKIKO Amlodipine Besylate (Amlodipine Besylate 10 Mg Tablet) 10 mg PO DAILY [facility]; Protocol Last Admin: 12/31/22 09:00 Dose: Not Given Documented By: AKIKO Non-Admin Reason: Physician Held Med Apixaban (Apixaban 5 Mg Tablet) 5 mg PO BID [facility] Last Admin: 12/31/22 08:50 Dose: 5 mg Documented By: AKIKO Bisacodyl (Bisacodyl 10 Mg Supp.Rect) 10 mg [place] DAILY PRN PRN Reason: Constipation Last Admin: 12/26/22 11:30 Dose: 10 mg Documented By: CRAIG-RIVAKI Dexamethasone (Dexamethasone 4 Mg Tablet) 4 mg PO DAILY [facility] Last Admin: 12/31/22 11:22 Dose: 4 mg Documented By: AKIKO Docusate Sodium (Docusate Sodium 100 Mg Capsule) 100 mg PO DAILY [facility] Last Admin: 12/31/22 08:50 Dose: 100 mg Documented By: AKIKO Guaifenesin (Guaifenesin 100 Mg/5 Ml Liquid) 5 ml PO Q6H PRN PRN Reason: Cough Last Admin: 12/31/22 09:12 Dose: 5 ml Documented By: AKIKO Guaifenesin/Codeine Phosphate (Guaifen/Codeine Sf 200/20/10ml 10 Ml Liquid) 5 ml PO Q6H PRN PRN Reason: Cough Hydromorphone HCl (Hydromorphone Hcl 0.5 Mg/0.5 Ml Syringe) 0.5 mg IVPUSH Q4H PRN; Protocol PRN Reason: Pain, Severe (Pain Scale 7-10) Last Admin: 12/29/22 04:46 Dose: 0.5 mg Documented By: SUNNY Hydromorphone HCl (Hydromorphone Hcl 2 Mg Tablet) 2 mg PO Q4H PRN PRN Reason: Pain, Severe (Pain Scale 7-10) Melatonin (Melatonin 3 Mg Tablet) 6 mg PO BEDTIME PRN PRN Reason: Insomnia Last Admin: 12/30/22 20:00 Dose: 6 mg Documented By: PARIS Metoprolol Tartrate (Metoprolol Tartrate 25 Mg Tablet) 25 mg PO BID [facility]; Protocol Last Admin: 12/31/22 08:50 Dose: 25 mg Documented By: AKIKO Multivitamins/Vitamin C (Multivitamin Tablet) 1 tab PO DAILY [facility] Last Admin: 12/31/22 08:50 Dose: 1 tab Documented By: AKIKO Omeprazole (Omeprazole 40 Mg Capsule.Dr) 40 mg PO DAILY@0630 [facility] Last Admin: 12/31/22 04:50 Dose: 40 mg Documented By: PARIS Ondansetron HCl (Ondansetron Hcl 4 Mg/2 Ml Vial) 4 mg IVPUSH Q8H PRN PRN Reason: Nausea and Vomiting Pharmacy Consult (Consult Rx Perform Med Rec) 1 each MISCELLANE ONCE PRN PRN Reason: Consult order Polyethylene Glycol (Polyethylene Glycol 3350 17 Gm Powd.Pack) 17 gm PO BID [facility] Last Admin: 12/31/22 08:51 Dose: 17 gm Documented By: AKIKO Pravastatin Sodium (Pravastatin Sodium 80 Mg Tablet) 80 mg PO BEDTIME [facility] Last Admin: 12/30/22 20:04 Dose: 80 mg Documented By: PARIS Senna (Sennosides 8.6 Mg Tablet) 8.6 mg PO BEDTIME [facility] Last Admin: 12/30/22 20:04 Dose: 8.6 mg Documented By: PARIS Sodium Chloride (0.9 % Sodium Chloride Flush 3 Ml Syringe) 3 ml IVFLUSH QSHIFT [facility] Last Admin: 12/31/22 08:51 Dose: Not Given Documented By: AKIKO Non-Admin Reason: No Access Sucralfate (Sucralfate Oral Suspension 1 Gm/10 Ml Oral.Susp) 1 gm PO QIDACHS [facility] Last Admin: 12/31/22 11:22 Dose: 1 gm Documented By: AKIKO Labs 12/26/22 07:25 12/26/22 07:25 Assessment and Plan (1) PAF (paroxysmal atrial fibrillation): Status: Acute (2) Mass of left lung: Status: Acute (3) Intractable pain: Status: Acute Plan 72-year-old primarily Northern Irish-speaking male with past medical history of hypertension, hyperlipidemia, recently discharged from [facility] after being treated for acute blood loss anemia due to GI bleed diagnosed to have gastric ulcer, gastritis esophagitis, left pleural effusion status post thoracocentesis and elevated BNP who presented today due to persistent chest pain and diagnosed to have?new onset atrial fibrillation with RVR. New lung mass with diffuse lytic bone lesions chest CT with central left lung mass and lymphangitic tumor spread in LLL; likely metastatic dz to bone; soft tissue destructive lytic lesion in sternum, multiple lesions thoracic spine and c7 lesion - MRI of cervical spine showing enhancing lesion in right C6-C7 without compressing the cervical cord previously followed with thoracic surgery for left pleural effusion status post thoracocentesis x2, fluid cytology negative seen by oncology>s/p biopsy 12/28/22 difficult to control pain, will change to PO dilaudid discussed with oncology - will trial decadron to assist in pain control New onset atrial fibrillation with RVR Initially treated with IV Cardizem drip and then converted to NSR. recent echo showed EF 60-65% no obvious valvular pathology, indeterminate diastolic dysfunction continue metoprolol, continue po amio started on this admission, continue 400 bid for 10 days, then change to 200 mg daily seen by GI - ok with starting full AC after biopsy, started Eliquis 12/29/22 CAP. Resolved s/p IV ceftriaxone and doxy blood cultures negative to date abdominal pain CT abdomen - showing multiple lytic lesions in the bones including iliac crest, sacrum and T12 as well as soft tissue seen by GI, likely pain related to constipation continue bowel regimen, has been having regular BMs continue PPI, carafate US without evidence of portal vein thromobosis likely referred pain hypercalcemia. Resolved ? r/t bony lytic lesions s/p pamidronate 12/25 calcium improved to 10.0 COPD well controlled, continue p.r.n. albuterol Hypertension? BP stable hold olmesartan, can stop on dc started on norvasc, metoprolol PUD recent history of upper GI bleed due to esophagitis / gastritis and gastric ulcer requiring gastric ulcer clipping hematocrit trending down but stable continue Prilosec, added Carafate stool occult negative recent iron studies showed mixed picture anemia of chronic disease with component of iron deficiency DVT prophylaxis with Eliquis Full code Attending - Dr. Gentile DISPO plan for home when pain better controlled in my clinical judgment patient need continued inpatient stay for pain control related to new metastatic cancer Time Spent With Patient Time: Total time managing care of this patient today ____ minutes. Quality Stroke Does the patient have a stroke diagnosis?: No VTE Prior VTE?: No VTE Risk Level:: Medical - moderate - high VTE Device Contraindication: Treatment Not Indicated VTE Drug Contraindication: N/A - Med Ordered
--- NOTE | 2022-12-31 14:01 | PC.NURSE ---
#22 gauge IV inserted at 1350 to L hand, pt tolerated well. secured with transparent film dsg and tape.
[2022-12-31 15:56] VITALS: BP 123/59; PULSE 64; RESP 18; TEMP 36.7; O2SAT 90
--- NOTE | 2022-12-31 17:32 | PC.NURSE ---
Patient was unable to swallow pills this morning, is able to swallow small pills, larger should be crushed and given in applesauce,
[2022-12-31 20:00] VITALS: BP 127/69; PULSE 64; RESP 17; TEMP 36.6; O2SAT 93
[2022-12-31] MEDS: Sennosides 8.6 MG TABLET PO (21:54)
[2022-12-31] MEDS: Pravastatin Sodium 80 MG TABLET PO (21:54)
[2022-12-31] MEDS: 0.9 % Sodium Chloride Flush 3 ML SYRINGE IVFLUSH (21:55)
[2022-12-31 23:30] VITALS: BP 120/66; PULSE 57; RESP 18; TEMP 36.7; O2SAT 92
[2023-01-01 03:28] VITALS: BP 116/58; PULSE 54; RESP 18; TEMP 36.6; O2SAT 94
[2023-01-01] MEDS: Omeprazole 40 MG CAPSULE.DR PO (06:01)
[2023-01-01 07:10] VITALS: BP 128/72; PULSE 58; RESP 20; TEMP 36; O2SAT 94
[2023-01-01] MEDS: Amiodarone HCL 200 MG TABLET 400 MG PO (08:17)
[2023-01-01] MEDS: Metoprolol Tartrate 25 MG TABLET PO (08:17)
[2023-01-01] MEDS: amLODIPine Besylate 10 MG TABLET PO (08:18)
[2023-01-01] MEDS: Multivitamin TABLET 1 TAB PO (08:18)
[2023-01-01] MEDS: Docusate Sodium 100 MG CAPSULE PO (08:18)
[2023-01-01] MEDS: polyethylene glycoL 3350 17 GM POWD.PACK PO (08:18)
[2023-01-01] MEDS: 0.9 % Sodium Chloride Flush 3 ML SYRINGE IVFLUSH (08:21)
--- NOTE | 2023-01-01 09:58 | MHC.CM.PN ---
Addendum entered by Alessandra Spears RN 01/01/23 10:40: PT WILL D/C TODAY W/[facility] AND [facility] HAS SET PT UP W/HOME HEALTH THROUGH [facility], CONTACT INFO ADDED TO D/C SUMMARY, [facility] FOR BLS TRANSPORT. Original Note: EMR REVIEWED, PT STARTED ON DECADRON AND DILAUDID 2MG PRN, PT WILL D/C ON PALLIATIVE CARE W/[facility] FAMILY HAS CHANGED THEIR MINDS ABOUT HOSPICE ONCE MEDICALLY CLEARED, CM WILL CONT TO FOLLOW D/C NEEDS.
[2023-01-01 11:02] VITALS: BP 131/69; PULSE 59; RESP 20; TEMP 36.6; O2SAT 94
--- NOTE | 2023-01-01 11:20 | PM.DS ---
DS: Providers Provider Date of Service: 01/01/23 Date of admission: 12/22/22 18:57 Date of discharge: 01/01/23 Primary care physician: Haydee Gandhi MD Consults: 12/22/22 19:02 Consult to Cardiology Routine Consulting Provider: Roberto Hong Reason for consultation: new onset atrial fibrillation Has provider been notified: No Consult to Thoracic Surgery Routine Consulting Provider: [facility] Reason for consultation: left loculated effusion Has provider been notified: No 12/24/22 08:21 Consult to Hematology / Oncology Routine Consulting Provider: Sylwia Kelley Reason for consultation: new lung mass with mets Has provider been notified: No 12/25/22 08:41 Consult to Gastroenterology Routine Consulting Provider: Ofelia Rangel Reason for consultation: abdominal pain, recent gastric ulcer/gib Has provider been notified: No Attending physician on discharge: Italo Gentile Discharging clinician: Bety Goodman DS: Diagnosis Discharge Diagnosis (1) Mass of left lung: Status: Acute (2) Atrial fibrillation with RVR: Status: Acute (3) Intractable pain: Status: Acute DS: Summary Hospital Course Hospital Course: From H&P on day of admission ?72-year-old gentleman with past medical history of hypertension, hyperlipidemia, COPD, history of peptic ulcer disease, elevated PSA, recently discharged from [facility] on after being treated for acute blood loss anemia? due to upper GI bleed underwent EGD that showed esophagitis, gastritis and gastric ulcer, patient also underwent left thoracocentesis for large pleural effusion food fluid was not consistent with trauma or infection, patient also noted to have an elevated BNP treated with IV Lasix ,echo showed normal EF seen by Cardiology had unclear reason for elevated BNP therefore patient? was referred for outpatient cardiology follow-up, he went for routine follow-up with Cardiology today where he was noted to be in AFib RVR therefore transferred to [facility], history obtained via [place] metal base blocker that happens to be patient's family friend according to her since discharge on 11/05 patient has been having persistent? anterior chest pain worse with activity but persistent mild at rest, associated with shortness of breath, patient has been followed by his primary care physician and? Dr. Jones? and underwent repeat thoracocentesis on 12/14, in the emergency room patient noted to be in AFib RVR, labs showed wbc 18.9, normal creatinine 1.01 with a BUN of 23, patient treated in the emergency room with IV diltiazem, IV metoprolol, IV digoxin, since continue to be in rapid ventricular rate patient placed on IV Cardizem drip, patient also received IV ceftriaxone and azithromycin since chest x-ray showed patchy airspace opacity at the left lung base and persistent diminished volume of left hemithorax compared to right, patient now being admitted to [facility] due to AFib with RVR and treatment for pneumonia. 72-year-old primarily [place]-speaking male with past medical history of hypertension, hyperlipidemia, recently discharged from [facility] after being treated for acute blood loss anemia due to GI bleed diagnosed to have gastric ulcer, gastritis esophagitis, left pleural effusion status post thoracocentesis and elevated BNP who presented today due to persistent chest pain and diagnosed to have?new onset atrial fibrillation with RVR. New onset atrial fibrillation with RVR. Initially treated with IV Cardizem drip. Initially HR was difficult to control. he was seen by cardiology, recent echo showed EF 60-65% no obvious valvular pathology, indeterminate diastolic dysfunction. he was started on metoprolol, and po amio started on this admission, continue 400 bid for 10 days, then change to 200 mg daily. seen by GI - ok with starting full AC started Eliquis 12/29/22. New lung mass with diffuse lytic bone lesions. He had chest CT to follow up on previously know left pleural effusion. had outpatient thracentesis x2 and fluid cytology had been negative for malignancy. chest CT with central left lung mass and lymphangitic tumor spread in LLL; likely metastatic dz to bone; soft tissue destructive lytic lesion in sternum, multiple lesions thoracic spine and c7 lesion - MRI of cervical spine showing enhancing lesion in right C6-C7 without compressing the cervical cord. seen by oncology who recommended biopsy of sternal mass which was obtained 12/28/22. Results of biopsy are pending at the time of discharge. Plan for outpatient follow-up with Oncology for possible palliative radiation and chemotherapy. his pain was difficult to control but eventually he was transitioned to PO dilaudid and given severe pain and difficult control he was also started on decadron with improvement in pain control. he will be continued on PPI and carafate. CAP. completed treated with IV ceftriaxone and doxy. blood cultures negative to date. not requiring supplemental oxygen. has remained afebrile. abdominal pain. CT abdomen - showing multiple lytic lesions in the bones including iliac crest, sacrum and T12 as well as soft tissue seen by GI, likely pain related to constipation. he was started on bowel regimen and has been having regular BMs. he was continued on PPI, carafate. US without evidence of portal vein thromobosis. pain likely referred pain for cancer. hypercalcemia. Resolved ? r/t bony lytic lesions. s/p pamidronate 12/25. calcium improved to 10.0. outpatient follow up COPD well controlled, continue p.r.n. albuterol Hypertension? BP stable. olmesartan stopped on dc started on norvasc, metoprolol PUD recent history of upper GI bleed due to esophagitis / gastritis and gastric ulcer requiring gastric ulcer clipping. continue Prilosec, added Carafate. stool occult negative. recent iron studies showed mixed picture anemia of chronic disease with component of iron deficiency. was seen by GI in hospital and they felt that recent ulcer was small and were agreeable to initiation of full AC for stroke risk reduction for atrial fibrillation. extensive discussion about disposition/plan. patient and family had hospice informational session but they have declined hospice services for now and have opted for outpatient follow up with oncology for palliative radiation and possible chemotherapy. They declined SNF and family plans to stay with him for now. Time Spent with Patient Time attestation: Total time managing care of this patient today ____ minutes. Discharge coordination time: Greater than 30 minutes Quality: Safe Use of Opioids Does Pt have an Active Cancer Diagnosis on the Problem List?: Yes Opioid Measure Date for [facility] Report: 12/02/22 Opioid Measure Time for [facility] Report: 11:56 Quality: Stroke Does the patient have a stroke diagnosis?: No Physical Exam Vital Signs: Vital Signs: Last Vital Signs Temp 97.8 F 01/01/23 11:02 Pulse 59 01/01/23 11:02 Resp 20 01/01/23 11:02 BP 131/69 01/01/23 11:02 Pulse Ox 94 01/01/23 11:02 O2 Del Method Room Air 01/01/23 11:02 O2 Flow Rate 2 12/29/22 07:39 BMI result Body Mass Index 27.0 Const: General: no acute distress, alert and awake Nutritional Appearance: average body habitus Orientation/consciousness: patient oriented x3 Resp: Effort & Inspection: normal respiratory effort, able to speak in complete sentences, no respiratory distress and no use of accessory muscles Auscultation: clear to auscultation bilaterally Cardio: Rate: regular rate Heart sounds: S1 normal heart sound present and S2 normal heart sound present GI: Inspection: No distended Palpation (GI): Soft to palpation Neuro: Other: upper extremity strength equal bilaterally General: patient oriented x3, moves all extremities and CN's II-XI intact bilaterally Extrem: General: Yes no pedal edema DS: Data Data Completed and Pending Completed studies during hospitalization [Text1]: Procedures Control Bleeding in Gastrointestinal Tract, Via Natural or Artificial Opening Endoscopic (11/01/22) Drainage of Left Pleural Cavity, Percutaneous Approach (11/01/22) Excision of Stomach, Pylorus, Via Natural or Artificial Opening Endoscopic, Diagnostic (11/01/22) Pending studies at discharge: Pending at discharge 12/28/22 16:52 Surgical Path [Surgical] [PTH] Routine Labs on day of discharge: Preliminary micro results at discharge 12/27/22 20:52 Blood Culture - Preliminary Blood - Venous No growth after 48 hours. 12/27/22 20:55 Blood Culture - Preliminary Blood - Venous No growth after 48 hours. Discharge Plan Discharge Anticipated Discharge Date/Time: 01/01/23 11:36 Patient Disposition: Home Health Service Discharge Diagnosis: new metastatic cancer atrial fibrillation with rapid ventricular response Referrals: [facility] ([facility]) [Other] - 1 Week ([facility] HAS SET YOU UP WITH A HOME HEALTHA ID THROUGH [facility], IF YOU HAVE QUESTIONS PLEASE CONTACT LEON [phone]. ) [facility] [Outside] - 1 Day (PALLIATIVE CARE, A NURSE WILL BE IN CONTACT DELICIA TO ARRANGE FIRST VISIT WITHIN 48HRS OF DISCHARGE. ) Haydee Gandhi MD [Primary Care Provider] - 1 Week Discharge Medications: New Eliquis 5 mg Tablet 5 mg PO BID 30 Days Qty: 60 0RF amiodarone 200 mg Tablet 400 mg PO BID 2 Days Qty: 8 0RF Rx Instructions: Take 400 mg twice daily for two more days and then take 200 mg once daily amlodipine 10 mg Tablet 10 mg PO DAILY 30 Days Qty: 30 0RF Protocol: Hold for SBP< HOLD for SBP < : 90 metoprolol tartrate 25 mg Tablet 25 mg PO BID 30 Days Qty: 60 0RF Protocol: Hold for SBP/HR < HOLD for SBP < : 90 HOLD for HR < : 60 hydromorphone 2 mg Tablet 2 mg PO Q4H PRN (Reason: Pain, Severe (Pain Scale 7-10)) Qty: 60 0RF Rx Instructions: Partial Fill upon patient request. docusate sodium 100 mg Capsule 100 mg PO DAILY 30 Days Qty: 30 0RF polyethylene glycol 3350 17 gram Powder In Packet 17 g PO BID 30 Days Qty: 100 0RF sennosides [Senna Lax] 8.6 mg Tablet 8.6 mg PO BEDTIME 30 Days Qty: 30 0RF sucralfate 100 mg/mL Suspension 1 g PO QIDACHS Qty: 200 0RF dexamethasone 4 mg Tablet 4 mg PO DAILY 10 Days Qty: 10 0RF codeine-guaifenesin 10-100 mg/5 mL Liquid 5 ml PO Q6H PRN (Reason: Cough) Qty: 120 0RF amiodarone 200 mg tablet 200 mg PO DAILY 30 Days Qty: 30 0RF Rx Instructions: complete 400 twice daily dose and then begin taking 200 mg daily dose Continued multivitamin Tablet 1 tab PO DAILY pravastatin 80 mg tablet 80 mg PO BEDTIME omeprazole 40 mg capsule,delayed release(DR/EC) 40 mg PO DAILY Qty: 30 4RF Discontinued olmesartan 20 mg tablet 20 mg PO DAILY Qty: 90 0RF Discharge Orders: Discharge Order (Routine); Ordered 01/01/23 Ordered By: Bety Goodman Diet: Advance to usual diet Activity on Discharge: As tolerated Stand Alone Forms: Patient Portal Discharge page Care Plan Goals: see below Health Concerns: new metastatic cancer with inractable pain atrial fibrillation with rapid ventricular response pneumonia Plan of Treatment: follow up with onocology for further treatment and review of biopsy results as planned can use pain medication as needed to control pain take steroids as prescribed for atrial fibrillation - you have been started on multiple medications for control of heart rate. take metoprolol as prescribed, take eliquis - a blood thinner as prescribed - monitor for signs of bleeding. take amiodorone 400 mg twice daily for two more days and then begin taking 200 mg daily call to schedule follow up with cardiology for blood pressure take norvasc as prescribed take stool softeners to prevent constipation while taking pain medication do not drive while taking pain medication and do not combine with alcohol or other sedating meds Assessment: see discharge summary Patient Instructions: Sucralfate (By mouth)
--- NOTE | 2023-01-01 11:58 | W.MHC.F2F ---
Service Date Service Date: 01/01/23 Encounter Date of encounter: 01/01/23 Reasons for Services Signs and symptoms assessed: needs longterm for new cancer diagnosis, afib, HTN with numerous new medications; vitals signs assessment Reason for longterm: medication management and medication treatment MD Overseeing Care: Haydee Gandhi Homebound: Leaving the home is medically contraindicated at this time without the asist of a device and/or another person due th the listed conditions above and below. Reason homebound: pain with ambulation and weakness related to hospital stay Certification: Based on the above findings, I certify that this patient is confined to the home and needs intermittent longterm care, physical therapy and/or speech therapy, or continues to need occupational therapy. The patient is under my care, and I have initiated the establishment of the plan of care. The patient will be followed by a physician who will periodically review the plan of care. Time Spent With Patient Time: Total time managing care of this patient today ____ minutes.
--- NOTE | 2023-01-01 13:47 | PC.NURSE ---
pt discharged to home this afternoon via ambulance. Pt and family provided with info and medications upon discharge able to teach back info. IV removed from right arm cath intact. Provided with pain medication prior to discharge ok per Nnamdi BERNAL
== END 2023-01-01 13:50 | disposition home health service (06) | DRG 166 ==
LOC: HO.ED 17:31 → HO.EDOVER 19:06 → HO.IMC 19:51
PROVIDERS: Internal Medicine; Radiology Diagnostic Radiology; Admitting Provider Hospitalist; Emergency Provider Emergency Medicine; PCP Internal Medicine; Visit Provider Physician Assistant Medical
PROC: 0PB03ZX Excision of Sternum, Percutaneous Approach, Diagnostic (ICD-10-PCS; principal; 2022-12-28 15:00)
DX: C34.2 Malignant neoplasm of middle lobe, bronchus or lung (principal); J18.9 Pneumonia, unspecified organism; J44.0 Chronic obstructive pulmonary disease with (acute) lower respiratory infection; C77.1 Secondary and unspecified malignant neoplasm of intrathoracic lymph nodes; C79.51 Secondary malignant neoplasm of bone; J90 Pleural effusion, not elsewhere classified; I48.0 Paroxysmal atrial fibrillation; K27.9 Peptic ulcer, site unspecified, unspecified as acute or chronic, without hemorrhage or perforation; K59.00 Constipation, unspecified; G89.3 Neoplasm related pain (acute) (chronic); E83.52 Hypercalcemia; I10 Essential (primary) hypertension; D50.9 Iron deficiency anemia, unspecified; D63.0 Anemia in neoplastic disease; Z87.891 Personal history of nicotine dependence; Z79.899 Other long term (current) drug therapy
CPT/HCPCS: 10005; 36415; 70470; 71045; 71046; 71250; 71260; 71275; 72156; 74177; 76705; 80048; 80053; 80307; 82272; 82310; 82378; 82947; 83605; 83615; 83690; 83735; 83880; 84443; 84484; 85025; 85027; 85610; 85730; 87040; 87635; 88184; 88185; 88300; 88304; 88305; 88311; 88341; 88342; 93005; 99152; 99212; 99285; A9585; J0283; J0456; J0613; J0696; J1160; J1170; J1643; J1885; J1940; J2060; J2270; J2405; J2430; J2543; J3371; J3475; J8540; Q9967

== ENCOUNTER 2023-01-08 11:40 | Outpatient (RCR) | payer MEDICARE, OTHER, SELFPAY ==
--- NOTE | 2023-01-06 17:24 | MHC.HEMONC ---
Nurse listened to VM from pt's family, stating they would like mto know about pt's recent biopsy results, also about future tx options, and managing pt's pain. Nurse called back, no answer, left detailed VM requesting CB, but also asking to confirm whether pt is using PRN dilaudid and dexamethasone as recommended by Dr. Kelley, also to confirm whether pt will be able to come in for sched Onc f/u this Wed, 01/08. Nurse left CB#. Dr. Kelley informed this nurse afterwards that biopsy results are not back yet.
[2023-01-08 11:23] VITALS: BP 100/55; PULSE 57; RESP 15; TEMP 36.2; O2SAT 94; BMI 24.6
--- NOTE | 2023-01-08 11:55 | PM.HEMONCPN ---
Medical Summary - Medical Summary Date of Service: 01/08/23 Chief complaint: Follow-up Medical Summary: Diagnosis: Metastatic non-small cell lung cancer/poorly differentiated squamous cell carcinoma Interval History Interval history: Patient is here in hospital follow-up. He is accompanied today by his sister. Was just seen by radiation oncologist at [facility]. He is going to be started on palliative radiation therapy to his C-spine next week. He also has MRI scheduled for next week. He reports that he is in considerable pain. His appetite is poor. He is taking Dilaudid 4 mg every 4 hours. He reports generalized weakness and occasional dizziness. He is not incontinent of bowel or bladder. He denies any acute chest pain, shortness of breath or cough at this time. Review of Systems - Constitutional Reports as per HPI, Reports fatigue, Reports poor appetite, Reports weakness, Reports weight loss - Cardiovascular Reports no additional cardiovascular complaints, Denies chest pain, Denies fainting, Reports lightheadedness - Respiratory Reports cough, Denies hemoptysis, Denies pain with cough PMFSH Medical History: Medical History (Last Reviewed 01/08/23 @ 11:24 by Dayna New) Cataract CHF (congestive heart failure) COPD (chronic obstructive pulmonary disease) H. pylori infection HTN (hypertension) Hyperlipemia Loculated pleural effusion Nephrolithiasis Personal history of nicotine dependence PUD (peptic ulcer disease) Tubular adenoma of colon Family History: Family History (Last Reviewed 01/08/23 @ 11:24 by Dayna New) Father No problems noted. Mother No problems noted. Surgical History: Surgical History (Last Reviewed 01/08/23 @ 11:24 by Dayna New) History of colonoscopy History of esophagogastroduodenoscopy (EGD) History of thoracentesis Social History: Social History (Last Updated 01/08/23 @ 11:36 by Dayna New) Living Situation History: Household Members: None Housing: Apartment Do you presently have visiting nurse or other home services: No Tobacco History: Patient Tobacco Use Status: Former Tobacco user Tobacco use type: Cigarette Years Smoked: 40 Smoke Quit Date: over 10 years ago e-Cigarette/Vaping Use: Former Use Second Hand Smoke Exposure: No Advance Directives: Advance Directives Date on File: 11/05/22 Occupation Assessmet: service: No Current occupational status: employed Current occupational status: retired Home Medications and Allergies Home Medications Medication Instructions Recorded Confirmed Type multivitamin 1 tab PO DAILY 12/22/22 01/08/23 History pravastatin 80 mg tablet 80 mg PO BEDTIME 12/22/22 01/08/23 History Allergies Allergy/AdvReac Type Severity Reaction Status Date / Time No Known Allergies Allergy Verified 12/22/22 15:20 Exam Vital signs: Vital Signs Temp 97.2 F 01/08/23 11:23 Pulse 57 01/08/23 11:23 Resp 15 01/08/23 11:23 BP 100/55 L 01/08/23 11:23 Pulse Ox 94 01/08/23 11:23 O2 Del Method Room Air 01/08/23 11:23 Intake & Output 01/07/23 01/08/23 01/08/23 18:59 06:59 18:59 Other: Weight 71.271 kg [place] Weight in Grams 15498.041 Weight 71.271 kg BMI result Body Mass Index 24.6 - Constitutional Present: mild distress - Routine HEENT Exam Head: Present: normal inspection Eye: Present: EOMI - Routine Neck Exam Present: full ROM, normal inspection - Routine Respiratory Exam Present: decreased breath sounds. Absent: accessory muscle use, stridor, wheezes - Routine Cardiovascular Exam Cardiovascular: Present: S1, S2 - Routine Extremities Exam Absent: calf tenderness Data - Labs CBC & Chem 7: 01/08/23 12:08 01/08/23 12:08 Assessment and Plan Patient Active problem list reviewed?: Yes (1) Non-small cell cancer of left lung Status: Acute Assessment and plan: 1. This is a 72-year-old male with multiple medical problems including atrial fibrillation and emphysema, peptic ulcer disease/GI bleeding who was diagnosed with metastatic non-small cell/squamous cell carcinoma starting in left lung. He presented with large central left lung mass with mediastinal adenopathy and left pleural effusion and multiple lytic lesions. CEA level over 140. Sternal biopsy performed 12/30/2022 showed poorly differentiated carcinoma with squamous differentiation. PDL1 and molecular testing is pending. CT abdomen/pelvis showed multiple liver lesions, multiple lytic lesions in bones as well as a 1.3 cm mass adjacent to left iliac muscle all concerning for metastatic disease. He has had left pleural effusion tapped twice. First lytic bony lesions and hypercalcemia he received 1 dose of pamidronate during his recent hospitalization. For pain control he is on Dilaudid 4 mg every 4 hours as needed. He is on dexamethasone 4 mg once a day. He has been seen by radiation oncologist at [facility] and is scheduled to start palliative radiation therapy to C-spine on 01/14/2023. Brain MRI and PET-CT scans are pending. He has developed leukocytosis probably secondary to steroids. He has normocytic anemia and thrombocytosis. He has a history of GI bleed secondary to peptic ulcer disease. He is on Eliquis for atrial fibrillation. I discussed all the above with patient and his sister in the presence of [place] construction project assistant. They were told that he has stage IV lung cancer, curative therapy is not possible. He is eligible for palliative chemotherapy/immunotherapy depending on molecular markers. He will be administered denosumab for control of skeletal metastasis. We discussed diet/nutrition, he was advised to take Ensure at least 2-3 cans daily. He is interested in palliative therapy. All his questions were answered. Follow-up in a week to 10 days. - Time Spent With Patient Time Spent with Patient (in minutes): 45
[2023-01-08 12:12] LABS: Basophils Absolute Auto 0.1 X10*3/uL (0.0-0.2); Basophils Percent Auto 0.2 % (0-2); Eosinophils Absolute Auto 0.1 X10*3/uL (0.0-0.4); Eosinophils Percent Auto 0.2 % (0-4); Hematocrit 31.2 % (42.0-52.0); Hemoglobin 9.4 g/dl (14.0-18.0); Imm Gran Abs Auto 0.31 X10*3/uL (0.00-0.03); Imm Gran Pct Auto 1.1 % (0.0-0.4); Lymphocytes Absolute Auto 1.3 X10*3/uL (1.2-4.9); Lymphocytes Percent Auto 4.3 % (20-40); MANUAL DIFF FLAG SCAN; Mean Corpuscular HGB Conc 30.1 g/dl (31.0-36.0); Mean Corpuscular Hemoglobin 24.5 pg (27.0-33.0); Mean Corpuscular Volume 81.5 fL (80.0-98.0); Mean Platelet Volume 8.9 fL (9.4-12.4); Monocytes Absolute Auto 1.4 X10*3/uL (0.1-1.2); Monocytes Percent Auto 4.7 % (2-11); Neutrophils Absolute Auto 26.1 x10*3/uL (2.0-8.3); Neutrophils Percent Auto 89.5 % (45-73); Platelet Count 749 X10*3/uL (160-400); Red Blood Count 3.83 X10*6/uL (4.60-5.80); Red Cell Distribution Width 15.7 % (11.0-16.0); SCAN SMEAR FLAG 1; White Blood Count 29.2 X10*3/uL (4.8-10.8)
[2023-01-08 12:34] LABS: SLIDE REVIEW VERIFIED
[2023-01-08 12:43] LABS: Alanine Aminotransferase 19 U/L (0-40); Albumin Level 2.7 g/dL (3.5-5.0); Alkaline Phosphatase 258 U/L (39-117); Anion Gap 13 (12-20); Aspartate Amino Transferase 22 U/L (5-37); Bilirubin Total 0.4 mg/dL (0.0-1.0); Blood Urea Nitrogen 21 mg/dL (9-16); Calcium 10.2 mg/dL (8.4-10.2); Carbon Dioxide 23 mmol/L (22-29); Chloride 102 mmol/L (96-108); Creatinine Clr Calc Pharmacy 70.9; Estimated Glomerular Filt Rate > 60; Glucose Random 141 mg/dL (60-115); Potassium 4.4 mmol/L (3.3-5.1); Sodium 134 mmol/L (135-145); Total Protein 6.2 g/dL (6.5-8.0)
--- NOTE | 2023-01-08 13:54 | MHC.HEMONCMA ---
Patient seen today for new consult for lung CA, VSS, labs, xray ordered, 2 week followup.
--- NOTE | 2023-01-08 15:59 | MHC.HEMONC ---
I met with pt and his sister following Onc Consult with Dr Kelley. We were assisted by medical [employer]. He was seen as inpatient by Dr Kelley. He has been having pain in his chest from newly diagnosed metastatic lung cancer. A PET was ordered and order given to Maribeth. He was going for CXR to f/u on pleural fluid. He will start Radiation on 01/14/23 at [facility] (palliative) and will f/u here afterwards. He seemed open to palliative chemo as well.
--- NOTE | 2023-01-11 14:16 | HO.HEMONCPA ---
Addendum entered by Kareen Sanders 01/25/23 15:42: PATIENT 01/18 Original Note: PA FOR PET/CT ([id number]) APPROVED AUTH # [id number] DOS 01/11/23 - 03/11/23 FAXED [facility] FOR SCHEDULING
== END 2023-01-18 | disposition home or self-care (01) ==
LOC: HO.ONC 11:40
PROVIDERS: PCP Internal Medicine; Visit Provider Internal Medicine
DX: C34.92 Malignant neoplasm of unspecified part of left bronchus or lung (principal); C79.51 Secondary malignant neoplasm of bone; J90 Pleural effusion, not elsewhere classified; I48.91 Unspecified atrial fibrillation; D64.9 Anemia, unspecified; D75.839 Thrombocytosis, unspecified; J43.9 Emphysema, unspecified; K27.9 Peptic ulcer, site unspecified, unspecified as acute or chronic, without hemorrhage or perforation; K76.9 Liver disease, unspecified; E83.52 Hypercalcemia; Z79.01 Long term (current) use of anticoagulants; Z79.891 Long term (current) use of opiate analgesic; Z79.899 Other long term (current) drug therapy
CPT/HCPCS: 36415; 80053; 85025; 99215

== ENCOUNTER → 2023-01-08 11:40 | Outpatient (BNV) | payer MEDICARE, MEDICAID, SELFPAY | PROVIDERS: Visit Provider Internal Medicine | DX: C34.92 Malignant neoplasm of unspecified part of left bronchus or lung (principal) | CPT/HCPCS: 99215 ==

== ENCOUNTER 2023-01-08 11:56 | Outpatient (REF) | payer MEDICARE, OTHER, SELFPAY ==
--- NOTE | ~2023-01-08 | XR_ITS ---
EXAMINATION: XR CHEST CLINICAL INFORMATION: Recurrent effusion. COMPARISON: Chest 12/22/2022 TECHNIQUE: 2 views of the chest were obtained. FINDINGS: There is loss of left lung volume with patchy opacity seen in left upper lobe. On lateral view there is mass or loculated fluid within the left superior major fissure dizziness and left lung base likely effusion or atelectasis. The right lung is clear. The heart size enlarged. Pulmonary vascularity is normal. No gross bony abnormality seen. XR/XR chest 2V IMPRESSION: Left lung volume loss with patchy opacity left upper lobe and left lower lobe likely effusion or atelectasis. There is new mass left upper lobe or loculated fluid within the left superior major fissure. Haziness in left lung base likely effusion or atelectasis. There is loss of left lung volume but unchanged since 12/22/2022.
== END 2023-01-08 11:57 | disposition home or self-care (01) ==
LOC: HO.XRAY 11:56
PROVIDERS: PCP Internal Medicine; Visit Provider Internal Medicine
DX: J90 Pleural effusion, not elsewhere classified (principal)
CPT/HCPCS: 71046

== ENCOUNTER 2023-01-11 10:53 | Outpatient (AMB) | payer MEDICARE, MEDICAID, SELFPAY ==
[2023-01-11 10:59] VITALS: BP 104/62; PULSE 62; O2SAT 94
--- NOTE | 2023-01-11 10:59 | MHC.PC.OV ---
Vital Signs 01/11/23 10:59 Height 5 ft 7 in BMI Reason not done Patient refused/unable BP 104/62 Blood Pressure Location Lt brachial Position Sitting Pulse 62 Pulse Source Pulse Oximeter Pulse Oximetry (%) 94 Oxygen Delivery Method Room Air Intake Visit Reasons: Hospital follow up Intake Note: Pt is here today for Hospital follow up visit. Allergies No Known Allergies Allergy (Verified 01/11/23 11:03) Medication List - Last Reconciled 01/11/23 by Haydee Gandhi MD albuterol sulfate 90 mcg/actuation 1 inh inhalation QID PRN amiodarone 200 mg PO DAILY 30 days amiodarone 400 mg (2 x 200 mg) PO BID 2 days amlodipine 10 mg See Protocol PO DAILY 30 days apixaban (Eliquis) 5 mg PO BID 30 days codeine-guaifenesin 10-100 mg/5 mL 5 mL PO Q6H PRN dexamethasone 4 mg PO DAILY 10 days docusate sodium 100 mg PO DAILY 30 days hydromorphone 2 mg PO Q4H PRN hydromorphone 4 mg PO Q4H metoprolol tartrate 25 mg See Protocol PO BID 30 days multivitamin 1 tab PO DAILY omeprazole 40 mg PO DAILY polyethylene glycol 3350 17 grams PO BID 30 days pravastatin 80 mg PO BEDTIME sennosides (Senna Lax) 8.6 mg PO BEDTIME 30 days sucralfate 1 g (10 mL) PO QIDACHS umeclidinium-vilanterol 62.5-25 mcg/actuation (Anoro Ellipta) 1 inh inhalation DAILY Tobacco use date assessed: 11/11/22 Dental Screening Dental Screen Date: 01/11/23 Did you have a dental visit in the last 12 months?: Yes Did you have a dental problem in the last 6 months where you did not have access to dental care?: No Was dental information given to patient?: Patient has dentist HPI Hospital follow up HPI Details Pt presents for f/u hospitalization at [facility] [place]. He was dxd with metastatic non-small cell lung ca and will be starting palliative radiation for C-spine metastasis at [facility]. A fib is stable on meds. HTN has been low. Pt c/o R shoulder pain radiating to right arm. He has been taking hydrocodone prescribed by oncology with good relief. Patient reports poor appetite and weight loss. [facility] Medical History Cataract CHF (congestive heart failure) COPD (chronic obstructive pulmonary disease) H. pylori infection HTN (hypertension) Hyperlipemia Loculated pleural effusion Nephrolithiasis Personal history of nicotine dependence PUD (peptic ulcer disease) Tubular adenoma of colon Surgical History History of colonoscopy History of esophagogastroduodenoscopy (EGD) History of thoracentesis Family History Father No problems noted. Mother No problems noted. Social History (Updated 01/08/23 @ 11:36 by Dayna New) Household Members: None Housing: Apartment Do you presently have visiting nurse or other home services: No Alcohol intake: current Alcohol intake frequency: does not drink Patient Tobacco Use Status: Former Tobacco user Quit Date: over 10 years ago Tobacco use type: Cigarette Years Smoked: 40 e-Cigarette/Vaping Use: Former Use Second Hand Smoke Exposure: No Advance Directives Date on File: 11/05/22 service: No Current occupational status: employed and retired Cognitive needs: No Hearing needs: No Vision needs: No Questionnaire PHQ-9 Over the last 2 weeks, how often have you been bothered by any of the following problems? 1. Little interest or pleasure in doing things: not at all 2. Feeling down, depressed, or hopeless: not at all 3. Trouble falling or staying asleep, or sleeping too much: several days 4. Feeling tired or having little energy: not at all 5. Poor appetite or overeating: not at all 6. Feeling bad about yourself - or that you are a failure or have let yourself or your family down: not at all 7. Trouble concentrating on things, such as reading the newspaper or watching television: not at all 8. Moving or speaking so slowly that other people could have noticed. Or the opposite - being so fidgety or restless that you have been moving around a lot more than usual: not at all 9. Thoughts that you would be better off or of hurting yourself in some way: not at all Total score: 1 Depression Screening Interpretation: Negative Source: Developed by Drs. Raymond Fonseca, Nuris Su, Jesus Muniz and colleagues, with an educational jeanette from [employer]. Thrive Questionnaire Date Thrive assessed: 12/23/22 CESIA-7 AMB Questionnaire CESIA-7 Date CESIA - 7 assessed: 01/11/23 Feeling nervous, anxious, or on edge: 0 = Not at all Not being able to stop or control worryin = Several days Worrying too much about different things: 1 = Several days Trouble relaxin = Not at all Being so restless that it is hard to sit still: 0 = Not at all Becoming easily annoyed or irritable: 0 = Not at all Feeling afraid as if something awful might happen: 1 = Several days Total CESIA-7 score (0-4 normal; 5-9 mild; 10-14 moderate; 15-21 severe): 3 Source: Developed by Drs. Raymond Fonseca, Nuris Su, Jesus Muniz and colleagues, with an educational jeanette from [employer]. Review of Systems Const All systems reviewed & are unremarkable except as noted in HPI and below Reports no additional complaints Eyes Reports no additional complaints ENT Reports no additional complaints Card Reports no additional complaints Resp Reports no additional complaints GI Reports no additional complaints Reports no additional complaints Physical exam (Primary Care) Vital Signs: Last Vital Signs Pulse 62 01/11/23 10:59 BP 104/62 01/11/23 10:59 Pulse Ox 94 01/11/23 10:59 Oxygen Delivery Method Room Air 01/11/23 10:59 Tobacco/Smoking Status: Tobacco use Status Tobacco use date assessed 11/11/22 01/11/23 11:04 Patient Tobacco Use Status Former Tobacco user 01/11/23 11:04 Tobacco use type Cigarette 01/11/23 11:04 e-Cigarette/Vaping Use Former Use 01/11/23 11:04 PHQ-9: PHQ-9 Score PHQ-9: Total score 1 01/11/23 11:36 Depression Screening Interpretation: Negative Thrive Assessment: Date of Thrive Assessment Date Thrive assessed 12/23/22 01/11/23 11:04 Const General: no acute distress Neck Neck: Yes supple Resp Effort & Inspection: normal respiratory effort Cardio Rhythm: regular rhythm Heart sounds: S1 normal heart sound present and S2 normal heart sound present GI Palpation (GI): Firmness to palpation present (GI), Tenderness to palpation present (GI) and no guarding Auscultation: normal bowel sounds Assessment and Plan Assessment & Plan (1) Non-small cell cancer of left lung: Code(s): C34.92 - Malignant neoplasm of unspecified part of left bronchus or lung Plan: Follow-up with radiation oncology and oncology at [facility] [place] (2) PAF (paroxysmal atrial fibrillation): Code(s): I48.0 - Paroxysmal atrial fibrillation Plan: Continue amiodarone Eliquis and metoprolol follow-up with Cardiology (3) HTN (hypertension): Code(s): I10 - Essential (primary) hypertension Plan: Blood pressure is low and amlodipine will be decreased to 5 mg a day. Patient's sister was advise to monitor patient's blood pressure and if SBP IS less than 100 to discontinue amlodipine Medications: New amlodipine 5 mg PO DAILY 30 tabs 1RF Haydee Gandhi MD Discontinued amlodipine Discontinued Reason: Doctor's Order 10 mg See Protocol PO DAILY 30 days 30 tabs 0RF pravastatin 80 mg PO DAILY 90 tabs 3RF Victorino Noble [facility] Coding Level of Care Code Est Pt Level 4 (17147) Diagnoses Non-small cell cancer of left lung C34.92 PAF (paroxysmal atrial fibrillation) I48.0 HTN (hypertension) I10
== END 2023-01-11 12:12 | disposition home or self-care (01) ==
PROVIDERS: PCP Internal Medicine; Visit Provider Internal Medicine
DX: C34.92 Malignant neoplasm of unspecified part of left bronchus or lung (principal); I48.0 Paroxysmal atrial fibrillation; I10 Essential (primary) hypertension
CPT/HCPCS: 99214

== ENCOUNTER 2023-01-15 11:50 | Inpatient (IN) | payer MEDICARE, MEDICAID, SELFPAY ==
[2023-01-15] VITALS (9 sets, daily range): BP systolic 106–142; BP diastolic 56–86; PULSE 80–130; RESP 17–26; TEMP 36.4–37.1; O2SAT 85–97; BMI 23.5
--- NOTE | ~2023-01-15 | CT_ITS ---
EXAMINATION: CT ANGIOGRAM OF THE CHEST WITH AND WITHOUT CONTRAST (CT PULMONARY ANGIOGRAM FOR PE) CT ABDOMEN AND PELVIS WITH CONTRAST CLINICAL INFORMATION: Reason for Exam CHest pain/SHortness of breath. PE/Pnuemonia? Question small bowel obstruction. Past history of cancer. COMPARISON: 12/24/2022 TECHNIQUE: Prior to contrast administration, noncontrast localization images were obtained. Subsequently, multidetector volumetric imaging was performed from the thoracic inlet to the pubic symphysis following the administration of 85 mL Omnipaque 350 intravenous contrast. This was followed by multidetector acquisition of the abdomen and pelvis. No contrast reaction reported Sagittal, coronal, and MIP oblique sagittal reformatted images were obtained on the CT workstation, uploaded to PACS, and reviewed. This CT examination was performed using dose optimization techniques as appropriate, variously including the following: *Automated exposure control *Adjustment of mA and/or kV according to patient size (this includes techniques or standardized protocols for targeted exams where dose is matched to indication/reason for exam; i.e. extremities or head) *Use of iterative reconstruction technique Total exam dose-length product 2364 mGy-cm including the head CT. FINDINGS: QUALITY OF STUDY/CONTRAST BOLUS: Satisfactory. PULMONARY ARTERIES: No central or segmental pulmonary emboli. THORACIC AORTA: No aneurysm or dissection. LUNG: The central airways are patent. Bronchial filling defects are seen bilaterally, greatest in the lower lungs with bronchial wall thickening. This is new from prior. Increased small bilateral pleural effusions, particularly on the right. Associated atelectasis. Persistent appearance of the left hilar lesion tracking along the major fissure inferiorly. Similar appearance of probable fluid more superiorly along the left fissure which is loculated. Biapical reticular and bandlike changes. No pneumothorax. MEDIASTINUM: Normal heart size. No pericardial effusion. Enlarged mediastinal lymph nodes are again seen, as seen on the recent prior CT. For instance there is a subcarinal node measuring 1.9 cm short axis. There is a left paratracheal/precarinal 1.7 cm short axis node. There is a pretracheal 1.8 cm node. No evidence of septal bowing or right heart strain. CHEST WALL/AXILLA: No axillary or internal mammary lymphadenopathy. LIVER, GALLBLADDER, AND BILIARY TREE: Normal size and shape of the liver with multiple hypoattenuating lesions again noted in the pancreatic parenchyma, showing increased prominence from prior. For instance at the dome of the right lobe there is a 2.3 cm lesion. This previously measured 1 cm. Distended gallbladder. No wall thickening. PANCREAS: Unremarkable. SPLEEN: Unremarkable. ADRENAL GLANDS: Unremarkable. KIDNEYS AND URETERS: The kidneys are normal in size, shape, and attenuation. No hydronephrosis, hydroureter, or calculi seen. No perinephric stranding. Simple cyst at the upper pole of the right kidney. No specific follow-up recommended. BLADDER: Unremarkable. GASTROINTESTINAL TRACT: The stomach is unremarkable. The small bowel is normal in caliber without obstruction. That said, there is some irregular wall thickening of the small bowel, particularly in the pelvis. There is now abutment of small bowel with omental caking which is a new finding from prior. This is most evident at the anterior upper abdomen. Mild edema within the small bowel mesentery present. Moderate volume of stool throughout the colon. No colonic wall thickening. No free air. ABDOMINAL WALL: No significant hernia is appreciated. LYMPH NODES: Normal. VASCULAR: Normal caliber aorta with mild atherosclerotic calcification. PELVIC VISCERA: The prostate and seminal vesicles are unremarkable. OSSEOUS STRUCTURES: Diffuse metastatic osseous disease is again noted. This is similar to prior. For instance, the fused T12 and L1 vertebral bodies are again noted with associated lytic lesion. Prominent lytic lesion of the sacrum again noted. Multiple additional vertebral lesions are again seen. No rib lesions are present. The sternal lesion appears similar. Multiple lesions throughout the osseous structures. Nodule in the left iliacus muscle is increased in prominence, now measuring 1.4 cm compared to 1.[address]/CT angio chest PE protocol IMPRESSION: 1. No pulmonary embolism. 2. Increased small bilateral pleural effusions, particularly on the right. Associated atelectasis. 3. Bronchial filling defects are seen bilaterally with bronchial wall thickening. This is new from prior and may be associated with aspiration. 4. Redemonstration of the left hilar lesion. Mediastinal lymphadenopathy. 5. Increased prominence of multiple hepatic lesions, concerning for worsening metastatic disease. 6. Development of omental caking. There is also irregular wall thickening of the small bowel, particularly in the pelvis. This is concerning for metastatic disease. No bowel obstruction. 7. Increased prominence of the hyperdense lesion in the left iliacus muscle. 8. Multiple metastatic lesions throughout the osseous structures. VTE: negative
--- NOTE | ~2023-01-15 | CT_ITS ---
EXAMINATION: CT HEAD WITH/WITHOUT CONTRAST CLINICAL INFORMATION: Lung cancer. Rule out metastatic disease. COMPARISON: None available. TECHNIQUE: Contiguous axial imaging was performed from the skull base to vertex before and after the administration of 85 mL of Omnipaque [address] examination was performed using dose optimization techniques as appropriate, variously including the following: *Automated exposure control *Adjustment of mA and/or kV according to patient size (this includes techniques or standardized protocols for targeted exams where dose is matched to indication/reason for exam; i.e. extremities or head) *Use of iterative reconstruction technique DLP: 1252 mGy-cm FINDINGS: There is a low-attenuation extra-axial fluid collection in the posterior fossa probably representing a prominent magna or arachnoid cyst. No other extra-axial collection. No evidence of intra or extra-axial hemorrhage. There are 2 small enhancing lesions in the anterior peripheral bilateral frontal lobes measuring 5 mm on the right and 6 mm on the left. 5 mm enhancing lesion in the right medial temporal lobe. Appearance is suggestive of metastatic disease. No appreciable mass effect. No other mass or mass effect. No infarct. Atherosclerotic disease. 1 cm lytic lesion in the left frontal bone questionable for metastatic disease. No skull fracture. Visualized paranasal sinuses, mastoid air cells and middle ears are clear. CT/CT head/brain wo/w IV con IMPRESSION: Small enhancing lesions in the right temporal and bilateral frontal lobes No mass effect. 1 cm lytic lesion in the left frontal bone questionable for metastatic disease.
--- NOTE | ~2023-01-15 | XR_ITS ---
EXAMINATION: XR CHEST CLINICAL INFORMATION: Weakness COMPARISON: Previous chest x-ray most recent 01/08/2023 TECHNIQUE: 2 views of the chest were obtained. FINDINGS: The cardiac and mediastinal contours are stable. There is volume loss to the left hemithorax with shift of the central mediastinal structures to the left. Small left pleural effusion and left lung airspace disease appears unchanged. There is atelectasis at the right lung base. The right lung is otherwise clear. There is a small right pleural effusion question small lytic bone lesion in the lateral/scapula. XR/XR chest 2V IMPRESSION: Stable x-ray exam with volume loss to the left hemithorax, small left pleural effusion and left lung airspace disease.
--- NOTE | ~2023-01-15 | XR_ITS ---
EXAMINATION: XR CHEST CLINICAL INFORMATION: Dyspnea COMPARISON: Previous chest CT and chest x-rays most recent from yesterday TECHNIQUE: Frontal view of the chest was obtained. FINDINGS: The cardiac and mediastinal contours are stable. Slight volume loss to the left hemithorax. Pleural parenchymal changes in the left hemithorax appear unchanged. The right lung is clear. Small right pleural effusion. No pneumothorax. No acute bone abnormality. Lytic bone lesions not well appreciated. XR/XR chest 1V IMPRESSION: Stable chest x-ray exam.
--- NOTE | 2023-01-15 12:02 | ECG_ITS ---
Test Reason : WEAKNESS Blood Pressure : / mmHG Vent. Rate : 114 BPM Atrial Rate : 000 BPM P-R Int : 000 ms QRS Dur : 096 ms QT Int : 324 ms P-R-T Axes : 000 032 -43 degrees QTc Int : 446 ms Atrial fibrillation with rapid ventricular response with premature ventricular or aberrantly conducted complexes Nonspecific ST and T wave abnormality Abnormal ECG When compared with ECG of 28-DEC-2022 18:14, Atrial fibrillation has replaced Sinus rhythm ST now depressed in Inferior leads Referred By: Tamica Daniels Electronically Signed By:Roberto Hong
--- NOTE | 2023-01-15 12:42 | PC.NURSE ---
Alert and oriented, arrived via ems with complaints of difficulty breathing, weakness, nausea, poor po intake and appetite. rapid afib on monitor. denies chest pain or headache. Last BM two days ago. 97% on 3 liters NC. States entire body hurts and feels weak.
[2023-01-15 13:01] LABS: Basophils Absolute Auto 0.1 X10*3/uL (0.0-0.2); Basophils Percent Auto 0.2 % (0-2); Hematocrit 30.3 % (42.0-52.0); Hemoglobin 9.1 g/dl (14.0-18.0); Imm Gran Abs Auto 0.56 X10*3/uL (0.00-0.03); Imm Gran Pct Auto 1.3 % (0.0-0.4); Lymphocytes Absolute Auto 1.1 X10*3/uL (1.2-4.9); Lymphocytes Percent Auto 2.5 % (20-40); MANUAL DIFF FLAG SCAN; Mean Corpuscular Hemoglobin 24.5 pg (27.0-33.0); Mean Corpuscular Volume 81.5 fL (80.0-98.0); Mean Platelet Volume 9.1 fL (9.4-12.4); Monocytes Absolute Auto 1.5 X10*3/uL (0.1-1.2); Monocytes Percent Auto 3.3 % (2-11); Neutrophils Absolute Auto 41.5 x10*3/uL (2.0-8.3); Neutrophils Percent Auto 92.7 % (45-73); Platelet Count 615 X10*3/uL (160-400); Red Blood Count 3.72 X10*6/uL (4.60-5.80); Red Cell Distribution Width 16.2 % (11.0-16.0); SCAN SMEAR FLAG 1
[2023-01-15 13:06] LABS: White Blood Count 44.7 X10*3/uL (4.8-10.8)
[2023-01-15 13:13] LABS: Anion Gap 17 (12-20)
[2023-01-15 13:18] LABS: Alanine Aminotransferase 13 U/L (0-40); Albumin Level 2.8 g/dL (3.5-5.0); Alkaline Phosphatase 218 U/L (39-117); Aspartate Amino Transferase 10 U/L (5-37); Bilirubin Total 0.2 mg/dL (0.0-1.0); Blood Urea Nitrogen 39 mg/dL (9-16); Calcium 11.3 mg/dL (8.4-10.2); Carbon Dioxide 20 mmol/L (22-29); Chloride 104 mmol/L (96-108); Creatinine Clr Calc Pharmacy 54.7; Estimated Glomerular Filt Rate > 60; Glucose Random 152 mg/dL (60-115); Magnesium 2.2 mg/dL (1.6-2.6); Potassium 3.9 mmol/L (3.3-5.1); Sodium 137 mmol/L (135-145); Total Protein 6.1 g/dL (6.5-8.0)
[2023-01-15 13:23] LABS: SLIDE REVIEW VERIFIED
[2023-01-15 13:50] LABS: COVID-19 Test Negative (Negative); IDNOW Serial# 08D9AD1C
[2023-01-15] MEDS: Digoxin 0.5 MG/2 ML AMPUL 0.25 MG IVPUSH (13:50)
[2023-01-15] MEDS: 0.9 % Sodium Chloride 1,000 ML 999 ML IV ×2 (13:51→14:57)
--- NOTE | 2023-01-15 13:54 | PC.NURSE ---
Alert and oriented, dig given per order, still in rapid av. fluids running per order.
--- NOTE | 2023-01-15 14:10 | ED_ITS ---
HPI - General Adult General Chief complaint: Nausea/Vomiting/Diarrhea Stated complaint: Weakness per EMS Time Seen by Provider: 01/15/23 13:16 Source: patient and family Mode of arrival: ambulatory Limitations: no limitations History of Present Illness HPI narrative: 72 yold male with pmh of recent metastatis lung CA presents to the ED for chest pain, cough, abdominal pain, chills, and weakness. Patient denies any vomitting of blood. Patient states no headache, symptoms, dysuria, hematuria, flank pain, or any recent trauma. Patient is scheduled to start Chemotherapy next week Related Data Home Medications Medication Instructions Recorded Confirmed multivitamin 1 tab PO DAILY 12/22/22 01/15/23 dexamethasone 4 mg tablet 4 mg PO BID 01/15/23 01/15/23 hydromorphone 4 mg tablet 4 mg PO Q4H PRN Pain 01/15/23 01/15/23 Previous Rx's Medication Instructions Recorded omeprazole 40 mg capsule,delayed 40 mg PO DAILY #30 caps 12/07/22 release amiodarone 200 mg tablet 200 mg PO DAILY 30 days #30 tabs 01/01/23 apixaban 5 mg tablet (Eliquis) 5 mg PO BID 30 days #60 tabs 01/01/23 docusate sodium 100 mg capsule 100 mg PO DAILY 30 days #30 caps 01/01/23 metoprolol tartrate 25 mg tablet 25 mg PO BID 30 days #60 tabs 01/01/23 polyethylene glycol 3350 17 gram 17 g PO BID 30 days #100 ea 01/01/23 oral powder packet sennosides 8.6 mg tablet (Senna 8.6 mg PO BEDTIME 30 days #30 tabs 01/01/23 Lax) albuterol sulfate 90 mcg/actuation 1 inh inhalation QID PRN shortness 01/06/23 aerosol inhaler of breath or wheezing #6.7 grams umeclidinium 62.5 mcg-vilanterol 1 inh inhalation DAILY #60 ea 01/06/23 25 mcg/actuation powdr for inhalation (Anoro Ellipta) amlodipine 5 mg tablet 5 mg PO DAILY #30 tabs 01/11/23 Allergies Allergy/AdvReac Type Severity Reaction Status Date / Time No Known Allergies Allergy Verified 01/11/23 11:03 Review of Systems Review of Systems: Cough, chest pain, shortness of breath and weakness. Yes all other systems are reviewed and are negative [facility] Past Medical History Medical History Cataract CHF (congestive heart failure) COPD (chronic obstructive pulmonary disease) H. pylori infection History of upper gastrointestinal bleeding HTN (hypertension) Hyperlipemia Loculated pleural effusion Nephrolithiasis Personal history of nicotine dependence PUD (peptic ulcer disease) Tubular adenoma of colon Surgical History History of colonoscopy History of esophagogastroduodenoscopy (EGD) History of thoracentesis Family History Family History Father No problems noted. Mother No problems noted. Social History Social History Household Members: Family Housing: House Do you presently have visiting nurse or other home services: Yes Alcohol intake: former Patient Tobacco Use Status: Former Tobacco user Quit Date: over 10 years ago Tobacco use type: Cigarette Years Smoked: 40 Smoked in Last 30 Days: No e-Cigarette/Vaping Use: Former Use Second Hand Smoke Exposure: No Use of substances other than those prescribed or required for medical reasons: No Currently Displaying Signs/Symptoms of Drug Intoxication Withdrawal: No Have you been hit, kicked, punched, or otherwise hurt by someone within the past year? If so, by whom?: No Do you feel safe in your current relationship?: No Current Relationship Is there a partner from a previous relationship who is making you feel unsafe now?: No Are you made to feel afraid or neglected: No Advance Directives: Yes Advance Directives on File: Yes Advance Directives Date on File: 11/05/22 Do you have thoughts of harming others: None Do you have a plan to hurt others: No Plan Recently lost weight without trying: Yes How much weight loss: Unsure Nutrition Risks: Poor intake 0-25% >4 days service: No Current occupational status: employed and retired Cognitive needs: No Hearing needs: No Vision needs: No Physical Exam ED Vital Signs: Vital Signs - 24 hr 01/15/23 12:32 01/15/23 12:25 01/15/23 12:40 Temperature 98.1 F 98.1 F 98.8 F Pulse Rate 81 92 127 H Respiratory Rate 26 H 18 18 Blood Pressure 117/56 L 117/56 L 106/63 Pulse Oximetry 96 85 L 97 Oxygen Delivery Method Nasal Cannula Room Air Nasal Cannula Oxygen Flow Rate 4 4 01/15/23 15:08 01/15/23 15:09 Temperature Pulse Rate 122 H 129 H Respiratory Rate 18 20 Blood Pressure 108/73 117/72 Pulse Oximetry 96 95 Oxygen Delivery Method Nasal Cannula Nasal Cannula Oxygen Flow Rate 3 BMI result Body Mass Index 23.5 Const General: cooperative, healthy appearing, comfortable, no acute distress, well developed, alert, awake and Physically active Orientation/consciousness: oriented to person, oriented to place, oriented to time and patient oriented x3 HENMT Head: Yes normal to inspection, Yes No palpable skull fracture present, Yes normocephalic, Yes atraumatic and No abrasion Eyes General: appearance normal, both eyes and all related structures Neck Neck: Yes normal visual inspection, Yes full ROM, Yes no lymphadenopathy, Yes no meningeal signs, Yes trachea midline, Yes supple and Yes anterior neck swelling Chest Chest palpation & inspection: normal inspection of the chest and normal palpation of entire chest wall Resp Effort & Inspection: normal respiratory effort and able to speak in complete sentences Cardio Jugular venous distension: no JVD Heart sounds: S1 normal heart sound present and S2 normal heart sound present GI Inspection: Yes normal to inspection and No abdominal wall ecchymosis Palpation (GI): Soft to palpation, not firm, nontender, no guarding and not rigid General: No CVA tenderness and Yes no CVA tenderness Back/Spine/Pelvis Back: no CVA tenderness, No CVA tenderness and No back tenderness Skin General skin exam: no rashes or lesions noted and elasticity normal Neuro General: oriented to person, oriented to place, oriented to time, patient oriented x3, gait normal, tone normal, moves all extremities, Normal light touch and pain sensation, no meningeal signs, no focal motor deficits, CN's II-XI intact bilaterally and normal sensation to monofilament Extrem Other: Bilateral lower extremity negative for swelling, pain edema, or calf tenderness. General: Yes normal to inspection and Yes full ROM Psych Appearance: grossly normal, well kempt and not disheveled Course Reevaluation(s) Reevaluation #1: Patient received in sign-out at change of shift pending CT angiography to rule out PE. There is no evidence of acute pulmonary embolism. However there is findings on a CT consistent with aspiration pneumonia. This is consistent with the patient's recent vomiting history as well as increased leukocytosis. Patient also has significant metastatic disease. I discussed with the hospitalist, Dr. Clayton to admit the patient Time: 17:53 Medications Administered Generic Name Dose Route Start Last Admin Trade Name Freq PRN Reason Stop Dose Admin Amiodarone HCl 200 mg 01/16/23 09:00 01/17/23 08:16 Amiodarone Hcl 200 Mg Tablet PO 200 mg DAILY TEODORO Administration Apixaban 5 mg 01/15/23 21:00 01/17/23 08:16 Apixaban 5 Mg Tablet PO 5 mg BID TEODORO Administration Dexamethasone 4 mg 01/16/23 08:00 01/17/23 08:16 Dexamethasone 4 Mg Tablet PO 4 mg BIDWM TEODORO Administration Guaifenesin 600 mg 01/17/23 09:00 01/17/23 08:16 Guaifenesin La 600 Mg Tab.Er.12h PO 600 mg BID TEODORO Administration Hydromorphone HCl 1 mg 01/16/23 08:03 01/17/23 08:12 Hydromorphone Hcl 0.5 Mg/0.5 Ml Syringe IVPUSH 1 mg Q4H PRN Administration moderate pain Protocol Sodium Chloride 1,000 mls @ 80 mls/hr 01/15/23 18:30 01/17/23 06:04 Ns IVCONT 80 mls/hr .[id number] TEODORO Administration Piperacillin Sod/Tazobactam 50 mls @ 100 mls/hr 01/16/23 00:00 01/17/23 06:43 Sod 3.375 gm/ Sodium Chloride IV Infused Q6H TEODORO Infusion Morphine Sulfate 15 mg 01/17/23 09:25 01/17/23 09:55 Morphine Sulfate Er 15 Mg Tablet.Er PO 15 mg Q12H [place] Administration Multivitamins/Vitamin C 1 tab 01/16/23 09:00 01/17/23 08:16 Multivitamin Tablet PO 1 tab DAILY TEODORO Administration Omeprazole 40 mg 01/16/23 06:30 01/17/23 06:03 Omeprazole 40 Mg Capsule. PO 40 mg DAILY@0630 TEODORO Administration Ondansetron HCl 4 mg 01/15/23 22:54 01/16/23 00:02 Ondansetron Hcl 4 Mg/2 Ml Vial IVPUSH 4 mg Q4H PRN Administration Nausea and Vomiting Sodium Chloride 3 ml 01/16/23 00:00 01/17/23 08:17 0.9 % Sodium Chloride Flush 3 Ml Syringe IVFLUSH Not Given QSHIFT [facility] Discontinued Medications Generic Name Dose Route Start Last Admin Trade Name Freq PRN Reason Stop Dose Admin Amiodarone HCl 400 mg 01/15/23 16:25 01/15/23 16:31 Amiodarone Hcl 200 Mg Tablet PO 01/15/23 16:26 400 mg ONCE ONE Administration Digoxin 0.25 mg 01/15/23 13:41 01/15/23 13:50 Digoxin 0.5 Mg/2 Ml Ampul IVPUSH 01/15/23 13:42 0.25 mg ONCE ONE Administration Diltiazem HCl 10 mg 01/15/23 14:59 01/15/23 15:07 Diltiazem Hcl 50 Mg/10 Ml Vial IVPUSH 01/15/23 15:00 10 mg STAT STA Administration Hydromorphone HCl 0.5 mg 01/15/23 18:28 01/16/23 06:48 Hydromorphone Hcl 0.5 Mg/0.5 Ml Syringe IVPUSH 0.5 mg Q4H PRN Administration moderate pain Protocol Sodium Chloride 1,000 mls @ 999 mls/hr 01/15/23 13:36 01/15/23 14:57 Ns IV 01/15/23 14:36 Infused .Q1H1M STA Infusion Sodium Chloride 1,000 mls @ 999 mls/hr 01/15/23 13:41 01/15/23 17:37 Ns IV 01/15/23 14:41 Infused .Q1H1M STA Infusion Vancomycin HCl 1,500 mg/ 500 mls @ 333.333 mls/hr 01/15/23 17:52 01/15/23 20:17 Sodium Chloride IV 01/15/23 19:21 Infused ONCE ONE Infusion Piperacillin Sod/Tazobactam 50 mls @ 100 mls/hr 01/15/23 17:52 01/15/23 19:21 Sod 3.375 gm/ Sodium Chloride IV 01/15/23 18:21 Infused ONCE ONE Infusion Iohexol 100 ml 01/15/23 16:06 01/15/23 16:06 Iohexol 350 Mg/Ml 100 Ml Infus..Btl IV 01/15/23 16:07 85 ml ONCE ONE Administration Metoprolol Tartrate 25 mg 01/15/23 21:00 01/17/23 08:16 Metoprolol Tartrate 25 Mg Tablet PO 25 mg BID TEODORO Administration Protocol Medical Decision Making Medical Decision Making [facility] Narrative: 72 -year-old male with lung cancer mets presents to the ED for chest pain shortn ess of breath and cough. Patient is in RVR. Due to low blood pressure patient was giving digoxin and fluids. EKG shows AFib RVR. Chest x-ray normal troponin pending. Due to history of lung cancer tachycardia/AFib with shortness of breath was sent for a chest CT to rule out PE. Patient also states mild abdominal pain or tenderness was sent for CT scan to check for small bowel obstruction. Patient denies vomiting any blood. 2:59pm Blood pressure improve systolic 113. Diltiazem ordered. 16:28- patient blood pressure dropped to systolic 90s. Spoke with chemist organic Dr. Jabier dietrich who states patient should be given amiodarone p.o. only and should be assessed for PE due to high BNP and AFib RVR. Patient has no history of CHF. Head CT sacn was ordered due to [facility] wanted head CT scan to see if CA spread to brain. Differential Diagnosis Differential Diagnoses: The differential diagnosis associated with the presentation includes (PE, pneumonia, myocardial infarction, CHF, metastasis of cancer) Admission/Observation Consideration of admission/observation: Escalation of care including admission/observation considered Lab Data [facility] Lab Attestation statement: I reviewed the patient's lab results. 01/15/23 12:36 01/15/23 12:02 Labs: Lab Results 01/15/23 01/15/23 01/15/23 Range/Units 12:02 12:36 12:36 WBC 44.7 H* (4.8-10.8) X10*3/uL RBC 3.72 L (4.60-5.80) X10*6/uL Hgb 9.1 L (14.0-18.0) g/dl Hct 30.3 L (42.0-52.0) % MCV 81.5 (80.0-98.0) fL MCH 24.5 L (27.0-33.0) pg MCHC 30.0 L (31.0-36.0) g/dl RDW 16.2 H (11.0-16.0) % Plt Count 615 H (160-400) X10*3/uL MPV 9.1 L (9.4-12.4) fL Immature Gran % (Auto) 1.3 H (0.0-0.4) % Neut % (Auto) 92.7 H (45-73) % Lymph % (Auto) 2.5 L (20-40) % [place] % (Auto) 3.3 (2-11) % Eos % (Auto) 0.0 (0-4) % Baso % (Auto) 0.2 (0-2) % Lymph # (Auto) 1.1 L (1.2-4.9) X10*3/uL [place] # (Auto) 1.5 H (0.1-1.2) X10*3/uL Eos # (Auto) 0.0 (0.0-0.4) X10*3/uL Baso # (Auto) 0.1 (0.0-0.2) X10*3/uL Abs Immat Gran (auto) 0.56 H (0.00-0.03) X10*3/uL Absolute Neuts (auto) 41.5 H (2.0-8.3) x10*3/uL Absolute Nucleated RBC 0.000 (0.0-0.012) X10*3/uL Nucleated RBC % (auto) 0.0 (0.0-0.2) /100WBC Smear Tech's Comments VERIFIED PT (10.0-13.1) SEC INR (0.9-1.1) APTT (26.0-36.4) SEC Sodium 137 (135-145) mmol/L Potassium 3.9 (3.3-5.1) mmol/L Chloride 104 (96-108) mmol/L Carbon Dioxide 20 L (22-29) mmol/L Anion Gap 17 (12-20) BUN 39 H (9-16) mg/dL Creatinine 1.14 (0.5-1.4) mg/dL Estim Creat Clear Calc 54.7 Estimated GFR > 60 Random Glucose 152 H (60-115) mg/dL Lactic Acid (0.5-2.0) mmol/L Calcium 11.3 H D (8.4-10.2) mg/dL Magnesium 2.2 (1.6-2.6) mg/dL Total Bilirubin 0.2 (0.0-1.0) mg/dL AST 10 (5-37) U/L ALT 13 (0-40) U/L Alkaline Phosphatase 218 H (39-117) U/L Troponin I High Sens (<3.5-35.0) ng/L B-Natriuretic Peptide (<100) pg/mL Total Protein 6.1 L (6.5-8.0) g/dL Albumin 2.8 L (3.5-5.0) g/dL COVID-19 (BK) Negative (Negative) COVID-19 Clin Com See Note 01/15/23 01/15/23 01/15/23 Range/Units 14:05 14:06 14:08 WBC (4.8-10.8) X10*3/uL RBC (4.60-5.80) X10*6/uL Hgb (14.0-18.0) g/dl Hct (42.0-52.0) % MCV (80.0-98.0) fL MCH (27.0-33.0) pg MCHC (31.0-36.0) g/dl RDW (11.0-16.0) % Plt Count (160-400) X10*3/uL MPV (9.4-12.4) fL Immature Gran % (Auto) (0.0-0.4) % Neut % (Auto) (45-73) % Lymph % (Auto) (20-40) % [place] % (Auto) (2-11) % Eos % (Auto) (0-4) % Baso % (Auto) (0-2) % Lymph # (Auto) (1.2-4.9) X10*3/uL [place] # (Auto) (0.1-1.2) X10*3/uL Eos # (Auto) (0.0-0.4) X10*3/uL Baso # (Auto) (0.0-0.2) X10*3/uL Abs Immat Gran (auto) (0.00-0.03) X10*3/uL Absolute Neuts (auto) (2.0-8.3) x10*3/uL Absolute Nucleated RBC (0.0-0.012) X10*3/uL Nucleated RBC % (auto) (0.0-0.2) /100WBC Smear Tech's Comments PT 19.8 H (10.0-13.1) SEC INR 1.7 H (0.9-1.1) APTT 30.8 (26.0-36.4) SEC Sodium (135-145) mmol/L Potassium (3.3-5.1) mmol/L Chloride (96-108) mmol/L Carbon Dioxide (22-29) mmol/L Anion Gap (12-20) BUN (9-16) mg/dL Creatinine (0.5-1.4) mg/dL Estim Creat Clear Calc Estimated GFR Random Glucose (60-115) mg/dL Lactic Acid 1.6 (0.5-2.0) mmol/L Calcium (8.4-10.2) mg/dL Magnesium (1.6-2.6) mg/dL Total Bilirubin (0.0-1.0) mg/dL AST (5-37) U/L ALT (0-40) U/L Alkaline Phosphatase (39-117) U/L Troponin I High Sens < 2.7 (<3.5-35.0) ng/L B-Natriuretic Peptide (<100) pg/mL Total Protein (6.5-8.0) g/dL Albumin (3.5-5.0) g/dL COVID-19 (BK) (Negative) COVID-19 Clin Com 01/15/23 Range/Units 14:28 WBC (4.8-10.8) X10*3/uL RBC (4.60-5.80) X10*6/uL Hgb (14.0-18.0) g/dl Hct (42.0-52.0) % MCV (80.0-98.0) fL MCH (27.0-33.0) pg MCHC (31.0-36.0) g/dl RDW (11.0-16.0) % Plt Count (160-400) X10*3/uL MPV (9.4-12.4) fL Immature Gran % (Auto) (0.0-0.4) % Neut % (Auto) (45-73) % Lymph % (Auto) (20-40) % [place] % (Auto) (2-11) % Eos % (Auto) (0-4) % Baso % (Auto) (0-2) % Lymph # (Auto) (1.2-4.9) X10*3/uL [place] # (Auto) (0.1-1.2) X10*3/uL Eos # (Auto) (0.0-0.4) X10*3/uL Baso # (Auto) (0.0-0.2) X10*3/uL Abs Immat Gran (auto) (0.00-0.03) X10*3/uL Absolute Neuts (auto) (2.0-8.3) x10*3/uL Absolute Nucleated RBC (0.0-0.012) X10*3/uL Nucleated RBC % (auto) (0.0-0.2) /100WBC Smear Tech's Comments PT (10.0-13.1) SEC INR (0.9-1.1) APTT (26.0-36.4) SEC Sodium (135-145) mmol/L Potassium (3.3-5.1) mmol/L Chloride (96-108) mmol/L Carbon Dioxide (22-29) mmol/L Anion Gap (12-20) BUN (9-16) mg/dL Creatinine (0.5-1.4) mg/dL Estim Creat Clear Calc Estimated GFR Random Glucose (60-115) mg/dL Lactic Acid (0.5-2.0) mmol/L Calcium (8.4-10.2) mg/dL Magnesium (1.6-2.6) mg/dL Total Bilirubin (0.0-1.0) mg/dL AST (5-37) U/L ALT (0-40) U/L Alkaline Phosphatase (39-117) U/L Troponin I High Sens (<3.5-35.0) ng/L B-Natriuretic Peptide 856 H (<100) pg/mL Total Protein (6.5-8.0) g/dL Albumin (3.5-5.0) g/dL COVID-19 (BK) (Negative) COVID-19 Clin Com Independent Interpretation I performed an independent interpretation of an: EKG (Atrial fibrillation with RVR. Ventricular rate 114. QRS 96. QTC 446. Negative STEMI) and Plain X-Ray Radiology Impression Discussion of test interpretation with radiology: I have reviewed the radiologist's reading. Independent Historian Clinical information obtained from an independent historian. History obtained from or confirmed by: Other (Brother and sister) External Record Review External record reviewed: Other (Waiting on [facility]) Discharge Plan Discharge Clinical Impression: Atrial fibrillation with rapid ventricular response, Aspiration pneumonia Patient Disposition: Admitted As Inpatient Interventions: Admission Worksheet (ED) Last Done: 01/15/23 21:12 Discharge Date/Time: 01/15/23 21:34
[2023-01-15 14:29] LABS: INTERNATIONAL NORM RATIO 1.7 (0.9-1.1); Prothrombin Time 19.8 SEC (10.0-13.1)
[2023-01-15 14:32] LABS: Partial Thromboplastin Time 30.8 SEC (26.0-36.4)
[2023-01-15 14:38] LABS: Lactic Acid 1.6 mmol/L (0.5-2.0)
[2023-01-15 14:51] LABS: Troponin-I High Sensitivity < 2.7 ng/L (<3.5-35.0)
[2023-01-15] MEDS: dilTIAZem HCL 50 MG/10 ML VIAL 10 MG IVPUSH (15:07)
[2023-01-15 15:08] LABS: B Type Natriuretic Peptide 856 pg/mL (<100)
--- NOTE | 2023-01-15 15:09 | PC.NURSE ---
remains in afib, cardizem given per order . no sob, chest pain, or headache
[2023-01-15] MEDS: iohexoL 350 MG/ML 100 ML INFUS..BTL IV (16:06)
[2023-01-15] MEDS: Amiodarone HCL 200 MG TABLET 400 MG PO (16:31)
--- NOTE | 2023-01-15 18:35 | PHA.MEDREC ---
Pharmacy Consult ? Medication Reconciliation Pharmacy has completed the medication reconciliation.
--- NOTE | 2023-01-15 18:38 | PM.IMHP ---
History of Present Illness Date of Service: 01/15/23 Chief Complaint: weakness, sob, cough 72M PMH metastatic lung cancer, COPD, PUD, paroxysmal afib, htn, presented with weakness, cough, sob, chest pain, patient has diffuse metastatic disease (liver, peritoneum, bone) he is receiveing palliative chemo and radiation. denies vomitting. in ED found to be septic with pneumonia, and in rapid afib. Review of Systems Review of Systems: Yes all other systems are reviewed and are negative [facility] Medical History Cataract CHF (congestive heart failure) COPD (chronic obstructive pulmonary disease) H. pylori infection History of upper gastrointestinal bleeding HTN (hypertension) Hyperlipemia Loculated pleural effusion Nephrolithiasis Personal history of nicotine dependence PUD (peptic ulcer disease) Tubular adenoma of colon Family History Father No problems noted. Mother No problems noted. Surgical History History of colonoscopy History of esophagogastroduodenoscopy (EGD) History of thoracentesis Social History Household Members: None Housing: Apartment Do you presently have visiting nurse or other home services: No Alcohol intake: former Patient Tobacco Use Status: Former Tobacco user Quit Date: over 10 years ago Tobacco use type: Cigarette Years Smoked: 40 Smoked in Last 30 Days: No e-Cigarette/Vaping Use: Former Use Second Hand Smoke Exposure: No Use of substances other than those prescribed or required for medical reasons: No Advance Directives: Yes Advance Directives on File: Yes Advance Directives Date on File: 11/05/22 service: No Current occupational status: employed and retired Cognitive needs: No Hearing needs: No Vision needs: No Meds Allergies Allergy/AdvReac Type Severity Reaction Status Date / Time No Known Allergies Allergy Verified 01/11/23 11:03 Active Medications: Current Medications Amiodarone HCl (Amiodarone Hcl 200 Mg Tablet) 200 mg PO DAILY [facility] Apixaban (Apixaban 5 Mg Tablet) 5 mg PO BID [facility] Dexamethasone (Dexamethasone 4 Mg Tablet) 4 mg PO BIDWM [facility] Hydromorphone HCl (Hydromorphone Hcl 0.5 Mg/0.5 Ml Syringe) 0.5 mg IVPUSH Q4H PRN; Protocol PRN Reason: moderate pain Vancomycin HCl 1,500 mg/ (Sodium Chloride) 500 mls @ 333.333 mls/hr IV ONCE ONE Stop: 01/15/23 19:21 Sodium Chloride (Ns) 1,000 mls @ 80 mls/hr IVCONT .[id number] [facility] Piperacillin Sod/Tazobactam (Sod 3.375 gm/ Sodium Chloride) 50 mls @ 100 mls/hr IV Q6H [facility] Metoprolol Tartrate (Metoprolol Tartrate 25 Mg Tablet) 25 mg PO BID [facility]; Protocol Multivitamins/Vitamin C (Multivitamin Tablet) 1 tab PO DAILY [facility] Omeprazole (Omeprazole 40 Mg Capsule.Dr) 40 mg PO DAILY@0630 [facility] Pharmacy Consult (Consult Rx Perform Med Rec) 1 each MISCELLANE ONCE PRN PRN Reason: Consult order Sodium Chloride (0.9 % Sodium Chloride Flush 3 Ml Syringe) 3 ml IVFLUSH QSHIFT [facility] Home Medications Medication Instructions Recorded Confirmed Last Taken Type multivitamin 1 tab PO DAILY 12/22/22 01/15/23 12/22/22 History dexamethasone 4 mg tablet 4 mg PO BID 01/15/23 01/15/23 Unknown History hydromorphone 4 mg tablet 4 mg PO Q4H PRN Pain 01/15/23 01/15/23 Unknown History Physical Exam Vital Signs and Narrative: Vital Signs: Last Vital Signs Temp 98.8 F 01/15/23 12:40 Pulse 129 H 01/15/23 15:09 Resp 20 01/15/23 15:09 BP 117/72 01/15/23 15:09 Pulse Ox 95 01/15/23 15:09 O2 Del Method Nasal Cannula 01/15/23 15:09 O2 Flow Rate 3 01/15/23 15:09 BMI result Body Mass Index 23.5 Results Labs 01/15/23 12:36 01/15/23 12:02 Labs: Laboratory Results - last 24 hr 01/15/23 01/15/23 01/15/23 12:02 12:36 12:36 MCV 81.5 MCH 24.5 L MCHC 30.0 L RDW 16.2 H Plt Count 615 H MPV 9.1 L Immature Gran % (Auto) 1.3 H Neut % (Auto) 92.7 H Lymph % (Auto) 2.5 L [place] % (Auto) 3.3 Eos % (Auto) 0.0 Baso % (Auto) 0.2 Lymph # (Auto) 1.1 L [place] # (Auto) 1.5 H Eos # (Auto) 0.0 Baso # (Auto) 0.1 Abs Immat Gran (auto) 0.56 H Absolute Neuts (auto) 41.5 H Absolute Nucleated RBC 0.000 Nucleated RBC % (auto) 0.0 Smear Tech's Comments VERIFIED PT INR APTT Anion Gap 17 Estim Creat Clear Calc 54.7 Estimated GFR > 60 Random Glucose 152 H Lactic Acid Calcium 11.3 H D Magnesium 2.2 Total Bilirubin 0.2 AST 10 ALT 13 Alkaline Phosphatase 218 H Troponin I High Sens B-Natriuretic Peptide Total Protein 6.1 L Albumin 2.8 L COVID-19 (BK) Negative COVID-19 Clin Com See Note 01/15/23 01/15/23 01/15/23 14:05 14:06 14:08 MCV MCH MCHC RDW Plt Count MPV Immature Gran % (Auto) Neut % (Auto) Lymph % (Auto) [place] % (Auto) Eos % (Auto) Baso % (Auto) Lymph # (Auto) [place] # (Auto) Eos # (Auto) Baso # (Auto) Abs Immat Gran (auto) Absolute Neuts (auto) Absolute Nucleated RBC Nucleated RBC % (auto) Smear Tech's Comments PT 19.8 H INR 1.7 H APTT 30.8 Anion Gap Estim Creat Clear Calc Estimated GFR Random Glucose Lactic Acid 1.6 Calcium Magnesium Total Bilirubin AST ALT Alkaline Phosphatase Troponin I High Sens < 2.7 B-Natriuretic Peptide Total Protein Albumin COVID-19 (BK) COVID-19 Clin Com 01/15/23 14:28 MCV MCH MCHC RDW Plt Count MPV Immature Gran % (Auto) Neut % (Auto) Lymph % (Auto) [place] % (Auto) Eos % (Auto) Baso % (Auto) Lymph # (Auto) [place] # (Auto) Eos # (Auto) Baso # (Auto) Abs Immat Gran (auto) Absolute Neuts (auto) Absolute Nucleated RBC Nucleated RBC % (auto) Smear Tech's Comments PT INR APTT Anion Gap Estim Creat Clear Calc Estimated GFR Random Glucose Lactic Acid Calcium Magnesium Total Bilirubin AST ALT Alkaline Phosphatase Troponin I High Sens B-Natriuretic Peptide 856 H Total Protein Albumin COVID-19 (BK) COVID-19 Clin Com Imaging Radiologist's Impressions: Impressions Chest X-Ray 01/15/23 12:52 IMPRESSION: Stable x-ray exam with volume loss to the left hemithorax, small left pleural effusion and left lung airspace disease. Abdomen/Pelvis CT 01/15/23 16:23 IMPRESSION: 1. No pulmonary embolism. 2. Increased small bilateral pleural effusions, particularly on the right. Associated atelectasis. 3. Bronchial filling defects are seen bilaterally with bronchial wall thickening. This is new from prior and may be associated with aspiration. 4. Redemonstration of the left hilar lesion. Mediastinal lymphadenopathy. 5. Increased prominence of multiple hepatic lesions, concerning for worsening metastatic disease. 6. Development of omental caking. There is also irregular wall thickening of the small bowel, particularly in the pelvis. This is concerning for metastatic disease. No bowel obstruction. 7. Increased prominence of the hyperdense lesion in the left iliacus muscle. 8. Multiple metastatic lesions throughout the osseous structures. VTE: negative Chest CTA 01/15/23 16:24 IMPRESSION: 1. No pulmonary embolism. 2. Increased small bilateral pleural effusions, particularly on the right. Associated atelectasis. 3. Bronchial filling defects are seen bilaterally with bronchial wall thickening. This is new from prior and may be associated with aspiration. 4. Redemonstration of the left hilar lesion. Mediastinal lymphadenopathy. 5. Increased prominence of multiple hepatic lesions, concerning for worsening metastatic disease. 6. Development of omental caking. There is also irregular wall thickening of the small bowel, particularly in the pelvis. This is concerning for metastatic disease. No bowel obstruction. 7. Increased prominence of the hyperdense lesion in the left iliacus muscle. 8. Multiple metastatic lesions throughout the osseous structures. VTE: negative Head CT 01/15/23 16:24 IMPRESSION: Small enhancing lesions in the right temporal and bilateral frontal lobes No mass effect. 1 cm lytic lesion in the left frontal bone questionable for metastatic disease. Assessment and Plan (1) Atrial fibrillation with rapid ventricular response: Status: Acute Plan 72M PMH metastatic lung cancer, COPD, PUD, paroxysmal afib, htn, presented with weakness, cough, sob, chest pain sepsis and acute hypoxic respiratory failure due to aspiration pneumonia in immunocompromised patient with metastatic lung cancer IV Zosyn, follow-up cultures, wean O2 as tolerated Paroxysmal atrial fibrillation with rapid ventricular response Due to above Continue amiodarone and metoprolol and Eliquis COPD Continue inhalers DVT prophylaxis-on Eliquis DNR/DNI Patient with sepsis and hypoxia, high risk for further decompensation due to advanced lung cancer and frailty therefore expected require at least 2 midnights inpatient Time Spent With Patient Time: Total time managing care of this patient today ____ minutes. Quality Stroke Does the patient have a stroke diagnosis?: No VTE Prior VTE?: No VTE Risk Level:: Medical - moderate - high VTE Device Contraindication: Treatment Not Indicated VTE Drug Contraindication: N/A - Med Ordered
[2023-01-15] MEDS: vancomycin HCL 1,500 MG in 0.9 % Sodium Chloride 500 ML 333.33 MG IV (18:46)
[2023-01-15] MEDS: Piperacillin Sodium/Tazobactam 3.375 GM in 0.9 % Sodium Chloride 50 ML IV ×2 (18:51→23:45)
[2023-01-15] MEDS: 0.9 % Sodium Chloride 1,000 ML 80 ML IVCONT (20:34)
[2023-01-15] MEDS: HYDROmorphone HCl 0.5 MG/0.5 ML SYRINGE IVPUSH (21:52)
[2023-01-15] MEDS: Apixaban 5 MG TABLET PO (21:53)
[2023-01-15] MEDS: Metoprolol Tartrate 25 MG TABLET PO (21:53)
[2023-01-15] MEDS: 0.9 % Sodium Chloride Flush 3 ML SYRINGE IVFLUSH (23:47)
[2023-01-16] MEDS: ondansetron HCL 4 MG/2 ML VIAL IVPUSH (00:02)
[2023-01-16 03:32] VITALS: BP 156/84; PULSE 77; RESP 20; TEMP 36.1; O2SAT 91
[2023-01-16] MEDS: HYDROmorphone HCl 0.5 MG/0.5 ML SYRINGE IVPUSH ×2 (03:41→06:48)
[2023-01-16] MEDS: Piperacillin Sodium/Tazobactam 3.375 GM in 0.9 % Sodium Chloride 50 ML IV ×3 (05:21→17:36)
[2023-01-16] MEDS: Omeprazole 40 MG CAPSULE.DR PO (05:23)
--- NOTE | 2023-01-16 07:05 | PC.NURSE ---
Pt conveted to Afib 120s-130s on tele, pt sob and c/o of pain . PRN dilauid given MD made aware new order for CXR NS@ 80 ml/hr stopped md made aware okay per md. Report given to oncoming [facility]
[2023-01-16 07:22] LABS: Hematocrit 30.5 % (42.0-52.0); Hemoglobin 9.1 g/dl (14.0-18.0); Mean Corpuscular HGB Conc 29.8 g/dl (31.0-36.0); Mean Corpuscular Hemoglobin 24.7 pg (27.0-33.0); Mean Corpuscular Volume 82.7 fL (80.0-98.0); Platelet Count 575 X10*3/uL (160-400); Red Blood Count 3.69 X10*6/uL (4.60-5.80); Red Cell Distribution Width 16.3 % (11.0-16.0)
[2023-01-16 07:35] VITALS: BP 122/77; PULSE 132; RESP 22; TEMP 36.2; O2SAT 92
[2023-01-16 07:42] LABS: Anion Gap 15 (12-20); Blood Urea Nitrogen 32 mg/dL (9-16); Calcium 10.6 mg/dL (8.4-10.2); Carbon Dioxide 20 mmol/L (22-29); Chloride 110 mmol/L (96-108); Creatinine Clr Calc Pharmacy 72.5; Estimated Glomerular Filt Rate > 60; Glucose Fasting 137 mg/dL (60-99); Potassium 3.3 mmol/L (3.3-5.1); Sodium 142 mmol/L (135-145)
[2023-01-16 07:51] LABS: White Blood Count 45.1 X10*3/uL (4.8-10.8)
--- NOTE | 2023-01-16 08:54 | HO.PM.IMPN ---
Subjective Subjective Date of Service: 01/16/23 Interval History: pain, sob Physical Exam Vital Signs: Vital Signs: Last Vital Signs Temp 97.2 F 01/16/23 07:35 Pulse 132 H 01/16/23 07:35 Resp 22 H 01/16/23 07:35 BP 122/77 01/16/23 07:35 Pulse Ox 92 01/16/23 07:35 O2 Del Method Nasal Cannula 01/16/23 07:35 O2 Flow Rate 5 01/16/23 07:35 BMI result Body Mass Index 23.5 ill appearing, frail, crackles Objective Data Active Medications Amiodarone HCl (Amiodarone Hcl 200 Mg Tablet) 200 mg PO DAILY [facility] Apixaban (Apixaban 5 Mg Tablet) 5 mg PO BID [facility] Last Admin: 01/15/23 21:53 Dose: 5 mg Documented By: ANGELITO Dexamethasone (Dexamethasone 4 Mg Tablet) 4 mg PO BIDWM [facility] Hydromorphone HCl (Hydromorphone Hcl 0.5 Mg/0.5 Ml Syringe) 1 mg IVPUSH Q4H PRN; Protocol PRN Reason: moderate pain Sodium Chloride (Ns) 1,000 mls @ 80 mls/hr IVCONT .[id number] [facility] Last Admin: 01/16/23 07:20 Dose: Not Given Documented By: AKIKO Non-Admin Reason: IV Running Piperacillin Sod/Tazobactam (Sod 3.375 gm/ Sodium Chloride) 50 mls @ 100 mls/hr IV Q6H [facility] Last Infusion: 01/16/23 05:54 Dose: 0 mls/hr Documented By: MISSY Metoprolol Tartrate (Metoprolol Tartrate 25 Mg Tablet) 25 mg PO BID [facility]; Protocol Last Admin: 01/15/23 21:53 Dose: 25 mg Documented By: ANGELITO Multivitamins/Vitamin C (Multivitamin Tablet) 1 tab PO DAILY [facility] Omeprazole (Omeprazole 40 Mg Capsule.Dr) 40 mg PO DAILY@0630 [facility] Last Admin: 01/16/23 05:23 Dose: 40 mg Documented By: MISSY Ondansetron HCl (Ondansetron Hcl 4 Mg/2 Ml Vial) 4 mg IVPUSH Q4H PRN PRN Reason: Nausea and Vomiting Last Admin: 01/16/23 00:02 Dose: 4 mg Documented By: MISSY Pharmacy Consult (Consult Rx Perform Med Rec) 1 each MISCELLANE ONCE PRN PRN Reason: Consult order Sodium Chloride (0.9 % Sodium Chloride Flush 3 Ml Syringe) 3 ml IVFLUSH QSHIFT [facility] Last Admin: 01/15/23 23:47 Dose: 3 ml Documented By: MISSY Labs 01/16/23 07:06 01/16/23 07:06 Labs: Laboratory Results - last 24 hr 01/15/23 01/15/23 01/15/23 12:02 12:36 12:36 MCV 81.5 MCH 24.5 L MCHC 30.0 L RDW 16.2 H Plt Count 615 H MPV 9.1 L Immature Gran % (Auto) 1.3 H Neut % (Auto) 92.7 H Lymph % (Auto) 2.5 L [place] % (Auto) 3.3 Eos % (Auto) 0.0 Baso % (Auto) 0.2 Lymph # (Auto) 1.1 L [place] # (Auto) 1.5 H Eos # (Auto) 0.0 Baso # (Auto) 0.1 Abs Immat Gran (auto) 0.56 H Absolute Neuts (auto) 41.5 H Absolute Nucleated RBC 0.000 Nucleated RBC % (auto) 0.0 Smear Tech's Comments VERIFIED PT INR APTT Anion Gap 17 Estim Creat Clear Calc 54.7 Estimated GFR > 60 Random Glucose 152 H Fasting Glucose Lactic Acid Calcium 11.3 H D Magnesium 2.2 Total Bilirubin 0.2 AST 10 ALT 13 Alkaline Phosphatase 218 H Troponin I High Sens B-Natriuretic Peptide Total Protein 6.1 L Albumin 2.8 L COVID-19 (BK) Negative COVID-19 Clin Com See Note 01/15/23 01/15/23 01/15/23 14:05 14:06 14:08 MCV MCH MCHC RDW Plt Count MPV Immature Gran % (Auto) Neut % (Auto) Lymph % (Auto) [place] % (Auto) Eos % (Auto) Baso % (Auto) Lymph # (Auto) [place] # (Auto) Eos # (Auto) Baso # (Auto) Abs Immat Gran (auto) Absolute Neuts (auto) Absolute Nucleated RBC Nucleated RBC % (auto) Smear Tech's Comments PT 19.8 H INR 1.7 H APTT 30.8 Anion Gap Estim Creat Clear Calc Estimated GFR Random Glucose Fasting Glucose Lactic Acid 1.6 Calcium Magnesium Total Bilirubin AST ALT Alkaline Phosphatase Troponin I High Sens < 2.7 B-Natriuretic Peptide Total Protein Albumin COVID-19 (KB) COVID-19 Clin Com 01/15/23 01/16/23 01/16/23 14:28 07:06 07:06 MCV 82.7 MCH 24.7 L MCHC 29.8 L RDW 16.3 H Plt Count 575 H MPV 9.0 L Immature Gran % (Auto) Neut % (Auto) Lymph % (Auto) [place] % (Auto) Eos % (Auto) Baso % (Auto) Lymph # (Auto) [place] # (Auto) Eos # (Auto) Baso # (Auto) Abs Immat Gran (auto) Absolute Neuts (auto) Absolute Nucleated RBC 0.000 Nucleated RBC % (auto) 0.0 Smear Tech's Comments PT INR APTT Anion Gap 15 Estim Creat Clear Calc 72.5 Estimated GFR > 60 Random Glucose Fasting Glucose 137 H Lactic Acid Calcium 10.6 H D Magnesium Total Bilirubin AST ALT Alkaline Phosphatase Troponin I High Sens B-Natriuretic Peptide 856 H Total Protein Albumin COVID-19 (BK) COVID-19 Clin Com Assessment and Plan (1) Atrial fibrillation with rapid ventricular response: Status: Acute Plan 72M PMH metastatic lung cancer, COPD, PUD, paroxysmal afib, htn, presented with weakness, cough, sob, chest pain sepsis and acute hypoxic respiratory failure due to aspiration pneumonia in immunocompromised patient with metastatic lung cancer IV Zosyn, follow-up cultures, wean O2 as tolerated Paroxysmal atrial fibrillation with rapid ventricular response Due to above Continue amiodarone and metoprolol and Eliquis COPD Continue inhalers DVT prophylaxis-on Eliquis DNR/DNI prognosis guarded reason for continued hospitalization:hpoxia, sob, pain Time Spent With Patient Time: Total time managing care of this patient today ____ minutes. Quality Stroke Does the patient have a stroke diagnosis?: No VTE Prior VTE?: No VTE Risk Level:: Medical - moderate - high VTE Device Contraindication: Treatment Not Indicated VTE Drug Contraindication: N/A - Med Ordered
[2023-01-16] MEDS: Amiodarone HCL 200 MG TABLET PO (09:34)
[2023-01-16] MEDS: Apixaban 5 MG TABLET PO ×2 (09:43→21:38)
[2023-01-16] MEDS: HYDROmorphone HCl 0.5 MG/0.5 ML SYRINGE 1 MG IVPUSH ×4 (09:58→21:37)
[2023-01-16 12:00] VITALS: BP 122/76; PULSE 134; RESP 20; TEMP 36.2; O2SAT 92
--- NOTE | 2023-01-16 14:43 | MHC.CM.PN ---
IMM 01/16. Pt admitted with sepsis, a-fib, and pneumonia. Pt also with metastatic lung cancer. Pt not alert enough to speak with CM, pts sister/HCP Danita [phone] was present at bedside and able to provide information. Pt lives alone but has recently been living with his sister due to his decline in health. Pt mainly lies in bed unable to do much activity. Pts sister states he has a VNA coming to see him 3x/week, they think the agency is [facility]. D/C plan pending further evaluation, but likely return home with resumption of VNA vs hospice care. Danita states they were talking about Palliative care vs Hospice but have been told he is very sick, the cancer has spread everywhere, and there is not much that can be done for him. Danita states she is afraid of bringing him home because she is scared of him passing in her home. Pt will need transportation via [email or web address]. PCP: Haydee Jaime vax: x 2
[2023-01-16 15:14] VITALS: BP 93/73; PULSE 122; RESP 20; TEMP 36.2; O2SAT 93
[2023-01-16] MEDS: 0.9 % Sodium Chloride Flush 3 ML SYRINGE IVFLUSH (17:36)
[2023-01-16 19:27] VITALS: BP 122/67; PULSE 90; RESP 20; TEMP 36.7; O2SAT 90
[2023-01-16] MEDS: Metoprolol Tartrate 25 MG TABLET PO (21:38)
[2023-01-17] VITALS: BP 153/74; PULSE 80; RESP 20; TEMP 36.6; O2SAT 91
[2023-01-17] MEDS: 0.9 % Sodium Chloride Flush 3 ML SYRINGE IVFLUSH (00:48)
[2023-01-17] MEDS: Piperacillin Sodium/Tazobactam 3.375 GM in 0.9 % Sodium Chloride 50 ML IV ×4 (00:49→17:09)
[2023-01-17] MEDS: HYDROmorphone HCl 0.5 MG/0.5 ML SYRINGE 1 MG IVPUSH ×5 (01:35→21:27)
[2023-01-17 03:12] VITALS: BP 98/71; PULSE 120; RESP 20; TEMP 36.6; O2SAT 91
[2023-01-17] MEDS: Omeprazole 40 MG CAPSULE.DR PO (06:03)
[2023-01-17] MEDS: 0.9 % Sodium Chloride 1,000 ML 80 ML IVCONT (06:04)
[2023-01-17 07:47] VITALS: BP 128/84; PULSE 137; RESP 22; TEMP 36.6; O2SAT 92
[2023-01-17] MEDS: dexAMETHasone 4 MG TABLET PO ×2 (08:16→17:06)
[2023-01-17] MEDS: Amiodarone HCL 200 MG TABLET PO (08:16)
[2023-01-17] MEDS: Multivitamin TABLET 1 TAB PO (08:16)
[2023-01-17] MEDS: guaiFENesin LA 600 MG TAB.ER.12H PO ×2 (08:16→21:22)
[2023-01-17] MEDS: Apixaban 5 MG TABLET PO ×2 (08:16→21:22)
[2023-01-17] MEDS: Metoprolol Tartrate 25 MG TABLET PO (08:16)
--- NOTE | 2023-01-17 09:27 | HO.PM.IMPN ---
Subjective Subjective Date of Service: 01/17/23 Interval History: pain, sob Physical Exam Vital Signs: Vital Signs: Last Vital Signs Temp 97.8 F 01/17/23 07:47 Pulse 137 H 01/17/23 07:47 Resp 22 H 01/17/23 07:47 BP 128/84 01/17/23 07:47 Pulse Ox 92 01/17/23 07:47 O2 Del Method Nasal Cannula 01/17/23 07:47 O2 Flow Rate 5 01/17/23 07:47 BMI result Body Mass Index 23.5 ill appearing, frail, crackles Objective Data Active Medications Amiodarone HCl (Amiodarone Hcl 200 Mg Tablet) 200 mg PO DAILY [facility] Last Admin: 01/17/23 08:16 Dose: 200 mg Documented By: BERNA Apixaban (Apixaban 5 Mg Tablet) 5 mg PO BID [facility] Last Admin: 01/17/23 08:16 Dose: 5 mg Documented By: BERNA Dexamethasone (Dexamethasone 4 Mg Tablet) 4 mg PO BIDWM [facility] Last Admin: 01/17/23 08:16 Dose: 4 mg Documented By: BERNA Guaifenesin (Guaifenesin La 600 Mg Tab.Er.12h) 600 mg PO BID [facility] Last Admin: 01/17/23 08:16 Dose: 600 mg Documented By: BERNA Hydromorphone HCl (Hydromorphone Hcl 0.5 Mg/0.5 Ml Syringe) 1 mg IVPUSH Q4H PRN; Protocol PRN Reason: moderate pain Last Admin: 01/17/23 08:12 Dose: 1 mg Documented By: BERNA Sodium Chloride (Ns) 1,000 mls @ 80 mls/hr IVCONT .[id number] [facility] Last Admin: 01/17/23 06:04 Dose: 80 mls/hr Documented By: SUNNY Piperacillin Sod/Tazobactam (Sod 3.375 gm/ Sodium Chloride) 50 mls @ 100 mls/hr IV Q6H [facility] Last Infusion: 01/17/23 06:43 Dose: 0 mls/hr Documented By: SUNNY Metoprolol Tartrate (Metoprolol Tartrate 25 Mg Tablet) 25 mg PO BID [facility]; Protocol Last Admin: 01/17/23 08:16 Dose: 25 mg Documented By: BERNA Morphine Sulfate (Morphine Sulfate Er 15 Mg Tablet.Er) 15 mg PO Q12H [facility] Multivitamins/Vitamin C (Multivitamin Tablet) 1 tab PO DAILY [facility] Last Admin: 01/17/23 08:16 Dose: 1 tab Documented By: BERNA Omeprazole (Omeprazole 40 Mg Capsule.Dr) 40 mg PO DAILY@0630 [facility] Last Admin: 01/17/23 06:03 Dose: 40 mg Documented By: SUNNY Ondansetron HCl (Ondansetron Hcl 4 Mg/2 Ml Vial) 4 mg IVPUSH Q4H PRN PRN Reason: Nausea and Vomiting Last Admin: 01/16/23 00:02 Dose: 4 mg Documented By: MISSY Pharmacy Consult (Consult Rx Perform Med Rec) 1 each MISCELLANE ONCE PRN PRN Reason: Consult order Sodium Chloride (0.9 % Sodium Chloride Flush 3 Ml Syringe) 3 ml IVFLUSH QSHIFT [facility] Last Admin: 01/17/23 08:17 Dose: Not Given Documented By: BERNA Non-Admin Reason: IV Running Labs 01/16/23 07:06 01/16/23 07:06 Microbiology Microbiology Results: Microbiology 01/15/23 14:06 Blood Culture - Preliminary Blood - Venous No growth after 24 hours. 01/15/23 14:07 Blood Culture - Preliminary Blood - Venous No growth after 24 hours. Assessment and Plan (1) Atrial fibrillation with rapid ventricular response: Status: Acute Plan 72M PMH metastatic lung cancer, COPD, PUD, paroxysmal afib, htn, presented with weakness, cough, sob, chest pain sepsis and acute hypoxic respiratory failure due to aspiration pneumonia in immunocompromised patient with metastatic lung cancer IV Zosyn, follow-up cultures, wean O2 as tolerated will add mucinex and ms contin Paroxysmal atrial fibrillation with rapid ventricular response Due to above Continue amiodarone and metoprolol - increase to 50mg bid, and Eliquis COPD Continue inhalers DVT prophylaxis-on Eliquis DNR/DNI prognosis guarded reason for continued hospitalization:hypoxia, sob, pain Time Spent With Patient Time: Total time managing care of this patient today ____ minutes. Quality Stroke Does the patient have a stroke diagnosis?: No VTE Prior VTE?: No VTE Risk Level:: Medical - moderate - high VTE Device Contraindication: Treatment Not Indicated VTE Drug Contraindication: N/A - Med Ordered
[2023-01-17] MEDS: Morphine Sulfate ER 15 MG TABLET.ER PO ×2 (09:55→21:22)
[2023-01-17 11:52] VITALS: BP 116/77; PULSE 85; RESP 22; TEMP 36.6; O2SAT 93
[2023-01-17 16:07] VITALS: BP 114/68; PULSE 84; RESP 20; TEMP 36; O2SAT 94
[2023-01-17 20:21] VITALS: BP 143/77; PULSE 131; RESP 22; TEMP 36.2; O2SAT 90
[2023-01-17] MEDS: Metoprolol Tartrate 50 MG TABLET PO (21:23)
[2023-01-18] VITALS: BP 132/82; PULSE 90; RESP 20; TEMP 36.6; O2SAT 90
[2023-01-18] MEDS: 0.9 % Sodium Chloride Flush 3 ML SYRINGE IVFLUSH (00:02)
[2023-01-18] MEDS: Piperacillin Sodium/Tazobactam 3.375 GM in 0.9 % Sodium Chloride 50 ML IV ×2 (00:03→06:26)
[2023-01-18 03:19] VITALS: BP 136/74; PULSE 85; RESP 20; TEMP 36.2; O2SAT 94
[2023-01-18] MEDS: Omeprazole 40 MG CAPSULE.DR PO (05:48)
--- NOTE | 2023-01-18 05:54 | PC.NURSE ---
CARE ASSUMED 23:15...DROWSY..NODS YES/NO TO QUESTIONS...RECEIVED SCHEDED MS-CONTIN AND PRN DILAUDID AT HS PER SHIFT REPORT....MONITOR ATRIAL FIB AT HS BUT REVERTED SPONTANEOUSLY TO NSR AND HAS REMAINED NSR OVERNIGHT...O2 5 L/M...SAO2 IMPROVED FROM 90-91% TO 95-96%...HNV...[employer] APPLIED THIS AM...BLADDER SCAN FOR 170ml...REMAINS DROWSY BUT NODS YES/NO TO QUESTIONS..DENIED PAIN
[2023-01-18 06:26] LABS: Hematocrit 33.9 % (42.0-52.0); Hemoglobin 9.4 g/dl (14.0-18.0); Mean Corpuscular HGB Conc 27.7 g/dl (31.0-36.0); Mean Corpuscular Hemoglobin 24.5 pg (27.0-33.0); Mean Corpuscular Volume 88.5 fL (80.0-98.0); Mean Platelet Volume 9.4 fL (9.4-12.4); Platelet Count 579 X10*3/uL (160-400); Red Blood Count 3.83 X10*6/uL (4.60-5.80)
[2023-01-18 06:35] LABS: White Blood Count 46.8 X10*3/uL (4.8-10.8)
[2023-01-18 06:58] LABS: Anion Gap 19 (12-20); Blood Urea Nitrogen 60 mg/dL (9-16); Carbon Dioxide 21 mmol/L (22-29); Chloride 111 mmol/L (96-108); Creatinine Clr Calc Pharmacy 34.3; Estimated Glomerular Filt Rate 37; Glucose Fasting 146 mg/dL (60-99); Potassium 4.5 mmol/L (3.3-5.1); Sodium 146 mmol/L (135-145)
[2023-01-18 08:00] VITALS: BP 117/57; PULSE 88; RESP 20; TEMP 36.3
--- NOTE | 2023-01-18 08:39 | P.PNIM_ITS ---
Subjective Subjective Date of Service: 01/18/23 Interval History: unable to obtain Physical Exam Vital Signs: Vital Signs: Last Vital Signs Temp 97.3 F 01/18/23 08:00 Pulse 88 01/18/23 08:00 Resp 20 01/18/23 08:00 BP 117/57 L 01/18/23 08:00 Pulse Ox 94 01/18/23 03:19 O2 Del Method Nasal Cannula 01/18/23 03:19 O2 Flow Rate 5 01/18/23 03:19 BMI result Body Mass Index 23.5 ill appearing, tachypneic, obtunded Objective Data Active Medications Amiodarone HCl (Amiodarone Hcl 200 Mg Tablet) 200 mg PO DAILY [facility] Last Admin: 01/17/23 08:16 Dose: 200 mg Documented By: BERNA Apixaban (Apixaban 5 Mg Tablet) 5 mg PO BID [facility] Last Admin: 01/17/23 21:22 Dose: 5 mg Documented By: RENUKA Dexamethasone (Dexamethasone 4 Mg Tablet) 4 mg PO BIDWM [facility] Last Admin: 01/17/23 17:06 Dose: 4 mg Documented By: BERNA Guaifenesin (Guaifenesin La 600 Mg Tab.Er.12h) 600 mg PO BID [facility] Last Admin: 01/17/23 21:22 Dose: 600 mg Documented By: RENUKA Hydromorphone HCl (Hydromorphone Hcl 0.5 Mg/0.5 Ml Syringe) 1 mg IVPUSH Q4H PRN; Protocol PRN Reason: moderate pain Last Admin: 01/17/23 21:27 Dose: 1 mg Documented By: RENUKA Piperacillin Sod/Tazobactam (Sod 3.375 gm/ Sodium Chloride) 50 mls @ 100 mls/hr IV Q6H [facility] Last Infusion: 01/18/23 07:54 Dose: 0 mls/hr Documented By: JOAQUIN Metoprolol Tartrate (Metoprolol Tartrate 50 Mg Tablet) 50 mg PO BID [facility]; Protocol Last Admin: 01/17/23 21:23 Dose: 50 mg Documented By: RENUKA Morphine Sulfate (Morphine Sulfate Er 15 Mg Tablet.Er) 15 mg PO Q12H [facility] Last Admin: 01/17/23 21:22 Dose: 15 mg Documented By: RENUKA Multivitamins/Vitamin C (Multivitamin Tablet) 1 tab PO DAILY [facility] Last Admin: 01/17/23 08:16 Dose: 1 tab Documented By: BERNA Omeprazole (Omeprazole 40 Mg Capsule.) 40 mg PO DAILY@0630 [facility] Last Admin: 01/18/23 05:48 Dose: 40 mg Documented By: YOBANY Ondansetron HCl (Ondansetron Hcl 4 Mg/2 Ml Vial) 4 mg IVPUSH Q4H PRN PRN Reason: Nausea and Vomiting Last Admin: 01/16/23 00:02 Dose: 4 mg Documented By: MISSY Pharmacy Consult (Consult Rx Perform Med Rec) 1 each MISCELLANE ONCE PRN PRN Reason: Consult order Sodium Chloride (0.9 % Sodium Chloride Flush 3 Ml Syringe) 3 ml IVFLUSH QSHIFT [facility] Last Admin: 01/18/23 07:53 Dose: Not Given Documented By: JOAQUIN Non-Admin Reason: IV Running Labs 01/18/23 06:13 01/18/23 06:13 Labs: Laboratory Results - last 24 hr 01/18/23 01/18/23 06:13 06:13 MCV 88.5 D MCH 24.5 L MCHC 27.7 L RDW 16.0 Plt Count 579 H MPV 9.4 Absolute Nucleated RBC 0.000 Nucleated RBC % (auto) 0.0 Anion Gap 19 Estim Creat Clear Calc 34.3 Estimated GFR 37 Fasting Glucose 146 H Calcium 11.0 H Microbiology Microbiology Results: Microbiology 01/15/23 14:06 Blood Culture - Preliminary Blood - Venous No growth after 48 hours. 01/15/23 14:07 Blood Culture - Preliminary Blood - Venous No growth after 48 hours. Assessment and Plan (1) Atrial fibrillation with rapid ventricular response: Status: Acute Plan 72M PMH metastatic lung cancer, COPD, PUD, paroxysmal afib, htn, presented with weakness, cough, sob, chest pain sepsis and acute hypoxic respiratory failure due to aspiration pneumonia in immunocompromised patient with metastatic lung cancer IV Zosyn, follow-up cultures, wean O2 as tolerated will add mucinex and ms contin shanique ivf monitor Paroxysmal atrial fibrillation with rapid ventricular response Due to above Continue amiodarone and metoprolol - increased to 50mg bid, and Eliquis COPD Continue inhalers DVT prophylaxis-on Eliquis DNR/DNI prognosis guarded reason for continued hospitalization:hypoxia, sob, pain Time Spent With Patient Time: Total time managing care of this patient today ____ minutes. Quality Stroke Does the patient have a stroke diagnosis?: No VTE Prior VTE?: No VTE Risk Level:: Medical - moderate - high VTE Device Contraindication: Treatment Not Indicated VTE Drug Contraindication: N/A - Med Ordered
[2023-01-18] MEDS: HYDROmorphone HCl 0.5 MG/0.5 ML SYRINGE 1 MG IVPUSH (08:48)
[2023-01-18 08:50] VITALS: BP 115/57; PULSE 89; O2SAT 80
[2023-01-18 09:06] LABS: Glucose, Whole Blood 133 mg/dL (60-115)
[2023-01-18 09:08] VITALS: O2SAT 89
--- NOTE | 2023-01-18 09:23 | PC.NURSE ---
Patient lethargic, restless in bed. Patient's family/family friend at bedside. Family requesting patient to be medicated for pain. 1MG IV dilaudid administered. 02 78% on 5L NC. Respiratory at bedside. Titrated up to 15L nonrebreather- 02 89%. MD notified. MD at bedside to discuss with family about possibility of comfort measures.
--- NOTE | 2023-01-18 10:11 | MHC.CM.PN ---
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
--- NOTE | 2023-01-18 11:04 | W.MHC.ACPN ---
Advanced Care Planning Note Advanced Care Planning Note Discussed with: family member(s) Time spent (in minutes): 18 Narrative: discussed at bedside with patient sister, patient's son, and patient's brotherinlaw, and cousin, regarding diagnosis of end stage lung cancer, due to poor prognosis and rapid decline of patient, decision made to transition to comfort measures only. will discontinue disease directed treatments and interventions and focus on patient's symptoms. Problems Discussed (1) Atrial fibrillation with rapid ventricular response: (2) Mass of left lung:
[2023-01-18] MEDS: LORazepam 2 MG/ML VIAL 1 MG IVPUSH (11:54)
[2023-01-18] MEDS: Scopolamine 1.5 MG PATCH.TD.3 EAR-BEHIND (12:36)
--- NOTE | 2023-01-18 16:08 | P.DN_ITS ---
Discharge Sum: Prov Provider Primary care physician: Haydee Gandhi MD Discharge Sum: Diag Contributing Factors (1) Atrial fibrillation with rapid ventricular response: (2) Mass of left lung: Discharge Sum: Summary Date and Time Date of admission: 01/15/23 18:29 Date of : 01/18/23 Summary Details: from initial hpi: 72M PMH metastatic lung cancer, COPD, PUD, paroxysmal afib, htn, presented with weakness, cough, sob, chest pain, patient has diffuse metastatic disease (liver, peritoneum, bone) he is receiveing palliative chemo and radiation. denies vomitting. in ED found to be septic with pneumonia, and in rapid afib. hospital course: Patient was admitted for sepsis and acute hypoxic respiratory failure due to aspiration pneumonia in immunocompromised patient with metastatic lung cancer. He was treated with IV Zosyn. For acute kidney injury history with IV fluids. For paroxysmal atrial fibrillation with rapid ventricular response he was continued on amiodarone and metoprolol was increased to 50 mg bid, he was contin ued on Eliquis. For COPD he was continued on inhalers. Patient had minimal improvement at 1st, but then rapidly declined, with tachypnea, increased hypoxia, and acute metabolic encephalopathy. After discussion with family, decision was made to transition to comfort measures only. Patient at 16:00 on 01/18/2023. Additional Data Attending physician: Lazaro Carrizales MD
--- NOTE | 2023-01-18 16:08 | PC.NURSE ---
no pulse no respiration at 15:45 , verified with 2 RBN's , Dr Carrizales was notified , attempted to call pt's sister Danita , message left
--- NOTE | 2023-01-18 17:04 | PC.NURSE ---
per Family request : [facility]
== END 2023-01-18 19:00 | disposition expired | DRG 871 ==
LOC: HO.ED 17:55 → HO.EDOVER 18:57 → HO.IMC 20:08
PROVIDERS: Physician Assistant; Physician Assistant Medical; Admitting Provider Internal Medicine; Emergency Provider Emergency Medicine; PCP Internal Medicine; Visit Provider Internal Medicine
DX: A41.9 Sepsis, unspecified organism (principal); G93.41 Metabolic encephalopathy; J69.0 Pneumonitis due to inhalation of food and vomit; J96.01 Acute respiratory failure with hypoxia; N17.9 Acute kidney failure, unspecified; D84.9 Immunodeficiency, unspecified; C34.02 Malignant neoplasm of left main bronchus; C78.7 Secondary malignant neoplasm of liver and intrahepatic bile duct; Z51.5 Encounter for palliative care; C78.6 Secondary malignant neoplasm of retroperitoneum and peritoneum; C79.51 Secondary malignant neoplasm of bone; Z66 Do not resuscitate; I48.0 Paroxysmal atrial fibrillation; Z20.822 Contact with and (suspected) exposure to COVID-19; Z87.891 Personal history of nicotine dependence; Z79.01 Long term (current) use of anticoagulants; Z79.899 Other long term (current) drug therapy
CPT/HCPCS: 36415; 70470; 71045; 71046; 71275; 74177; 80048; 80053; 82947; 83605; 83735; 83880; 84484; 85025; 85027; 85610; 85730; 87040; 87635; 93005; 99285; J1160; J1170; J2060; J2405; J2543; J3371; J8540; Q9967

== ENCOUNTER → 2023-01-15 12:02 | Outpatient (BNV) | payer MEDICARE, MEDICAID, SELFPAY | PROVIDERS: Admitting Provider Internal Medicine; Emergency Provider Emergency Medicine; PCP Internal Medicine; Visit Provider Internal Medicine Cardiovascular Disease | DX: I48.0 Paroxysmal atrial fibrillation (principal); R94.31 Abnormal electrocardiogram [ECG] [EKG] | CPT/HCPCS: 93010 ==

== ENCOUNTER → 2023-01-15 13:03 | Outpatient (BNV) | payer MEDICARE, MEDICAID, SELFPAY | PROVIDERS: Emergency Provider Emergency Medicine; PCP Internal Medicine; Visit Provider Internal Medicine | DX: I48.91 Unspecified atrial fibrillation (principal) | CPT/HCPCS: 99223; 99232; 99233; 99239; 99497 ==